=== PATIENT | female | born 1955 | race Caucasian/White ===

== ENCOUNTER 2021-09-05 09:23 | Day surgery (SDC) | payer MEDICARE, SELFPAY ==
[2021-08-31 10:50] VITALS: BMI 18.5
--- NOTE | 2021-09-01 14:27 | MHC.SHP ---
Pre-Procedural Eval Section A Date of Service: 09/01/21 The patient is an INPATIENT: No Changes since office visit: No Cold of Flu in the past 2 weeks, No New Medical Problems, No Changes in Medication and No Patient answered all questions The History & Physical has been completed within 30 days and I have reviewed it.: Yes Section B Chief Complaint: dermatochalasis Allergies: Allergies Allergy/AdvReac Type Severity Reaction Status Date / Time No Known Allergies Allergy Verified 08/31/21 10:52 [No Known Allergies*] Plan Diagnosis/Plan: Unchanged I have reviewed the history and physical and performed a pertinent physical examination on my patient. No changes have occurred unless specified.
--- NOTE | 2021-09-02 10:52 | HO.ANESPROP2 ---
Documented by User: Negrita Phan NP 09/02/21 10:56 HPI - Anesthesia Eval Consult details Narrative: 66yo F for Bilateral Blepharoplasty PCP cleared [facility] Past Medical History Medical History (Updated 09/02/21 @ 10:55 by Negrita Phan NP) Abdominal aortic ectasia Anxiety Arthritis Atherosclerosis of renal artery Bipolar disorder Elevated cholesterol Emphysema of lung HTN (hypertension) POTS (postural orthostatic tachycardia syndrome) Pulmonary fibrosis PVD (peripheral vascular disease) Renal calculi Surgical History Surgical History (Updated 08/31/21 @ 10:50 by Whitney Pham RN) History of bladder surgery History of colon surgery History of Whipple procedure Hx of bilateral cataract extraction Hx of colonoscopy Hx of cystoscopy Social History Social History Are you a primary vision care associate to a significant other at home: No Do you presently have visiting nurse or other home services: No Patient Tobacco Use Status: Current everyday Tobacco user Tobacco use type: Cigarette Cigarettes Per Day: 10 Use of substances other than those prescribed or required for medical reasons: No Have you been hit, kicked, punched, or otherwise hurt by someone within the past year? If so, by whom?: No Are you DNR?: No Advance Directives: No Advance Directives Information Provided: No Advance Directives on File: No Meds Allergies Allergy/AdvReac Type Severity Reaction Status Date / Time No Known Allergies Allergy Verified 08/31/21 10:52 [No Known Allergies*] Home Medications Medication Instructions Recorded Confirmed Last Taken Type Creon TID 08/31/21 Unknown History acetaminophen 325 mg tablet 2 tab PO Q6H PRN 08/31/21 08/31/21 Unknown History albuterol sulfate 90 mcg/actuation 2 puff PO Q4-6H PRN 08/31/21 08/31/21 Unknown History aerosol inhaler ascorbic acid (vitamin C) 250 mg 1 tab PO DAILY 08/31/21 08/31/21 Unknown History tablet atomoxetine 40 mg capsule 1 cap PO BEDTIME 08/31/21 08/31/21 Unknown History atorvastatin 20 mg tablet 1 tab PO DAILY 08/31/21 08/31/21 Unknown History calcium carbonate 200 mg calcium 1 tab PO DAILY 08/31/21 08/31/21 Unknown History (500 mg) chewable tablet (Calcium Antacid) cholecalciferol (vitamin D3) 50 1 tab PO DAILY 08/31/21 08/31/21 Unknown History mcg (2,000 unit) tablet clonazepam 1 mg tablet 1 tab PO TID 08/31/21 08/31/21 Unknown History coenzyme Q10 100 mg capsule 1 cap PO DAILY 08/31/21 08/31/21 Unknown History duloxetine 20 mg capsule,delayed 1 cap PO DAILY 08/31/21 08/31/21 Unknown History release famotidine 40 mg tablet 1 tab PO BEDTIME 08/31/21 08/31/21 Unknown History gabapentin 600 mg tablet 2 tab PO BEDTIME 08/31/21 08/31/21 Unknown History sucralfate 1 gram tablet 1 tab PO TID 08/31/21 08/31/21 Unknown History trazodone 50 mg tablet tab PO BEDTIME PRN 08/31/21 Unknown History Exam Exam Date and Time: September 02, 2021 1052 Height,Weight and Vital Signs: Height 5 ft Weight 43.091 kg Assessment and Plan Assessment Anesthesia Assessment: Chart Reviewed Documented by User: Mikel Forrester MD 09/05/21 09:50 [facility] Past Medical History Medical History (Updated 09/02/21 @ 10:55 by Negrita Phan NP) Abdominal aortic ectasia Anxiety Arthritis Atherosclerosis of renal artery Bipolar disorder Elevated cholesterol Emphysema of lung HTN (hypertension) POTS (postural orthostatic tachycardia syndrome) Pulmonary fibrosis PVD (peripheral vascular disease) Renal calculi Family History Family history of problems with anesthesia: No Surgical History Surgical History (Updated 08/31/21 @ 10:50 by Whitney Pham RN) History of bladder surgery History of colon surgery History of Whipple procedure Hx of bilateral cataract extraction Hx of colonoscopy Hx of cystoscopy History of Problems with Anesthesia: No Social History Social History Are you a primary vision care associate to a significant other at home: No Do you presently have visiting nurse or other home services: No Patient Tobacco Use Status: Current everyday Tobacco user Tobacco use type: Cigarette Cigarettes Per Day: 10 Use of substances other than those prescribed or required for medical reasons: No Have you been hit, kicked, punched, or otherwise hurt by someone within the past year? If so, by whom?: No Are you DNR?: No Advance Directives: No Advance Directives Information Provided: No Advance Directives on File: No Meds Allergies Allergy/AdvReac Type Severity Reaction Status Date / Time No Known Allergies Allergy Verified 08/31/21 10:52 [No Known Allergies*] Home Medications Medication Instructions Recorded Confirmed Last Taken Type Creon TID 08/31/21 Unknown History acetaminophen 325 mg tablet 2 tab PO Q6H PRN 08/31/21 08/31/21 Unknown History albuterol sulfate 90 mcg/actuation 2 puff PO Q4-6H PRN 08/31/21 08/31/21 Unknown History aerosol inhaler ascorbic acid (vitamin C) 250 mg 1 tab PO DAILY 08/31/21 08/31/21 Unknown History tablet atomoxetine 40 mg capsule 1 cap PO BEDTIME 08/31/21 08/31/21 Unknown History atorvastatin 20 mg tablet 1 tab PO DAILY 08/31/21 08/31/21 Unknown History calcium carbonate 200 mg calcium 1 tab PO DAILY 08/31/21 08/31/21 Unknown History (500 mg) chewable tablet (Calcium Antacid) cholecalciferol (vitamin D3) 50 1 tab PO DAILY 08/31/21 08/31/21 Unknown History mcg (2,000 unit) tablet clonazepam 1 mg tablet 1 tab PO TID 08/31/21 08/31/21 Unknown History coenzyme Q10 100 mg capsule 1 cap PO DAILY 08/31/21 08/31/21 Unknown History duloxetine 20 mg capsule,delayed 1 cap PO DAILY 08/31/21 08/31/21 Unknown History release famotidine 40 mg tablet 1 tab PO BEDTIME 08/31/21 08/31/21 Unknown History gabapentin 600 mg tablet 2 tab PO BEDTIME 08/31/21 08/31/21 Unknown History sucralfate 1 gram tablet 1 tab PO TID 08/31/21 08/31/21 Unknown History trazodone 50 mg tablet tab PO BEDTIME PRN 08/31/21 Unknown History Exam Airway Mallampati Class: II TM Dist: >3cm Neck ROM: Full Partial: Lower Loose/Missing/Broken Teeth: Yes Heart: [id number] Lungs: cta b/l Assessment and Plan Assessment Anesthesia Assessment: Anesthesia Plan Discussed Final Anesthetic Review Family History of Problems with Anesthesia: No History of Problems with Anesthesia: No NPO: Yes ASA Class: III Final Preanesthetic Review: No Changes in Pt Med Stat, Meds/Allgs Chart Reviewed, Consent Obtained/Reviewed, Anes Risks/Benef Reviewed and DNR Form (If Appl.) Patient Risk: Intermediate Procedure Risk: Low Assessment/Block/Sedation in SS: Assess/Block/Sedation-SS Anesthetic Plan Anesthetic Plan: MAC: and Agree w/ Assess. and Plan Disposition: Standard PACU
[2021-09-05 09:35] VITALS: BP 105/43; PULSE 81; RESP 16; TEMP 37.1; O2SAT 93
[2021-09-05] MEDS: Lactated Ringers 500 ML 50 ML IV (09:47)
--- NOTE | 2021-09-05 12:15 | HO.PNOPHT ---
Ophthalmology Procedure Procedure Date of Service: 09/05/21 Ophthalmology Viscoelastic: Not Applicable Ophthalmology Lenses: Not Applicable Procedure Notes: PREOPERATIVE DIAGNOSIS: Decreased visual field secondary to dermatochalasia POSTOPERATIVE DIAGNOSIS: Same PROCEDURE: Bilateral Blepharoplasty, upper eyelids SURGEON: Guerrero Brock M.D. ANESTHESIA: Local with sedation ESTIMATED BLOOD LOSS: None COMPLICATIONS: None After obtaining informed consent, the patient was brought to the operating room and placed in supine position. After adequate sedation per Anesthesia, the eyes were prepped and draped in the usual sterile fashion. Attention was directed to the right eye where a double pinch test was completed to assure excess tissue was not removed from the upper lid. The margin was marked at the proposed incision sites. The left eye was done in a similar fashion. 2% Lidocaine with epinephrine was then instilled subcutaneously along the margin of the pre-marked skin incisions. #15 scalpel blade was then utilized to create the incisions. Using a combination of sharp and blunt dissection with Elenita scissors, the epidermis was removed. Hemostasis was achieved with cautery. 6-0 plain suture was then utilized to close the incision site. Attention was directed to the left upper lid where subcutaneous 2% with Epinephrine Lidocaine was instilled along the pre-marked areas. A #15 scalpel blade was then utilized to create the incisions followed by sharp and blunt dissection with Elenita scissors to remove the overlying epidermis. Hemostasis was achieved with cautery, followed by closure with 6-0 plain suture. The patient tolerated the procedure well. The patient will be followed up in the a.m. Topical antibiotic ointment was instilled over the incision sites and ice as tolerated for 48 hours.
[2021-09-05] MEDS: Acetaminophen 325 MG TABLET 650 MG PO (12:18)
[2021-09-05 12:24] VITALS: BP 96/40; PULSE 77; RESP 16; TEMP 36.3; O2SAT 96
== END 2021-09-05 12:48 | disposition home or self-care (01) ==
PROVIDERS: PCP Family Medicine; Visit Provider Ophthalmology
PROC: (CPT 15823; principal; 2021-09-05 11:10)
DX: H02.831 Dermatochalasis of right upper eyelid (principal); H02.834 Dermatochalasis of left upper eyelid; Z83.511 Family history of glaucoma; Z96.1 Presence of intraocular lens; I10 Essential (primary) hypertension; F41.1 Generalized anxiety disorder; I73.9 Peripheral vascular disease, unspecified; E78.00 Pure hypercholesterolemia, unspecified; J43.9 Emphysema, unspecified; J84.10 Pulmonary fibrosis, unspecified; Z79.899 Other long term (current) drug therapy; F17.210 Nicotine dependence, cigarettes, uncomplicated; Z98.890 Other specified postprocedural states
CPT/HCPCS: 15823; J2250; J3010

== ENCOUNTER 2023-10-27 09:12 | Outpatient (AMB) | payer MEDICARE, MEDICAID, SELFPAY ==
[2023-10-27 09:29] VITALS: BP 120/72; PULSE 90; TEMP 37.1; O2SAT 90; BMI 22.3
--- NOTE | 2023-10-27 09:42 | AM.OFFWIN_ITS ---
Intake Vital Signs 3 10/27/23 09:29 Height 5 ft 1 in Weight 118 lb BMI 22.3 BP 120/72 Blood Pressure Location Lt brachial Position Sitting Pulse 90 Pulse Source Pulse Oximeter Temp 98.7 F Temp Source Oral Pulse Oximetry (%) 90 L Oxygen Delivery Method Room Air Intake Visit Reasons: EP sore in Nose/painful Intake Note: Patient is here with painful, sore nose with white discharge after being sick last week. Patient Tobacco Use Status: Current everyday Tobacco user Allergies No Known Allergies [No Known Allergies*] Allergy (Verified 10/27/23 09:34) HPI EP sore in Nose/painful 2 HPI0 Details Patent is a 68-year-old female comes to the walk-in clinic complaining of a sore in her nostril and upper lip area, after a course of upper respiratory illness. She did not test for COVID, and denies seeing a provider yet. She also denies current sore throat or significant cough, ear pain chest or shortness of breath, fever or chills, nausea vomiting or diarrhea, weakness or dizziness, nosebleeds, sores to the mouth or throat, or other significant associated symptoms. [facility] Medical History (Updated 09/02/21 @ 10:55 by Negrita Phan NP) HTN (hypertension) Bipolar disorder PVD (peripheral vascular disease) Abdominal aortic ectasia Emphysema of lung Atherosclerosis of renal artery Pulmonary fibrosis Anxiety Arthritis Renal calculi Elevated cholesterol POTS (postural orthostatic tachycardia syndrome) Surgical History (Updated 08/31/21 @ 10:50 by Whitney Pham RN) History of bladder surgery Hx of bilateral cataract extraction Hx of cystoscopy History of colon surgery Hx of colonoscopy History of Whipple procedure Social History Are you a primary health care social worker to a significant other at home: No Do you presently have visiting nurse or other home services: No Patient Tobacco Use Status: Current everyday Tobacco user Tobacco use type: Cigarette Cigarettes Per Day: 10 Review of Systems Const All systems reviewed & are unremarkable except as noted in HPI and below Physical Exam Vital Signs: Last Vital Signs Temp 98.7 F 10/27/23 09:29 Pulse 90 10/27/23 09:29 BP 120/72 10/27/23 09:29 Pulse Ox 90 L 10/27/23 09:29 Oxygen Delivery Method Room Air 10/27/23 09:29 BMI result Body Mass Index 22.3 Const General: cooperative, healthy appearing, alert, awake, Physically active and well groomed; No diaphoretic, ill appearing, intoxicated appearing, poor hygiene or tired appearing Nutritional Appearance: average body habitus Orientation/consciousness: patient oriented x3 Limitations: no limitations HEENT Head: Yes normal to inspection, Yes normocephalic and Yes atraumatic Ears: hearing grossly normal bilaterally, external ears normal, TM's normal bilaterally and EAC's normal General nose exam: Normal external nose present, nares abnormal, mucous membranes and turbinates abnormal (Boggy), Abnormal nasal septum present other (Erythematous and raised lesions bilateral sides of the septum) and Nasal discharge present Nose image: 2 1. Raised papular lesion with yellow crusting and mild erythema and edema surrounding Face and sinus: Yes normal facial exam, Yes sinuses nontender and Yes face symmetric Mouth: Normal oral and palatal mucosa present and tongue normal Throat: Yes posterior oropharynx normal, No peritonsillar mass, No postnasal drainage, No uvular edema and No cobblestoning Eyes General: appearance normal, both eyes and all related structures Neck Neck: Yes normal visual inspection, Yes no lymphadenopathy, Yes trachea midline, Yes supple and No anterior neck swelling Resp Effort & Inspection: normal respiratory effort Skin Other: Good color, warm and dry Neuro General: patient oriented x3 Psych Appearance: grossly normal Mental Status: mental status grossly normal Speech and movement: Normal speech and movement present Affect: normal affect Attitude: cooperative Thought process: Normal thought process present Insight: Good insight present (Psych) Judgement: Good judgement present (Psych) Assessment & Plan Assessment & Plan (1) Lesion of nostril: Code(s): J34.89 - Other specified disorders of nose and nasal sinuses Plan Patient with few day onset of lesions to the bilateral nares and to the upper lip, after increased cough likely due to URI. She did not test for COVID. No report of sore throat, headache or dizziness, facial pressure, weakness, myalgias or malaise, nausea vomiting or diarrhea, shortness of breath or chest pain, abdominal pain, other lesions, or other significant associated symptoms. The lesions are present to the bilateral nostrils, so unlikely it is shingles. They do not have a vesicular appearance, and more an impetigo type block. Will treat with topical Bactroban and Bactrim DS in case it is MRSA, and in light of the severe pain that patient is experiencing. Will also add nonsteroidals. Pending routine culture with Gram stain to the nasal lesions, and flu COVID and RSV results. She knows to follow up if symptoms persist or worsen in the meantime, or go to the emergency department with worrisome symptoms. Orders: Orders 2 SARS-CoV2/FLU/RSV 10/27/23 R09.89 - Other specified symptoms and signs involving the circulatory and respiratory systems Routine Culture w Gram Stain 10/27/23 L03.90 - Cellulitis, unspecified Medications: New 2 naproxen 500 mg PO BID PRN 28 tabs 0RF pain 14 days mupirocin 2% 1 appl topical TID 22 grams 0RF 7 days mupirocin 2% 1 appl topical TID 22 grams 0RF nasal lesions 7 days sulfamethoxazole-trimethoprim 800-160 mg (Bactrim DS) 1 tab PO BID 10 tabs 0RF 5 days Coding Level of Care Code Est Pt Level 4 (76818) Diagnoses Lesion of nostril J34.89
== END 2023-10-27 10:44 | disposition home or self-care (01) ==
PROVIDERS: PCP Nurse Practitioner; Visit Provider Physician Assistant Medical
DX: J34.89 Other specified disorders of nose and nasal sinuses (principal)
CPT/HCPCS: 99214

== ENCOUNTER 2023-10-27 10:18 | Outpatient (REF) | payer MEDICARE, MEDICAID, SELFPAY ==
[2023-10-27 13:47] LABS: Influenza A PCR NEGATIVE (Negative); Influenza B PCR NEGATIVE (Negative); Resp Syncy Virus RNA Qual PCR NEGATIVE (Negative); SARS COV2 PCR INHOUSE NEGATIVE (Negative)
== END 2023-10-27 10:19 | disposition home or self-care (01) ==
LOC: HO.LAB 10:18
PROVIDERS: Visit Provider Physician Assistant Medical
DX: R09.89 Other specified symptoms and signs involving the circulatory and respiratory systems (principal); Z20.822 Contact with and (suspected) exposure to COVID-19; J06.9 Acute upper respiratory infection, unspecified
CPT/HCPCS: 0241U; 87070; 87077; 87186; 87205

== ENCOUNTER 2023-12-08 11:20 | Outpatient (AMB) | payer MEDICARE, MEDICAID, SELFPAY ==
[2023-12-08 11:20] VITALS: BP 106/70; PULSE 80; TEMP 37.1; O2SAT 96; BMI 20.8
--- NOTE | 2023-12-08 11:20 | MHC.OFFWIV ---
Intake Vital Signs 12/08/23 11:20 Height 5 ft 1 in Weight 110 lb BMI 20.8 BP 106/70 Blood Pressure Location Lt brachial Position Sitting Pulse 80 Pulse Source Pulse Oximeter Temp 98.7 F Temp Source Oral Pulse Oximetry (%) 96 Oxygen Delivery Method Room Air Intake Visit Reasons: EP mersa??? Intake Note: pt here c/o Blister on lip, not healing. Started 3 days ago. Thinks MRSA Patient Tobacco Use Status: Current everyday Tobacco user Allergies No Known Allergies [No Known Allergies*] Allergy (Verified 12/08/23 11:21) Do you need a note to return to daycare/school/sports/work: No HPI EP mersa??? HPI Details Patient is a 68-year-old female with a history of nasal and upper lip MRSA infection, that had cleared with a course of doxycycline and topical Bactroban. She comes to the walk-in clinic complaining of a similar feeling blister to her lower inner lip, that started 3 days ago. She does report history of cold sores but states she has not had them in a few decades. No fever or chills, respiratory symptoms, or other significant associated symptoms. She does report feeling very stressed lately with life factors. PENDING SALE TO [facility] Medical History HTN (hypertension) Bipolar disorder PVD (peripheral vascular disease) Abdominal aortic ectasia Emphysema of lung Atherosclerosis of renal artery Pulmonary fibrosis Anxiety Arthritis Renal calculi Elevated cholesterol POTS (postural orthostatic tachycardia syndrome) Surgical History History of bladder surgery Hx of bilateral cataract extraction Hx of cystoscopy History of colon surgery Hx of colonoscopy History of Whipple procedure Social History Are you a primary director of healthcare systems to a significant other at home: No Do you presently have visiting nurse or other home services: No Patient Tobacco Use Status: Current everyday Tobacco user Tobacco use type: Cigarette Cigarettes Per Day: 10 Review of Systems Const All systems reviewed & are unremarkable except as noted in HPI and below Physical Exam Vital Signs: Last Vital Signs Temp 98.7 F 12/08/23 11:20 Pulse 80 12/08/23 11:20 BP 106/70 12/08/23 11:20 Pulse Ox 96 12/08/23 11:20 Oxygen Delivery Method Room Air 12/08/23 11:20 BMI result Body Mass Index 20.8 HEENT Nose image: 1. Assessment & Plan Assessment & Plan (1) Lip lesion: Code(s): K13.0 - Diseases of lips Plan: Patient is a 68-year-old female comes to the walk-in clinic a few weeks after being diagnosed with MRSA to the upper lip and in her nares. She has a new onset blister to her inside lower lip, right on the inner vermilion border. This does appear more vesicular, and might be a cold sore, which he does have a history of having in the past, and might be flared up due to her recent stressors. I did write her for a course of Valtrex to be safe, and she can have blood work checked to verify this. She also was written for a refill of the Bactroban to apply to the lesion topically due to her recent MRSA, which was on the upper lip and nares. She should discuss this with dermatology or her PCP in case she should have antibiotics for MRSA colonization, if that is the case. Otherwise, she should follow up urgently if she develops any worrisome symptoms. Orders: Orders HSV I and II,[facility] 12/08/23 K13.0 - Diseases of lips Medications: New valacyclovir 2,000 mg (2 x 1 gram) PO BID 4 tabs 2RF 1 day Refilled mupirocin 2% 1 appl topical TID 22 grams 0RF nasal lesions 7 days Coding Level of Care Code Est Pt Level 4 (68910) Diagnoses Lip lesion K13.0
--- OUTSIDE RECORDS SUMMARY | 2023-12-08 11:21 | XMS_ITS | Continuity of Care Document ---
Author Organization [facility] Address [address] [place] [address], [address] [place] [address]- Care Team Providers Care Drill Press Set Up Operator Name Role Phone Os CARPENTER WOODEN TANK ERECTING, Analy Pruett Primary Care Physician [phone] Encounter [facility] [place] Date(s): 09/14/23 - 10/14/23 [facility] [address] [facility] [place], [address]th [place] [address]- Attending Physician: Justen Canela Admitting Physician: Justen Canela Referring Physician: Justen Canela Referring Physician: Avis Kelly Referring Physician: Avis Kelly Referring Physician: Avis Kelly Referring Physician: Avis Kelly Allergies, Adverse Reactions, Alerts No Known Allergies Immunizations Given and Recorded Vaccine Date Status Refusal Reason SARS-CoV-2 (COVID-19) mRNA-1273 vaccine 12/22/21 R ecorded SARS-CoV-2 (COVID-19) mRNA-1273 vaccine 03/31/21 R ecorded SARS-CoV-2 (COVID-19) mRNA-1273 vaccine 09/03/20 R ecorded SARS-CoV-2 (COVID-19) mRNA-1273 vaccine 08/06/20 R ecorded zoster vaccine, inactivated 07/11/21 Recorded zoster vaccine, inactivated 02/10/21 Recorded zoster vaccine, inactivated 01/18/18 Recorded influenza virus vaccine, inactivated 02/25/21 Cameron rded influenza virus vaccine, inactivated 01/17/20 Cameron rded influenza virus vaccine, inactivated 07/08/18 Cameron rded influenza virus vaccine, inactivated 01/25/18 Cameron rded influenza virus vaccine, inactivated 01/28/17 Cameron rded influenza virus vaccine, inactivated 9/5/16 Cameron rded influenza virus vaccine, inactivated 02/19/14 Cameron rded pneumococcal 23-valent vaccine 01/17/20 Recorded pneumococcal 13-valent vaccine 07/08/18 Recorded tetanus/diphtheria/pertussis, acel(Tdap) 01/25/18 Recorded tetanus/diphtheria/pertussis, acel(Tdap) 04/29/17 Recorded tetanus/diphtheria/pertussis, acel(Tdap) 04/04/16 Recorded tetanus-diphtheria toxoids (Td) 04/19/11 Recorded Medications Albuterol (Eqv-ProAir HFA) 90 mcg/inh inhalation aerosol 2 puffs = 180 mcg, Inhalation, Every 4 hours, j44.9, # 8.5 Gm, 6 Refills, Maintenance, 09/28/23 14:45:00 EDT, Inhaler, [facility], Partial fill upon patient request if the prescription is for a schedule II opioid drug., 2 puffs Inhalation Ev... Start Date: 09/28/23 Status: Ordered Clonazepam = 1 mg, By Mouth, 2 times a day, PRN Anxiety, 0 Refills, Maintenance, 01/29/20 9:23:00 EDT Start Date: 01/29/20 Status: Ordered CoQ10 100 mg oral capsule 1 capsule = 100 mg, By Mouth, Daily, Maintenance, 01/26/22 12:00:00 EDT Start Date: 01/26/22 Status: Ordered Cymbalta 60 mg oral enteric coated capsule 2 capsule = 120 mg, By Mouth, Daily, do not crush or chew, 0 Refills, Maintenance, 05/02/23 10:44:00 EST, CR Capsule, Partial fill upon patient request if the prescription is for a schedule II opioiddrug. Start Date: 05/02/23 Status: Ordered estradiol 0.1 mg/g vaginal cream See Instructions, APPLY 1 GRAM VAGINALLY EVERY SUNDAY AND SUNDAY, # 42.5 Gm, 3 Refills, Maintenance, 03/02/23 10:03:00 EDT, [facility], 155, cm, 02/22/23 9:42:00 EDT, Height, 54.5, kg, 03/02/23 9:48:00 EDT, Dry Weight Start Date: 03/02/23 Status: Ordered fexofenadine 60 mg oral tablet 2 times a day, 0 Refills, Maintenance, 03/15/23 15:11:00 EDT, Partial fill upon patient request if the prescription is for a schedule II opioid drug. Start Date: 03/15/23 Status: Ordered Flonase 50 mcg/inh nasal spray = 50 mcg, Nares, Both, Daily, PRN Congestion, 0 Refills, Maintenance, 03/18/19 14:05:01 EDT Start Date: 03/18/19 Status: Ordered gabapentin 600 mg oral tablet 2 tablet = 1,200 mg, By Mouth, Daily at bedtime, Maintenance, 01/26/22 11:57:00 EDT, Tablet Start Date: 01/26/22 Status: Ordered Gemtesa 75 mg oral tablet 1 tablet = 75 mg, 0 Refills, Maintenance, 10/08/23 11:44:00 EDT, Partial fill upon patient request if the prescription is for a schedule II opioid drug. Start Date: 10/08/23 Status: Ordered Gemtesa 75 mg oral tablet See Instructions, TAKE 1 TABLET BY MOUTH DAILY, # 90 tablet, 3 Refills, Maintenance, 08/30/23 14:41:00 EDT, [facility]/pharmacy #[id number], 154, cm, 05/04/23 12:20:00 EST, Height, 52.4, kg, 05/04/23 12:20:00 EST, Dry Weight Start Date: 08/30/23 Status: Ordered LaMICtal 25 mg oral tablet 25 mg, 1, tablet, By Mouth, 2 times a day, Refills 0, Maintenance, 10/08/23 11:41:00 EDT, Partial fill upon patient request if the prescription is for a schedule II opioid drug. Start Date: 10/08/23 Status: Ordered Multivitamin 0 Refills, Maintenance, 09/10/23 17:01:00 EDT, Partial fill upon patient request if the prescription is for a schedule II opioid drug. Start Date: 09/10/23 Status: Ordered Omeprazole = 40 mg, By Mouth, Daily, 0 Refills, Maintenance, 12/07/21 11:22:00 EDT, Partial fill upon patient request if the prescription is for a schedule II opioid drug. Start Date: 12/07/21 Status: Ordered oxybutynin 5 mg oral tablet See Instructions, TAKE 1 TABLET BY MOUTH DAILY AT BEDTIME, # 30 tablet, 4 Refills, Maintenance, 08/06/23 11:28:00 EST, [facility], 154, cm, 05/04/23 12:20:00 EST, Height, 52.4, kg, 05/04/2312:20:00 EST, Dry Weight Start Date: 08/06/23 Status: Ordered Probiotic Formula 1 capsule, By Mouth, 2 times a day, 0 Refills, Maintenance, 09/06/20 13:12:00 EDT Start Date: 09/06/20 Status: Ordered Stiolto Respimat 60 ACT 2.5 mcg-2.5 mcg/inh inhalation aerosol 2 puffs, Inhalation, Every 24 hours, j44.9, # 12 Gm, 11 Refills, Maintenance, 09/28/23 14:45:00 EDT, Aerosol, [facility], Partial fill upon patient request if the prescription is for a schedule II opioid drug., 155, cm, 09/26/23 8:53:00 EDT,... Start Date: 09/28/23 Status: Ordered traZODone 50 mg oral tablet 200 mg, 4, tablet, By Mouth, Daily at bedtime, Maintenance, 01/26/22 11:59:00 EDT Start Date: 01/26/22 Status: Ordered Zenpep 10,000 units-32,000 units-42,000 units oral delayed release capsule 2 capsule, By Mouth, 3 times a day, with each meal and snack, 0 Refills, Maintenance, 01/05/22 9:00:00 EDT, CR Capsule Start Date: 01/05/22 Status: Ordered Problem List Condition Confirmation Course Effective Dates Status H ealth Status Informant EtOH stopped 2011 going to AA meetings 1 Confirmed Active Cervical disc disorder with radiculopathy Confirmed Active Cervical facet syndrome Confirmed Active Bipolar depression 2 Confirmed Active Fibromyalgia Confirmed Active Myofascial pain Confirmed Active Neutrophilic leukocytosis Confirmed Active Osteoarthritis Confirmed Active Pancreatic insufficiency Confirmed Active Rectal prolapse Confirmed Active 1st 2Dr [facility] Social History Social History Type Response Smoking Status 10 or more cigarette s (1/2 pack or more)/day in last 30 days; Interested in cessation: No; Patient wants NRT during admission No entered on: 09/26/23 Sex Patient Care team information Care Team Personnel Name: Marilin Del Castillo RN Position: Sonia RICHARDS RN Member Role: Primary Care Nurse Name: Sahara PAREDES, Olesya Position: S RN Member Role: Primary Care Nurse Name: Danis CARPENTER WOODEN TANK ERECTINGAnaly Position: Reference Physician Member Role: PCP Address: Address: [address] [place] [id number]- Care Team Related Persons Name: YANA CAILIN Address: home [address] [address] Name: BILLY PORTER Address: [place] [address]
--- OUTSIDE RECORDS SUMMARY | 2023-12-08 11:21 | XMS_ITS | Continuity of Care Document ---
Author Organization [facility] Address [address] [place] [address]- Care Team Providers Care Oracle Specialist Name Role Phone Avi Abhishek HERNANDEZ Primary Care Physician [place] [facility] [place]s): 11/18/20 - 12/18/20 [facility] [address] [place] [id number] Allergies, Adverse Reactions, Alerts Substance Reaction Severity Status NKA Active Medications Carafate 1 gm oral tablet 1 Gm, 1, tablet, By Mouth, 3 times a day before meals and bedtime, Refills 0, Maintenance, 08/27/2012:41:00 EDT Start Date: 08/28/19 Status: Ordered Clonazepam = 1 mg, By Mouth, 2 times a day, 0 Refills, Maintenance, 01/29/20 9:23:00 EDT Start Date: 01/29/20 Status: Ordered Creon 2 capsules, By Mouth, 3 times a day, with meals, 0 Refills, Maintenance, 03/18/19 14:05:27 EDT Start Date: 03/18/19 Status: Ordered Cymbalta 20 mg oral enteric coated capsule 2 capsule = 40 mg, By Mouth, Daily in AM, 0 Refills, Maintenance, 03/18/19 14:04:27 EDT Start Date: 03/18/19 Status: Ordered Famotidine = 40 mg, By Mouth, 2 times a day, 0 Refills, Maintenance, 01/29/20 9:25:00 EDT Start Date: 01/29/20 Status: Ordered Flonase 50 mcg/inh nasal spray = 50 mcg, Nares, Both, Daily, PRN Congestion, 0 Refills, Maintenance, 03/18/19 14:05:01 EDT Start Date: 03/18/19 Status: Ordered gabapentin 300 mg oral capsule 3 capsules, By Mouth, Daily at bedtime, # 270 capsule, Refills 0, Maintenance, 01/29/20 9:18:00 EDT Start Date: 01/29/20 Status: Ordered ibuprofen 600 mg oral tablet 600 mg, 1, tablet, By Mouth, 4 times a day, # 40 tablet, Refills 0, Tot. Refills 0, Maintenance, 02/02/20 8:20:00 EDT, Route to Pharmacy Electronically, [id number], 152.4, cm, 02/02/20 7:15:00 EDT, Height, 46.7, kg, 02/02/20 7:20:00 E... Start Date: 02/02/20 Status: Ordered mirabegron 25 mg oral tablet, extended release 1 tablet = 25 mg, By Mouth, Daily, do not crush or chew, # 30 tablet, 5 Refills, Maintenance, 03/16/20 12:51:00 EDT, ER Tablet, [facility] #[id number], 152.4, cm, 02/17/20 10:25:00 EDT, Height, 46.9, kg, 02/17/20 10:25:00 EDT, Dry Weight Start Date: 03/16/20 Status: Ordered Motegrity 2 mg oral tablet 1 tablet = 2 mg, By Mouth, Daily in AM, 0 Refills, Maintenance, 01/21/20 11:02:00 EDT Start Date: 01/21/20 Status: Ordered Myrbetriq 25 mg oral tablet, extended release 1 tablet, By Mouth, Daily, # 30 tablet, 0 Refills, Maintenance, 03/10/20 11:21:00 EDT, [facility] #[id number], 152.4, cm, 02/17/20 10:25:00 EDT, Height, 46.9, kg, 02/17/20 10:25:00 EDT, Dry Weight Start Date: 03/10/20 Status: Ordered ondansetron 4 mg oral tablet 1 tablet = 4 mg, By Mouth, Every 8 hours, PRN Nausea & Vomiting, for 30 days, # 90 tablet, 2 Refills, Acute 02/28/21 16:53:00 EDT, 11/30/20 16:53:00 EDT, Tablet, [facility], Partial fill upon patient request if the prescription is for a sche... Start Date: 11/30/20 Stop Date: 02/28/21 Status: Ordered oxyCODONE 5 mg oral capsule 1 capsule = 5 mg, By Mouth, Every 6 hours, PRN as needed for pain, # 7 capsule, 0 Refills, Maintenance, 02/02/20 8:19:00 EDT, Capsule, [facility] #[id number], Partial fill upon patient request, 152.4, cm, 02/02/20 7:15:00 EDT, Height, 46.7, kg, 0... Start Date: 02/02/20 Status: Ordered Probiotic Formula By Mouth, Daily, 0 Refills, Maintenance, 09/06/20 13:12:00 EDT, Partial fill upon patient request if the prescription is for a schedule II opioid drug. Start Date: 09/06/20 Status: Ordered stiz stiz, See Instructions, # 1 each, Refills 0, Tot. Refills 0, Maintenance, Use as needed after bowelmovement and for pain Dx: rectal pain, 08/04/19 14:28:00 EST, Compound Start Date: 08/04/19 Status: Ordered Trazodone Tablet 300, mg, By Mouth, Daily at bedtime, 0, 0, 11/22/05 8:51:14, Print CORY Number, ADS OPPTHS, 144 Start Date: 11/22/05 Stop Date: 12/20/05 Status: Ordered Vitamin D 12098 iu oral capsule 50,000 International_Units, By Mouth, Daily, Refills 0, Maintenance, 09/06/20 13:12:00 EDT, Partialfill upon patient request if the prescription is for a schedule II opioid drug. Start Date: 09/06/20 Status: Ordered Problem List Condition Effective Dates Status Health Status Inform ant EtOH stopped 2011 going to [facility] [employer](Confirmed) 1 Active Bipolar depression(Confirmed) 2 Active Fibromyalgia(Confirmed) Active Rectal prolapse(Confirmed) Active 1st 2Dr [facility] Social History Social History Type Response Smoking Status 5-9 cigarettes (betw een 1/4 to 1/2 pack)/day in last 30 days;Smoker, current status unknown entered on: 09/16/19 Sex
--- OUTSIDE RECORDS SUMMARY | 2023-12-08 11:22 | XMS_ITS | Continuity of Care Document ---
Author Organization [facility] Address [address] [place] [address]- Care Team Providers Care Sandfill Operator Surface Name Role Phone Abhishek Cárdenas DO Primary Care Physician [phone] Encounter [facility] [place] Date(s): 09/26/21 - 10/26/21 [facility] [address] [place] [id number]- Allergies, Adverse Reactions, Alerts No Known Allergies Medications Clonazepam = 1 mg, By Mouth, 2 times a day, 0 Refills, Maintenance, 01/29/20 9:23:00 EDT Start Date: 01/29/20 Status: Ordered Cymbalta 20 mg oral enteric coated capsule 2 capsule = 40 mg, By Mouth, Daily in AM, 0 Refills, Maintenance, 03/18/19 14:04:27 EDT Start Date: 03/18/19 Status: Ordered estradiol 0.1 mg/g vaginal cream See Instructions, APPLY 1 GRAM VAGINALLY EVERY SUNDAY AND SUNDAY, # 42.5 Gm, 2 Refills, [facility], 152.4, cm, 07/19/21 12:34:00 EST, Height, 45.8, kg, 03/08/21 15:15:00 EDT, Dry Weight Start Date: 08/09/21 Status: Ordered Flonase 50 mcg/inh nasal spray = 50 mcg, Nares, Both, Daily, PRN Congestion, 0 Refills, Maintenance, 03/18/19 14:05:01 EDT Start Date: 03/18/19 Status: Ordered gabapentin 300 mg oral capsule 3 capsules, By Mouth, Daily at bedtime, # 270 capsule, Refills 0, Maintenance, 01/29/20 9:18:00 EDT Start Date: 01/29/20 Status: Ordered Lipitor 10 mg oral tablet 1 tablet = 10 mg, By Mouth, Daily, # 30 tablet, 0 Refills, Maintenance, 03/08/21 15:18:00 EDT, Partial fill upon patient request if the prescription is for a schedule II opioid drug. Start Date: 03/08/21 Status: Ordered ondansetron 4 mg oral tablet 1 tablet = 4 mg, By Mouth, Every 8 hours, PRN Nausea & Vomiting, for 30 days, # 90 tablet, 2 Refills, Acute 01/03/22 15:20:00 EDT, 10/05/21 15:20:00 EDT, Tablet, [facility], Partial fill upon patient request if the prescription is for a sche... Start Date: 10/05/21 Stop Date: 01/03/22 Status: Ordered Probiotic Formula By Mouth, Daily, 0 Refills, Maintenance, 09/06/20 13:12:00 EDT, Partial fill upon patient request if the prescription is for a schedule II opioid drug. Start Date: 09/06/20 Status: Ordered Trazodone Tablet 300, mg, By Mouth, Daily at bedtime, 0, 0, 11/22/05 8:51:14, Print CORY Number, ADS OPPTHS, 144 Start Date: 11/22/05 Stop Date: 12/20/05 Status: Ordered Vitamin D 02308 iu oral capsule 50,000 International_Units, By Mouth, Daily, Refills 0, Maintenance, 09/06/20 13:12:00 EDT, Partialfill upon patient request if the prescription is for a schedule II opioid drug. Start Date: 09/06/20 Status: Ordered Problem List Condition Effective Dates Status Health Status Inform ant EtOH stopped 2011 going to [facility] [employer](Confirmed) 1 Active Cervical disc disorder with radiculopathy(Confirmed) Active Bipolar depression(Confirmed) 2 Active Fibromyalgia(Confirmed) Active Rectal prolapse(Confirmed) Active 1st 2Dr [facility] Social History Social History Type Response Smoking Status 5-9 cigarettes (betw een 1/4 to 1/2 pack)/day in last 30 days;Smoker, current status unknown entered on: 09/16/19 Sex
--- OUTSIDE RECORDS SUMMARY | 2023-12-08 11:22 | XMS_ITS | Continuity of Care Document ---
Author Organization [facility] Address [address] [facility], [address] [place] [address]- Care Team Providers Care Solar Lab Technician Name Role Phone Avi Abhishek Leiva Primary Care Physician [phone] Encounter [facility] [place] Date(s): 08/09/21 - 09/08/21 [facility] [address] [facility], [address]th [address] [place], [place] [address] Allergies, Adverse Reactions, Alerts No Known Allergies Medications Carafate 1 gm oral tablet 1 [...] 14:04:27 EDT Start Date: 03/18/19 Status: Ordered Enablex 7.5 mg oral tablet, extended release 1 tablet = 7.5 mg, By Mouth, Daily, # 90 capsule, 1 Refills, Maintenance, 08/08/21 14:43:00 EST, ERTablet, [facility], Partial fill upon patient request if the prescription is for a schedule II opioid drug., 152.4, cm, 07/19/21 12:34:00 EST... Start Date: 08/08/21 Status: Ordered estradiol 0.1 mg/g vaginal cream See Instructions, APPLY 1 GRAM VAGINALLY EVERY SUNDAY AND SUNDAY, # 42.5 Gm, 2 Refills, [facility], 152.4, cm, 07/19/21 12:34:00 EST, Height, 45.8, kg, 03/08/21 15:15:00 EDT, Dry Weight Start Date: 08/09/21 Status: Ordered Famotidine = 40 mg, By [...] 02/02/20 8:20:00 EDT, Route to Pharmacy Electronically, [facility] #[id number], 152.4, cm, 02/02/20 7:15:00 EDT, Height, 46.7, kg, 02/02/20 7:20:00 E... Start Date: 02/02/20 Status: Ordered Lipitor 10 mg oral tablet 1 tablet = 10 mg, By Mouth, Daily, # 30 tablet, 0 Refills, Maintenance, 03/08/21 15:18:00 EDT, Partial fill upon patient request if the prescription is for a schedule II opioid drug. Start Date: 03/08/21 Status: Ordered mirabegron 25 mg oral tablet, extended release 1 tablet = 25 mg, By Mouth, Daily, do not crush or chew, # 30 tablet, 5 Refills, Maintenance, 03/16/20 12:51:00 EDT, ER Tablet, [facility] #[id number], 152.4, cm, 02/17/20 10:25:00 EDT, Height, 46.9, [...] tablet, 0 Refills, Maintenance, 03/10/20 11:21:00 EDT, [facility] #[id number], 152.4, cm, 02/17/20 10:25:00 EDT, Height, 46.9, kg, 02/17/20 10:25:00 EDT, Dry Weight Start Date: 03/10/20 Status: Ordered oxyCODONE 5 mg oral capsule 1 capsule = 5 mg, By Mouth, Every 6 hours, PRN as needed for pain, # 7 capsule, 0 Refills, Maintenance, 02/02/20 8:19:00 EDT, Capsule, [facility] #[id number], Partial fill upon patient request, 152.4, cm, [...] Date: 11/22/05 Stop Date: 12/20/05 Status: Ordered trospium 60 mg oral capsule, extended release 1 capsule = 60 mg, By Mouth, Daily in AM, # 30 capsule, 5 Refills, Maintenance, 08/11/21 12:30:00 EST, CR Capsule, [facility], Partial fill upon patient request if the prescription is for aschedule II opioid drug., 152.4, cm, 07/19/21 12:34... Start Date: 08/11/21 Status: Ordered Vitamin D 39414 iu oral capsule 50,000 International_Units, By Mouth, Daily, Refills 0, Maintenance, 09/06/20 13:12:00 EDT, Partialfill upon patient request if the prescription is for a schedule II opioid drug. Start Date: 09/06/20 Status: Ordered Problem List Condition Effective Dates Status Health Status Inform ant EtOH stopped 2011 going to [facility](Confirmed) 1 Active Cervical disc disorder with radiculopathy(Confirmed) Active Bipolar depression(Confirmed) 2 Active Fibromyalgia(Confirmed) Active Rectal prolapse(Confirmed) Active 1st 2Dr [facility] Social History Social History Type Response Smoking Status 5-9 cigarettes (betw een 1/4 to 1/2 pack)/day in last 30 days;Smoker, current status unknown entered on: 09/16/19 Sex
--- OUTSIDE RECORDS SUMMARY | 2023-12-08 11:22 | XMS_ITS | Continuity of Care Document ---
Author Organization [facility] Address [address] [place] [address]- Care Team Providers Care Finishing Machine Operator Automatic Name Role Phone Abhishek Cárdenas DO Primary Care Physician [phone] Encounter [facility] Date(s): 07/25/22 - 10/27/22 [facility] [address] [place] [address]- Attending Physician: Ernesto Arboleda MD Admitting Physician: Ernesto Arboleda MD Allergies, Adverse Reactions, Alerts No Known Allergies [...] 01/28/17 Cameron rded influenza virus vaccine, inactivated 02/07/16 Cameron rded influenza virus vaccine, inactivated 02/19/14 Cameron rded pneumococcal 23-valent vaccine 01/17/20 Recorded pneumococcal 13-valent vaccine 07/08/18 Recorded tetanus/diphtheria/pertussis, acel(Tdap) 01/25/18 Recorded tetanus/diphtheria/pertussis, acel(Tdap) 04/29/17 Recorded tetanus/diphtheria/pertussis, acel(Tdap) 04/04/16 Recorded tetanus-diphtheria toxoids (Td) 04/19/11 Recorded Medications acetaminophen 500 mg oral tablet 2 tablet = 1,000 mg, By Mouth, Every 4 hours, PRN as needed for fever, Maintenance, 01/26/22 11:55:00 EDT, Tablet Start Date: 01/26/22 Status: Ordered apixaban 2.5 mg oral tablet 1 tablet = 2.5 mg, By Mouth, 2 times a day, # 60 tablet, 0 Refills, Maintenance, 01/25/22 8:56:00 EDT, Tablet, [facility], Partial fill upon patient request if the prescription is for aschedule II opioid drug., 155, cm, 01/25/22 6:59:00... Start Date: 01/25/22 Status: Ordered ascorbic acid 250 mg oral tablet 1 tablet = 250 mg, By Mouth, Daily, Maintenance, 01/26/22 12:01:00 EDT, Tablet Start Date: 01/26/22 Status: Ordered atorvastatin 20 mg oral tablet 1 tablet = 20 mg, By Mouth, Daily, Maintenance, 01/26/22 11:56:00 EDT, Tablet Start Date: 01/26/22 Status: Ordered Clonazepam = 1 mg, By Mouth, 3 times a day, PRN Anxiety, 0 Refills, Maintenance, 01/29/20 9:23:00 EDT Start Date: 01/29/20 Status: Ordered CoQ10 100 mg oral capsule 1 capsule = 100 mg, By Mouth, Daily, Maintenance, 01/26/22 12:00:00 EDT Start Date: 01/26/22 Status: Ordered Cymbalta 20 mg oral enteric coated capsule 2 capsule = 40 mg, By Mouth, Daily in AM, 60mg, 0 Refills, Maintenance, 03/18/19 14:04:27 EDT Start Date: 03/18/19 Status: Ordered estradiol 0.1 mg/g vaginal cream See Instructions, APPLY 1 GRAM VAGINALLY EVERY SUNDAY AND SUNDAY, # 42.5 Gm, 2 Refills, Maintenance, 06/01/22 15:02:00 EST, [facility], 155, cm, 01/27/22 10:19:00 EDT, Height, 49.3, kg, 01/26/22 11:05:00 EDT, Dry Weight Start Date: 06/01/22 Status: Ordered Flonase 50 mcg/inh nasal spray = 50 mcg, Nares, Both, Daily, PRN Congestion, 0 Refills, Maintenance, 03/18/19 14:05:01 EDT Start Date: 03/18/19 Status: Ordered gabapentin 600 mg oral tablet 2 tablet = 1,200 mg, By Mouth, Daily at bedtime, Maintenance, 01/26/22 11:57:00 EDT, Tablet Start Date: 01/26/22 Status: Ordered Gemtesa 75 mg oral tablet 1 tablet, By Mouth, Daily, # 90 tablet, 1 Refills, Maintenance, 10/17/22 12:58:00 EDT, [facility], 155, cm, 09/20/22 8:51:00 EDT, Height, 49.3, kg, 01/26/22 11:05:00 EDT, Dry Weight Start Date: 10/17/22 Status: Ordered Melatonin 10 mg oral capsule 1 capsule = 10 mg, By Mouth, Daily at bedtime, Maintenance, 01/26/22 12:01:00 EDT Start Date: 01/26/22 Status: Ordered MiraLax Powder 1 pack/packet = 17 Gm, By Mouth, Daily, PRN Constipation, 0 Refills, Maintenance, 01/25/22 9:02:00 EDT, Powder, Partial fill upon patient request if the prescription is for a schedule II opioid drug. Start Date: 01/25/22 Status: Ordered mirtazapine 15 mg oral tablet 1 tablet = 15 mg, By Mouth, Daily at bedtime, Maintenance, 01/26/22 11:58:00 EDT, Tablet Start Date: 01/26/22 Status: Ordered nicotine 2 mg oral transmucosal lozenge 1 lozenge = 2 mg, By Mouth, Every 2 hours, PRN As needed for tobacco cravings, # 108 lozenge, 0 Refills, Maintenance, 01/04/22 17:02:00 EDT, [facility], Partial fill upon patient request ifthe prescription is for a schedule II opioid drug.,... Start Date: 01/04/22 Status: Ordered nicotine 7 mg/24 hr transdermal film, extended release 1 patch, Topically, Daily, Remove old patch before applying new patch. Rotate sites., # 30 patch, 0Refills, Maintenance, 01/04/22 17:02:00 EDT, Patch, [facility], Partial fill upon patientrequest if the prescription is for a schedule II o... Start Date: 01/04/22 Status: Ordered Omeprazole = 20 mg, By Mouth, Daily, 0 Refills, Maintenance, 12/07/21 11:22:00 EDT, Partial fill upon patient request if the prescription is for a schedule II opioid drug. Start Date: 12/07/21 Status: Ordered ondansetron 4 mg oral tablet See Instructions, TAKE 1 TABLET BY MOUTH EVERY 8 HOURS NEEDED FOR NAUSEA & VOMITING, # 90 tablet, 0 Refills, [facility], 158, cm, 01/04/22 13:20:00 EDT, Height, 45.8, kg, 03/08/21 15:15:00 EDT, Dry Weight Start Date: 01/12/22 Status: Ordered Probiotic Formula 1 capsule, By Mouth, 2 times a day, 0 Refills, Maintenance, 09/06/20 13:12:00 EDT Start Date: 09/06/20 Status: Ordered Systane Preservative Free ophthalmic solution 2 drops, Eyes, Both, Daily, PRN as needed, Maintenance, 01/26/22 12:00:00 EDT Start Date: 01/26/22 Status: Ordered Tab-A-Lex oral tablet 1 tablet, By Mouth, Daily, Maintenance, 01/26/22 12:00:00 EDT, Tablet Start Date: 01/26/22 Status: Ordered traZODone 50 mg oral tablet 200 mg, 4, tablet, By Mouth, Daily at bedtime, Maintenance, 01/26/22 11:59:00 EDT Start Date: 01/26/22 Status: Ordered Vitamin D3 2000 intl units oral tablet 1 tablet = 50 mcg, By Mouth, Daily, 0 Refills, Maintenance, 01/26/22 12:00:00 EDT Start Date: 01/26/22 Status: Ordered Zenpep [...] Active Rectal prolapse Confirmed Active 1st 2Dr [facility] Social History Social History Type Response Smoking Status 5-9 cigarettes (betw een 1/4 to 1/2 pack)/day in last 30 days;Smoker, current status unknown entered on: 09/16/19 Sex Patient Care team information Care Team Personnel Name: Abhishek Cárdenas DO Position: [facility] Outreach Member Role: PCP Address: Address: [address] [place] [id number] Name: Marilin Del Castillo RN Position: S RN Member Role: Primary Care Nurse Name: Olesya Shoemaker RN Position: S RN Member Role: Primary Care Nurse Care Team Related Persons Name: CAILIN MILLAN Address: home [address] [place] [address] Name: BILLY PORTER Address: [place] [address]
--- OUTSIDE RECORDS SUMMARY | 2023-12-08 11:22 | XMS_ITS | Continuity of Care Document ---
[facility] Address [address] [place] [address], [address] [place] [address]- Care Team Providers Care Prosthetic Technician Name Role Phone Os SAFETY ADVISOR, Analy Pruett Primary Care Physician [phone] Encounter [facility] Date(s): 05/22/23 - 06/21/23 [facility] Emily Escamillas [facility] [address] [facility], 4th [address] [place], [place] [address] Attending Physician: Justen Canela Admitting Physician: Justen [...] Recorded tetanus-diphtheria toxoids (Td) 04/19/11 Recorded Medications aspirin 325 mg oral capsule 1 capsule = 325 mg, By Mouth, Daily, # 30 capsule, 0 Refills, Maintenance, 05/04/23 12:26:00 EST, Capsule, Partial fill upon patient request if the prescription is for a schedule II opioid drug. Start Date: 05/04/23 Status: Ordered atorvastatin 20 mg oral tablet [...] Gm, 3 Refills, Maintenance, 03/02/23 10:03:00 EDT, [facility], 155, cm, 02/22/23 9:42:00 EDT, Height, [...] TABLET BY MOUTH DAILY, # 90 tablet, 2 Refills, Maintenance, 11/16/22 15:03:00 EDT, [facility], 155, cm, 09/20/22 8:51:00 EDT, Height, 49.3, kg, 01/26/22 11:05:00 EDT, Dry Weight Start Date: 11/16/22 Status: Ordered Omeprazole = 20 mg, By Mouth, Daily, 0 Refills, Maintenance, 12/07/21 11:22:00 EDT, Partial fill upon patient request if the prescription is for a schedule II opioid drug. Start Date: 12/07/21 Status: Ordered oxybutynin 5 mg oral tablet 1 tablet = 5 mg, By Mouth, Daily at bedtime, # 30 tablet, 5 Refills, Maintenance, 03/02/23 10:12:00EDT, [facility], Partial fill upon patient request if the prescription is for a schedule II opioid drug., 155, cm, 02/22/23 9:42:00 EDT, .. Start Date: 03/02/23 Status: Ordered oxyCODONE 5 mg oral capsule 1 capsule = 5 mg, By Mouth, Every 6 hours, PRN as needed for pain, 0 Refills, Maintenance, 05/04/2312:25:00 EST, Capsule, Partial fill upon patient request if the prescription is for a schedule II opioid drug. Start Date: 05/04/23 Status: Ordered Probiotic Formula 1 capsule, By Mouth, 2 times a day, 0 Refills, Maintenance, 09/06/20 13:12:00 EDT Start Date: 09/06/20 Status: Ordered traZODone 50 mg oral tablet [...] Active Rectal prolapse Confirmed Active 1st 2Dr [facility] Social History Social History Type Response Smoking Status 5-9 cigarettes (betw een 1/4 to 1/2 pack)/day in last 30 days;Smoker, current status unknown entered on: 09/16/19 Sex Patient Care team information Care Team Personnel Name: Marilin Del Castillo RN Position: [facility] RN Member Role: Primary Care Nurse Name: Olesya Shoemaker RN Position: S RN Member Role: Primary Care Nurse Name: Analy Moscoso NP Position: Reference Physician Member Role: PCP Address: Address: [address] [place] [address]- Care Team Related Persons Name: CAILIN MILLAN Address: home [address] [place] [id number] Name: BILLY PORTER Address: [place] [address]
--- OUTSIDE RECORDS SUMMARY | 2023-12-08 11:22 | XMS_ITS | Continuity of Care Document ---
Author Organization [facility] Address [address] [facility], [address] [place] [address]- Care Team Providers Care Cut In Station Operator Name Role Phone Avi HERNANDEZ Abhishek Leiva Primary Care Physician [phone] Encounter [facility] Date(s): 07/21/20 - 08/20/20 [facility] Emily Escamillas [facility] [address] [facility], 4th [place] [address]- Allergies, Adverse Reactions, Alerts Substance Reaction Severity [...] 02/02/20 8:20:00 EDT, Route to Pharmacy Electronically, [id number], 152.4, cm, 02/02/20 7:15:00 EDT, Height, 46.7, kg, 02/02/20 7:20:00 E... Start Date: 02/02/20 Status: Ordered mirabegron 25 mg oral tablet, extended release 1 tablet = 25 mg, By Mouth, Daily, do not crush or chew, # 30 tablet, 5 Refills, Maintenance, 03/16/20 12:51:00 EDT, ER Tablet, [id number], 152.4, cm, 02/17/20 10:25:00 EDT, Height, 46.9, [...] tablet, 0 Refills, Maintenance, 03/10/20 11:21:00 EDT, [id number], 152.4, cm, 02/17/20 10:25:00 EDT, Height, 46.9, kg, 02/17/20 10:25:00 EDT, Dry Weight Start Date: 03/10/20 Status: Ordered ondansetron 4 mg oral tablet 1 tablet = 4 mg, By Mouth, Every 8 hours, # 12 tablet, 0 Refills, Maintenance, 08/28/19 13:41:00 EDT, Tablet Start Date: 08/28/19 Status: Ordered oxyCODONE 5 mg oral capsule 1 capsule = 5 mg, By Mouth, Every 6 hours, PRN as needed for pain, # 7 capsule, 0 Refills, Maintenance, 02/02/20 8:19:00 EDT, Capsule, [id number], Partial fill upon patient request, 152.4, cm, 02/02/20 7:15:00 EDT, Height, 46.7, kg, 0... Start Date: 02/02/20 Status: Ordered stiz stiz, See Instructions, # 1 each, Refills 0, Tot. Refills 0, Maintenance, Use as needed after bowelmovement and for pain Dx: rectal pain, 08/04/19 14:28:00 EST, Compound Start Date: 08/04/19 Status: Ordered Trazodone Tablet 300, mg, By Mouth, Daily at bedtime, 0, 0, 11/22/05 8:51:14, Print CORY Number, ADS OPPTHS, 144 Start Date: 11/22/05 Stop Date: 12/20/05 Status: Ordered Problem List Condition Effective Dates Status Health Status Inform ant EtOH stopped 2011 going to [facility](Confirmed) 1 Active Bipolar depression(Confirmed) 2 Active Fibromyalgia(Confirmed) Active Rectal prolapse(Confirmed) Active 1st 2Dr [facility] Social History Social History Type Response Smoking Status 5-9 cigarettes (betw een 1/4 to 1/2 pack)/day in last 30 days;Smoker, current status unknown entered on: 09/16/19 Sex
--- OUTSIDE RECORDS SUMMARY | 2023-12-08 11:22 | XMS_ITS | Continuity of Care Document ---
Author Organization [facility] Address [address] [place] [address]- Care Team Providers Care Molder Machine Name Role Phone Abhishek Cárdenas DO Primary Care Physician Encounter [facility] Date(s): 11/22/22 - 12/22/22 [facility] [address] [place] [address]- Allergies, Adverse Reactions, Alerts No Known Allergies [...] EDT, Tablet Start Date: 01/26/22 Status: Ordered ascorbic acid 250 mg oral [...] 42.5 Gm, 2 Refills, Maintenance, 06/01/22 15:02:00 [facility] [place] [facility], 155, cm, 01/27/22 10:19:00 EDT, Height, [...] tablet, 2 Refills, Maintenance, 11/16/22 15:03:00 EDT, [facility], 155, cm, 09/20/22 8:51:00 EDT, Height, 49.3, kg, 01/26/22 11:05:00 EDT, Dry Weight Start Date: 11/16/22 Status: Ordered Melatonin 10 mg oral capsule [...] EDT, Tablet Start Date: 01/26/22 Status: Ordered Omeprazole = 20 mg, By Mouth, Daily, 0 Refills, Maintenance, 12/07/21 11:22:00 EDT, Partial fill upon patient request if the prescription is for a schedule II opioid drug. Start Date: 12/07/21 Status: Ordered ondansetron 4 mg oral tablet See Instructions, TAKE 1 TABLET BY MOUTH EVERY 8 HOURS NEEDED FOR NAUSEA & VOMITING, # 90 tablet, 0 Refills, [facility], 158, cm, 01/04/22 13:20:00 EDT, Height, [...] Active Rectal prolapse Confirmed Active 1st 2Dr [facility] Social History Social History Type Response Smoking Status 5-9 cigarettes (betw een 1/4 to 1/2 pack)/day in last 30 days;Smoker, current status unknown entered on: 09/16/19 Sex Patient Care team information Care Team Personnel Name: Abhishek Cárdenas DO Position: [facility] Outreach Member Role: PCP Address: Address: [address] [place] [id number] Name: Marilin Del Castillo RN Position: S RN Member Role: Primary Care Nurse Name: Olesya Shoemaker RN Position: [facility] RN Member Role: Primary Care Nurse Care Team Related Persons Name: CAILIN MILLAN Address: home [address] [place] [address] Name: BILLY PORTER Address: [place] [address]
--- OUTSIDE RECORDS SUMMARY | 2023-12-08 11:22 | XMS_ITS | Continuity of Care Document ---
Author Organization [facility] Address [address] [place] [address]- Care Team Providers Care Author'S Agent Name Role Phone Michael MAHER, Tasha Mendez Primary Care Physician Encounter [facility] Date(s): 08/08/19 - 09/12/[address] [address] [place] Attending Physician: Korin Garcia NP Admitting Physician: Korin Garcia NP Referring Physician: Korin Garcia NP Allergies, Adverse Reactions, Alerts Substance Reaction Severity Status Dilaudid skin rashes/ hives Active OxyContin ITCHY SKIN Persistent Moderate Active Percocet 7.5/325 itchy skin Persistent Moderate Acti ve Medications Carafate 1 gm oral tablet 1 Gm, 1, tablet, By Mouth, 3 times a day before meals and bedtime, Refills 0, Maintenance, 08/27/2012:41:00 EDT Start Date: 08/28/19 Status: Ordered clonazepam 0.5 mg oral tablet 0.5, mg, 1, tablet, By Mouth, 2 times a day, Scheduled / PRN, 0, 0, 01/02/07 16:06:03, anxiety, Print CORY Number, [id number] Start Date: 01/02/07 Status: Ordered Creon By Mouth, 3 times a day, 0 Refills, Maintenance, 03/18/19 14:05:27 EDT Start Date: 03/18/19 Status: Ordered Cymbalta 20 mg oral enteric coated capsule 1 capsule = 20 mg, By Mouth, 2 times a day, 0 Refills, Maintenance, 03/18/19 14:04:27 EDT Start Date: 03/18/19 Status: Ordered Flonase 50 mcg/inh nasal spray Daily, 0 Refills, Maintenance, 03/18/19 14:05:01 EDT Start Date: 03/18/19 Status: Ordered gabapentin 600 mg oral tablet 1 tablet = 600 mg, By Mouth, 0 Refills, Maintenance, 09/16/14 14:35:44 Start Date: 09/16/14 Status: Ordered MiraLax By Mouth, 0 Refills, Maintenance, 09/16/14 14:35:58 Start Date: 09/16/14 Status: Ordered Omeprazole = 40 mg, By Mouth, Daily, 0 Refills, Maintenance, 08/28/19 13:41:00 EDT Start Date: 08/28/19 Status: Ordered ondansetron 4 mg oral tablet 1 tablet = 4 mg, By Mouth, Every 8 hours, # 12 tablet, 0 Refills, Maintenance, 08/28/19 13:41:00 EDT, Tablet Start Date: 08/28/19 Status: Ordered Pt.'s Own Meds Maintenance, 09/16/14 14:37:34 Start Date: 09/16/14 Status: Ordered stiz stiz, See Instructions, # 1 each, Refills 0, Tot. Refills 0, Maintenance, Use as needed after bowelmovement and for pain Dx: rectal pain, 08/04/19 14:28:00 EST, Compound Start Date: 08/04/19 Status: Ordered Trazodone Tablet 300, mg, By Mouth, Daily at bedtime, 0, 0, 11/22/05 8:51:14, Print CORY Number, ADS OPPTHS, 144 Start Date: 11/22/05 Stop Date: 12/20/05 Status: Ordered Trulance 3 mg oral tablet 1 tablet = 3 mg, By Mouth, Daily, 0 Refills, Maintenance, 08/28/19 13:43:00 EDT Start Date: 08/28/19 Status: Ordered Zantac 0 Refills, Maintenance, 03/18/19 14:05:15 EDT Start Date: 03/18/19 Status: Ordered Problem List Condition Effective Dates Status Health Status Inform ant EtOH stopped 2011 going to [facility] [place](Confirmed) 1 Active Bipolar depression(Confirmed) 2 Active Fibromyalgia(Confirmed) Active Rectal prolapse(Confirmed) Active 1st 2Dr [facility] Social History Social History Type Response Smoking Status Current every day mandie lee entered on: 09/16/14 Sex
--- OUTSIDE RECORDS SUMMARY | 2023-12-08 11:22 | XMS_ITS | Continuity of Care Document ---
Author Organization [facility] Address [address] [place] [address]- Care Team Providers Care Performance Solutions Specialist Name Role Phone Abhishek Cárdenas DO Primary Care Physician [place] [facility] [place] 12/12/21 - 01/11/22 [facility] [address] [place] [address]- Allergies, Adverse Reactions, Alerts No Known Allergies [...] EVERY SUNDAY AND SUNDAY, # 42.5 Gm, 0 Refills, [facility], 152.4, cm, 12/28/21 8:38:00 EDT, Height, 45.8, kg, 03/08/21 15:15:00 EDT, Dry Weight Start Date: 01/02/22 Status: Ordered Flonase 50 mcg/inh nasal spray [...] opioid drug. Start Date: 03/08/21 Status: Ordered mirtazapine 7.5 mg oral tablet 1 tablet = 7.5 mg, By Mouth, Daily at bedtime, # 30 tablet, 0 Refills, Maintenance, 12/28/21 8:48:00 EDT, Partial fill upon patient request if the prescription is for a schedule II opioid drug. Start Date: 12/28/21 Status: Ordered nicotine 14 mg/24 hr transdermal film, extended release 1 patch, Topically, Daily, for 14 days, Remove old patch before applying new patch. Rotate sites., # 14 patch, 0 Refills, Acute 01/18/22 17:02:00 EDT, 01/04/22 17:02:00 EDT, Patch, [facility], Partial fill upon patient request if the prescr... Start Date: 01/04/22 Stop Date: 01/18/22 Status: Ordered nicotine 2 mg oral transmucosal lozenge 1 lozenge = 2 mg, By Mouth, Every 2 hours, PRN As needed for tobacco cravings, # 108 lozenge, 0 Refills, Maintenance, 01/04/22 17:02:00 EDT, [facility], Partial fill upon patient request ifthe prescription is for a schedule II opioid drug.,... Start Date: 01/04/22 Status: Ordered nicotine 7 mg/24 hr transdermal film, extended release 1 patch, Topically, Daily, Remove old patch before applying new patch. Rotate sites., # 30 patch, 0Refills, Maintenance, 01/04/22 17:02:00 EDT, Patch, [facility], Partial fill upon patientrequest if the prescription is for a schedule II o... Start Date: 01/04/22 Status: Ordered Omeprazole = 20 mg, By Mouth, Daily, 0 Refills, Maintenance, 12/07/21 11:22:00 EDT, Partial fill upon patient request if the prescription is for a schedule II opioid drug. Start Date: 12/07/21 Status: Ordered Probiotic Formula By Mouth, Daily, 0 Refills, Maintenance, 09/06/20 13:12:00 EDT, Partial fill upon patient request if the prescription is for a schedule II opioid drug. Start Date: 09/06/20 Status: Ordered Trazodone Tablet 300, mg, By Mouth, Daily at bedtime, 0, 0, 11/22/05 8:51:14, Print CORY Number, ADS OPPTHS, 144 Start Date: 11/22/05 Stop Date: 12/20/05 Status: Ordered vibegron 75 mg oral tablet 1 tablet = 75 mg, By Mouth, Daily, # 30 tablet, 5 Refills, Maintenance, 11/07/21 12:17:00 EDT, Tablet, [facility], Partial fill upon patient request if the prescription is for a schedule IIopioid drug., 152.4, cm, 10/18/21 8:48:00 EDT, Daisy... Start Date: 11/07/21 Status: Ordered Vitamin D 03038 iu oral capsule 50,000 International_Units, By Mouth, Daily, Refills 0, Maintenance, 09/06/20 13:12:00 EDT, Partialfill upon patient request if the prescription is for a schedule II opioid drug. Start Date: 09/06/20 Status: Ordered Zenpep 10,000 units-32,000 units-42,000 units oral delayed release capsule 1 capsule, By Mouth, 3 times a day, with each meal and snack, # 90 capsule, 0 Refills, Maintenance,01/05/22 9:00:00 EDT, [facility] Capsule, Partial fill upon patient request if the prescription is for a schedule II opioid drug. Start Date: 01/05/22 Status: Ordered Problem List Condition Effective Dates Status Health Status Inform ant EtOH stopped 2011 going to [facility] [employer](Confirmed) 1 Active Cervical disc disorder with radiculopathy(Confirmed) Active Bipolar depression(Confirmed) 2 Active Fibromyalgia(Confirmed) Active Myofascial pain(Confirmed) Active Neutrophilic leukocytosis(Confirmed) Active Osteoarthritis(Confirmed) Active Pancreatic insufficiency(Confirmed) Active Rectal prolapse(Confirmed) Active Underweight(Confirmed) Active 1st 2Dr [facility] Social History Social History Type Response Smoking Status 5-9 cigarettes (betw een 1/4 to 1/2 pack)/day in last 30 days;Smoker, current status unknown entered on: 09/16/19 Sex
--- OUTSIDE RECORDS SUMMARY | 2023-12-08 11:22 | XMS_ITS | Continuity of Care Document ---
Author Organization [facility] Address [address] [place] [address], [address] [place] [address]- Care Team Providers Care Rn Traveling Name Role Phone Os CONTINUOUS IMPROVEMENT COORDINATOR, Analy Pruett Primary Care Physician Encounter [facility] Date(s): 12/26/22 - 01/25/23 [facility] [address] [facility], [address] [place] [address]- Allergies, Adverse Reactions, Alerts No Known Allergies [...] Gm, 2 Refills, Maintenance, 06/01/22 15:02:00 EST, [facility], 155, cm, 01/27/22 10:19:00 EDT, Height, [...] tablet, 2 Refills, Maintenance, 11/16/22 15:03:00 EDT, [facility], 155, cm, 09/20/22 8:51:00 EDT, Height, [...] & VOMITING, # 90 tablet, 0 Refills, [facility], 158, cm, 01/04/22 13:20:00 EDT, Height, [...] Active Rectal prolapse Confirmed Active 1st 2Dr [facility] Social History Social History Type Response Smoking Status 5-9 cigarettes (betw een 1/4 to 1/2 pack)/day in last 30 days;Smoker, current status unknown entered on: 09/16/19 Sex Patient Care team information Care Team Personnel Name: Marilin Del Castillo RN Position: S RN Member Role: Primary Care Nurse Name: Olesya Shoemaker RN Position: S RN Member Role: Primary Care Nurse Name: Analy Moscoso NP Position: Reference Physician Member Role: PCP Address: Address: [address] [place] [phone]- Care Team Related Persons Name: YANACAILIN Address: home [address] [place] [address] Name: BILLY PORTER Address: [place] [address]
--- OUTSIDE RECORDS SUMMARY | 2023-12-08 11:22 | XMS_ITS | Continuity of Care Document ---
Author Organization [facility] Address [address] [place] [address]- Care Team Providers Care Cake Froster Name Role Phone SarkisAbhishek mack DO Primary Care Physician Encounter [facility] Date(s): 05/18/21 - 06/24/21 [facility] [address] [place] [address]- Attending Physician: Not on Staff, Attending MD Allergies, Adverse Reactions, Alerts No Known [...] 14:04:27 EDT Start Date: 03/18/19 Status: Ordered diazepam 5 mg oral tablet See Instructions, 1 tab PO 1 Hr. prior to procedure. May Repeat x 1 if needed on arrival to [facility], # 2 tablet, Refills 0, Tot. Refills 0, Maintenance, 03/15/21 15:20:00 EDT, Instructions Replace Required Details, Route to Pharmacy Electronically, [facility] Start Date: 03/15/21 Status: Ordered Enablex 7.5 mg oral tablet, extended release 1 tablet = 7.5 mg, By Mouth, Daily, # 30 tablet, 5 Refills, Maintenance, 06/10/21 11:36:00 EST, ER Tablet, [facility] #[id number], Partial fill upon patient request if the prescription is for a schedule II opioid drug., 152.4, cm, 05/20/21 11:24:... Start Date: 06/10/21 Status: Ordered Estrace Vaginal Cream 0.1 mg/g = 1 Gm, Vaginally, Every Sunday and Sunday, # 42.5 Gm, 2 Refills, Maintenance, 05/06/21 9:13:00 EST, [facility] #[id number], Partial fill upon patient request if the prescription is for a schedule II opioid drug., 152.4, cm, 03/16/21 12:59:00 ED... Start Date: 05/06/21 Status: Ordered Famotidine = 40 mg, By [...] 02/02/20 8:20:00 EDT, Route to Pharmacy Electronically, [facility] #[id number], 152.4, cm, 02/02/20 7:15:00 EDT, Height, 46.7, [...] Refills, Maintenance, 03/16/20 12:51:00 EDT, ER Tablet, [facility] #[id number], 152.4, cm, 02/17/20 10:25:00 EDT, Height, 46.9, [...] tablet, 0 Refills, Maintenance, 03/10/20 11:21:00 EDT, [facility] #[id number], 152.4, cm, 02/17/20 10:25:00 EDT, Height, 46.9, kg, 02/17/20 10:25:00 EDT, Dry Weight Start Date: 03/10/20 Status: Ordered oxyCODONE 5 mg oral capsule 1 capsule = 5 mg, By Mouth, Every 6 hours, PRN as needed for pain, # 7 capsule, 0 Refills, Maintenance, 02/02/20 8:19:00 EDT, Capsule, [facility] #[id number], Partial fill upon patient request, 152.4, cm, 02/02/20 7:15:00 EDT, Height, 46.7, kg, 0... Start Date: 02/02/20 Status: Ordered Probiotic Formula By Mouth, Daily, 0 Refills, Maintenance, 09/06/20 13:12:00 EDT, Partial fill upon patient request if the prescription is for a schedule II opioid drug. Start Date: 09/06/20 Status: Ordered tg mas, See Instructions, # 1 each, Refills 0, Tot. Refills 0, Maintenance, Use as needed after bowelmovement and for pain Dx: rectal pain, 08/04/19 14:28:00 EST, Compound Start Date: 08/04/19 Status: Ordered Trazodone Tablet 300, mg, By Mouth, Daily at bedtime, 0, 0, 11/22/05 8:51:14, Print CORY Number, ADS OPPTHS, 144 Start Date: 11/22/05 Stop Date: 12/20/05 Status: Ordered Vitamin D 77655 iu oral capsule 50,000 International_Units, By Mouth, [...] Fibromyalgia(Confirmed) Active Rectal prolapse(Confirmed) Active 1st 2Dr [facility] Social History Social History Type Response Smoking Status 5-9 cigarettes (betw een 1/4 to 1/2 pack)/day in last 30 days;Smoker, current status unknown entered on: 09/16/19 Sex
--- OUTSIDE RECORDS SUMMARY | 2023-12-08 11:22 | XMS_ITS | Continuity of Care Document ---
Author Organization [facility] Address [address], [address] [place] [address]- Care Team Providers Care Refuge Manager Name Role Phone Os HUMAN RESOURCES COORDINATOR, Analy Pruett Primary Care Physician [facility] Date(s): [facility]23 [facility] [address], [address]th [place] [address]- Allergies, Adverse Reactions, Alerts No Known Allergies [...] 6 Refills, Maintenance, 09/28/23 14:45:00 EDT, Inhaler, [facility], Partial fill upon patient request if [...] Gm, 3 Refills, Maintenance, 03/02/23 10:03:00 EDT, [facility], 155, cm, 02/22/23 9:42:00 EDT, Height, [...] tablet, 3 Refills, Maintenance, 08/30/23 14:41:00 EDT, [facility] #[id number], 154, cm, 05/04/23 12:20:00 EST, Height, 52.4, kg, 05/04/23 12:20:00 EST, Dry Weight Start Date: 08/30/23 Status: Ordered Multivitamin 0 Refills, Maintenance, 09/10/23 [...] tablet, 4 Refills, Maintenance, 08/06/23 11:28:00 EST, [facility], 154, cm, 05/04/23 12:20:00 EST, Height, [...] 11 Refills, Maintenance, 09/28/23 14:45:00 EDT, Aerosol, [facility], Partial fill upon patient request if [...] Active Rectal prolapse Confirmed Active 1st 2Dr [facility] Social History Social History Type Response Smoking Status 10 or more cigarette s (1/2 pack or more)/day in last 30 days; Interested in cessation: No; Patient wants NRT during admission No entered on: 09/26/23 Sex Patient Care team information Care Team Personnel Name: Marilin Del Castillo RN Position: [facility] RICHARDS RN Member Role: Primary Care Nurse Name: Olesya Shoemaker RN Position: [facility] RN Member Role: Primary Care Nurse Name: Analy Moscoso NP Position: Reference Physician Member Role: PCP Address: Address: [address] [place] [address]- Care Team Related Persons Name: CAILIN MILLAN Address: home [address] [address] Name: BILLY PORTER Address: [place] [address]
--- OUTSIDE RECORDS SUMMARY | 2023-12-08 11:22 | XMS_ITS | Continuity of Care Document ---
Author Organization [facility] Address [address] [place] [address]- Care Team Providers Care Enforcement Officer Name Role Phone Os TRANSPORT CONDUCTOR, Analy Pruett Primary Care Physician Encounter [facility] Date(s): 05/16/23 - 06/15/23 [facility] [address] [place] [address]- Attending Physician: Admtr, Justen Admitting Physician: Admtr, Ar8 Referring Physician: Admtr, Ar8 Allergies, Adverse Reactions, Alerts No Known Allergies [...] Gm, 3 Refills, Maintenance, 03/02/23 10:03:00 EDT, [facility], 155, cm, 02/22/23 9:42:00 EDT, Height, [...] tablet, 2 Refills, Maintenance, 11/16/22 15:03:00 EDT, [facility], 155, cm, 09/20/22 8:51:00 EDT, Height, [...] 30 tablet, 5 Refills, Maintenance, 03/02/23 10:12:00EDT, [facility], Partial fill upon patient request if the prescription is for a schedule II opioid drug., 155, cm, 02/22/23 9:42:00 EDT, Estela. Start Date: 03/02/23 Status: Ordered oxyCODONE 5 [...] Active Rectal prolapse Confirmed Active 1st 2Dr [facility] Social History Social History Type Response Smoking Status 5-9 cigarettes (betw een 1/4 to 1/2 pack)/day in last 30 days;Smoker, current status unknown entered on: 09/16/19 Sex Patient Care team information Care Team Personnel Name: Marilin Del Castillo RN Position: [facility] RN Member Role: Primary Care Nurse Name: Olesya Shoemaker RN Position: S RN Member Role: Primary Care Nurse Name: Analy Moscoso NP Position: Reference Physician Member Role: PCP Address: Address: [address] [place] [address]- Care Team Related Persons Name: CAILIN MILLAN Address: home [address] [address] Name: BILLY PORTER Address: [place] [address]
--- OUTSIDE RECORDS SUMMARY | 2023-12-08 11:22 | XMS_ITS | Continuity of Care Document ---
Author Organization [facility] Address [address] [place] [address]- Care Team Providers Care Cable Television Line Technician Name Role Phone Avi HERNANDEZ Abhishek Leiva Primary Care Physician [id number] Date[facility] 01/05[facility] - 02/04/[facility] [address] [place] [address]- Allergies, Adverse Reactions, Alerts Substance Reaction Severity [...] x 1 if needed on arrival to [facility], # 2 tablet, Refills 0, Tot. Refills 0, Maintenance, 01/10/21 8:08:00 EDT, Instructions Replace Required Details, Route to Pharmacy Electronically, [facility]... Start Date: 01/10/21 Status: Ordered Famotidine = 40 mg, By [...] 02/02/20 8:20:00 EDT, Route to Pharmacy Electronically, [facility] #[id number], 152.4, cm, 02/02/20 7:15:00 EDT, Height, 46.7, kg, 02/02/20 7:20:00 E... Start Date: 02/02/20 Status: Ordered mirabegron 25 mg oral tablet, extended release 1 tablet = 25 mg, By Mouth, Daily, do not crush or chew, # 30 tablet, 5 Refills, Maintenance, 03/16/20 12:51:00 EDT, ER Tablet, [facility] #[id number], 152.4, cm, 02/17/20 10:25:00 EDT, Height, 46.9, [...] tablet, 0 Refills, Maintenance, 03/10/20 11:21:00 EDT, [facility] #[id number], 152.4, cm, 02/17/20 10:25:00 EDT, Height, 46.9, kg, 02/17/20 10:25:00 EDT, Dry Weight Start Date: 03/10/20 Status: Ordered ondansetron 4 mg oral tablet 1 tablet = 4 mg, By Mouth, Every 8 hours, PRN Nausea & Vomiting, for 30 days, # 90 tablet, 2 Refills, Acute 02/28/21 16:53:00 EDT, 11/30/20 16:53:00 EDT, Tablet, [facility], Partial fill upon patient request if the prescription is for a sche... Start Date: 11/30/20 Stop Date: 02/28/21 Status: Ordered oxyCODONE 5 mg oral capsule 1 capsule = 5 mg, By Mouth, Every 6 hours, PRN as needed for pain, # 7 capsule, 0 Refills, Maintenance, 02/02/20 8:19:00 EDT, Capsule, [facility] #[id number], Partial fill upon patient request, 152.4, cm, [...] Stop Date: 12/20/05 Status: Ordered Vitamin D 88804 iu oral capsule 50,000 International_Units, By Mouth, [...] Fibromyalgia(Confirmed) Active Rectal prolapse(Confirmed) Active 1st 2Dr [facility] Social History Social History Type Response Smoking Status 5-9 cigarettes (betw een 1/4 to 1/2 pack)/day in last 30 days;Smoker, current status unknown entered on: 09/16/19 Sex
--- OUTSIDE RECORDS SUMMARY | 2023-12-08 11:22 | XMS_ITS | Continuity of Care Document ---
Author Organization [facility] Address [address] [place] [address]- Care Team Providers Care Materials Inspector Name Role Phone Os MATTRESS SPECIALIST, Analy Pruett Primary Care Physician [facility]counter [facility] Date(s): 09/25/23 - 10/25/23 [facility] [address] [place] [id number] Allergies, Adverse Reactions, Alerts No Known Allergies [...] 6 Refills, Maintenance, 09/28/23 14:45:00 EDT, Inhaler, [facility], Partial fill upon patient request if [...] Gm, 3 Refills, Maintenance, 03/02/23 10:03:00 EDT, [facility], 155, cm, 02/22/23 9:42:00 EDT, Height, [...] 3 Refills, Maintenance, 08/30/23 14:41:00 EDT, [id number] 154, cm, 05/04/23 12:20:00 EST, Height, [...] tablet, 4 Refills, Maintenance, 08/06/23 11:28:00 EST, [facility], 154, cm, 05/04/23 12:20:00 EST, Height, [...] 11 Refills, Maintenance, 09/28/23 14:45:00 EDT, Aerosol, [facility], Partial fill upon patient request if [...] Active Rectal prolapse Confirmed Active 1st 2Dr [facility] Social History Social History Type [...] Reference Physician Member Role: PCP Address: Address: [address] [place] [address] Care Team Related Persons Name: CAILIN MILLAN Address: home [address] [address] Name: BILLY PORTER Address: [place] [address]
--- OUTSIDE RECORDS SUMMARY | 2023-12-08 11:22 | XMS_ITS | Continuity of Care Document ---
Author Organization [facility] Address [address] [place] [address]- Care Team Providers Care Top Lift Compressor Name Role Phone Os DATA COLLECTION SPECIALIST, Analy Pruett Primary Care Physician [facility]counter [facility] Date(s): 09/28/23 - 10/28/23 [facility] [address] [place] [id number] Allergies, Adverse Reactions, Alerts No Known [...] Recorded tetanus/diphtheria/pertussis, acel(Tdap) 01/25/18 Recorded tetanus/diphtheria/pertussis, acel(Tdap) 11/26/17 Recorded tetanus/diphtheria/pertussis, acel(Tdap) 04/04/16 Recorded tetanus-diphtheria toxoids (Td) 04/19/11 Recorded Medications Albuterol (Eqv-ProAir HFA) 90 mcg/inh inhalation aerosol 2 puffs = 180 mcg, Inhalation, Every 4 hours, j44.9, # 8.5 Gm, 6 Refills, Maintenance, 09/28/23 14:45:00 EDT, Inhaler, [facility], Partial fill upon patient request if [...] Gm, 3 Refills, Maintenance, 03/02/23 10:03:00 EDT, [facility], 155, cm, 02/22/23 9:42:00 EDT, Height, [...] 3 Refills, Maintenance, 08/30/23 14:41:00 EDT, [id number] 154, cm, 05/04/23 12:20:00 EST, Height, [...] tablet, 4 Refills, Maintenance, 08/06/23 11:28:00 EST, [facility], 154, cm, 05/04/23 12:20:00 EST, Height, [...] 11 Refills, Maintenance, 09/28/23 14:45:00 EDT, Aerosol, [facility], Partial fill upon patient request if [...] Active Rectal prolapse Confirmed Active 1st 2Dr [facility] Social History Social History Type Response [...] Reference Physician Member Role: PCP Address: Address: [address] [place] [address] Care Team Related Persons Name: CAILIN MILLAN Address: home [address] [address] Name: BILLY PORTER Address: [place] [address]
--- OUTSIDE RECORDS SUMMARY | 2023-12-08 11:22 | XMS_ITS | Continuity of Care Document ---
Author Organization [facility] Address [address], [address] [place] [address]- Care Team Providers Care Television Script Writer Name Role Phone Avi HERNANDEZ Abhishek Leiva Primary Care Physician [phone] [place] [facility] [place]13[place]20 - 10/13/20 [facility] Emily Escamillas [facility] [address], [address] [place], [place] [address] Allergies, Adverse Reactions, Alerts Substance Reaction Severity [...] 02/02/20 8:20:00 EDT, Route to Pharmacy Electronically, [facility] #[id number], 152.4, cm, 02/02/20 7:15:00 EDT, Height, 46.7, kg, 02/02/20 7:20:00 E... Start Date: 02/02/20 Status: Ordered mirabegron 25 mg oral tablet, extended release 1 tablet = 25 mg, By Mouth, Daily, do not crush or chew, # 30 tablet, 5 Refills, Maintenance, 03/16/20 12:51:00 EDT, ER Tablet, [facility] #[id number], 152.4, cm, 02/17/20 10:25:00 EDT, Height, 46.9, [...] tablet, 0 Refills, Maintenance, 03/10/20 11:21:00 EDT, [facility] #[id number], 152.4, cm, 02/17/20 10:25:00 EDT, Height, 46.9, [...] 0 Refills, Maintenance, 02/02/20 8:19:00 EDT, Capsule, [facility] #[id number], Partial fill upon patient request, 152.4, cm, [...] Stop Date: 12/20/05 Status: Ordered Vitamin D 49586 iu oral capsule 50,000 International_Units, By Mouth, Daily, Refills 0, Maintenance, 09/06/20 13:12:00 EDT, Partialfill upon patient request if the prescription is for a schedule II opioid drug. Start Date: 09/06/20 Status: Ordered Problem List Condition Effective Dates Status Health Status Inform ant EtOH stopped 2011 going to [facility](Confirmed) 1 Active Bipolar depression(Confirmed) 2 Active Fibromyalgia(Confirmed) Active Rectal prolapse(Confirmed) Active 1st 2Dr [facility] Social History Social History Type Response Smoking Status 5-9 cigarettes (betw een 1/4 to 1/2 pack)/day in last 30 days;Smoker, current status unknown entered on: 09/16/19 Sex
--- OUTSIDE RECORDS SUMMARY | 2023-12-08 11:22 | XMS_ITS | Continuity of Care Document ---
Author Organization [facility] Address [address] [facility], [address] [place] [address]- Care Team Providers Care Drop Shipment Clerk Name Role Phone Yoly MAHER, Valerie Primary Care Physician [place] [facility] Date(s): 06/18/20 - 07/18/20 [facility] Emily Escamillas [facility] [address], 4th [address] [place], [place] [address] Allergies, Adverse Reactions, Alerts Substance [...] 02/02/20 8:20:00 EDT, Route to Pharmacy Electronically, [facility] #[id number], 152.4, cm, 02/02/20 7:15:00 EDT, Height, 46.7, kg, 02/02/20 7:20:00 E... Start Date: 02/02/20 Status: Ordered mirabegron 25 mg oral tablet, extended release 1 tablet = 25 mg, By Mouth, Daily, do not crush or chew, # 30 tablet, 5 Refills, Maintenance, 03/16/20 12:51:00 EDT, ER Tablet, [facility] #[id number], 152.4, cm, 02/17/20 10:25:00 EDT, Height, 46.9, [...] tablet, 0 Refills, Maintenance, 03/10/20 11:21:00 EDT, [facility] #[id number], 152.4, cm, 02/17/20 10:25:00 EDT, Height, 46.9, [...] 0 Refills, Maintenance, 02/02/20 8:19:00 EDT, Capsule, [email or web address] #[id number], Partial fill upon patient request, 152.4, cm, [...] Fibromyalgia(Confirmed) Active Rectal prolapse(Confirmed) Active 1st 2Dr [facility] [place] Social History Social History Type Response Smoking Status 5-9 cigarettes (betw een 1/4 to 1/2 pack)/day in last 30 days;Smoker, current status unknown entered on: 09/16/19 Sex
--- OUTSIDE RECORDS SUMMARY | 2023-12-08 11:22 | XMS_ITS | Continuity of Care Document ---
Author Organization [facility] Address [address] [place] [address]- Care Team Providers Care Regional Airline Pilot Name Role Phone SarkisAbhishek mack DO Primary Care Physician En[place] [facility] Date(s): 11/05/20 - 12/05/20 [facility] [address] [place] [id number] Allergies, Adverse Reactions, Alerts Substance Reaction [...] 02/02/20 8:20:00 EDT, Route to Pharmacy Electronically, [facility] #[id number], 152.4, cm, 02/02/20 7:15:00 EDT, Height, 46.7, kg, 02/02/20 7:20:00 E... Start Date: 02/02/20 Status: Ordered mirabegron 25 mg oral tablet, extended release 1 tablet = 25 mg, By Mouth, Daily, do not crush or chew, # 30 tablet, 5 Refills, Maintenance, 03/16/20 12:51:00 EDT, ER Tablet, [facility] #[id number], 152.4, cm, 02/17/20 10:25:00 EDT, Height, 46.9, [...] tablet, 0 Refills, Maintenance, 03/10/20 11:21:00 EDT, [facility] #[id number], 152.4, cm, 02/17/20 10:25:00 EDT, Height, 46.9, kg, 02/17/20 10:25:00 EDT, Dry Weight Start Date: 03/10/20 Status: Ordered ondansetron 4 mg oral tablet 1 tablet = 4 mg, By Mouth, Every 8 hours, PRN Nausea & Vomiting, for 30 days, # 90 tablet, 2 Refills, Acute 02/28/21 16:53:00 EDT, 11/30/20 16:53:00 EDT, Tablet, [facility], Partial fill upon patient request if the prescription is for a sche... Start Date: 11/30/20 Stop Date: 02/28/21 Status: Ordered oxyCODONE 5 mg oral capsule 1 capsule = 5 mg, By Mouth, Every 6 hours, PRN as needed for pain, # 7 capsule, 0 Refills, Maintenance, 02/02/20 8:19:00 EDT, Capsule, [facility] #[id number], Partial fill upon patient request, 152.4, cm, [...] Stop Date: 12/20/05 Status: Ordered Vitamin D 22925 iu oral capsule 50,000 International_Units, By Mouth, [...]
--- OUTSIDE RECORDS SUMMARY | 2023-12-08 11:22 | XMS_ITS | Continuity of Care Document ---
Author Organization [facility] ter Address [address] [place] [address]- Care Team Providers Care Audio Visual Project Manager Name Role Phone Abhishek Cárdenas DO Primary Care Physician En[place] [facility] [place] Date(s): 09/22/20 - 11/12/[address] [address] Attending Physician: Abhishek Cárdenas DO Admitting Physician: Abhishek Cárdenas DO Referring Physician: Abhishek Cárdenas DO Allergies, Adverse Reactions, Alerts Substance Reaction Severity [...] 02/02/20 8:20:00 EDT, Route to Pharmacy Electronically, [facility] #[id number], 152.4, cm, 02/02/20 7:15:00 EDT, Height, 46.7, kg, 02/02/20 7:20:00 E... Start Date: 02/02/20 Status: Ordered mirabegron 25 mg oral tablet, extended release 1 tablet = 25 mg, By Mouth, Daily, do not crush or chew, # 30 tablet, 5 Refills, Maintenance, 03/16/20 12:51:00 EDT, ER Tablet, [facility] #[id number], 152.4, cm, 02/17/20 10:25:00 EDT, Height, 46.9, [...] tablet, 0 Refills, Maintenance, 03/10/20 11:21:00 EDT, [facility] #[id number], 152.4, cm, 02/17/20 10:25:00 EDT, Height, 46.9, [...] 0 Refills, Maintenance, 02/02/20 8:19:00 EDT, Capsule, [facility] #[id number], Partial fill upon patient request, 152.4, cm, [...] Stop Date: 12/20/05 Status: Ordered Vitamin D 09775 iu oral capsule 50,000 International_Units, By Mouth, [...] Fibromyalgia(Confirmed) Active Rectal prolapse(Confirmed) Active 1st 2Dr [facility] Social History Social History Type Response Smoking Status 5-9 cigarettes (betw een 1/4 to 1/2 pack)/day in last 30 days;Smoker, current status unknown entered on: 09/16/19 Sex
--- OUTSIDE RECORDS SUMMARY | 2023-12-08 11:22 | XMS_ITS | Continuity of Care Document ---
Author Organization [facility] Address [address] [facility] [address], [address] [place] [address]- Care Team Providers Care Immigration Associate Name Role Phone Avi HERNANDEZ Abhishek Leiva Primary Care Physician [id number] Date(s): 09/02/20 - 10/02/20 [facility] [address] [facility] [address], [address]th [place] [address]- Allergies, Adverse Reactions, Alerts Substance Reaction Severity [...] 02/02/20 8:20:00 EDT, Route to Pharmacy Electronically, [facility] #[id number], 152.4, cm, 02/02/20 7:15:00 EDT, Height, 46.7, kg, 02/02/20 7:20:00 E... Start Date: 02/02/20 Status: Ordered mirabegron 25 mg oral tablet, extended release 1 tablet = 25 mg, By Mouth, Daily, do not crush or chew, # 30 tablet, 5 Refills, Maintenance, 03/16/20 12:51:00 EDT, ER Tablet, [facility] #[id number], 152.4, cm, 02/17/20 10:25:00 EDT, Height, 46.9, [...] tablet, 0 Refills, Maintenance, 03/10/20 11:21:00 EDT, [facility] #[id number], 152.4, cm, 02/17/20 10:25:00 EDT, Height, 46.9, [...] 0 Refills, Maintenance, 02/02/20 8:19:00 EDT, Capsule, [facility] #[id number], Partial fill upon patient request, 152.4, cm, [...] Stop Date: 12/20/05 Status: Ordered Vitamin D 26299 iu oral capsule 50,000 International_Units, By Mouth, Daily, Refills 0, Maintenance, 09/06/20 13:12:00 EDT, Partialfill upon patient request if the prescription is for a schedule II opioid drug. Start Date: 09/06/20 Status: Ordered Problem List Condition Effective Dates Status Health Status Inform ant EtOH stopped 2011 going to [facility](Confirmed) 1 Active Bipolar depression(Confirmed) 2 Active Fibromyalgia(Confirmed) Active Rectal prolapse(Confirmed) Active 1st 2Dr [facility] Social History Social History Type Response Smoking Status 5-9 cigarettes (betw een 1/4 to 1/2 pack)/day in last 30 days;Smoker, current status unknown entered on: 09/16/19 Sex
--- OUTSIDE RECORDS SUMMARY | 2023-12-08 11:22 | XMS_ITS | Continuity of Care Document ---
Author Organization [facility] Address [address], [address] [place] [address]- Care Team Providers Care Application Software Engineer Name Role Phone Avi Abhishek Leiva Primary Care Physician [phone] [place] [facility] [place] 08/31/21 - [facility] [address], 4th [address] [place], [place] [address] Allergies, Adverse Reactions, Alerts No [...] AND SUNDAY, # 42.5 Gm, 2 Refills, [facility], 152.4, cm, 07/19/21 12:34:00 EST, Height, [...] opioid drug. Start Date: 03/08/21 Status: Ordered Probiotic Formula By Mouth, Daily, 0 Refills, Maintenance, 09/06/20 13:12:00 EDT, Partial fill upon patient request if the prescription is for a schedule II opioid drug. Start Date: 09/06/20 Status: Ordered Trazodone Tablet 300, mg, By Mouth, Daily at bedtime, 0, 0, 11/22/05 8:51:14, Print CORY Number, ADS OPPTHS, [id number] Start Date: 11/22/05 Stop Date: 12/20/05 Status: Ordered Vitamin D 05608 iu oral capsule 50,000 International_Units, By Mouth, Daily, Refills 0, Maintenance, 09/06/20 13:12:00 EDT, Partialfill upon patient request if the prescription is for a schedule II opioid drug. Start Date: 09/06/20 Status: Ordered Zofran 4 mg oral tablet 1 tablet = 4 mg, By Mouth, Daily, PRN as needed for nausea/vomiting, daily at bedtime, Maintenance,09/15/21 11:43:00 EDT, Tablet, Partial fill upon patient request if the prescription is for a schedule II opioid drug. Start Date: 09/15/21 Status: Ordered Problem List Condition Effective Dates Status Health Status Inform ant EtOH stopped 2011 going to [facility](Confirmed) 1 Active Cervical disc disorder with radiculopathy(Confirmed) Active Bipolar depression(Confirmed) 2 Active Fibromyalgia(Confirmed) Active Rectal prolapse(Confirmed) Active 1st 2Dr [facility] Social History Social History Type Response Smoking Status 5-9 cigarettes (betw een 1/4 to 1/2 pack)/day in last 30 days;Smoker, current status unknown entered on: 09/16/19 Sex
--- OUTSIDE RECORDS SUMMARY | 2023-12-08 11:22 | XMS_ITS | Continuity of Care Document ---
Author Organization [facility] Address [address] [place], [address] [place] [address]- Care Team Providers Care Ic Design Manager Name Role Phone Yoly MAHER, Valerie Primary Care Physician [place] [facility] [place] - 07/[place]/20 [facility] [address] [place], [address]th [address] [place], [place] [address] Allergies, Adverse Reactions, Alerts [...] 02/02/20 8:20:00 EDT, Route to Pharmacy Electronically, [facility] #[id number], 152.4, cm, 02/02/20 7:15:00 EDT, Height, 46.7, kg, 02/02/20 7:20:00 E... Start Date: 02/02/20 Status: Ordered mirabegron 25 mg oral tablet, extended release 1 tablet = 25 mg, By Mouth, Daily, do not crush or chew, # 30 tablet, 5 Refills, Maintenance, 03/16/20 12:51:00 EDT, ER Tablet, [facility] #[id number], 152.4, cm, 02/17/20 10:25:00 EDT, Height, 46.9, [...] tablet, 0 Refills, Maintenance, 03/10/20 11:21:00 EDT, [facility] #[id number], 152.4, cm, 02/17/20 10:25:00 EDT, Height, 46.9, [...] 0 Refills, Maintenance, 02/02/20 8:19:00 EDT, Capsule, [email or web address] #[id number], Partial fill upon patient request, 152.4, cm, [...] Fibromyalgia(Confirmed) Active Rectal prolapse(Confirmed) Active 1st 2Dr [facility] Social History Social History Type Response Smoking Status 5-9 cigarettes (betw een 1/4 to 1/2 pack)/day in last 30 days;Smoker, current status unknown entered on: 09/16/19 Sex
--- OUTSIDE RECORDS SUMMARY | 2023-12-08 11:22 | XMS_ITS | Continuity of Care Document ---
Author Organization [facility] Address [address], [address] [place] [address]- Care Team Providers Care Patrol Deputy Sheriff Name Role Phone Yoly MAHER, Valerie Primary Care Physician En[facility] [place] [facility] [id number] Date(s): 07/02/20 - 08/01/20 [facility] [address], [address] [place], [place] [address] Attending Physician: Justen Canela Admitting Physician: AdmJusten william Referring Physician: AdmtrJusten Allergies, Adverse Reactions, Alerts Substance Reaction Severity [...] 02/02/20 8:20:00 EDT, Route to Pharmacy Electronically, [facility] #[id number], 152.4, cm, 02/02/20 7:15:00 EDT, Height, 46.7, kg, 02/02/20 7:20:00 E... Start Date: 02/02/20 Status: Ordered mirabegron 25 mg oral tablet, extended release 1 tablet = 25 mg, By Mouth, Daily, do not crush or chew, # 30 tablet, 5 Refills, Maintenance, 03/16/20 12:51:00 EDT, ER Tablet, [facility] #[id number], 152.4, cm, 02/17/20 10:25:00 EDT, Height, 46.9, [...] tablet, 0 Refills, Maintenance, 03/10/20 11:21:00 EDT, [facility] #[id number], 152.4, cm, 02/17/20 10:25:00 EDT, Height, 46.9, [...] 0 Refills, Maintenance, 02/02/20 8:19:00 EDT, Capsule, [facility][id number], Partial fill upon patient request, 152.4, cm, [...] Fibromyalgia(Confirmed) Active Rectal prolapse(Confirmed) Active 1st 2Dr [facility] Social History Social History Type Response Smoking Status 5-9 cigarettes (betw een 1/4 to 1/2 pack)/day in last 30 days;Smoker, current status unknown entered on: 09/16/19 Sex
--- OUTSIDE RECORDS SUMMARY | 2023-12-08 11:22 | XMS_ITS | Continuity of Care Document ---
[facility] Address [address], [address] [place] [address]- Care Team Providers Care Child And Adolescent Psychiatrist Name Role Phone Avi HERNANDEZ Abhishek Leiva Primary Care Physician [place] [facility] [place]20 - 10/14/20 [facility] [address], [address] [place], [place] [address] Allergies, Adverse Reactions, Alerts Substance Reaction Severity [...] 02/02/20 8:20:00 EDT, Route to Pharmacy Electronically, [facility] #[id number], 152.4, cm, 02/02/20 7:15:00 EDT, Height, 46.7, kg, 02/02/20 7:20:00 E... Start Date: 02/02/20 Status: Ordered mirabegron 25 mg oral tablet, extended release 1 tablet = 25 mg, By Mouth, Daily, do not crush or chew, # 30 tablet, 5 Refills, Maintenance, 03/16/20 12:51:00 EDT, ER Tablet, [facility] #[id number], 152.4, cm, 02/17/20 10:25:00 EDT, Height, 46.9, [...] tablet, 0 Refills, Maintenance, 03/10/20 11:21:00 EDT, [facility] #[id number], 152.4, cm, 02/17/20 10:25:00 EDT, Height, 46.9, [...] 0 Refills, Maintenance, 02/02/20 8:19:00 EDT, Capsule, [facility] #[id number], Partial fill upon patient request, 152.4, cm, [...] Stop Date: 12/20/05 Status: Ordered Vitamin D 20685 iu oral capsule 50,000 International_Units, By Mouth, Daily, Refills 0, Maintenance, 09/06/20 13:12:00 EDT, Partialfill upon patient request if the prescription is for a schedule II opioid drug. Start Date: 09/06/20 Status: Ordered Problem List Condition Effective Dates Status Health Status Inform ant EtOH stopped 2011 going to [facility](Confirmed) 1 Active Bipolar depression(Confirmed) 2 Active Fibromyalgia(Confirmed) Active Rectal prolapse(Confirmed) Active 1st 2Dr [facility] Social History Social History Type Response Smoking Status 5-9 cigarettes (betw een 1/4 to 1/2 pack)/day in last 30 days;Smoker, current status unknown entered on: 09/16/19 Sex
--- OUTSIDE RECORDS SUMMARY | 2023-12-08 11:22 | XMS_ITS | Continuity of Care Document ---
Author Organization [facility] Address [address] [place] [address]- Care Team Providers Care Fpga Engineer Name Role Phone Abhishek Cárdenas DO Primary Care Physician En[place] [facility] [place] Date(s): 10/18/21 - 12/28/21 [facility] [address] [place] [address]- Attending Physician: Dulce Farris MD Admitting Physician: Dulce Farris MD Allergies, Adverse Reactions, Alerts No Known [...] EVERY SUNDAY AND SUNDAY, # 42.5 Gm, 1 Refills, [facility], 152.4, cm, 10/18/21 8:48:00 EDT, Height, 45.8, kg, 03/08/21 15:15:00 EDT, Dry Weight Start Date: 11/08/21 Status: Ordered Flonase 50 mcg/inh nasal spray [...] opioid drug. Start Date: 12/28/21 Status: Ordered Omeprazole = 20 mg, By [...] 01/03/22 15:20:00 EDT, 10/05/21 15:20:00 EDT, Tablet, [facility], Partial fill upon patient request if [...] 5 Refills, Maintenance, 11/07/21 12:17:00 EDT, Tablet, [facility], Partial fill upon patient request if the prescription is for a schedule IIopioid drug., 152.4, cm, 10/18/21 8:48:00 EDT, [facility]. Start Date: 11/07/21 Status: Ordered Vitamin D 91309 iu oral capsule 50,000 International_Units, By Mouth, Daily, Refills 0, Maintenance, 09/06/20 13:12:00 EDT, Partialfill upon patient request if the prescription is for a schedule II opioid drug. Start Date: 09/06/20 Status: Ordered Problem List Condition Effective Dates Status Health Status Inform ant EtOH stopped 2011 going to [email or web address](Confirmed) 1 Active Cervical disc disorder with radiculopathy(Confirmed) Active Bipolar depression(Confirmed) 2 Active Fibromyalgia(Confirmed) Active Myofascial pain(Confirmed) Active Rectal prolapse(Confirmed) Active 1st 2Dr [facility] Social History Social History Type Response Smoking Status 5-9 cigarettes (betw een 1/4 to 1/2 pack)/day in last 30 days;Smoker, current status unknown entered on: 09/16/19 Sex
--- OUTSIDE RECORDS SUMMARY | 2023-12-08 11:22 | XMS_ITS | Continuity of Care Document ---
Author Organization [facility] Address [address], [address] [place] [address]- Care Team Providers Care Division Supervisor Name Role Phone Avi Abhishek HERNANDEZ Primary Care Physician [place] [facility] [place] Date(s): 10/20/20 - 11/19/20 [facility] [address], [address] [place], [place] [address] Attending Physician: Justen Canela Admitting Physician: AdmJusten [...] 02/02/20 8:20:00 EDT, Route to Pharmacy Electronically, [facility] #[id number], 152.4, cm, 02/02/20 7:15:00 EDT, Height, 46.7, kg, 02/02/20 7:20:00 E... Start Date: 02/02/20 Status: Ordered mirabegron 25 mg oral tablet, extended release 1 tablet = 25 mg, By Mouth, Daily, do not crush or chew, # 30 tablet, 5 Refills, Maintenance, 03/16/20 12:51:00 EDT, ER Tablet, [facility] #[id number], 152.4, cm, 02/17/20 10:25:00 EDT, Height, 46.9, [...] tablet, 0 Refills, Maintenance, 03/10/20 11:21:00 EDT, [facility] #[id number], 152.4, cm, 02/17/20 10:25:00 EDT, Height, 46.9, [...] 0 Refills, Maintenance, 02/02/20 8:19:00 EDT, Capsule, [facility] #[id number], Partial fill upon patient request, 152.4, cm, [...] Stop Date: 12/20/05 Status: Ordered Vitamin D 60571 iu oral capsule 50,000 International_Units, By Mouth, Daily, Refills 0, Maintenance, 09/06/20 13:12:00 EDT, Partialfill upon patient request if the prescription is for a schedule II opioid drug. Start Date: 09/06/20 Status: Ordered Problem List Condition Effective Dates Status Health Status Inform ant EtOH stopped 2011 going to [facility](Confirmed) 1 Active Bipolar depression(Confirmed) 2 Active Fibromyalgia(Confirmed) Active Rectal prolapse(Confirmed) Active 1st 2Dr [facility] Social History Social History Type Response Smoking Status 5-9 cigarettes (betw een 1/4 to 1/2 pack)/day in last 30 days;Smoker, current status unknown entered on: 09/16/19 Sex
--- OUTSIDE RECORDS SUMMARY | 2023-12-08 11:22 | XMS_ITS | Continuity of Care Document ---
Author Organization [facility] Address [address], [address]t [place] [address]- Care Team Providers Care Health Educator Name Role Phone Dominga MAHER, Angeles Primary Care Physician En[facility] [place] Date(s): 01/30/20 - 02/29/20 [facility] Emily Escamillas [facility] [address], 4th [place] [address]- [facility] Allergies, Adverse Reactions, Alerts Substance Reaction Severity [...] 02/02/20 8:20:00 EDT, Route to Pharmacy Electronically, [facility] #[id number], 152.4, cm, 02/02/20 7:15:00 EDT, Height, 46.7, kg, 02/02/20 7:20:00 E... Start Date: 02/02/20 Status: Ordered Motegrity 2 mg oral tablet 1 tablet = 2 mg, By Mouth, Daily in AM, 0 Refills, Maintenance, 01/21/20 11:02:00 EDT Start Date: 01/21/20 Status: Ordered Myrbetriq 25 mg oral tablet, extended release 1 tablet = 25 mg, By Mouth, Daily, # 30 tablet, 5 Refills, Maintenance, 09/19/19 10:56:00 EDT, [facility] #[id number], 152.4, cm, 07/31/19 12:08:00 EST, Height, 45.7, kg, 03/24/19 6:46:00 EDT, Dry Weight Start Date: 09/19/19 Status: Ordered ondansetron 4 mg oral tablet 1 tablet = 4 mg, By Mouth, Every 8 hours, # 12 tablet, 0 Refills, Maintenance, 08/28/19 13:41:00 EDT, Tablet Start Date: 08/28/19 Status: Ordered oxyCODONE 5 mg oral capsule 1 capsule = 5 mg, By Mouth, Every 6 hours, PRN as needed for pain, # 7 capsule, 0 Refills, Maintenance, 02/02/20 8:19:00 EDT, Capsule, [facility] #[id number], Partial fill upon patient request, 152.4, cm, [...] Fibromyalgia(Confirmed) Active Rectal prolapse(Confirmed) Active 1st 2Dr [facility] Social History Social History Type Response Smoking Status 5-9 cigarettes (betw een 1/4 to 1/2 pack)/day in last 30 days;Smoker, current status unknown entered on: 09/16/19 Sex
--- OUTSIDE RECORDS SUMMARY | 2023-12-08 11:22 | XMS_ITS | Continuity of Care Document ---
Author Organization [facility] Address [address] [place] [address]- Care Team Providers Care Junior Network Administrator Name Role Phone Abhishek Cárdenas DO Primary Care Physician Encounter [facility] Date(s): 12/28/21 - 01/27/22 [facility] [address] [place] [address]- Attending Physician: Admtr, Justen Admitting Physician: Admtr, [...] 0 Refills, Maintenance, 01/25/22 8:56:00 EDT, Tablet, [facility], Partial fill upon patient request [...] EDT, Tablet Start Date: 01/26/22 Status: Ordered celecoxib 200 mg oral capsule 1 capsule = 200 mg, By Mouth, Daily, 0 Refills, Maintenance, 01/25/22 9:01:00 EDT, Capsule, Partialfill upon patient request if the prescription is for a schedule II opioid drug. Start Date: 01/25/22 Status: Ordered Clonazepam = 1 mg, By Mouth, 3 times a day, PRN Anxiety, 0 Refills, Maintenance, 01/29/20 9:23:00 EDT Start Date: 01/29/20 Status: Ordered CoQ10 100 mg oral capsule 1 capsule = 100 mg, By Mouth, Daily, Maintenance, 01/26/22 12:00:00 EDT Start Date: 01/26/22 Status: Ordered Cymbalta 20 mg oral enteric coated capsule 1 capsule = 20 mg, By Mouth, Daily in AM, 0 Refills, Maintenance, 03/18/19 14:04:27 EDT Start Date: 03/18/19 Status: Ordered estradiol 0.1 mg/g vaginal cream See Instructions, APPLY 1 GRAM VAGINALLY EVERY SUNDAY AND SUNDAY, # 42.5 Gm, 0 Refills, [facility], 152.4, cm, 12/28/21 8:38:00 EDT, Height, [...] EDT, Tablet Start Date: 01/26/22 Status: Ordered HYDROmorphone 2 mg oral tablet See Instructions, PRN Pain , Severe, Take 1-2 tablets By Mouth Every 4 hours, # 84 tablet, 0 Refills, Acute 02/01/22 8:59:00 EDT, 01/25/22 8:58:00 EDT, Tablet, [facility], Partial fill upon patient request if the prescription is for a sc... Start Date: 01/25/22 Stop Date: 02/01/22 Status: Ordered Melatonin 10 mg oral capsule [...] lozenge, 0 Refills, Maintenance, 01/04/22 17:02:00 EDT, [facility], Partial fill upon patient request ifthe prescription is for a schedule II opioid drug.,... Start Date: 01/04/22 Status: Ordered nicotine 7 mg/24 hr transdermal film, extended release 1 patch, Topically, Daily, Remove old patch before applying new patch. Rotate sites., # 30 patch, 0Refills, Maintenance, 01/04/22 17:02:00 EDT, Patch, [facility], Partial fill upon patientrequest if the [...] & VOMITING, # 90 tablet, 0 Refills, [facility], 158, cm, 01/04/22 13:20:00 EDT, Height, 45.8, kg, 03/08/21 15:15:00 EDT, Dry Weight Start Date: 01/12/22 Status: Ordered Probiotic Formula 1 capsule, By Mouth, 2 times a day, 0 Refills, Maintenance, 09/06/20 13:12:00 EDT Start Date: 09/06/20 Status: Ordered senna 187 mg oral tablet 1 tablet = 8.6 mg, By Mouth, Daily at bedtime, PRN as needed for constipation, 0 Refills, Maintenance, 01/25/22 9:02:00 EDT, Tablet, Partial fill upon patient request if the prescription is for a schedule II opioid drug. Start Date: 01/25/22 Status: Ordered Systane Preservative Free ophthalmic solution [...] 11:59:00 EDT Start Date: 01/26/22 Status: Ordered vibegron 75 mg oral tablet 1 tablet = 75 mg, By Mouth, Daily, # 30 tablet, 5 Refills, Maintenance, 11/07/21 12:17:00 EDT, Tablet, [facility], Partial fill upon patient request if the prescription is for a schedule IIopioid drug., 152.4, cm, 10/18/21 8:48:00 EDT, [facility]... Start Date: 11/07/21 Status: Ordered Vitamin D3 2000 intl units [...] Active Pancreatic insufficiency(Confirmed) Active Rectal prolapse(Confirmed) Active 1st 2Dr [facility] Social History Social History Type Response Smoking Status 5-9 cigarettes (betw een 1/4 to 1/2 pack)/day in last 30 days;Smoker, current status unknown entered on: 09/16/19 Sex Care Team Personnel Name: Abhishek Cárdenas DO Address: [address] [place] [id number] [place]
--- OUTSIDE RECORDS SUMMARY | 2023-12-08 11:23 | XMS_ITS | Continuity of Care Document ---
Author Organization [facility] Address [address], [address] [place] [address]- Care Team Providers Care Forging Die Finisher Name Role Phone Avi HERNANDEZ Abhishek Leiva Primary Care Physician [phone] [place] [facility] [place](s): 09/07/20 - 10/07/20 [facility] Emily [facility]illas [facility] [address], [address] [place], [place] [address] Allergies, Adverse Reactions, Alerts Substance [...] 02/02/20 8:20:00 EDT, Route to Pharmacy Electronically, [facility] #[id number], 152.4, cm, 02/02/20 7:15:00 EDT, Height, 46.7, kg, 02/02/20 7:20:00 E... Start Date: 02/02/20 Status: Ordered mirabegron 25 mg oral tablet, extended release 1 tablet = 25 mg, By Mouth, Daily, do not crush or chew, # 30 tablet, 5 Refills, Maintenance, 03/16/20 12:51:00 EDT, ER Tablet, [facility] #[id number], 152.4, cm, 02/17/20 10:25:00 EDT, Height, 46.9, [...] tablet, 0 Refills, Maintenance, 03/10/20 11:21:00 EDT, [facility] #[id number], 152.4, cm, 02/17/20 10:25:00 EDT, Height, 46.9, [...] 0 Refills, Maintenance, 02/02/20 8:19:00 EDT, Capsule, [email or web address] #[id number], Partial fill upon patient request, 152.4, cm, [...] Stop Date: 12/20/05 Status: Ordered Vitamin D 62719 iu oral capsule 50,000 International_Units, By Mouth, Daily, Refills 0, Maintenance, 09/06/20 13:12:00 EDT, Partialfill upon patient request if the prescription is for a schedule II opioid drug. Start Date: 09/06/20 Status: Ordered Problem List Condition Effective Dates Status Health Status Inform ant EtOH stopped 2011 going to [facility] [employer](Confirmed) 1 Active Bipolar depression(Confirmed) 2 Active Fibromyalgia(Confirmed) Active Rectal prolapse(Confirmed) Active 1st 2Dr [facility] Social History Social History Type Response Smoking Status 5-9 cigarettes (betw een 1/4 to 1/2 pack)/day in last 30 days;Smoker, current status unknown entered on: 09/16/19 Sex
--- OUTSIDE RECORDS SUMMARY | 2023-12-08 11:23 | XMS_ITS | Continuity of Care Document ---
Author Organization [facility] Address [address], [address] [place] [address]- Care Team Providers Care Lift Driver Name Role Phone Avi Abhishek Leiva Primary Care Physician [place] [facility] [place] [facility] [address] [facility], [address] [place], [place] [address] Allergies, Adverse Reactions, Alerts No Known Allergies [...] AND SUNDAY, # 42.5 Gm, 1 Refills, [facility], 152.4, cm, 10/18/21 8:48:00 EDT, Height, [...] 01/03/22 15:20:00 EDT, 10/05/21 15:20:00 EDT, Tablet, [facility], Partial fill upon patient request if [...] 5 Refills, Maintenance, 11/07/21 12:17:00 EDT, Tablet, [facility], Partial fill upon patient request if the prescription is for a schedule IIopioid drug., 152.4, cm, 10/18/21 8:48:00 EDT, [facility]... Start Date: 11/07/21 Status: Ordered Vitamin D 94571 iu oral capsule 50,000 International_Units, By Mouth, [...] Active Rectal prolapse(Confirmed) Active 1st 2Dr [facility] Social History Social History Type Response Smoking Status 5-9 cigarettes (betw een 1/4 to 1/2 pack)/day in last 30 days;Smoker, current status unknown entered on: 09/16/19 Sex
--- OUTSIDE RECORDS SUMMARY | 2023-12-08 11:23 | XMS_ITS | Continuity of Care Document ---
Author Organization [facility] Address [address] [facility] [address], [address] [place] [address]- Care Team Providers Care Harbor Tug Captain Name Role Phone Abhishek Cárdenas DO Primary Care Physician [place] [facility] [place] 11/14/21 - 12/14/21 [facility] [address], [address] [place], [place] [address] Allergies, Adverse Reactions, Alerts No Known [...] AND SUNDAY, # 42.5 Gm, 1 Refills, [facility], 152.4, cm, 10/18/21 8:48:00 EDT, Height, [...] opioid drug. Start Date: 03/08/21 Status: Ordered Omeprazole = 20 mg, By [...] 01/03/22 15:20:00 EDT, 10/05/21 15:20:00 EDT, Tablet, [facility], Partial fill upon patient request if [...] 5 Refills, Maintenance, 11/07/21 12:17:00 EDT, Tablet, [facility], Partial fill upon patient request if the prescription is for a schedule IIopioid drug., 152.4, cm, 10/18/21 8:48:00 EDT, [facility]... Start Date: 11/07/21 Status: Ordered Vitamin D 51325 iu oral capsule 50,000 International_Units, By Mouth, [...] pain(Confirmed) Active Rectal prolapse(Confirmed) Active 1st 2Dr [facility] Social History Social History Type Response Smoking Status 5-9 cigarettes (betw een 1/4 to 1/2 pack)/day in last 30 days;Smoker, current status unknown entered on: 09/16/19 Sex
--- OUTSIDE RECORDS SUMMARY | 2023-12-08 11:23 | XMS_ITS | Continuity of Care Document ---
Author Organization [facility] ter Address [address] [place] [address]- Care Team Providers Care Sample Distributor Name Role Phone SarkisAbhishek mack DO Primary Care Physician Encounter [facility] [place] Date(s): 09/22/20 - 11/05/[address] [address]- Attending Physician: Asia Lind Admitting Physician: Asia Lind Referring Physician: Asia Lind Allergies, Adverse Reactions, Alerts Substance Reaction Severity [...] 02/02/20 8:20:00 EDT, Route to Pharmacy Electronically, [id number], 152.4, cm, 02/02/20 7:15:00 EDT, Height, 46.7, kg, 02/02/20 7:20:00 E... Start Date: 02/02/20 Status: Ordered mirabegron 25 mg oral tablet, extended release 1 tablet = 25 mg, By Mouth, Daily, do not crush or chew, # 30 tablet, 5 Refills, Maintenance, 03/16/20 12:51:00 EDT, ER Tablet, [facility] #[id number], 152.4, cm, 02/17/20 10:25:00 EDT, Height, 46.9, [...] tablet, 0 Refills, Maintenance, 03/10/20 11:21:00 EDT, [id number], 152.4, cm, 02/17/20 10:25:00 EDT, Height, 46.9, [...] 0 Refills, Maintenance, 02/02/20 8:19:00 EDT, Capsule, [id number] #[id number], Partial fill upon patient request, 152.4, cm, [...] Stop Date: 12/20/05 Status: Ordered Vitamin D 49356 iu oral capsule 50,000 International_Units, By Mouth, [...] Fibromyalgia(Confirmed) Active Rectal prolapse(Confirmed) Active 1st 2Dr [facility] Social History Social History Type Response Smoking Status 5-9 cigarettes (betw een 1/4 to 1/2 pack)/day in last 30 days;Smoker, current status unknown entered on: 09/16/19 Sex
--- OUTSIDE RECORDS SUMMARY | 2023-12-08 11:23 | XMS_ITS | Continuity of Care Document ---
Author Organization [facility] Address [address] [place] [address], 4t [place] [address]- Care Team Providers Care Cranberry Bog Supervisor Name Role Phone Os SECTION CUTTER, Analy Pruett Primary Care Physician [facility] Date(s): 05/21/23 - 06/20/23 [facility] [address] [facility], 4th Floor [place], [place] [address] Allergies, Adverse Reactions, Alerts No Known Allergies [...] Gm, 3 Refills, Maintenance, 03/02/23 10:03:00 EDT, [facility], 155, cm, 02/22/23 9:42:00 EDT, Height, [...] tablet, 2 Refills, Maintenance, 11/16/22 15:03:00 EDT, [facility], 155, cm, 09/20/22 8:51:00 EDT, Height, [...] 30 tablet, 5 Refills, Maintenance, 03/02/23 10:12:00EDT, [facility], Partial fill upon patient request if [...] Active Rectal prolapse Confirmed Active 1st 2Dr [facility] Social History Social History Type Response Smoking Status 5-9 cigarettes (betw een 1/4 to 1/2 pack)/day in last 30 days;Smoker, current status unknown entered on: 09/16/19 Sex Patient Care team information Care Team Personnel Name: Marilin Del Castillo RN Position: [facility] RN Member Role: Primary Care Nurse Name: Olesya Shoemaker RN Position: S RN Member Role: Primary Care Nurse Name: Analy Moscoso NP Position: Reference Physician Member Role: PCP Address: Address: [address] [place] [address]- Care Team Related Persons Name: CAILIN MILLAN Address: home [address] [address] Name: BILLY PORTER Address: [place] [address]
--- OUTSIDE RECORDS SUMMARY | 2023-12-08 11:23 | XMS_ITS | Continuity of Care Document ---
Author Organization [facility] Address [address] [place] [address]- Care Team Providers Care Conversion Developer Name Role Phone Abhishek Cárdenas DO Primary Care Physician [place] [facility] 11/22/22 - 12/24/22 [facility] [address] [place] [address]- Attending Physician: Darby MAHER, Roopa Admitting Physician: Roopa Pastor MD Allergies, Adverse Reactions, Alerts No Known [...] Gm, 2 Refills, Maintenance, 06/01/22 15:02:00 EST, [facility], 155, cm, 01/27/22 10:19:00 EDT, Height, [...] tablet, 2 Refills, Maintenance, 11/16/22 15:03:00 EDT, [facility], 155, cm, 09/20/22 8:51:00 EDT, Height, [...] & VOMITING, # 90 tablet, 0 Refills, [facility], 158, cm, 01/04/22 13:20:00 EDT, Height, [...] Active Rectal prolapse Confirmed Active 1st 2Dr [facility] Social History Social History Type Response Smoking Status 5-9 cigarettes (betw een 1/4 to 1/2 pack)/day in last 30 days;Smoker, current status unknown entered on: 09/16/19 Sex Patient Care team information Care Team Personnel Name: Abhishek Cárdenas DO Position: S Outreach Member Role: PCP Address: Address: [address] [place] [id number] Name: Marilin Del Castillo RN Position: S RN Member Role: Primary Care Nurse Name: Olesya Shoemaker RN Position: S RN Member Role: Primary Care Nurse Care Team Related Persons Name: CAILIN MILLAN Address: home [address] [place] [address] Name: BILLY PORTER Address: [place] [address]
--- OUTSIDE RECORDS SUMMARY | 2023-12-08 11:23 | XMS_ITS | Continuity of Care Document ---
Author Organization [facility] ter Address [address] [place] [address]- Care Team Providers Care Renewable Energy Consultant Name Role Phone Abhishek Cárdenas DO Primary Care Physician [phone] [facility]counter [facility] Date(s): 08/31/22 - 10/21/[address] [address] Attending Physician: Abhishek Cárdenas DO Admitting Physician: Abhishek Cárdenas DO Referring Physician: Abhishek Cárdenas DO Allergies, Adverse Reactions, Alerts No Known Allergies [...] 0 Refills, Maintenance, 01/25/22 8:56:00 EDT, Tablet, [facility], Partial fill upon patient [...] Gm, 2 Refills, Maintenance, 06/01/22 15:02:00 EST, [facility], 155, cm, 01/27/22 10:19:00 EDT, Height, [...] tablet, 1 Refills, Maintenance, 10/17/22 12:58:00 EDT, [facility], 155, cm, 09/20/22 8:51:00 EDT, Height, [...] lozenge, 0 Refills, Maintenance, 01/04/22 17:02:00 EDT, [facility], Partial fill upon patient request ifthe prescription is for a schedule II opioid drug.,... Start Date: 01/04/22 Status: Ordered nicotine 7 mg/24 hr transdermal film, extended release 1 patch, Topically, Daily, Remove old patch before applying new patch. Rotate sites., # 30 patch, 0Refills, Maintenance, 01/04/22 17:02:00 EDT, Patch, [facility], Partial fill upon patientrequest if the [...] & VOMITING, # 90 tablet, 0 Refills, [facility], 158, cm, 01/04/22 13:20:00 EDT, Height, [...] Active Rectal prolapse Confirmed Active 1st 2Dr [facility] Social History Social History Type Response Smoking Status 5-9 cigarettes (betw een 1/4 to 1/2 pack)/day in last 30 days;Smoker, current status unknown entered on: 09/16/19 Sex Patient Care team information Care Team Personnel Name: Abhishek Cárdenas DO Position: [facility] Outreach Member Role: PCP Address: Address: [address] [place] [phone] Name: Marilin Del Castillo RN Position: S RN Member Role: Primary Care Nurse Name: Olesya Shoemaker RN Position: [facility] RN Member Role: Primary Care Nurse Care Team Related Persons Name: CAILIN MILLAN Address: home [address] [place] [address] Name: BILLY PORTER Address: [place] [address]
--- OUTSIDE RECORDS SUMMARY | 2023-12-08 11:23 | XMS_ITS | Continuity of Care Document ---
Author Organization [facility] Address [address] [place] [address]- Care Team Providers Care Sanitary Inspector Name Role Phone Os DIE PRESS OPERATOR, Analy Pruett Primary Care Physician [facility]counter [facility] Date(s): 09/20/23 - 11/29/23 [facility] [address] [place] [address] Attending Physician: Daniel Ramesh MD Admitting Physician: Daniel Ramesh MD Referring Physician: Ton Yang MD Allergies, Adverse Reactions, Alerts No Known [...] Recorded tetanus-diphtheria toxoids (Td) 04/19/11 Recorded Medications Acetaminophen 0 Refills, Maintenance, 10/31/23 10:26:00 EDT, Partial fill upon patient request if the prescription is for a schedule II opioid drug. Start Date: 10/31/23 Status: Ordered Albuterol (Eqv-ProAir HFA) 90 mcg/inh inhalation aerosol 2 puffs = 180 mcg, Inhalation, Every 4 hours, j44.9, # 8.5 Gm, 6 Refills, Maintenance, 09/28/23 14:45:00 EDT, Inhaler, [facility], Partial fill upon patient request if [...] Gm, 3 Refills, Maintenance, 03/02/23 10:03:00 EDT, [facility], 155, cm, 02/22/23 9:42:00 EDT, Height, [...] tablet, 3 Refills, Maintenance, 08/30/23 14:41:00 EDT, [facility]acy #[id number], 154, cm, 05/04/23 12:20:00 EST, Height, 52.4, kg, 05/04/23 12:20:00 EST, Dry Weight Start Date: 08/30/23 Status: Ordered LaMICtal 25 mg oral tablet 25 mg, 1, tablet, By Mouth, 2 times a day, Refills 0, Maintenance, 10/08/23 11:41:00 EDT, Partial fill upon patient request if the prescription is for a schedule II opioid drug. Start Date: 10/08/23 Status: Ordered Macrobid macrocrystals-monohydrate 100 mg oral capsule 1 capsule = 100 mg, By Mouth, 2 times a day, for 7 days, # 14 capsule, 0 Refills, Acute 12/06/23 8:40:00 EDT, 11/29/23 8:40:00 EDT, Capsule, [facility], Partial fill upon patient request ifthe prescription is for a schedule II opioid drug.,... Start Date: 11/29/23 Stop Date: 12/06/23 Status: Ordered Multivitamin 0 Refills, Maintenance, 09/10/23 [...] tablet, 4 Refills, Maintenance, 08/06/23 11:28:00 EST, [facility], 154, cm, 05/04/23 12:20:00 EST, Height, [...] 11 Refills, Maintenance, 09/28/23 14:45:00 EDT, Aerosol, [facility], Partial fill upon patient request if [...] CR Capsule Start Date: 01/05/22 Status: Ordered Zofran ODT 4 mg oral tablet, disintegrating = 4 mg, By Mouth, 3 times a day, 0 Refills, Maintenance, 10/31/23 10:26:00 EDT, Partial fill upon patient request if the prescription is for a schedule II opioid drug. Start Date: 10/31/23 Status: Ordered Problem List Condition Confirmation Course [...] Active Rectal prolapse Confirmed Active 1st 2Dr [facility] Social History Social History Type Response Smoking Status 10 or more cigarette s (1/2 pack or more)/day in last 30 days; Interested in cessation: No; Patient wants NRT during admission No entered on: 10/31/23 Sex Patient Care team information Care Team Personnel Name: Marilin Del Castillo RN Position: [facility] RN Member Role: Primary Care Nurse Name: Olesya Shoemaker RN Position: [facility] RN Member Role: Primary Care Nurse Name: Analy Moscoso NP Position: Reference Physician Member Role: PCP Address: Address: [address] [place] [address]- Care Team Related Persons Name: CAILIN MILLAN Address: home [address] [address] Name: BILLY PORTER Address: [place] [address]
--- OUTSIDE RECORDS SUMMARY | 2023-12-08 11:23 | XMS_ITS | Continuity of Care Document ---
Author Organization [facility] Address [address], 4t [place] [address]- Care Team Providers Care Pattern Wheel Maker Name Role Phone Os GRAINING PRESS OPERATOR, Analy Pruett Primary Care Physician [phone] [facility] Date[facility] [address] [facility], 4th [place] [address]- Allergies, Adverse Reactions, Alerts No Known Allergies [...] 6 Refills, Maintenance, 09/28/23 14:45:00 EDT, Inhaler, [facility], Partial fill upon patient request if [...] Gm, 3 Refills, Maintenance, 03/02/23 10:03:00 EDT, [facility], 155, cm, 02/22/23 9:42:00 EDT, Height, [...] tablet, 3 Refills, Maintenance, 08/30/23 14:41:00 EDT[id number], cm, 05/04/23 12:20:00 EST, Height, [...] tablet, 4 Refills, Maintenance, 08/06/23 11:28:00 EST, [facility], 154, cm, 05/04/23 12:20:00 EST, Height, [...] 11 Refills, Maintenance, 09/28/23 14:45:00 EDT, Aerosol, [facility], Partial fill upon patient request if [...] Active Rectal prolapse Confirmed Active 1st 2Dr [facility] Social History Social History Type Response Smoking Status 10 or more cigarette s (1/2 pack or more)/day in last 30 days; Interested in cessation: No; Patient wants NRT during admission No entered on: 09/26/23 Sex Patient Care team information Care Team Personnel Name: Marilin Del Castillo RN Position: [facility] RN Member Role: Primary Care Nurse Name: Olesya Shoemaker RN Position: [facility] RN Member Role: Primary Care Nurse Name: Analy Moscoso NP Position: Reference Physician Member Role: PCP Address: Address: [address] [place] [address] Care Team Related Persons Name: CAILIN MILLAN Address: home [address] [address] Name: BILLY PORTER Address: [place] [address]
--- OUTSIDE RECORDS SUMMARY | 2023-12-08 11:23 | XMS_ITS | Continuity of Care Document ---
Author Organization [facility] ter Address [address] [place] [address]- Care Team Providers Care Equip Maint Eng Name Role Phone Os ACCOUNTS RECEIVABLE ASSOCIATE, Analy Pruett Primary Care Physician Encounter [facility] Date(s): 11/29/23 - 11/29/[address] [address] Discharge Disposition: A-D/C Home Attending Physician: Efren Dotson MD Admitting Physician: Efren Dotson MD Referring Physician: Efren Dotson MD Allergies, Adverse Reactions, Alerts No Known [...] 23-valent vaccine 01/17/20 Recorded pneumococcal 13-valent vaccine 2/4/19 Recorded tetanus/diphtheria/pertussis, acel(Tdap) 01/25/18 Recorded tetanus/diphtheria/pertussis, acel(Tdap) [...] 6 Refills, Maintenance, 09/28/23 14:45:00 EDT, Inhaler, [facility], Partial fill upon patient request if [...] Gm, 3 Refills, Maintenance, 03/02/23 10:03:00 EDT, [facility], 155, cm, 02/22/23 9:42:00 EDT, Height, [...] Refills, Maintenance, 08/30/23 14:41:00 EDT, [facility]acy #[id number], 154, cm, 05/04/23 12:20:00 [...] 12/06/23 8:40:00 EDT, 11/29/23 8:40:00 EDT, Capsule, [facility], Partial fill upon patient request ifthe [...] tablet, 4 Refills, Maintenance, 08/06/23 11:28:00 EST, [facility], 154, cm, 05/04/23 12:20:00 EST, Height, [...] 11 Refills, Maintenance, 09/28/23 14:45:00 EDT, Aerosol, [facility], Partial fill upon patient request if [...] prolapse Confirmed Active 1st 2Dr [facility] Results Radiology Reports * Exam Date Time Procedure Performing Provider Status 11/29/23 1:44 PM IR End of Case Report Aut h (Verified) IR End of Case Report Vital Signs Most recent to oldest [Reference Range]: 1 Height 155 cm (11/29/23 11:22 AM) Weight 52 kg (11/29/23 11:22 AM) Oxygen Saturation [94-100 %] 96 % (11/29/23 10:58 AM) Pulse Rate [55-90 bpm] 74 bpm (11/29/23 10:58 AM) Blood Pressure [90-138/55-84 mm Hg] 104/ 47mm Hg (11/29/23 10:58 AM) Respiratory Rate [16-30 br/min] 20 br/mi n (11/29/23 10:58 AM) Temperature [96.8-100.4 DegF] 97.6 DegF (11/29/23 10:58 AM) Mode of Delivery (Oxygen) Room air (11/29/23 10:58 AM) Blood pressure sites Arm, left (11/29/23 10:58 AM) Temperature Route Oral (11/29/23 10:58 AM) Dry Weight 52 kg (11/29/23 11:22 AM) Social History Social History Type Response Smoking Status 10 or more cigarette s (1/2 pack or more)/day in last 30 days; Interested in cessation: No; Patient wants NRT during admission No entered on: 10/31/23 Sex Hospital Progress note * Amaury PAREDES, Jyotsna: PERFORM, SIGN, VERIFY, SIGN, MODIFY Event Display: Progress Note Hospital Authored Date: [id number] Patient: MARILIA SPANN Age: 68 years Sex: Female : 1955 Associated Diagnoses: None Author: Jyotsna Rebolledo RN Findings Nursing Data IV Lines. : IV Lines. 11/29/2023 11:00 EDT Left Antecubital 22 gauge Peripheral IV Activity: Start Peripheral IV Insertion Date/Time: 11/29/2023 11:39 Peripheral IV Number of Attempts: 1 Peripheral IV Site Assessment: Flushes Well, Good Blood return Peripheral IV Comment: done by Coni PAREDES . Vital Signs : VITAL SIGNS SECTION 11/29/2023 10:58 EDT Temperature 97.6 DegF Temperature Route Oral Pulse Rate 74 bpm Respiratory Rate 20 br/min Systolic Blood Pressure 104 mm Hg Diastolic Blood Pressure 47 mm Hg L Blood pressure sites Arm, left Mean Arterial Pressure 66 mm Hg Pulse Pressure 57 mm Hg Oxygen Saturation 96 % Mode of Delivery (Oxygen) Room air . Narrative/Incidental Pt here for embolization procedure, alert and oriented at admission time, endorsed having some general pain to whole body. NPO since midnight, labs drawn, sent. Pt returned from procedure at 1500, sleepy, answers questions properly. VSS, BP on low side. Dressing to Rt groin C/D I. plan of care discussed,. Pt reminded not move Rt leg and keep it straight for one hour.. * Jyotsna Rebolledo RN: PERFORM Event Display: Progress Note Hospital Authored Date: Pt tolerated PO intake well. ambulated without problems, voided without difficulties. dressing to Rt groin intact after ambulating. Discharge instructions reviewed, understanding verbalized. Pt is waiting for w/c transport. Note * Dena Mendoza RN: PERFORM Event Display: Discharge/Transfer Note Hospital Authored Date: Nursing Discharge Note Entered On: 11/29/2023 16:54 EDT Performed On: 11/29/2023 16:53 EDT by Dena Mendoza RN Nursing Discharge Note 2 Discharge Time : 11/29/2023 16:53 EDT Discharge Level of Care at Discharge : Home/Long Term/Foster Care Patient Left Unit Via : Wheelchair Patient Accompanied Off Unit with : Significant other DC Instructions Provided & Signed by Pt : Yes Patient Understands D/C Instructions : Yes Patient Instructions Discharge Signed : Yes Did Pt have Specialty Bed or Wound Vac : No Dena Mendoza RN - 11/29/2023 16:53 EDT * Amaury PAREDES, Jyotsna: PERFORM Event Display: Patient Education Leaflets Authored Date: M-Groin I Discharge Instructions ?? 179 Groin Discharge Instructions No heavy lifting over 10 pounds (for example: gallon of milk) 1 week following the procedure; gradually increase normal activity over the next 5 days. Avoid straining/pushing when moving bowels You may feel like resting more after your procedure. Slowly start to do more each day. Rest when you feel it is needed. Make sure to look at your procedure site every day until it is completely healed. You may see bruising at the puncture site and that is common after the procedure. You may shower the day after your procedure. Remove the band aid before showering. Wash the area gently with soap and water. Leave open to air. Do not take tub baths, hot tubs, soaking of the puncture site or swimming for 1 week. Do not put any creams, powders or lotions on your puncture site You may resume sexual activity the day after your procedure; avoid bending the hip on ?? the side of the groin puncture excessively and any strenuous positions for 1 week. Call your doctor if your procedure site develops any of the following: ??? New onset severe pain ??? New onset lump or swelling ??? Bleeding that does not stop with lightpressure ? Patient Care team information Care Team Personnel Name: Marilin Del Castillo RN Position: [facility] RN Member Role: Primary Care Nurse Name: Olesya Shoemaker RN Position: [facility] RN Member Role: Primary Care Nurse Name: Analy Moscoso NP Position: Reference Physician Member Role: PCP Address: Address: [address] [place] [address]- Care Team Related Persons Name: CAILIN MILLAN Address: home [address] [address] Name: BILLY PORTER Address: [place] [address]
--- OUTSIDE RECORDS SUMMARY | 2023-12-08 11:23 | XMS_ITS | Continuity of Care Document ---
Author [facility] Address [address] [facility], [address]t [place] [address]- Care Team Providers Care Metal Cleaner Name Role Phone Avi HERNANDEZ Abhishek Leiva Primary Care Physician Encounter [facility] [place] Date(s): 09/13/20 - 10/13/20 [facility] [address] [facility], [address] [place], [place] [address] Allergies, Adverse Reactions, Alerts Substance Reaction [...] 02/02/20 8:20:00 EDT, Route to Pharmacy Electronically, [id number], 152.4, cm, 02/02/20 7:15:00 EDT, Height, 46.7, kg, 02/02/20 7:20:00 E... Start Date: 02/02/20 Status: Ordered mirabegron 25 mg oral tablet, extended release 1 tablet = 25 mg, By Mouth, Daily, do not crush or chew, # 30 tablet, 5 Refills, Maintenance, 03/16/20 12:51:00 EDT, ER Tablet, [facility][id number], 152.4, cm, 02/17/20 10:25:00 EDT, Height, 46.9, [...] tablet, 0 Refills, Maintenance, 03/10/20 11:21:00 EDT, [facility][id number], 152.4, cm, 02/17/20 10:25:00 EDT, Height, 46.9, [...] 0 Refills, Maintenance, 02/02/20 8:19:00 EDT, Capsule, [facility][id number], Partial fill upon patient request, 152.4, cm, [...] Stop Date: 12/20/05 Status: Ordered Vitamin D 17460 iu oral capsule 50,000 International_Units, By Mouth, Daily, Refills 0, Maintenance, 09/06/20 13:12:00 EDT, Partialfill upon patient request if the prescription is for a schedule II opioid drug. Start Date: 09/06/20 Status: Ordered Problem List Condition Effective Dates Status Health Status Inform ant EtOH stopped 2011 going to [facility](Confirmed) 1 Active Bipolar depression(Confirmed) 2 Active Fibromyalgia(Confirmed) Active Rectal prolapse(Confirmed) Active 1st 2Dr [facility] Social History Social History Type Response Smoking Status 5-9 cigarettes (betw een 1/4 to 1/2 pack)/day in last 30 days;Smoker, current status unknown entered on: 09/16/19 Sex
--- OUTSIDE RECORDS SUMMARY | 2023-12-08 11:23 | XMS_ITS | Continuity of Care Document ---
Author Organization [facility] Address [address] [facility], 4t [place] [address]- Care Team Providers Care It Corporate Recruiter Name Role Phone Dominga MAHER, [place] Primary Care Physician [place] [facility] 02/15/20 [facility] [address] [facility], 4th [place] [address]- [facility] Allergies, Adverse Reactions, Alerts Substance Reaction Severity [...] Both, Daily, PRN Congestion, 0 Refills, Maintenance, 10/15/19 14:05:01 EDT Start Date: 03/18/19 Status: Ordered [...] 02/02/20 8:20:00 EDT, Route to Pharmacy Electronically, [facility][id number], 152.4, cm, 02/02/20 7:15:00 EDT, Height, 46.7, [...] tablet, 5 Refills, Maintenance, 09/19/19 10:56:00 EDT, [facility] #[id number], 152.4, cm, 07/31/19 12:08:00 EST, Height, 45.7, [...] 0 Refills, Maintenance, 02/02/20 8:19:00 EDT, Capsule, [facility] #[id number], Partial fill upon patient request, 152.4, cm, [...] Fibromyalgia(Confirmed) Active Rectal prolapse(Confirmed) Active 1st 2Dr [facility] Social History Social History Type Response Smoking Status 5-9 cigarettes (betw een 1/4 to 1/2 pack)/day in last 30 days;Smoker, current status unknown entered on: 09/16/19 Sex
--- OUTSIDE RECORDS SUMMARY | 2023-12-08 11:23 | XMS_ITS | Continuity of Care Document ---
Author Organization [facility] Address [address] [place] [address]- Care Team Providers Care Folded Cloth Taper Name Role Phone Avi Abhishek HERNANDEZ Primary Care Physician Encounter [facility] Date(s): 11/19/20 - 12/19/20 [facility] [address] [place] [id number] Allergies, Adverse Reactions, Alerts Substance Reaction [...] 02/02/20 8:20:00 EDT, Route to Pharmacy Electronically, [facility] #[id number], 152.4, cm, 02/02/20 7:15:00 EDT, Height, 46.7, kg, 02/02/20 7:20:00 E... Start Date: 02/02/20 Status: Ordered mirabegron 25 mg oral tablet, extended release 1 tablet = 25 mg, By Mouth, Daily, do not crush or chew, # 30 tablet, 5 Refills, Maintenance, 03/16/20 12:51:00 EDT, ER Tablet, [facility] #[id number], 152.4, cm, 02/17/20 10:25:00 EDT, Height, 46.9, [...] tablet, 0 Refills, Maintenance, 03/10/20 11:21:00 EDT, [facility] #[id number], 152.4, cm, 02/17/20 10:25:00 EDT, Height, 46.9, kg, 02/17/20 10:25:00 EDT, Dry Weight Start Date: 03/10/20 Status: Ordered ondansetron 4 mg oral tablet 1 tablet = 4 mg, By Mouth, Every 8 hours, PRN Nausea & Vomiting, for 30 days, # 90 tablet, 2 Refills, Acute 02/28/21 16:53:00 EDT, 11/30/20 16:53:00 EDT, Tablet, [facility], Partial fill upon patient request if the prescription is for a sche... Start Date: 11/30/20 Stop Date: 02/28/21 Status: Ordered oxyCODONE 5 mg oral capsule 1 capsule = 5 mg, By Mouth, Every 6 hours, PRN as needed for pain, # 7 capsule, 0 Refills, Maintenance, 02/02/20 8:19:00 EDT, Capsule, [facility] #[id number], Partial fill upon patient request, 152.4, cm, [...] Stop Date: 12/20/05 Status: Ordered Vitamin D 31838 iu oral capsule 50,000 International_Units, By Mouth, Daily, Refills 0, Maintenance, 09/06/20 13:12:00 EDT, Partialfill upon patient request if the prescription is for a schedule II opioid drug. Start Date: 09/06/20 Status: Ordered Problem List Condition Effective Dates Status Health Status Inform ant EtOH stopped 2011 going to [facility](Confirmed) 1 Active Bipolar depression(Confirmed) 2 Active Fibromyalgia(Confirmed) Active Rectal prolapse(Confirmed) Active 1st 2Dr [facility] [place], [facility] Social History Social History Type Response Smoking Status 5-9 cigarettes (betw een 1/4 to 1/2 pack)/day in last 30 days;Smoker, current status unknown entered on: 09/16/19 Sex
--- OUTSIDE RECORDS SUMMARY | 2023-12-08 11:23 | XMS_ITS | Continuity of Care Document ---
Author Organization [facility] Address [address], 4t [place] [address]- Care Team Providers Care Railroad Baggage Porter Name Role Phone Avi HERNANDEZ Abhishek Leiva Primary Care Physician [place] [facility] Date(s): 12/20/21 - 01/19/22 [facility] [address], 4th [place] [address]- Attending Physician: Justen Canela Admitting Physician: Justen Canela Referring Physician: AdmtrJusten Allergies, Adverse Reactions, Alerts No Known Allergies [...] AND SUNDAY, # 42.5 Gm, 0 Refills, [facility], 152.4, cm, 12/28/21 8:38:00 EDT, Height, [...] drug. Start Date: 12/28/21 Status: Ordered nicotine 2 mg oral transmucosal lozenge 1 lozenge = 2 mg, By Mouth, Every 2 hours, PRN As needed for tobacco cravings, # 108 lozenge, 0 Refills, Maintenance, 01/04/22 17:02:00 EDT, [facility], Partial fill upon patient request ifthe prescription is for a schedule II opioid drug.,... Start Date: 01/04/22 Status: Ordered nicotine 7 mg/24 hr transdermal film, extended release 1 patch, Topically, Daily, Remove old patch before applying new patch. Rotate sites., # 30 patch, 0Refills, Maintenance, 01/04/22 17:02:00 EDT, Patch, [facility], Partial fill upon patientrequest if the prescription [...] & VOMITING, # 90 tablet, 0 Refills, [facility], 158, cm, 01/04/22 13:20:00 EDT, Height, 45.8, kg, 03/08/21 15:15:00 EDT, Dry Weight Start Date: 01/12/22 Status: Ordered Probiotic Formula By Mouth, Daily, [...] 5 Refills, Maintenance, 11/07/21 12:17:00 EDT, Tablet, [facility], Partial fill upon patient request if the prescription is for a schedule IIopioid drug., 152.4, cm, 10/18/21 8:48:00 EDT, [facility]... Start Date: 11/07/21 Status: Ordered Vitamin D 01237 iu oral capsule 50,000 International_Units, By Mouth, [...] EtOH stopped 2011 going to [facility] [employer](Confirmed) 1 Active Cervical disc disorder with radiculopathy(Confirmed) Active Bipolar depression(Confirmed) 2 Active Fibromyalgia(Confirmed) Active Myofascial pain(Confirmed) Active Neutrophilic leukocytosis(Confirmed) Active Osteoarthritis(Confirmed) Active Pancreatic insufficiency(Confirmed) Active Rectal prolapse(Confirmed) Active Underweight(Confirmed) Active 1st 2Dr [facility] [place], [facility] Social History Social History Type Response Smoking Status 5-9 cigarettes (betw een 1/4 to 1/2 pack)/day in last 30 days;Smoker, current status unknown entered on: 09/16/19 Sex
--- OUTSIDE RECORDS SUMMARY | 2023-12-08 11:23 | XMS_ITS | Continuity of Care Document ---
Author Organization [facility] Address [address] [place] [address]- Care Team Providers Care Gas Meter Installer Name Role Phone Abhishek Cárdenas DO Primary Care Physician Encounter [facility] Date(s): 09/20/22 - 12/24/22 [facility] [address] [place] [address]- Attending Physician: Darby MAHER, Roopa Admitting Physician: [...] Gm, 2 Refills, Maintenance, 06/01/22 15:02:00 EST, [facility], 155, cm, 01/27/22 10:19:00 EDT, Height, [...] tablet, 2 Refills, Maintenance, 11/16/22 15:03:00 EDT, [facility], 155, cm, 09/20/22 8:51:00 EDT, Height, [...] & VOMITING, # 90 tablet, 0 Refills, [facility], 158, cm, 01/04/22 13:20:00 EDT, Height, [...] Active Rectal prolapse Confirmed Active 1st 2Dr [facility] Social History Social History Type Response Smoking Status 5-9 cigarettes (betw een 1/4 to 1/2 pack)/day in last 30 days;Smoker, current status unknown entered on: 09/16/19 Sex Patient Care team information Care Team Personnel Name: Abhishek Cárdenas DO Position: S Outreach Member Role: PCP Address: Address: [address] [place] [id number] Name: Marilin Del Castillo RN Position: S RN Member Role: Primary Care Nurse Name: Olesya Shoemaker RN Position: S RN Member Role: Primary Care Nurse Care Team Related Persons Name: CAILIN MILLAN Address: home [address] [place] [address] Name: BILLY PORTER Address: [place] [address]
--- OUTSIDE RECORDS SUMMARY | 2023-12-08 11:23 | XMS_ITS | Continuity of Care Document ---
Author Organization [facility] Address [address], 4t [place] [address]- Care Team Providers Care Program Dir Name Role Phone Avi HERNANDEZ Abhishek Leiva Primary Care Physician [phone] Encounter [facility] Date(s): 05/06/21 - 06/05/21 [facility] [address], 4th [place] [address]- Attending Physician: Justen Canela Admitting Physician: Justen [...] x 1 if needed on arrival to [facility], # 2 tablet, Refills 0, Tot. Refills 0, Maintenance, 03/15/21 15:20:00 EDT, Instructions Replace Required Details, Route to Pharmacy Electronically, [facility] Start Date: 03/15/21 Status: Ordered Estrace Vaginal Cream 0.1 mg/g = 1 Gm, Vaginally, Every Sunday and Sunday, # 42.5 Gm, 2 Refills, Maintenance, 05/06/21 9:13:00 EST, [facility] #[id number], Partial fill upon patient request if the [...] 02/02/20 8:20:00 EDT, Route to Pharmacy Electronically, [facility] #[id number], 152.4, cm, 02/02/20 7:15:00 EDT, Height, 46.7, [...] Refills, Maintenance, 03/16/20 12:51:00 EDT, ER Tablet, [facility] #[id number], 152.4, cm, 02/17/20 10:25:00 EDT, Height, 46.9, [...] tablet, 0 Refills, Maintenance, 03/10/20 11:21:00 EDT, [facility] #[id number], 152.4, cm, 02/17/20 10:25:00 EDT, Height, 46.9, kg, 02/17/20 10:25:00 EDT, Dry Weight Start Date: 03/10/20 Status: Ordered oxyCODONE 5 mg oral capsule 1 capsule = 5 mg, By Mouth, Every 6 hours, PRN as needed for pain, # 7 capsule, 0 Refills, Maintenance, 02/02/20 8:19:00 EDT, Capsule, [facility] #[id number], Partial fill upon patient request, 152.4, cm, [...] Stop Date: 12/20/05 Status: Ordered Vitamin D 71081 iu oral capsule 50,000 International_Units, By Mouth, [...] Fibromyalgia(Confirmed) Active Rectal prolapse(Confirmed) Active 1st 2Dr [facility] Social History Social History Type Response Smoking Status 5-9 cigarettes (betw een 1/4 to 1/2 pack)/day in last 30 days;Smoker, current status unknown entered on: 09/16/19 Sex
--- OUTSIDE RECORDS SUMMARY | 2023-12-08 11:23 | XMS_ITS | Continuity of Care Document ---
Author Organization [facility] Address [address] [place] [address]- Care Team Providers Care Mill Stenciler Name Role Phone Os ROLL ICER MACHINE, Analy Pruett Primary Care Physician Encounter [facility] Date(s): 09/28/23 - 10/28/23 [facility] [address] [place] [address] [address] Referring Physician: Avis Kelly Allergies, Adverse Reactions, [...] Cameron rded influenza virus vaccine, inactivated 01/25/18 Caemron rded influenza virus vaccine, inactivated 01/28/17 Cameron [...] 6 Refills, Maintenance, 09/28/23 14:45:00 EDT, Inhaler, [facility], Partial fill upon patient request if [...] Gm, 3 Refills, Maintenance, 03/02/23 10:03:00 EDT, [facility], 155, cm, 02/22/23 9:42:00 EDT, Height, [...] tablet, 3 Refills, Maintenance, 08/30/23 14:41:00 EDT, [id number] 154, cm, 05/04/23 12:20:00 EST, Height, [...] tablet, 4 Refills, Maintenance, 08/06/23 11:28:00 EST, [facility], 154, cm, 05/04/23 12:20:00 EST, Height, [...] 11 Refills, Maintenance, 09/28/23 14:45:00 EDT, Aerosol, [facility], Partial fill upon patient request if [...] Active Rectal prolapse Confirmed Active 1st 2Dr [facility] Social History Social History Type [...] Reference Physician Member Role: PCP Address: Address: [address] [place] [address] Care Team Related Persons Name: CAILIN MILLAN Address: home [address] [address] Name: BILLY PORTER Address: [place] [address]
--- OUTSIDE RECORDS SUMMARY | 2023-12-08 11:23 | XMS_ITS | Continuity of Care Document ---
Author Organization [facility] Address [address] [place] [address] [address] [place] [address]- Care Team Providers Care Conference And Event Organiser Name Role Phone Michael MAHER, Tasha Mendez Primary Care Physician [phone] [place]counter [facility] Date(s): 08/04/19 - 11/20/[address] [place] [address]- [facility] Attending Physician: Jose MANAGER PRICING, Korin Vernon Allergies, Adverse Reactions, Alerts Substance Reaction Severity [...] 0, 01/02/07 16:06:03, anxiety, Print CORY Number, [id number] Start Date: 01/02/07 Status: Ordered Creon By [...] 09/16/14 14:35:44 Start Date: 09/16/14 Status: Ordered Myrbetriq 25 mg oral tablet, extended release 1 tablet = 25 mg, By Mouth, Daily, # 30 tablet, 5 Refills, Maintenance, 09/19/19 10:56:00 EDT, [facility] #[id number], 152.4, cm, 07/31/19 12:08:00 EST, Height, 45.7, [...] 13:43:00 EDT Start Date: 08/28/19 Status: Ordered Problem List Condition Effective Dates Status Health Status Inform ant EtOH stopped 2011 going to A [facility](Confirmed) 1 Active Bipolar depression(Confirmed) 2 Active Fibromyalgia(Confirmed) Active Rectal prolapse(Confirmed) Active 1st 2Dr [facility] Social History Social History Type Response Smoking Status 5-9 cigarettes (betw een 1/4 to 1/2 pack)/day in last 30 days;Smoker, current status unknown entered on: 09/16/19 Sex
--- OUTSIDE RECORDS SUMMARY | 2023-12-08 11:23 | XMS_ITS | Continuity of Care Document ---
[facility] Address [address], 4t [place] [address]- Care Team Providers Care Risk Developer Name Role Phone Avi Abhishek HERNANDEZ Primary Care Physician [place] [facility] [place](s): 06/29/21 - 07/29/21 [facility] [address], 4th [address] [place], [place] [address] Allergies, Adverse Reactions, Alerts No Known [...] mg, By Mouth, Daily, # 30 tablet, 4 Refills, Maintenance, 06/29/21 13:49:00 EST, ER Tablet, [facility], Partial fill upon patient request if the prescription is for a schedule II opioid drug., 152.4, cm, 05/20/21 11:24:00 EST,... Start Date: 06/29/21 Status: Ordered Estrace Vaginal Cream 0.1 mg/g = 1 Gm, Vaginally, Every Sunday and Sunday, # 42.5 Gm, 2 Refills, Maintenance, 05/06/21 9:13:00 EST, [facility] #[id number], Partial fill upon patient request if the [...] 02/02/20 8:20:00 EDT, Route to Pharmacy Electronically, [facility] #[id number], 152.4, cm, 02/02/20 7:15:00 EDT, Height, 46.7, [...] Refills, Maintenance, 03/16/20 12:51:00 EDT, ER Tablet, [facility] #[id number], 152.4, cm, 02/17/20 10:25:00 EDT, Height, 46.9, [...] tablet, 0 Refills, Maintenance, 03/10/20 11:21:00 EDT, [facility] #[id number], 152.4, cm, 02/17/20 10:25:00 EDT, Height, 46.9, kg, 02/17/20 10:25:00 EDT, Dry Weight Start Date: 03/10/20 Status: Ordered oxyCODONE 5 mg oral capsule 1 capsule = 5 mg, By Mouth, Every 6 hours, PRN as needed for pain, # 7 capsule, 0 Refills, Maintenance, 02/02/20 8:19:00 EDT, Capsule, [facility] #[id number], Partial fill upon patient request, 152.4, cm, [...] Stop Date: 12/20/05 Status: Ordered Vitamin D 21954 iu oral capsule 50,000 International_Units, By Mouth, [...]
--- OUTSIDE RECORDS SUMMARY | 2023-12-08 11:23 | XMS_ITS | Continuity of Care Document ---
Author Organization [facility] Address [address], 4t [place] [address]- Care Team Providers Care Ornamental Metal Worker Name Role Phone Os TRANSMITTER SUPERVISOR, Analy Pruett Primary Care Physician [facility] Date[facility]23 [facility] [address], 4th [place] [address]- Allergies, Adverse Reactions, Alerts No Known Allergies [...] (Eqv-ProAir HFA) 90 mcg/inh inhalation aerosol 2 puffs, 0 Refills, Maintenance, 09/10/23 17:15:00 EDT, Partial fill upon patient request if the prescription is for a schedule II opioid drug. Start Date: 09/10/23 Status: Ordered Clonazepam = 1 mg, By [...] Gm, 3 Refills, Maintenance, 03/02/23 10:03:00 EDT, [facility], 155, cm, 02/22/23 9:42:00 EDT, Height, [...] tablet, 3 Refills, Maintenance, 08/30/23 14:41:00 EDT, [id number] 154, cm, 05/04/23 12:20:00 EST, Height, [...] tablet, 4 Refills, Maintenance, 08/06/23 11:28:00 EST, [facility], 154, cm, 05/04/23 12:20:00 EST, Height, [...] Rectal prolapse Confirmed Active 1st 2Dr [facility] Social History Social History Type Response Smoking Status 5-9 cigarettes (betw een 1/4 to 1/2 pack)/day in last 30 days;Smoker, current status unknown entered on: 09/16/19 Sex Patient Care team information Care Team Personnel Name: Magdalene RN, Marilin Position: [facility] RN Member Role: Primary Care Nurse Name: Olesya Shoemaker RN Position: S RN Member Role: Primary Care Nurse Name: Analy Moscoso NP Position: Reference Physician Member Role: PCP Address: Address: [address] [place] [address]- Care Team Related Persons Name: CAILIN MILLAN Address: home [address] [address] Name: BILLY PORTER Address: [place] [address]
--- OUTSIDE RECORDS SUMMARY | 2023-12-08 11:23 | XMS_ITS | Continuity of Care Document ---
Author [facility] Address [address], 4t [place] [address]- Care Team Providers Care J2Ee Programmer Name Role Phone Os BRAND SALES CONSULTANT, Analy Pruett Primary Care Physician Encounter [facility] Date(s): 08/20/23 - 09/27/23 [facility] [address], 4th [place] [address]- Attending Physician: Sue Bond MD Admitting Physician: Sue Bond MD Referring Physician: Not on Staff, Referring MD Allergies, Adverse Reactions, Alerts No Known [...] Gm, 3 Refills, Maintenance, 03/02/23 10:03:00 EDT, [facility], 155, cm, 02/22/23 9:42:00 EDT, Height, [...] tablet, 3 Refills, Maintenance, 08/30/23 14:41:00 EDT, [id number] 154, cm, 05/04/23 12:20:00 EST, [...] tablet, 4 Refills, Maintenance, 08/06/23 11:28:00 EST, [facility], 154, cm, 05/04/23 12:20:00 EST, Height, 52.4, kg, 05/04/2312:20:00 EST, Dry Weight Start Date: 08/06/23 Status: Ordered Probiotic Formula 1 capsule, By Mouth, 2 times a day, 0 Refills, Maintenance, 09/06/20 13:12:00 EDT Start Date: 09/06/20 Status: Ordered Stiolto Respimat 60 ACT 2.5 mcg-2.5 mcg/inh inhalation aerosol 2 puffs, Inhalation, Every 24 hours, # 12 Gm, 11 Refills, Maintenance, 09/26/23 9:44:00 EDT, Aerosol, [facility], Partial fill upon patient request if the prescription is for a schedule II opioid drug., 155, cm, 09/26/23 8:53:00 EDT, Height,... Start Date: 09/26/23 Status: Ordered traZODone 50 mg oral tablet [...] Reference Physician Member Role: PCP Address: Address: [address] [place] [address]- Care Team Related Persons Name: CAILIN MILLAN Address: home [address] [address] Name: BILLY PORTER Address: [place] [address]
--- OUTSIDE RECORDS SUMMARY | 2023-12-08 11:23 | XMS_ITS | Continuity of Care Document ---
Author Organization [facility] Address [address], 4t [place] [address]- Care Team Providers Care Inspector Tubes Name Role Phone Avi Abhishek HERNANDEZ Primary Care Physician Encounter [facility] [place] Date(s): 09/02/21 - 10/02/21 [facility] [address], 4th [place] [address]- Attending Physician: Justen Canela Admitting Physician: Justen Canela Referring Physician: Justen Canela Referring Physician: Avis Kelly Allergies, Adverse Reactions, [...] AND SUNDAY, # 42.5 Gm, 2 Refills, [facility], 152.4, cm, 07/19/21 12:34:00 EST, Height, [...] Stop Date: 12/20/05 Status: Ordered Vitamin D 87339 iu oral capsule 50,000 International_Units, By Mouth, [...] Fibromyalgia(Confirmed) Active Rectal prolapse(Confirmed) Active 1st 2Dr [facility] Social History Social History Type Response Smoking Status 5-9 cigarettes (betw een 1/4 to 1/2 pack)/day in last 30 days;Smoker, current status unknown entered on: 09/16/19 Sex
--- OUTSIDE RECORDS SUMMARY | 2023-12-08 11:23 | XMS_ITS | Continuity of Care Document ---
Author Organization [facility] Address [address] [place] [address] [address] [place] [address]- Care Team Providers Care Custom Motorcycle Painter Name Role Phone vAi Abhishek HERNANDEZ Primary Care Physician Encounter [facility] [place] Date(s): 10/01/20 - 10/31/[address] [place] [address]- Attending Physician: Justen Canela Admitting Physician: AdmJusten [...] 02/02/20 8:20:00 EDT, Route to Pharmacy Electronically, [facility] #[id number], 152.4, cm, 02/02/20 7:15:00 EDT, Height, 46.7, kg, 02/02/20 7:20:00 E... Start Date: 02/02/20 Status: Ordered mirabegron 25 mg oral tablet, extended release 1 tablet = 25 mg, By Mouth, Daily, do not crush or chew, # 30 tablet, 5 Refills, Maintenance, 03/16/20 12:51:00 EDT, ER Tablet, [facility] #[id number], 152.4, cm, 02/17/20 10:25:00 EDT, Height, 46.9, [...] tablet, 0 Refills, Maintenance, 03/10/20 11:21:00 EDT, [facility] #[id number], 152.4, cm, 02/17/20 10:25:00 EDT, Height, 46.9, [...] 0 Refills, Maintenance, 02/02/20 8:19:00 EDT, Capsule, [facility] #[id number], Partial fill upon patient request, 152.4, cm, [...] Stop Date: 12/20/05 Status: Ordered Vitamin D 63233 iu oral capsule 50,000 International_Units, By Mouth, Daily, Refills 0, Maintenance, 09/06/20 13:12:00 EDT, Partialfill upon patient request if the prescription is for a schedule II opioid drug. Start Date: 09/06/20 Status: Ordered Problem List Condition Effective Dates Status Health Status Inform ant EtOH stopped 2011 going to [facility](Confirmed) 1 Active Bipolar depression(Confirmed) 2 Active Fibromyalgia(Confirmed) Active Rectal prolapse(Confirmed) Active 1st 2Dr [facility] Social History Social History Type Response Smoking Status 5-9 cigarettes (betw een 1/4 to 1/2 pack)/day in last 30 days;Smoker, current status unknown entered on: 09/16/19 Sex
--- OUTSIDE RECORDS SUMMARY | 2023-12-08 11:23 | XMS_ITS | Continuity of Care Document ---
Author Organization [facility] Address [address], [address] [place] [address]- Care Team Providers Care Special Forces Officer Name Role Phone Avi Abhishek Leiva Primary Care Physician [place] [facility] [place] - 06/17/21 [facility] [address], [address] [place], [place] [address] Attending Physician: Sue Bond MD Allergies, Adverse Reactions, Alerts No Known [...] x 1 if needed on arrival to [facility], # 2 tablet, Refills 0, Tot. Refills 0, Maintenance, 03/15/21 15:20:00 EDT, Instructions Replace Required Details, Route to Pharmacy Electronically, [facility] Start Date: 03/15/21 Status: Ordered Enablex 7.5 mg oral tablet, extended release 1 tablet = 7.5 mg, By Mouth, Daily, # 30 tablet, 5 Refills, Maintenance, 06/10/21 11:36:00 EST, ER Tablet, [facility] #[id number], Partial fill upon patient request if the prescription is for a schedule II opioid drug., 152.4, cm, 05/20/21 11:24:... Start Date: 06/10/21 Status: Ordered Estrace Vaginal Cream 0.1 mg/g = 1 Gm, Vaginally, Every Sunday and Sunday, # 42.5 Gm, 2 Refills, Maintenance, 05/06/21 9:13:00 EST, [facility] #[id number], Partial fill upon patient request if the [...] 02/02/20 8:20:00 EDT, Route to Pharmacy Electronically, [facility] #[id number], 152.4, cm, 02/02/20 7:15:00 EDT, Height, 46.7, [...] Refills, Maintenance, 03/16/20 12:51:00 EDT, ER Tablet, [facility] #[id number], 152.4, cm, 02/17/20 10:25:00 EDT, Height, 46.9, [...] tablet, 0 Refills, Maintenance, 03/10/20 11:21:00 EDT, [facility] #[id number], 152.4, cm, 02/17/20 10:25:00 EDT, Height, 46.9, kg, 02/17/20 10:25:00 EDT, Dry Weight Start Date: 03/10/20 Status: Ordered oxyCODONE 5 mg oral capsule 1 capsule = 5 mg, By Mouth, Every 6 hours, PRN as needed for pain, # 7 capsule, 0 Refills, Maintenance, 02/02/20 8:19:00 EDT, Capsule, [facility] #[id number], Partial fill upon patient request, 152.4, cm, [...] Stop Date: 12/20/05 Status: Ordered Vitamin D 10072 iu oral capsule 50,000 International_Units, By Mouth, [...] Active Rectal prolapse(Confirmed) Active 1st 2Dr [facility] Social History Social History Type Response Smoking Status 5-9 cigarettes (betw een 1/4 to 1/2 pack)/day in last 30 days;Smoker, current status unknown entered on: 09/16/19 Sex
--- OUTSIDE RECORDS SUMMARY | 2023-12-08 11:24 | XMS_ITS | Continuity of Care Document ---
Author Organization [facility] Address [address], [address] [place] [address]- Care Team Providers Care Vegetable Loader Name Role Phone Avi Abhishek HERNANDEZ Primary Care Physician Encounter [facility] Date(s): 08/24/21 - 09/23/21 [facility] [address], [address] [place], [place] [address] Allergies, Adverse Reactions, Alerts No [...] AND SUNDAY, # 42.5 Gm, 2 Refills, [facility], 152.4, cm, 07/19/21 12:34:00 EST, Height, [...] Stop Date: 12/20/05 Status: Ordered Vitamin D 04519 iu oral capsule 50,000 International_Units, By Mouth, [...] EtOH stopped 2011 going to [facility](Confirmed) 1 Active Cervical disc disorder with radiculopathy(Confirmed) Active Bipolar depression(Confirmed) 2 Active Fibromyalgia(Confirmed) Active Rectal prolapse(Confirmed) Active 1st [facility] Social History Social History Type Response Smoking Status 5-9 cigarettes (betw een 1/4 to 1/2 pack)/day in last 30 days;Smoker, current status unknown entered on: 09/16/19 Sex
--- OUTSIDE RECORDS SUMMARY | 2023-12-08 11:24 | XMS_ITS | Continuity of Care Document ---
Author Organization [facility] Address [address] [place] [id number]- Care Team Providers Care Senior Data Warehouse Architect Name Role Phone Os POTTERY DECORATOR, Analy Pruett Primary Care Physician [phone] Encounter [facility] Date(s): 12/01/23 - 12/02/[address] [address]- Encounter Diagnosis Hypoxia(Final) - 12/01/23 Hypoxia(Final) - 12/01/23 Discharge Disposition: A-D/C Home Attending Physician: Darron Mendez MD Admitting Physician: Gloria Curry MD Referring Physician: Not on Staff, Referring [...] 6 Refills, Maintenance, 09/28/23 14:45:00 EDT, Inhaler, [facility], Partial fill upon patient request if [...] Gm, 3 Refills, Maintenance, 03/02/23 10:03:00 EDT, [facility], 155, cm, 02/22/23 9:42:00 EDT, Height, [...] EDT Start Date: 03/18/19 Status: Ordered gabapentin 400 mg oral capsule 1,200 mg, Capsule, By Mouth, 12/01/23 21:34:00 EDT Start Date: 12/01/23 Stop Date: 12/01/23 Status: Completed gabapentin 600 mg oral tablet 2 tablet [...] tablet, 3 Refills, Maintenance, 08/30/23 14:41:00 EDT, [facility]/pharmacy #[id number], 154, cm, 05/04/23 12:20:00 EST, Height, [...] 12/06/23 8:40:00 EDT, 11/29/23 8:40:00 EDT, Capsule, [facility], Partial fill upon patient request ifthe [...] tablet, 4 Refills, Maintenance, 08/06/23 11:28:00 EST, [facility], 154, cm, 05/04/23 12:20:00 EST, Height, [...] 11 Refills, Maintenance, 09/28/23 14:45:00 EDT, Aerosol, [facility], Partial fill upon patient request if [...] 1st 2Dr [facility] Results Radiology Reports * Exam Date Time Procedure Performing Provider Status 12/01/23 3:[address] Angio Chest Shelli Bruno; Au th (Verified) Notes: (CT Angio Chest) Reason For Exam: PE suspected, Intermediate prob, positive D-dimer,;Other: RESULT: CT Angio Chest EXAMINATION: CT Angio Chest INDICATION: Fever, dizziness, recent pulmonary artery aneurysm embolization,; Clinical Question(s):Pulmonary Embolism; TECHNIQUE: Spiral CTA of the chest was performed after rapid IV contrast administration without cardiac gating, triggered by an MARYANN on the main pulmonary artery. Images are formatted in multiple planes using 2-D multiplanar and 3-D maximum intensity projection. 50 cc of Omnipaque 300 was administered intravenously. Weight-based protocol using automatic tube modulation was used to optimize exposure parameters. CTDIvol Body: 4.60 mGy, DLP Body: 265 mGy*cm. COMPARISONS: Multiple prior CTs, most recently 08/23/2023 and angiogram images 11/29/2023. ANGIOGRAPHIC FINDINGS: No pulmonary embolism to the subsegmental level. Normal caliber pulmonary arteries. No acute aortic abnormality seen on this study performed without cardiac gating. Mild aortic calcifications. NON-ANGIOGRAPHIC FINDINGS: Linux Unix Engineer View Findings, Lines and Tubes: None. Trachea and Airways: Patent without evidence of tracheal or endobronchial lesion. Lungs and Pleura: Paraseptal emphysema of the upper lobes. New moderate bibasilar atelectasis. 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 No effusion or pneumothorax. Subpleural nodule of the left upper lobe measuring 6 mm is unchanged (image 23 series 604). The previously seen sub-4 mm nodules of the right lung are not seen on the current examination. Mediastinum and garima: No mass or hematoma. No mediastinal or hilar lymphadenopathy. Small type I hiatal hernia. Normal thyroid. Heart: Heart is normal in size. No pericardial effusion. Mild coronary artery calcification. Chest Wall Soft Tissues: Normal. Diaphragm and upper abdomen: No acute abnormality. Small type I hernia. Partially visualized simplehepatic cyst in the left lobe. Visualized pancreatic tail is atrophic. Bones: Degenerative changes without acute abnormality. IMPRESSION: No evidence of pulmonary embolism. Moderate bibasilar atelectasis. 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 No definite residual aneurysm filling, though beam hardening artifact from coils limits evaluation of this area. I have personally reviewed the images and I agree with this report. WSN: [id number] Ordering Physician: Abigail Rivera Dictated By: Yodit Mitchell MD Dictated Date/Time: 12/01/23 4:11 pm Reviewed By: Manny Al MD Signed By: Manny Al MD Signed Date/Time: 12/01/23 4:16 pm Transcribed By: DARRYL Transcribed Date/Time: 12/01/23 3:54 pm Vital Signs Most recent to oldest [Reference Range]: 1 2 3 Oxygen Saturation [94-100 %] 97 % (12/02/23 8:39 AM) 98 % (12/02/23 3:07 AM) 95 % (12/01/23 10:18 PM) Pulse Rate [55-90 bpm] 77 bpm (12/02/23 8:39 AM) 76 bpm (12/02/23 3:07 AM) 92 bpm *H* (12/01/23 10:18 PM) Blood Pressure [90-138/55-84 mm Hg] 104/67mm Hg (12/02/23 8:39 AM) 104/50mm Hg (12/02/23 3:07 AM) 113/48mm Hg (12/01/23 10:18 PM) Respiratory Rate [16-30 br/min] 18 br/min (12/02/23 8:39 AM) 18 br/min (12/02/23 3:07 AM) 18 br/min (12/01/23 10:23 PM) Temperature [96.8-100.4 DegF] 97.3 DegF (12/02/23 8:39 AM) 98.7 DegF (12/02/23 3:07 AM) 97.6 DegF (12/01/23 10:18 PM) Liters per Minute 2 L/min (12/02/23 3:07 AM) 2 L/min (12/01/23 10:00 PM) 3 L/min (12/01/23 9:14 PM) Mode of Delivery (Oxygen) Room air (12/02/23 8:39 AM) Nasal cannula (12/02/23 3:07 AM) Nasal cannula (12/01/23 10:18 PM) Blood pressure sites Arm, right (12/02/23 8:39 AM) Arm, right (12/02/23 3:07 AM) Arm, right (12/01/23 10:18 PM) Temperature Route Oral (12/02/23 8:39 AM) Oral (12/02/23 3:07 AM) Oral (12/01/23 10:18 PM) Social History Social History Type Response Smoking Status 10 or more cigarette s (1/2 pack or more)/day in last 30 days; Interested in cessation: No; Patient wants NRT during admission No entered on: 10/31/23 Sex History and physical note * Jomar Dailey MD: MODIFY Jomar Dailey MD: MODIFY, MODIFY Jomar Dailey MD: MODIFY Event Display: History and Physical Hospital Authored Date: Patient: ??MARIA INES MARILIA ? Age:??68 Years?Sex:??Female?:??1955?? Chief Complaint coming from home,complaints of fever and dizziness for 2 days. had coiling and clips are placed in the lungs for anurysums. 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 ?? Patient received IR guided??pulmonary??aneurysm??coiling on 11/28 at [facility],??per her and her and she has been feeling dyspneic since the procedure,??she also reports??feelinga little bit dizzy/lightheaded as well as confused earlier today.?Additionally she states that she was feeling feverish however she did not measure her temperature at home. ??That is when her called EMS??and she was brought??to [facility]. ??Additionally, per ED note upon EMS arrival to her home she was saturating 88% on room air??which vastly improved with supplemental oxygen. ?? In the emergency room, CT imaging was performed, evidence of??left??pulmonary artery coiling??however new??left lower lobe??interstitial changes, with leukocytosis.?? She was saturating??98% on 4 L O2. Review of Systems Ten point ROS was performed and found to be negative except HPI Physical Exam Vitals & Measurements T:??97.9?F?? TMIN:??97.9?F?? TMAX:??99.9?F?? HR:??94??(Peripheral)?? RR:??16?? BP:??98/49?? SpO2:??97%?? Constitutional: NAD HEENT: Normal oropharynx Respiratory:??Clear to auscultation bilaterally?? 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 S/p coiling??11/28.??Repeat CT angio of the chest??showing bilateral??basilar atelectasis, and some left-sided infiltrates which could represent postoperative changes. ??? Additionally, hypoxia could be as a result of the??vascular changes??postoperatively??however,??given the patient's??leukocytosis,??subjective??fever??as well as her??respiratory symptoms and herneed for oxygen,??will treat for pneumonia with??ceftriaxone, azithromycin. ?Currently on O2 with appropriate saturations, wean as tolerated maintain??saturations greater than 88-92% - No further labs in am ?? Quality Measures VTE Prophylaxis:??Low risk medication patient ?VTE Prophylaxis Assessment:??Risk Level documented as Low Risk Regular??diet Full code ?? Ongoing Medical Necessity:??Need for supplemental oxygen ?? Discussed with Dr. Dailey ?? Attending Attestation ??The patient seen and examined on 12/01/2023. The case reviewed in detail with admitting fellow on this date. I reviewed and agree as above. Jomar Dailey MD Problem List/Past Medical History Ongoing Bipolar depression Cervical disc disorder with radiculopathy Cervical facet syndrome EtOH stopped 2011 going to AA meetings Fibromyalgia Myofascial pain Neutrophilic leukocytosis Osteoarthritis Pancreatic insufficiency Rectal prolapse Procedure/Surgical History ???Colonoscopy (07/05/2019)???R Carpal tunnel???Lower bowel structures surgery for scar tissue???Pancreaticoduodenectomy???Partial hysterectomy???Trigger finger of right hand x3 Medications Inpatient Acetaminophen Tablet, 650 mg, By Mouth, Every 4 hours, PRN Albuterol 0.083% inhalation del, 2.5 mg= 3 mL, BAND Nebulizer, 4 times a day, PRN Arformoterol 15mcg/2mL Inhalation Solution, 15 mcg= 2 mL, BAND Nebulizer, 2 times a day Azithromycin Tablet, 500 mg, By Mouth, Daily Ceftriaxone Inj, 1 Gm, IVPB, Every 24 hours Cymbalta 60 mg oral enteric coated capsule, 60 mg, By Mouth, Daily Docusate Sodium Capsule, 100 mg= 1 capsule, By Mouth, 2 times a day, PRN gabapentin 400 mg oral capsule, 1200 mg, By Mouth, Daily at bedtime Ipratropium 0.02% inhalation del, 0.5 mg= 2.5 mL, BAND Nebulizer, 2 times a day LaMICtal 25 mg oral tablet, 25 mg, By Mouth, 2 times a day Melatonin Tablet, 3 mg, By Mouth, Daily at bedtime, PRN MiraLax Powder, 17 Gm= 1 pack/packet, By Mouth, Daily, PRN NaCL 0.9% Flush, 3 mL, IV Push, Every 8 hours NaCL 0.9% Flush, 3 mL, IV Push, Every 8 hours, PRN Robitussin DM Liquid, 10 mL, By Mouth, Every 4 hours, PRN Senna Tablet, 8.6 mg= 1 tablet, By Mouth, 2 times a day, PRN Simethicone Tablet, 80 mg, Chew, 3 times a day, PRN Home Acetaminophen Albuterol (Eqv-ProAir HFA) 90 mcg/inh inhalation aerosol, 180 mcg= 2 puffs, Inhalation, Every 4 hours, 6 refills Clonazepam, 1 mg, By Mouth, 2 times a day, PRN CoQ10 100 mg oral capsule, 100 mg= 1 capsule, By Mouth, Daily Cymbalta 60 mg oral enteric coated capsule, 120 mg= 2 capsule, By Mouth, Daily estradiol 0.1 mg/g vaginal cream, See Instructions, 3 refills fexofenadine 60 mg oral tablet, 2 times a day Flonase 50 mcg/inh nasal spray, 50 mcg, Nares, Both, Daily, PRN gabapentin 600 mg oral tablet, 1200 mg= 2 tablet, By Mouth, Daily at bedtime Gemtesa 75 mg oral tablet, 75 mg= 1 tablet Gemtesa 75 mg oral tablet, See Instructions, 3 refills LaMICtal 25 mg oral tablet, 25 mg= 1 tablet, By Mouth, 2 times a day Macrobid macrocrystals-monohydrate 100 mg oral capsule, 100 mg= 1 capsule, By Mouth, 2 times a day Multivitamin Omeprazole, 40 mg, By Mouth, Daily oxybutynin 5 mg oral tablet, See Instructions Probiotic Formula, 1 capsule, By Mouth, 2 times a day Stiolto Respimat 60 ACT 2.5 mcg-2.5 mcg/inh inhalation aerosol, 2 puffs, Inhalation, Every 24 hours, 11 refills traZODone 50 mg oral tablet, 200 mg= 4 tablet, By Mouth, Daily at bedtime Zenpep 10,000 units-32,000 units-42,000 units oral delayed release capsule, 2 capsule, By Mouth, 3 times a day Zofran ODT 4 mg oral tablet, disintegrating, 4 mg, By Mouth, 3 times a day Allergies NKA Social History Alcohol Use: Past. Electronic Cigarette/Vaping Electronic Cigarette Use: Never. Employment/School Status: Retired. Other: Hairdresser. Exercise Self assessment: Fair condition. Home/Environment Living situation: Home/Independent. Lives with: fiance. Nutrition/Health Diet: Regular. Other Name: , 2 daughters. Sexual Sexually involved in last 6 months: No. Substance Abuse Use: Never. Tobacco Use: 10 or more cigarettes (1/2 pack or more)/day in last 30 days. Interested in cessation: No. No Family History Cancer: Sister. Cleft palate: Mother, Sister and Brother. Diabetes mellitus type II: Brother. Hyperlipidemia: Brother. Osteoporosis: Mother, Sister and Sister. Stroke: Sister. Immunizations Vaccine Date Status SARS-CoV-2 (COVID-19) mRNA-1273 vaccine 12/22/2021 Recorded zoster vaccine, inactivated 07/11/2021 Recorded SARS-CoV-2 (COVID-19) mRNA-1273 vaccine 03/31/2021 Recorded influenza virus vaccine, inactivated 02/25/2021 Recorded zoster vaccine, inactivated 02/10/2021 Recorded SARS-CoV-2 (COVID-19) mRNA-1273 vaccine 09/03/2020 Recorded SARS-CoV-2 (COVID-19) mRNA-1273 vaccine 08/06/2020 Recorded pneumococcal 23-valent vaccine 01/17/2020 Recorded influenza virus vaccine, inactivated 01/17/2020 Recorded pneumococcal 13-valent vaccine 07/08/2018 Recorded influenza virus vaccine, inactivated 07/08/2018 Recorded influenza virus vaccine, inactivated 01/25/2018 Recorded tetanus/diphtheria/pertussis, acel(Tdap) 01/25/2018 Recorded zoster vaccine, inactivated 01/18/2018 Recorded tetanus/diphtheria/pertussis, acel(Tdap) 04/29/2017 Recorded influenza virus vaccine, inactivated 01/28/2017 Recorded tetanus/diphtheria/pertussis, acel(Tdap) 04/04/2016 Recorded influenza virus vaccine, inactivated 02/07/2016 Recorded influenza virus vaccine, inactivated 02/19/2014 Recorded tetanus-diphtheria toxoids (Td) 04/19/2011 Recorded EKG study * Event Display: ECG 12-Lead Authored Date: Please click on pdf link to open report * Event Display: ECG 12-Lead Authored Date: Ventricular Rate: 93 BPM Atrial Rate: 93 BPM P-R Interval: 158 ms QRS Duration: 78 ms Q-T Interval: 370 ms QTC Calculation(Bazett): 460 ms P Jackson: 59 degrees R Jackson: 57 degrees T Jackson: 53 degrees Normal sinus rhythm Normal ECG When compared with ECG of 26-JAN-2022 00:03, Left posterior fascicular block is no longer Present Confirmed by PATTI MAHER GLORIA ([id number]) on 12/01/2023 3:11:32 PM [place] * Umair Singer RN: MODIFY, SIGN, VERIFY, PERFORM Event Display: Progress [facility] Authored Date: [id number] Patient: MARILIA SPANN Age: 68 years Sex: Female : 1955 Associated Diagnoses: None Author: Umair Singer RN Findings Problem Related to Alteration in Respiratory Function (new) : Alteration in Respiratory Function/new 12/02/2023 4:00 EDT Alteration in Resp Status Related to Pneumonia Goals & Outcomes, Respiratory Pt will maintain/resume baseline physical assessment, Pt will notdevelop complications r/t mechanical ventilation, Pt will maintain adequate nutritional intake, Pt will maintain/resume normal fluid/electrolyte balance, Pt will not develop complications r/t immobility, Pt will demonstrate proper technique w/self care procedures Interventions, Respiratory Assess/monitor tolerance to IV infusions; verify rate/dose, Assess for and report S&S of respiratory distress, Position for comfort & optimal oxygenation, Monitor sputum color & consistency. Report changes to MD, Teach/encourage use of incentive spirometer, Teach the proper use of inhalers BH Goals/Interventions, Respiratory Yes Respiratory, Problem Start 12/02/2023 4:08 Reviewed Plan with, Respiratory Patient Patient Progression, Respiratory Plan Initiation . Nursing Data Vital Signs : VITAL SIGNS SECTION 12/02/2023 3:07 EDT Temperature 98.7 DegF Temperature Route Oral Pulse Rate 76 bpm Respiratory Rate 18 br/min Systolic Blood Pressure 104 mm Hg Diastolic Blood Pressure 50 mm Hg L Blood pressure sites Arm, right Mean Arterial Pressure 68 mm Hg Pulse Pressure 54 mm Hg Oxygen Saturation 98 % Liters per Minute 2 L/min Mode of Delivery (Oxygen) Nasal cannula (Modified) 12/01/2023 22:18 EDT Temperature 97.6 DegF Temperature Route Oral Pulse Rate 92 bpm H Respiratory Rate 18 br/min Systolic Blood Pressure 113 mm Hg Diastolic Blood Pressure 48 mm Hg L Blood pressure sites Arm, right Mean Arterial Pressure 70 mm Hg Pulse Pressure 65 mm Hg Oxygen Saturation 95 % Mode of Delivery (Oxygen) Nasal cannula . Narrative/Incidental Pt arrived to the unit at 2158. Pt ambulated from stretcher to bed. Standby / 1 assist. Pt orientedto room and instructed upon use of the call jiménez. Scheduled medications administered per AUG. No acute overnight events. Pt running NSR on tele. Lungs CTA on 2L NC, on continuous O2 monitoring saturating average of 96%. Second RN skin check performed with Mayelin Nichols. Bed in lowest locked po sition. Bed alarm active. Call jiménez within reach. Will continue to frequently round. See CIS for biopysical. See CIS for full assessment/documentation.. Discharge Information Case Management Discharge Plan : Case Management Discharge Plan Data 11/29/2023 16:53 EDT Discharge Level of Care at Discharge Home/[facility]oster Care Note * Rinku PAREDES, Chelsey: PERFORM Event Display: Discharge/Transfer Note Hospital Authored Date: [id number] Nursing Discharge Note Entered On: 12/02/2023 14:24 EDT Performed On: 12/02/2023 14:23 EDT by Chelsey Dobbs RN Nursing Discharge Note 2 Discharge Time : 12/02/2023 14:30 EDT Rinku PAREDES, Chelsey - 12/02/2023 18:07 EDT Discharge Level of Care at Discharge : Home/[facility]/Foster Care Patient Left Unit Via : Wheelchair Patient Accompanied Off Unit with : Significant other DC Instructions Provided & Signed by Pt : Yes Patient Understands D/C Instructions : Yes Patient Instructions Discharge Signed : Yes Did Pt have Specialty Bed or Wound Vac : No Rinku PAREDES, Chelsey - 12/02/2023 14:23 EDT * Humera Bhakta MD: PERFORM Event Display: Discharge/Transfer Note Hospital Authored Date: [id number] Patient: ??MARIA INES, MARILIA ? Age:??68 Years?Sex:??Female?:??1955?? 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 _ Discharge Medications Albuterol (Albuterol (Eqv-ProAir HFA) 90 mcg/inh inhalation aerosol)?2?puff(s)?180?Microgram?Inhalation?Every 4 hours?j44.9 bifidobacterium-lactobacillus (Probiotic Formula)?1?capsule?By Mouth?2 times a day Clonazepam?1?Milligram?By Mouth?2 times a day?as needed?Anxiety Duloxetine (Cymbalta 60 mg oral enteric coated capsule)?2?capsule?120?Milligram?By Mouth?Daily?do not crush or chew Estradiol Topical (estradiol 0.1 mg/g vaginal cream)?See Instructions?APPLY 1 GRAM VAGINALLY EVERY SUNDAY AND SUNDAY Fexofenadine (fexofenadine 60 mg oral tablet)?2 times a day Fluticasone Nasal (Flonase 50 mcg/inh nasal spray)?50?Microgram?Nares, Both?Daily?asneeded?Congestion Gabapentin (gabapentin 600 mg oral tablet)?2?tab(s)?1,200?Milligram?By Mouth?Daily at bedtime Lamotrigine (LaMICtal 25 mg oral tablet)?25?Milligram?1?tablet?By Mouth?2 times aday Nitrofurantoin (Macrobid macrocrystals-monohydrate 100 mg oral capsule)?1?capsule?100?Milligram?By Mouth?2 times a day?for 7?Days olodaterol-tiotropium (Stiolto Respimat 60 ACT 2.5 mcg-2.5 mcg/inh inhalation aerosol)?2?puff(s)?Inhalation?Every 24 hours?j44.9 Omeprazole?40?Milligram?By Mouth?Daily Ondansetron (Zofran ODT 4 mg oral tablet, disintegrating)?4?Milligram?By Mouth?3 times a day Oxybutynin (oxybutynin 5 mg oral tablet)?See Instructions?TAKE 1 TABLET BY MOUTH DAILY AT BEDTIME Pancrelipase (Zenpep 10,000 units-32,000 units-42,000 units oral delayed release capsule)?2?capsule?By Mouth?3 times a day?with each meal and snack Trazodone (traZODone 50 mg oral tablet)?200?Milligram?4?tablet?By Mouth?Daily at bedtime Ubiquinone (CoQ10 100 mg oral capsule)?1?capsule?100?Milligram?By Mouth?Daily vibegron (Gemtesa 75 mg oral tablet)?See Instructions?TAKE 1 TABLET BY MOUTH DAILY vibegron (Gemtesa 75 mg oral tablet)?1?tab(s)?75?Milligram ? Medications Started No medications were started upon discharge from the hospital Medications Discontinued No medications were stopped from patient's long-term meds Doses Changed No medication doses were changed PCP Follow-Up/Heads-Up Patient was admitted for concern of pneumonia following an IR procedure. ??However??patient clinically improved??day after admission and procalcitonin was reassuring against pneumonia.?? Impression was that patient's symptoms, mild leukocytosis??and??interstitial changes identified on CT angiogram were likely secondary to the procedure that she had underwent. ??She was symptomatically much improved at time of her discharge home, and was stable on room air. ??She should follow-up with her primary care and adjuster as previous. Hospital Course 68-year-old female with??past medical historyof??emphysema, pulmonary artery aneurysm s/p IR guidedcoiling on 11/29/2023, dysuria, bipolar disease, who presents to the hospital with confusion and shortness of breath. Patient received IR guided pulmonary aneurysm coiling on 11/28 at [facility] enter.?Following the procedure the patient felt dyspneic, dizzy and was somewhat confused.?She was also experiencing subjective fevers, however no temperature was taken.?She then presented to [facility] for further evaluation.?On arrival she was saturating 88% on room air, was given supplemental oxygen, her saturation greatly improved.??In the emergency room, CT-angiogram??was performed,??showing??evidence of left pulmonary artery coiling, new left lower lobe interstitial changes.?Patient was found to have leukocytosis of 13.5. Given her CT changes, subjective fever, mild leukocytosis, she was admitted to the hospital for further evaluation and commenced on IV cef triaxone for treatment of possible pneumonia.?Patient's procalcitonin was <0.06.?Morning of 12/01 patient was symptomatically much improved. She was stable on room air. She had no further??dyspnea??or dizziness on ambulation. She felt well enough for discharge home.??She had no increased sputum production or cough. ??Given her improved symptoms and procalcitonin??reassuring against pneumonia, it was deemed unlikely that the??patient's presentation was due to a??community-acquired pneumonia, much more likely was related to postprocedural changes. ??She??was deemed stable enough for discharge home and should follow-up as previous with her pulmonology team and primary care team.? Objective Assessment and Plan Patient is 68-year-old who presented with??dizziness, dyspnea??and subjective fevers following a IRcoiling of a pulmonary??aneurysm on 11/30. ??On 12/01 patient was symptomatically improved??and had no ongoing cough, oxygen requirement, or any fevers.?? Most likely cause of her??symptoms, lab findings??and imaging findings??were postprocedural following her IR coiling.?? She was initially treated for pneumonia, however procalcitonin was found to be less than 0.06??patient had no ongoing symptomsof productive cough??subjective fevers, therefore antibiotics were stopped.?? CT angiogram showed no postprocedure pulmonary embolism or bleeding. ? 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 S/p coiling??11/28. CT-angiogram??of chest showed??bibasilar atrial ectasis??and??interstitial changes??on left side.there was a mild leukocytosis initially concerning for possible pneumonia, however procalcitonin was less than 0.06. ??Most likely the patient's transient symptoms were??due to the procedure she underwent.?? No suspicion for pneumonia??at time??of discharge home. ?? Recommendation -Follow-up with your primary care doctor and adjuster in the coming days -Return precautions advised ? Vital Signs?? Temperature: 97.3 DegF (12/02/23 08:39:00) Temperature Route: Oral (12/02/23 08:39:00) Pulse Rate: 77 bpm (12/02/23 08:39:00) Respiratory Rate: 18 br/min (12/02/23 08:39:00) Systolic Blood Pressure: 104 mm Hg (12/02/23 08:39:00) Diastolic Blood Pressure: 67 mm Hg (12/02/23 08:39:00) Blood pressure sites: Arm, right (12/02/23 08:39:00) Mean Arterial Pressure: 79 mm Hg (12/02/23 08:39:00) Pulse Pressure: 37 mm Hg (12/02/23 08:39:00) Oxygen Saturation: 97 % (12/02/23 08:39:00) Liters per Minute: 2 L/min (12/02/23 03:07:00) Mode of Delivery (Oxygen): Room air (12/02/23 08:39:00) Early Warning Score: 2 (12/02/23 08:39:46) ? . Physical Exam General Appearance: The patient is in NAD. Cardiovascular: RRR S1 and S2 heard. No murmurs, gallops, or rubs appreciated. Respiratory:??Crackles at lung bases, left more significant compared to right. ??Reasonable air entry throughout.?? No wheeze. GI: Soft. Nontender and nondistended. Normal bowel sounds present throughout abdomen.? MS: ??No edema??of the lower extremities Neuro: ??No slurred speech.?No focal neurological??deficits on observation Psych: Alert,??Appropriate and pleasant.?? Pending Results Add On Lab Order ordered on 12/01/2023 Add On Lab Order ordered on 12/02/2023 Blood Culture ordered on 12/01/2023 Blood Culture #2 ordered on 12/01/2023 Patient Education Titles Web[employer] Ignite Patient Education - Shortness of Breath (Dyspnea)?? Patient Instructions You admitted to the hospital with low oxygen??and feeling dizzy.?? We treated you briefly for possible pneumonia, however your??symptoms and labs were reassuring??against a diagnosis of pneumonia, therefore we will not continue antibiotics for you when you leave the hospital.?? Most likely your symptoms and low oxygen were??as a result of the procedure that you underwent. ??You should follow-up with your adjuster and primary care team as previously directed.?? You should treat any??postprocedure pain with Tylenol and ibuprofen.?? You should seek??medical attention if you develop any furth er??dizzy spells, increased cough, coughing up blood, significant palpitations or feeling of your heart racing, fevers,??shortness of breath??above her usual baseline. Post Discharge Care Activity: ??Ambulate with assistance 3 times a day unless otherwise specified ?? Code Status: ??Full Resuscitation ?? Condition: ??Fair ?? Prognosis: ??Fair ?? Home Health Face to Face ^HomeHealthFTF Results Discharge Labs BLOOD COUNT & DIFF WBC 13.5 k/mm3 (High)?? 12/01/2023 14:02 RBC 4.42 m/mm3 ()?? 12/01/2023 14:02 Hgb 12.1 Gm/dL ()?? 12/01/2023 14:02 Hct 39.2 % ()?? 12/01/2023 14:02 MCV 88.7 femtoliters ()?? 12/01/2023 14:02 MCH 27.4 pg ()?? 12/01/2023 14:02 MCHC 30.9 g/dL (Low)?? 12/01/2023 14:02 Platelet Count 214 k/mm3 ()?? 12/01/2023 14:02 RDW-SD 49.7 femtoliters (High)?? 12/01/2023 14:02 MPV 11.2 femtoliters ()?? 12/01/2023 14:02 Nucleated RBC (Automated) 0.0 #/100 WBC'S ()?? 12/01/2023 14:02 Abs. NRBC 0.0 k/mm3 ()?? 12/01/2023 14:02 Abs. Neut 9.7 k/mm3 (High)?? 12/01/2023 14:02 Abs. Lymph 2.2 k/mm3 ()?? 12/01/2023 14:02 Abs. [place] 1.4 k/mm3 (High)?? 12/01/2023 14:02 Abs. Eo 0.0 k/mm3 ()?? 12/01/2023 14:02 Abs. Baso 0.1 k/mm3 ()?? 12/01/2023 14:02 Neut % 71.7 % ()?? 12/01/2023 14:02 Lymph % 16.5 % ()?? 12/01/2023 14:02 [place] % 10.5 % ()?? 12/01/2023 14:02 Eos % 0.1 % ()?? 12/01/2023 14:02 Baso % 0.5 % ()?? 12/01/2023 14:02 Imm Gran 0.7 % ()?? 12/01/2023 14:02 Abs. Imm Gran 0.1 k/mm3 ()?? 12/01/2023 14:02 ?? CARDIAC Nt-Probnp 495 pg/mL (High)?? 12/01/2023 14:02 High Sensitivity Troponin (HSTnT) 20 ng/L (High)?? 12/01/2023 17:00 ?? CHEM GENERAL Sodium 139 mmol/L ()?? 12/01/2023 14:02 Potassium 4.2 mmol/L ()?? 12/01/2023 14:02 Chloride 102 mmol/L ()?? 12/01/2023 14:02 Bicarbonate Level 26 mmol/L ()?? 12/01/2023 14:02 Anion Gap 11 ()?? 12/01/2023 14:02 Glucose Level 101 mg/dL (High)?? 12/01/2023 14:02 BUN 7 mg/dL (Low)?? 12/01/2023 14:02 Creatinine-Blood 0.73 mg/dL ()?? 12/01/2023 14:02 Estimated GFR Creatinine 88 ML/MIN/1.73 M2 ()?? 12/01/2023 14:02 Calcium 8.5 mg/dL (Low)?? 12/01/2023 14:02 Protein, Total 5.9 Gm/dL (Low)?? 12/01/2023 14:02 Albumin 3.5 Gm/dL ()?? 12/01/2023 14:02 AG Ratio 1.5 ()?? 12/01/2023 14:02 Alkaline Phosphatase 94 units/L ()?? 12/01/2023 14:02 AST (SGOT) 16 units/L ()?? 12/01/2023 14:02 ALT (SGPT) 9 units/L ()?? 12/01/2023 14:02 Bilirubin, Total 0.2 mg/dL ()?? 12/01/2023 14:02 Lactate 0.9 mmol/L ()?? 12/01/2023 14:02 C-Reactive Protein 3.9 mg/dL (High)?? 12/01/2023 14:02 ? COAG INR 1.0 ()?? 12/01/2023 14:02 Protime (PT) 10.7 seconds ()?? 12/01/2023 14:02 APTT 28.4 seconds ()?? 12/01/2023 14:02 ? HEME OTHER Hold Blue Top SPECIMEN DISCARDED AFTER 4 HOURS. ()?? 12/01/2023 14:02 ? MISC. CHEMISTRY Procalcitonin 0.06 ng/mL ()?? 12/01/2023 14:02 ? UA/URINALYSIS Appear/Color, Urine YELLOW ()?? 12/01/2023 19:05 Specific [place], Urine 1.021 ()?? 12/01/2023 19:05 pH, Urine 6.5 ()?? 12/01/2023 19:05 Albumin, Urine TRACE (Abnormal)?? 12/01/2023 19:05 Glucose, Urine NEGATIVE ()?? 12/01/2023 19:05 Ketones, Urine TRACE (Abnormal)?? 12/01/2023 19:05 Bilirubin, Urine NEGATIVE ()?? 12/01/2023 19:05 Hemoglobin, Urine NEGATIVE ()?? 12/01/2023 19:05 Nitrite, Urine NEGATIVE ()?? 12/01/2023 19:05 Leukocyte, Urine NEGATIVE ()?? 12/01/2023 19:05 Urobilinogen NORMAL mg/dL ()?? 12/01/2023 19:05 WBC's, Urine 1 /HPF ()?? 12/01/2023 19:05 RBC's, Urine 2 /HPF ()?? 12/01/2023 19:05 Squamous Epith 1 /HPF ()?? 12/01/2023 19:05 Hold Urine Culture Testing available 48 hours from time of collection. ()?? 12/01/2023 19:05 ? VIROLOGY COVID-19 by RT-PCR NEGATIVE ()?? 12/01/2023 14:17 ? Image ?CT Angio Chest??12/01/2023 15:09 by Shelli Bruno ?Lungs and Pleura:Lungs and Pleura: Paraseptal emphysema of the upper lobes. New moderate bibasilar atelectasis. 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 No effusion or pneumothorax. Subpleural nodule of the left upper lobe measuring 6 mm is unchanged (image 23 series 604). The previously seen sub-4 mm nodules of the right lung are not seen on the current examination. Paraseptal emphysema of the upper lobes. New moderate bibasilar atelectasis. 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 No effusion or pneumothorax. _ minutes spent on discharge * Vanessa MAHER, Darron R: PERFORM Event Display: Discharge/Transfer Note Hospital Authored Date: Attending Attestation: I have seen and evaluated this patient. I have discussed the case and its management with the resident and agree with the findings and plan as documented in the resident???s (??Humera Bhakta)??discharge??note. ??Low concern for bacterial pneumonia given negative Pro-Diomedes. 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 Leukocytosis likely reactive.?Time spent <30 mins. * Rinku PAREDES, Chelsey: PERFORM Event Display: Patient Education/Instruction Authored Date: Inpatient Adult Discharge Instructions. [address] [address] Name: MARILIA SPANN : 1955?? Visit: 12/01/2023 18:07?? Current Date: 12/02/2023 12:14 ?? Account: [id number]?? Inpatient Adult Discharge Instructions We would like to thank you for allowing us to assist you with your healthcare needs. The following includes patient education materials and information regarding your injury/illness. Our entire staffstrives to provide an excellent experience for our patients and their families. PLEASE ENSURE YOU FOLLOW-UP PER THE INSTRUCTIONS BELOW! ?? YOUR OPINION IS IMPORTANT TO US! Please complete the survey you may receive by mail or email. Your feedback will be used to make improvements to the healthcare experiences of our patients and their families. Surveys are administered by [employer] ?? If further treatment with your primary care physician or another doctor is recommended, it is important for you to keep the appointment. Call your primary care physician or return to the Emergency Department immediately if your condition worsens, fails to improve, or new symptoms develop. If you need to find a doctor, you can call [facility] for a referral at [phone] or toll free at [phone]) or log in to [email or web address].. ?? [facility], in keeping with [facility] guidance, no longer requires face masks for staff, patientsor visitors in most situations. Similiar to time spent indoors at other locations, there is the chance that you were exposed to repiratory viruses during your time with us (such as flu or COVID-19). If you develop symptoms concerning for a viral respiratory infection, please seek testing (and treatment if indicated) from your medical provider or home test kit. ?? You can view and manage your care through the patient portal or by using a health care gala of your choosing. [employer] is a website that allows you to securely view your medical information including your hospital discharge summary, office visit summaries, medications and follow-up visits. You can also request appointments, renew medications, and request access to your medical information using a health care gala of your choosing, or just ask a question. You can enroll at [email or web address] or register during your next office visit. You have been discharged from [facility], Patient Care Unit: W4??. If you have any questions regarding these instructions, including results of studies pending, afteryou leave, please call us and we will be happy to assist you 25/12. [facility] Your Care Team Attending Physician Darron Mendez MD?? Consulting Providers Darron Mendez MD?? Discharging Providers Humera Bhakta MD Reason for Your Visit coming from home,complaints of fever and dizziness for 2 days. had coiling and clips are placed in the lungs for anurysums.?? Your Diagnosis Aneurysm of pulmonary artery General medical Pneumonia Tests Performed Below is a partial list of the tests performed during your hospitalization. You may have had other tests and procedures not included in this list. Please discuss all test results with your provider. C-REACTIVE PROTEIN CBC w/ Differential Comprehensive Metabolic Panel COVID-19 (Novel Coronavirus), Rapid PCR Hold Blue Top Tube INR Lactate Level PROBNP PROCALCITONIN, SERUM PTT Troponin T, High Sensitivity Urinalysis w/hold for Urine Culture CT Angio Chest Add On Lab Order?? Blood Culture?? Blood Culture #2?? Primary Care Provider Os POTTERY DECORATOR, Analy Pruett? Advance Directive Health Care Proxy on File Yes - Health Care Proxy Discharge Vitals Temperature: 97.3 DegF Pulse Rate: 77 bpm Respiratory Rate: 18 br/min Systolic Blood Pressure: 104 mm Hg Diastolic Blood Pressure: 67 mm Hg Oxygen Saturation: 97 % Studies Pending All studies ordered during this hospital stay have been completed unless listed below. Please discuss all pending results with your provider listed above in these instructions. ?? Add On Lab Order?? Blood Culture?? Blood Culture #2?? What to do next Instructions From Your Doctor You admitted to the hospital with low oxygen??and feeling dizzy.?? We treated you briefly for possible pneumonia, however your??symptoms and labs were reassuring??against a diagnosis of pneumonia, therefore we will not continue antibiotics for you when you leave the hospital.?? Most likely your symptoms and low oxygen were??as a result of the procedure that you underwent. ??You should follow-up with your adjuster and primary care team as previously directed.?? You should treat any??postprocedure pain with Tylenol and ibuprofen.?? You should seek??medical attention if you develop any furth er??dizzy spells, increased cough, coughing up blood, significant palpitations or feeling of your heart racing, fevers,??shortness of breath??above her usual baseline. ?? Orders??:Ambulate with assistance ??3 times a day ??unless otherwise specified Status: ??Full Resuscitation :Fair :Fair? 12/02/23 11:50:00 EDT?? Discharge Medications MARILIA SPANN :1955 Visit Date:12/01/2023 Medications: Please continue your medications until treatment is completed or stopped by your provider. Medications not listed below should be discontinued. Discuss any questions related to medications with your provider. What How Much When Instructions Next Dose Unchanged Acetaminophen resume previous schedule Unchanged Albuterol (Albuterol (Eqv-ProAir HFA) 90 mcg/ inh inhalation aerosol) 2 puff(s) Inhalation Every 4 hours j44.9 ?? use as directed Unchanged bifidobacterium-lactobacillus (Probiotic Formula) 1 capsule Oral Twice a day use as directed Unchanged Clonazepam 1 Milligram Oral Twice a day as needed for Anxiety Tonight, 12/01 9pm Unchanged Duloxetine (Cymbalta 60 mg oral enteric coated capsule) 2 capsule Oral Daily do not crush or chew ?? Tomorrow 12/02 9am Unchanged Estradiol Topical (estradiol 0.1 mg/ g vaginal cream) See instructions APPLY 1 GRAM VAGINALLY EVERY SUNDAY AND SUNDAY ?? resume previous schedule Unchanged Fexofenadine (fexofenadine 60 mg oral tablet) Twice a day resume previous schedule Unchanged Fluticasone Nasal (Flonase 50 mcg/ inh nasal spray) 50 Microgram Nares, Both Daily as needed for Congestion resume previous schedule Unchanged Gabapentin (gabapentin 600 mg oral tablet) 2 tab(s) Oral Daily at Bedtime Tonight, 12/01 9pm Unchanged Lamotrigine (LaMICtal 25 mg oral tablet) 1 tab(s) Oral Twice a day Tonight, 12/01 9pm Unchanged Multivitamin resume previous schedule Unchanged Nitrofurantoin (Macrobid macrocrystals-monohydrate 100 mg oral capsule) 1 capsule Oral Twice a day Duration: 7 Days Tonight, 12/01 9pm Unchanged olodaterol-tiotropium (Stiolto Respimat 60 ACT 2.5 mcg-2.5 mcg/ inh inhalation aerosol) 2 puff(s) Inhalation Every 24 hours j44.9 ?? resume previous schedule Unchanged Omeprazole 40 Milligram Oral Daily resume previous schedule Unchanged Ondansetron (Zofran ODT 4 mg oral tablet, disintegrating) 4 Milligram Oral 3 times a day resume previous schedule Unchanged Oxybutynin (oxybutynin 5 mg oral tablet) See instructions TAKE 1 TABLET BY MOUTH DAILY AT BEDTIME ?? Tonight, 12/01 9pm Unchanged Pancrelipase (Zenpep 10,000 units-32,000 units-42,000 units oral delayed release capsule) 2 capsule Oral 3 times a day with each meal and snack ?? resume previous schedule Unchanged Trazodone (traZODone 50 mg oral tablet) 4 tab(s) Oral Daily at Bedtime Tonight, 12/01 9pm Unchanged Ubiquinone (CoQ10 100 mg oral capsule) 1 capsule Oral Daily resume previous schedule Unchanged vibegron (Gemtesa 75 mg oral tablet) See instructions TAKE 1 TABLET BY MOUTH DAILY ?? resume previous schedule Unchanged vibegron (Gemtesa 75 mg oral tablet) 1 tab(s) resume previous schedule Prescription Given During Visit No new medications prescribed at time of discharge.?? Laboratory Results Below is a partial list of the most recent Laboratory test results done prior to this discharge. You may have had other tests and procedures not included in this list. Please discuss all test resultswith your provider. C-REACTIVE PROTEIN (12/01/2023) ???C-Reactive Protein - 3.9 mg/dL CBC w/ Differential (12/01/2023) ???WBC - 13.5 k/mm3???RBC - 4.42 m/mm3???Hgb - 12.1 Gm/dL???Hct - 39.2 %???MCV - 88.7 femtoliters???MCH - 27.4 pg???MCHC - 30.9 g/dL???Platelet Count - 214 k/mm3???RDW-SD - 49.7 femtoliters???MPV - 11.2 femtoliters???Nucleated RBC (Automated) - 0.0 #/100 WBC'S???Abs. NRBC - 0.0 k/mm3???Abs. Neut - 9.7 k/mm3???Abs. Lymph - 2.2 k/mm3???Abs. [place] - 1.4 k/mm3???Abs. Eo - 0.0 k/mm3???Abs. Baso - 0.1 k/mm3???Neut % - 71.7 %???Lymph % - 16.5 %???[place] % - 10.5 %???Eos % - 0.1 %???Baso % - 0.5 %???Imm Gran - 0.7 %???Abs. Imm Gran - 0.1 k/mm3 Comprehensive Metabolic Panel (12/01/2023) ???Sodium - 139 mmol/L???Potassium - 4.2 mmol/L???Chloride - 102 mmol/L???Bicarbonate Level - 26 mmol/L???Anion Gap - 11???Glucose Level - 101 mg/dL???BUN - 7 mg/dL???Creatinine-Blood - 0.73 mg/dL???Estimated GFR Creatinine - 88 ML/MIN/1.73 M2???Calcium - 8.5 mg/dL???Protein, Total - 5.9 Gm/dL???Albumin - 3.5 Gm/dL???AG Ratio - 1.5???Alkaline Phosphatase - 94 units/L???AST (SGOT) - 16 units/L???ALT (SGPT) - 9 units/L???Bilirubin, Total - 0.2 mg/dL COVID-19 (Novel Coronavirus), Rapid PCR (12/01/2023) ???COVID-19 by RT-PCR - NEGATIVE Hold Blue Top Tube (12/01/2023) ???Hold Blue Top - SPECIMEN DISCARDED AFTER 4 HOURS. INR (12/01/2023) ???INR - 1.0???Protime (PT) - 10.7 seconds Lactate Level (12/01/2023) ???Lactate - 0.9 mmol/L PROBNP (12/01/2023) ???Nt-Probnp - 495 pg/mL PROCALCITONIN, SERUM (12/01/2023) ???Procalcitonin - 0.06 ng/mL PTT (12/01/2023) ???APTT - 28.4 seconds Troponin T, High Sensitivity (12/01/2023) ???High Sensitivity Troponin (HSTnT) - 20 ng/L Urinalysis w/hold for Urine Culture (12/01/2023) ???Appear/Color, Urine - YELLOW???Specific [place], Urine - 1.021???pH, Urine - 6.5???Albumin, Urine - TRACE???Glucose, Urine - NEGATIVE???Ketones, Urine - TRACE???Bilirubin, Urine - NEGATIVE???Hemoglobin, Urine - NEGATIVE???Nitrite, Urine - NEGATIVE???Leukocyte, Urine - NEGATIVE???Urobilinogen - NORMAL???WBC's, Urine - 1 /HPF???RBC's, Urine - 2 /HPF???Squamous Epith - 1 /HPF???Hold Urine Culture- Testing available 48 hours from time of collection. Allergies (NKA means No Known Allergies) NKA Problems Active Problems??(10) Bipolar depression?? Cervical disc disorder with radiculopathy?? Cervical facet syndrome?? EtOH stopped 2012 going to AA meetings?? Fibromyalgia?? Myofascial pain?? Neutrophilic leukocytosis?? Osteoarthritis?? Pancreatic insufficiency?? Rectal prolapse?? Education Materials Below is the list of Educational Leaflet Providered with your Discharge Instructions. [employer] Patient Education - Shortness of Breath (Dyspnea)?? Valuables and Belongings I fully understand and agree that [facility] accepts no responsibility for all my personal property including clothing, toilet articles, radios, jewelry, dentures, hearing aids, rings, money, or any other property that is in my possession or is brought to me after admission. I understand certain valuables may be placed in a hospital safe for a short period of time. I understand that the hospital is not liable for loss or damage due to accident, fire, or other natural occurrence while said property is in the safe. I accept full responsibility for any personal property that I keep with me, and will not hold the hospital responsible in case of loss or disappearance. I acknowledge that i have been encouraged to send valuables and belongings home. ?? No Valuables/Belongings: No valuables/belongings present Review of Valuable and Belonging List: With patient Date for Pt to Sign Valuables/Belongings: 12/01/23 22:20:00 ?? Other Discharge Information ? Pulmonary Rehab Status?? Pulmonary Rehab Discharge Status?? Respiratory Rate: 18 br/min ? Common Emergency Awareness Tips IS IT A STROKE? Act FAST and Check for these signs: FACE Does the face look uneven? ARM Does one arm drift down? SPEECH Does their speech sound strange? TIME Call at any sign of stroke ?? Heart Attack Signs Chest discomfort: Most heart attacks involve discomfort in the center of the chest and lasts more than a few minutes, or goes away and comes back. It can feel like uncomfortable pressure, squeezing, fullness or pain. Discomfort in upper body: Symptoms can include pain or discomfort in one or both arms, back, neck, jaw or stomach. Shortness of breath: With or without discomfort. Other signs: Breaking out in a cold sweat, nausea, or lightheaded. Remember, MINUTES DO MATTER. If you experience any of these heart attack warning signs, call to get immediate medical attention! ?? Smoking can increase your chances of developing chronic health problems and can cause harmful effects to other family members in your house. If you smoke, you are strongly encouraged to quit. Please call [facility] [employer] [facility] at [phone] or [phone] ([phone]) or log in to [email or web address] for referrals to smoking cessation programs. ?? 471 Suicide & Crisis Lifeline is available 25/12 if you or someone you know needs to find a reason to keep living. By calling 580 you'll be connected to a skilled, trained counselor at a crisis center in your area. INPATIENT DISCHARGE INSTRUCTIONS SIGNATURE PAGE DELTYLER BOSCHLY Location:[facility] Registration Date and Time:12/01/2023 18:07 EDT Primary Care Physician: Analy Moscoso NP, Attending Physician: Vanessa MAHER, Darron Gomes, I MARILIA SPANN, have received the above patient education materials/instructions and have verbalized understanding. If ambulance or transport services are being used I further acknowledge being given a choice of service. ?? If you need to contact me, please call me at this number: . Patient/Room Service Clerk Name: Patient/Room Service Clerk Signature: Relationship to Patient: Witness Name/Signature: Date: * Humera Bhakta MD: PERFORM Event Display: Patient Education Leaflets Authored Date: [id number] Shortness of Breath (Dyspnea) ?? [id number] Shortness of Breath (Dyspnea) Shortness of breath is the feeling that you can't catch your breath or get enough air. It's also known as dyspnea. Dyspnea can be caused by many different conditions. They include: ??? Acute asthma attack ??? Worsening of chronic lung diseases such as chronic bronchitis and emphysema (COPD) ??? Heart failure. This is when weak heart muscle causes extra fluid to collect in the lungs. ??? Panic attacks or anxiety. Fear can cause rapid breathing (hyperventilation). ??? Pneumonia, or an infection in the lung tissue ??? Exposure to toxic substances, fumes, smoke, or certain medicines ??? Blood clot in the lung (pulmonary embolism). This is often from a piece of blood clot in adeep vein of the leg (deep vein thrombosis) that breaks off and travels to the lungs. ??? Heart attack or heart-related chest pain (angina) ??? Anemia ??? Collapsed lung (pneumothorax) ??? Dehydration ??? Based on your visit today, the exact cause of your shortness of breath is not certain. Your tests don???t show any of the serious causes of dyspnea. You may need other tests to find out if you have aserious problem. It???s important to watch for any new symptoms or symptoms that get worse. Follow up with your healthcare provider as directed. Home care Follow these tips to take care of yourself at home: ??? When your symptoms are better, go back to your usual activities. ??? If you smoke, you should stop. Join a quit-smoking program or ask your healthcare provider for help. ??? Eat a healthy diet and get plenty of sleep. ??? Get regular exercise.Talk with your healthcare provider before starting to exercise, especially if you have other medical problems. ??? Discuss with your healthcare provider about cutting down on the amount of caffeine and stimulants you consume. ?? Follow-up care Follow up with your healthcare provider, or as advised. If tests were done, you will be told if your treatment needs to be changed. You can call as directed for the results. If an X-ray was taken, you will be told of any new findings that may affect your care. ?? Call 911 Shortness of breath may be a sign of a serious medical problem. For example, it may be a problem with your heart or lungs. Call 911 if you have worsening shortness of breath or trouble breathing, especially with any of the symptoms below: ??? Shortness of breath or wheezing ??? Confusion or difficulty waking ??? Fainting or loss of consciousness ??? Fast or irregular heartbeat ??? Coughing up blood ??? Unusual pain in your chest, arm, shoulder, neck, or upper back ??? Unusual sweating ??? Feeling of doom ??? Lips or skin looks blue, purple, or sainz in color ??? Feel dizzy ?? When to seek medical advice Call your healthcare provider right away if any of these occur: ??? Redness, pain or swelling in your leg, arm, or other body area ??? Swelling in both legs or ankles ??? Fast weight gain ??? Weakness ??? Fever of 100.4??F (38??C) or higher, or as directed by your healthcare provider ?? Last Reviewed Date: 2021 ?? [id number] [employer]. All rights reserved. This information is not intended as a substitute for professional medical care. Always follow your healthcare professional's instructions. ?? Patient Care team information Care Team Personnel Name: Marilin Del Castillo RN Position: [facility] RN Member Role: Primary Care Nurse Name: Olesya Shoemaker RN Position: S RN Member Role: Primary Care Nurse Name: Analy Moscoso NP Position: Reference Physician Member Role: PCP Address: Address: [address] [place] [address]- Care Team Related Persons Name: CAILIN MILLAN Address: home [address] [place] [address] Name: BILLY PORTER Address: [place] [address]
--- OUTSIDE RECORDS SUMMARY | 2023-12-08 11:24 | XMS_ITS | Continuity of Care Document ---
Author Organization [facility] Address [address] [facility], 4t [place] [address]- Care Team Providers Care Tape Sewer Name Role Phone Os RETAIL ADVERTISING SALES MANAGER, Analy Pruett Primary Care Physician [facility]23 - 06/28/23 [facility] [address] [facility], 4th Floor [place], [place] [address] Allergies, Adverse Reactions, Alerts No [...] Gm, 3 Refills, Maintenance, 03/02/23 10:03:00 EDT, [facility], 155, cm, 02/22/23 9:42:00 EDT, Height, [...] tablet, 2 Refills, Maintenance, 11/16/22 15:03:00 EDT, [facility], 155, cm, 09/20/22 8:51:00 EDT, Height, [...] 30 tablet, 5 Refills, Maintenance, 03/02/23 10:12:00EDT, [facility], Partial fill upon patient request if [...] Active Rectal prolapse Confirmed Active 1st 2Dr [facility] Social History Social History Type Response Smoking Status 5-9 cigarettes (betw een 1/4 to 1/2 pack)/day in last 30 days;Smoker, current status unknown entered on: 09/16/19 Sex Patient Care team information Care Team Personnel Name: Marilin Del Castillo RN Position[facility] RN Member Role: Primary Care Nurse Name: Olesya Shoemaker RN Position: S RN Member Role: Primary Care Nurse Name: Analy Moscoso NP Position: Reference Physician Member Role: PCP Address: Address: [address] [place] [address]- Care Team Related Persons Name: CAILIN MILLAN Address: home [address] [address] Name: BILLY PORTER Address: [place] [address]
--- OUTSIDE RECORDS SUMMARY | 2023-12-08 11:24 | XMS_ITS | Continuity of Care Document ---
[facility] Organization [facility] [employer] [facility] Address [address] [facility], 4t [place] [address]- Care Team Providers Care Body Line Finisher Name Role Phone Tasha Rodriguez MD Primary Care Physician [id number] Date[facility]s): 09/19/19 - 09/26/19 [facility] [employer] [facility] [address] [facility], 4th [place] [address]- Attending Physician: Sue Bond MD Referring Physician: Tasha Rodriguez MD Allergies, Adverse Reactions, Alerts Substance Reaction Severity [...] 0, 01/02/07 16:06:03, anxiety, Print CORY Number, [id number] Start Date: 01/02/07 Status: Ordered Creon By [...] 09/16/14 14:35:58 Start Date: 09/16/14 Status: Ordered Myrbetriq 25 mg oral tablet, extended release 1 tablet = 25 mg, By Mouth, Daily, # 30 tablet, 5 Refills, Maintenance, 09/19/19 10:56:00 EDT, [id number], 152.4, cm, 07/31/19 12:08:00 EST, Height, 45.7, [...] Fibromyalgia(Confirmed) Active Rectal prolapse(Confirmed) Active 1st 2[facility] Procedures Procedure Date Related Diagnosis Body Site Status Trigger finger of right hand x3 Completed Social History Social History Type Response Smoking Status 5-9 cigarettes (betw een 1/4 to 1/2 pack)/day in last 30 days;Smoker, current status unknown entered on: 09/16/19 Sex
--- OUTSIDE RECORDS SUMMARY | 2023-12-08 11:24 | XMS_ITS | Continuity of Care Document ---
Author Organization [facility] Address [address] [place] [address]- Care Team Providers Care Dimension Mill Worker Name Role Phone Os MUSHROOM SPAWN MAKER, Analy Pruett Primary Care Physician [phone] [facility] Date[facility]s): 02/28/23 - 04/06/23 [facility] [address] [place] [address]- Attending Physician: Not on Staff, Attending MD [...] Gm, 3 Refills, Maintenance, 03/02/23 10:03:00 EDT, [facility], 155, cm, 02/22/23 9:42:00 EDT, Height, 54.5, kg, 03/02/23 9:48:00 EDT, Dry Weight Start Date: 03/02/23 Status: Ordered fexofenadine 60 mg oral tablet 0 Refills, Maintenance, 03/15/23 15:11:00 EDT, Partial [...] tablet, 2 Refills, Maintenance, 11/16/22 15:03:00 EDT, [facility], 155, cm, 09/20/22 8:51:00 EDT, Height, [...] & VOMITING, # 90 tablet, 0 Refills, [facility], 158, cm, 01/04/22 13:20:00 EDT, Height, 45.8, kg, 03/08/21 15:15:00 EDT, Dry Weight Start Date: 01/12/22 Status: Ordered oxybutynin 5 mg oral tablet 1 tablet = 5 mg, By Mouth, Daily at bedtime, # 30 tablet, 5 Refills, Maintenance, 03/02/23 10:12:00EDT, [facility], Partial fill upon patient request if the prescription is for a schedule II opioid drug., 155, cm, 02/22/23 9:42:00 EDT, [facility]... Start Date: 03/02/23 Status: Ordered Probiotic Formula 1 capsule, By Mouth, 2 times a day, 0 Refills, Maintenance, 09/06/20 13:12:00 EDT Start Date: 09/06/20 Status: Ordered prochlorperazine 10 mg oral tablet 1 tablet = 10 mg, 0 Refills, Maintenance, 03/15/23 15:11:00 EDT, Partial fill upon patient request if the prescription is for a schedule II opioid drug. Start Date: 03/15/23 Status: Ordered Systane Preservative Free ophthalmic solution [...] Active Rectal prolapse Confirmed Active 1st 2Dr [facility] Social History Social History Type Response Smoking Status 5-9 cigarettes (betw een 1/4 to 1/2 pack)/day in last 30 days;Smoker, current status unknown entered on: 09/16/19 Sex Patient Care team information Care Team Personnel Name: Marilin Del Castillo RN Position: S RN Member Role: Primary Care Nurse Name: Olesya Shoemaker RN Position: S RN Member Role: Primary Care Nurse Name: Danis MUSHROOM SPAWN MAKERAnaly Position: Reference Physician Member Role: PCP Address: Address: [address] [place] [address]- [place] Care Team Related Persons Name: CAILIN MILLAN Address: home [address] [place] [address] Name: BILLY PORTER Address: [place] [address]
--- OUTSIDE RECORDS SUMMARY | 2023-12-08 11:24 | XMS_ITS | Continuity of Care Document ---
Author Organization [facility] Address [address] [place] [address]- Care Team Providers Care Tar Heater Name Role Phone Os HEEL SPLITTER, Analy Pruett Primary Care Physician [facility] Date(s): 10/08/23 - 10/15/23 [facility] [address] [place] [address]- Attending Physician: Nila MAHER, Efren Admitting Physician: Nila MAHER, Efren Referring Physician: Os HEEL SPLITTERAnaly Allergies, Adverse Reactions, Alerts No Known Allergies [...] 6 Refills, Maintenance, 09/28/23 14:45:00 EDT, Inhaler, [facility], Partial fill upon patient request if [...] Gm, 3 Refills, Maintenance, 03/02/23 10:03:00 EDT, [facility], 155, cm, 02/22/23 9:42:00 EDT, Height, [...] tablet, 4 Refills, Maintenance, 08/06/23 11:28:00 EST, [facility], 154, cm, 05/04/23 12:20:00 EST, Height, [...] 11 Refills, Maintenance, 09/28/23 14:45:00 EDT, Aerosol, [facility], Partial fill upon patient request if [...] Active Rectal prolapse Confirmed Active 1st 2Dr [facility] [place] Vital Signs Most recent to oldest [Reference Range]: 1 Height 155 cm (10/08/23 11:10 AM) Weight 50.07 kg (10/08/23 11:10 AM) Oxygen Saturation [94-100 %] 93 % *L* (10/08/23 11:10 AM) Pulse Rate [55-90 bpm] 84 bpm (10/08/23 11:10 AM) Body Mass Index [18.5-24.99 kg/m2] 20.84 kg/m2 (10/08/23 11:10 AM) Blood Pressure [90-138/55-84 mm Hg] 120/ 60mm Hg (10/08/23 11:10 AM) Social History Social History Type Response Smoking Status 10 or more cigarette s (1/2 pack or more)/day in last 30 days; Interested in cessation: No; Patient wants NRT during admission No entered on: 09/26/23 Sex Note * Carrie Melendrez: PERFORM, SIGN, VERIFY Event Display: Patient Education/Instruction Authored Date: [id number] [facility] *[facility] [address] Clinical Summary Name MARILIA SPANN Age 68 Years 1955 PCP Os HEEL SPLITTER, Analy Pruett PCP Visit Date 10/08/2023 10:54:00 Additional Instructions: Scheduled Appointments?? Future Appointments ?*[facility] ?[address]??[place],??[place],??[address] ?Phone:??--?Fax:??-- ?Appt. Date:??10/31/2023?10:30 AM ?Scheduled Provider:??Mikel Hui MD Follow-Up Instructions ?? 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 Diagnosis Medications: Please continue your medications until treatment is completed or stopped by your provider. Discuss any questions related to medications with your provider. Medications to Continue with No Changes These medications were not printed or sent to your pharmacy Albuterol (Albuterol (Eqv-ProAir HFA) 90 mcg/inh inhalation aerosol) 2 puff(s) Inhalation every 4 hours. j44.9. Refills: 6. Next Dose: bifidobacterium-lactobacillus (Probiotic Formula) 1 capsule Oral twice a day. Next Dose: Clonazepam 1 Milligram Oral twice a day as needed Anxiety. Next Dose: Duloxetine (Cymbalta 60 mg oral enteric coated capsule) 2 capsule Oral Daily. do not crush or chew. Next Dose: Estradiol Topical (estradiol 0.1 mg/g vaginal cream) APPLY 1 GRAM VAGINALLY EVERY SUNDAY AND SUNDAY. Refills: 3. Next Dose: Fexofenadine (fexofenadine 60 mg oral tablet) twice a day. Next Dose: Fluticasone Nasal (Flonase 50 mcg/inh nasal spray) 50 Microgram Nares, Both Daily as needed Congestion. Next Dose: Gabapentin (gabapentin 600 mg oral tablet) 2 tab(s) Oral Daily at Bedtime. Next Dose: Lamotrigine (LaMICtal 25 mg oral tablet) 1 tab(s) Oral twice a day. Next Dose: Multivitamin Next Dose: olodaterol-tiotropium (Stiolto Respimat 60 ACT 2.5 mcg-2.5 mcg/inh inhalation aerosol) 2 puff(s) Inhalation every 24 hours. j44.9. Refills: 11. Next Dose: Omeprazole 40 Milligram Oral Daily. Next Dose: Oxybutynin (oxybutynin 5 mg oral tablet) TAKE 1 TABLET BY MOUTH DAILY AT BEDTIME. Refills: 4. Next Dose: Pancrelipase (Zenpep 10,000 units-32,000 units-42,000 units oral delayed release capsule) 2 capsuleOral 3 times a day. with each meal and snack. Next Dose: Trazodone (traZODone 50 mg oral tablet) 4 tab(s) Oral Daily at Bedtime. Next Dose: Ubiquinone (CoQ10 100 mg oral capsule) 1 capsule Oral Daily. Next Dose: vibegron (Gemtesa 75 mg oral tablet) TAKE 1 TABLET BY MOUTH DAILY. Refills: 3. Next Dose: vibegron (Gemtesa 75 mg oral tablet) 1 tab(s). Next Dose: Allergy Info:?? NKA Medications Given This Visit Future Orders ?No future orders Future Orders ?No future orders Vital Signs Height 155 cm Weight 50.07 kg BMI 20.84 kg/m2 Blood Pressure 120 mm Hg/60 mm Hg Temperature Pulse Rate 84 bpm Respiratory Rate 02 Sat Mode of Delivery 93 %/ You can now view a summary of your hospital visit from the comfort of your home through a free online portal called [employer] is a website that allows you to securely view your medical information including discharge summary, medications and follow-up visits. ??You can alsosend a secure electronic message to your doctor???s office to request appointments, renew medications or just ask a question. You can enroll at [email or web address] or register during your next office visit. Disclaimer:?? The information provided is of a general nature and is intended to be used in conjunction with the recommendations and advice of your health care practitioner. ??Every effort has been made to ensure that the information provided is accurate and complete at the time it is provided to you however, as your needs change, or, as new ??information becomes available, different or additional instructions may be required. If you have questions, please consult with your primary care provider or pharmacist, as appropriate. ??This information is not intended to serve as substitution for assessment and evaluation by a qualified health care provider. If you do not have a primary care provider, you may find a [facility] provider by calling [facility] [employer] at [phone]. [facility], in keeping with [facility] guidance, no longer requires face masks for staff, patientsor visitors in most situations. Similar to time spent indoors at other locations, there is the chance that you were exposed to respiratory viruses during your time with us (such as flu or COVID-19).? If you develop symptoms concerning for a viral respiratory infection, please seek testing (and treatment if indicated) from your medical provider or home test kit. For information about the plan of care including goals and instructions for your diagnosis, please see the patient education orders section of this document. Patient Education Materials?? The content of this educational material or handout may have been modified, supplemented, or adapted from its original content and format to support your individualized medical care. Patient Care team information Care Team Personnel Name: Marilin Del Castillo RN Position: Sonia RICHARDS RN Member Role: Primary Care Nurse Name: Olesya Shoemaker RN Position: S RN Member Role: Primary Care Nurse Name: Analy Moscoso NP Position: Reference Physician Member Role: PCP Address: Address: [address] [place] [address]- Care Team Related Persons Name: CAILIN MILLAN Address: home [address] [address] Name: BILLY PORTER Address: [place] [address]
--- OUTSIDE RECORDS SUMMARY | 2023-12-08 11:24 | XMS_ITS | Continuity of Care Document ---
Author Organization [facility] [employer] [facility] Address [address] [facility], 4t [place] [address]- Care Team Providers Care Design Maker Name Role Phone Avi Abhishek Leiva Primary Care Physician [facility] 01[facility]22 - 02/16/22 [facility] [place] [employer] [facility] [address] [facility], 4th [place] [address]- Allergies, Adverse Reactions, Alerts No Known Allergies [...] 0 Refills, Maintenance, 01/25/22 8:56:00 EDT, Tablet, [facility], Partial fill upon patient request if [...] AND SUNDAY, # 42.5 Gm, 0 Refills, Maintenance, 02/01/22 16:37:00 EDT, [facility], 155, cm, 01/27/22 10:19:00 EDT, Height, 49.3, kg, 01/26/22 11:05:00 EDT, Dry Weight Start Date: 02/01/22 Status: Ordered Flonase 50 mcg/inh nasal spray = 50 mcg, Nares, Both, Daily, PRN Congestion, 0 Refills, Maintenance, 03/18/19 14:05:01 EDT Start Date: 03/18/19 Status: Ordered gabapentin 600 mg oral tablet 2 tablet = 1,200 mg, By Mouth, Daily at bedtime, Maintenance, 01/26/22 11:57:00 EDT, Tablet Start Date: 01/26/22 Status: Ordered Melatonin 10 mg oral capsule [...] lozenge, 0 Refills, Maintenance, 01/04/22 17:02:00 EDT, [facility], Partial fill upon patient request ifthe prescription is for a schedule II opioid drug.,... Start Date: 01/04/22 Status: Ordered nicotine 7 mg/24 hr transdermal film, extended release 1 patch, Topically, Daily, Remove old patch before applying new patch. Rotate sites., # 30 patch, 0Refills, Maintenance, 01/04/22 17:02:00 EDT, Patch, [facility], Partial fill upon patientrequest if the [...] & VOMITING, # 90 tablet, 0 Refills, [facility], 158, cm, 01/04/22 13:20:00 EDT, Height, [...] 5 Refills, Maintenance, 11/07/21 12:17:00 EDT, Tablet, [facility], Partial fill upon patient request if the prescription is for a schedule IIopioid drug., 152.4, cm, 10/18/21 8:48:00 EDT, [facility] Start Date: 11/07/21 Status: Ordered Vitamin D3 [...] insufficiency(Confirmed) Active Rectal prolapse(Confirmed) Active 1st 2[facility] Social History Social History Type Response Smoking Status 5-9 cigarettes (betw een 1/4 to 1/2 pack)/day in last 30 days;Smoker, current status unknown entered on: 09/16/19 Sex Care Team Personnel Name: Abhishek Cárdenas DO Address: [address] [place] [phone] [place]
--- OUTSIDE RECORDS SUMMARY | 2023-12-08 11:24 | XMS_ITS | Continuity of Care Document ---
Author Organization [facility] Address [address] [facility], 4t [place] [address]- Care Team Providers Care Prison Guard Name Role Phone Os WIND TURBINE SHEET METAL WORKER, Analy Pruett Primary Care Physician [facility] 06[facility]23 - 07/08/23 [facility] Emily Kaiser[facility] [address] [facility], 4th [place] [address]- Allergies, Adverse Reactions, Alerts No Known Allergies [...] Gm, 3 Refills, Maintenance, 03/02/23 10:03:00 EDT, [facility], 155, cm, 02/22/23 9:42:00 EDT, Height, [...] tablet, 2 Refills, Maintenance, 11/16/22 15:03:00 EDT, [facility], 155, cm, 09/20/22 8:51:00 EDT, Height, [...] 30 tablet, 5 Refills, Maintenance, 03/02/23 10:12:00EDT, [facility], Partial fill upon patient request if [...] prolapse Confirmed Active 1st 2Dr [facility] Social History Social History Type Response Smoking Status 5-9 cigarettes (betw een 1/4 to 1/2 pack)/day in last 30 days;Smoker, current status unknown entered on: 09/16/19 Sex Patient Care team information Care Team Personnel Name: Marilin Del Castillo RN Position: [facility] RN Member Role: Primary Care Nurse Name: Olesya Shoemaker RN Position: S RN Member Role: Primary Care Nurse Name: Analy Moscsoo NP Position: Reference Physician Member Role: PCP Address: Address: [address] [place] [address]- Care Team Related Persons Name: CAILIN MILLAN Address: home [address] [address] Name: BILLY PORTER Address: [place] [address]
--- OUTSIDE RECORDS SUMMARY | 2023-12-08 11:24 | XMS_ITS | Continuity of Care Document ---
Author Organization [facility] Address [address] [place] [address]- Care Team Providers Care Lead Mason Tender Name Role Phone SarkisAbhishek mack DO Primary Care Physician [phone] [facility]): [facility]22 - 02/03/22 [facility] [address] [place], [place] [address] Attending Physician: Admstewart, Justen Admitting Physician: Admtr, Jorge [id number] Referring Physician: Admtr, Ar8 Allergies, Adverse Reactions, [...] 0 Refills, Maintenance, 01/25/22 8:56:00 EDT, Tablet, [facility], Partial fill upon patient request if [...] Gm, 0 Refills, Maintenance, 02/01/22 16:37:00 EDT, [facility], 155, cm, 01/27/22 10:19:00 EDT, Height, [...] lozenge, 0 Refills, Maintenance, 01/04/22 17:02:00 EDT, [facility], Partial fill upon patient request ifthe prescription is for a schedule II opioid drug.,... Start Date: 01/04/22 Status: Ordered nicotine 7 mg/24 hr transdermal film, extended release 1 patch, Topically, Daily, Remove old patch before applying new patch. Rotate sites., # 30 patch, 0Refills, Maintenance, 01/04/22 17:02:00 EDT, Patch, [facility], Partial fill upon patientrequest if the [...] & VOMITING, # 90 tablet, 0 Refills, [facility], 158, cm, 01/04/22 13:20:00 EDT, Height, [...] 5 Refills, Maintenance, 11/07/21 12:17:00 EDT, Tablet, [facility], Partial fill upon patient request if [...] insufficiency(Confirmed) Active Rectal prolapse(Confirmed) Active 1st 2Dr [facility] Social History Social History Type Response Smoking Status 5-9 cigarettes (betw een 1/4 to 1/2 pack)/day in last 30 days;Smoker, current status unknown entered on: 09/16/19 Sex Care Team Personnel Name: Abhishek Cárdenas DO Address: [address] [place] [phone] [place]
--- OUTSIDE RECORDS SUMMARY | 2023-12-08 11:24 | XMS_ITS | Continuity of Care Document ---
Author Organization [facility] Address [address] [place] [address]- Care Team Providers Care Maintenance Job Titles Name Role Phone Avi HERNANDEZ Abhishek Cali Primary Care Physician [phone] [id number] Date(s): 12/08/20 - 01/23/21 [facility] [address] [place] [address]- Attending Physician: Catie Jon MD Admitting Physician: Catie Jon MD Allergies, Adverse Reactions, Alerts Substance Reaction [...] x 1 if needed on arrival to [facility], # 2 tablet, Refills 0, Tot. Refills 0, Maintenance, 01/10/21 8:08:00 EDT, Instructions Replace Required Details, Route to Pharmacy Electronically, [facility]... Start Date: 01/10/21 Status: Ordered Famotidine = [...] 02/02/20 8:20:00 EDT, Route to Pharmacy Electronically, [id number], 152.4, cm, 02/02/20 7:15:00 EDT, Height, 46.7, kg, 02/02/20 7:20:00 E... Start Date: 02/02/20 Status: Ordered mirabegron 25 mg oral tablet, extended release 1 tablet = 25 mg, By Mouth, Daily, do not crush or chew, # 30 tablet, 5 Refills, Maintenance, 03/16/20 12:51:00 EDT, ER Tablet, [id number], 152.4, cm, 02/17/20 10:25:00 EDT, Height, 46.9, [...] tablet, 0 Refills, Maintenance, 03/10/20 11:21:00 EDT, [id number], 152.4, cm, 02/17/20 10:25:00 EDT, Height, 46.9, kg, 02/17/20 10:25:00 EDT, Dry Weight Start Date: 03/10/20 Status: Ordered ondansetron 4 mg oral tablet 1 tablet = 4 mg, By Mouth, Every 8 hours, PRN Nausea & Vomiting, for 30 days, # 90 tablet, 2 Refills, Acute 02/28/21 16:53:00 EDT, 11/30/20 16:53:00 EDT, Tablet, [facility], Partial fill upon patient request if the prescription is for a sche... Start Date: 11/30/20 Stop Date: 02/28/21 Status: Ordered oxyCODONE 5 mg oral capsule 1 capsule = 5 mg, By Mouth, Every 6 hours, PRN as needed for pain, # 7 capsule, 0 Refills, Maintenance, 02/02/20 8:19:00 EDT, Capsule, [id number], Partial fill upon patient request, 152.4, cm, [...] Stop Date: 12/20/05 Status: Ordered Vitamin D 50449 iu oral capsule 50,000 International_Units, By Mouth, [...]
--- OUTSIDE RECORDS SUMMARY | 2023-12-08 11:24 | XMS_ITS | Continuity of Care Document ---
Author Organization [facility] Address [address] [place] [address]- Care Team Providers Care Erp Engineer Name Role Phone Os MANAGER OF ADMINISTRATION, Analy Pruett Primary Care Physician Encounter [facility] Date(s): 10/08/23 - 11/07/23 [facility] [address] [place] [address]- Attending Physician: Justen Canela Admitting Physician: AdmtrJusten Referring Physician: Admtr, Ar8 Allergies, Adverse Reactions, [...] 6 Refills, Maintenance, 09/28/23 14:45:00 EDT, Inhaler, [facility], Partial fill upon patient request if [...] Gm, 3 Refills, Maintenance, 03/02/23 10:03:00 EDT, [facility], 155, cm, 02/22/23 9:42:00 EDT, Height, [...] tablet, 3 Refills, Maintenance, 08/30/23 14:41:00 EDT, [facility]/pharmacy #[id number], 154, cm, 05/04/23 12:20:00 EST, [...] tablet, 4 Refills, Maintenance, 08/06/23 11:28:00 EST, [facility], 154, cm, 05/04/23 12:20:00 EST, Height, [...] 11 Refills, Maintenance, 09/28/23 14:45:00 EDT, Aerosol, [facility], Partial fill upon patient request if [...] Active Rectal prolapse Confirmed Active 1st 2Dr [facility] Social History Social History Type Response Smoking Status 10 or more cigarette s (1/2 pack or more)/day in last 30 days; Interested in cessation: No; Patient wants NRT during admission No entered on: 10/31/23 Sex Patient Care team information Care Team Personnel Name: Marilin Del Castillo RN Position: [facility] RN Member Role: Primary Care Nurse Name: Olesay Shoemaker RN Position: [facility] RN Member Role: Primary Care Nurse Name: Danis MANAGER OF ADMINISTRATIONAnaly Position: Reference Physician Member Role: PCP Address: Address: [address] [place] [address]- Care Team Related Persons Name: CAILIN MILLAN Address: home [address] [place] [address] Name: BILLY PORTER Address: [place] [address]
--- OUTSIDE RECORDS SUMMARY | 2023-12-08 11:24 | XMS_ITS | Continuity of Care Document ---
Author Organization [facility] Address [address] [place] [address] [address] [place] [address]- Care Team Providers Care Finished Goods Inspector Name Role Phone Abhishek Cárdenas DO Primary Care Physician Encounter [facility] Date(s): 10/01/20 - 10/08/[address] [place] [address]- Attending Physician: Oni Suarez MD Referring Physician: Abhishek Cárdenas DO Allergies, Adverse [...] 02/02/20 8:20:00 EDT, Route to Pharmacy Electronically, [facility][id number], 152.4, cm, 02/02/20 7:15:00 EDT, Height, 46.7, kg, 02/02/20 7:20:00 E... Start Date: 02/02/20 Status: Ordered mirabegron 25 mg oral tablet, extended release 1 tablet = 25 mg, By Mouth, Daily, do not crush or chew, # 30 tablet, 5 Refills, Maintenance, 03/16/20 12:51:00 EDT, ER Tablet, [facility] #[id number], 152.4, cm, 02/17/20 10:25:00 EDT, Height, 46.9, [...] tablet, 0 Refills, Maintenance, 03/10/20 11:21:00 EDT, [facility] #[id number], 152.4, cm, 02/17/20 10:25:00 EDT, Height, 46.9, [...] 0 Refills, Maintenance, 02/02/20 8:19:00 EDT, Capsule, [facility] #[id number], Partial fill upon patient request, 152.4, cm, [...] Stop Date: 12/20/05 Status: Ordered Vitamin D 17321 iu oral capsule 50,000 International_Units, By Mouth, [...] Fibromyalgia(Confirmed) Active Rectal prolapse(Confirmed) Active 1st 2Dr [facility] Vital Signs Most recent to oldest [Reference Range]: 1 Height 152.4 cm (10/01/20 3:57 PM) Weight 44 kg (10/01/20 3:57 PM) Pulse Rate [55-90 bpm] 96 bpm *H* (10/01/20 3:57 PM) Body Mass Index [18.5-24.99] 18.94 (10/01/20 3:57 PM) Blood Pressure [90-138/55-84 mm Hg] 95/6 2mm Hg (10/01/20 3:57 PM) Respiratory Rate [16-30 br/min] 16 br/mi n (10/01/20 3:57 PM) Temperature [96.8-100.4 DegF] 98.9 DegF (10/01/20 3:57 PM) Blood pressure sites Arm, right (10/01/20 3:57 PM) Temperature Route Temporal (10/01/20 3:57 PM) Weight Obtained Via Standing scale (10/01/20 3:57 PM) Social History Social History Type Response Smoking Status 5-9 cigarettes (betw een 1/4 to 1/2 pack)/day in last 30 days;Smoker, current status unknown entered on: 09/16/19 Sex
--- OUTSIDE RECORDS SUMMARY | 2023-12-08 11:24 | XMS_ITS | Continuity of Care Document ---
Author Organization [facility] Address [address] [place] [address]- Care Team Providers Care Bottle Filler Name Role Phone Abhishek Cárdenas DO Primary Care Physician [id number] Date(s): 12/23/20 - 02/09/21 [facility] [address] [place] [address]- Attending Physician: Skyler Castillo MD, V Admitting Physician: Skyler Castillo MD, V Referring Physician: Abhishek Cárdenas DO Allergies, Adverse [...] if needed on arrival to [facility], # 2 tablet, Refills 0, [...] 02/02/20 8:20:00 EDT, Route to Pharmacy Electronically, [facility] #[id number], 152.4, cm, 02/02/20 7:15:00 EDT, Height, 46.7, kg, 02/02/20 7:20:00 E... Start Date: 02/02/20 Status: Ordered mirabegron 25 mg oral tablet, extended release 1 tablet = 25 mg, By Mouth, Daily, do not crush or chew, # 30 tablet, 5 Refills, Maintenance, 03/16/20 12:51:00 EDT, ER Tablet, [facility] #[id number], 152.4, cm, 02/17/20 10:25:00 EDT, Height, 46.9, [...] tablet, 0 Refills, Maintenance, 03/10/20 11:21:00 EDT, [facility] #[id number], 152.4, cm, 02/17/20 10:25:00 EDT, Height, 46.9, kg, 02/17/20 10:25:00 EDT, Dry Weight Start Date: 03/10/20 Status: Ordered ondansetron 4 mg oral tablet 1 tablet = 4 mg, By Mouth, Every 8 hours, PRN Nausea & Vomiting, for 30 days, # 90 tablet, 2 Refills, Acute 02/28/21 16:53:00 EDT, 11/30/20 16:53:00 EDT, Tablet, [facility], Partial fill upon patient request if the prescription is for a sche... Start Date: 11/30/20 Stop Date: 02/28/21 Status: Ordered oxyCODONE 5 mg oral capsule 1 capsule = 5 mg, By Mouth, Every 6 hours, PRN as needed for pain, # 7 capsule, 0 Refills, Maintenance, 02/02/20 8:19:00 EDT, Capsule, [facility] #[id number], Partial fill upon patient request, 152.4, cm, [...] Stop Date: 12/20/05 Status: Ordered Vitamin D 02120 iu oral capsule 50,000 International_Units, By Mouth, [...] Fibromyalgia(Confirmed) Active Rectal prolapse(Confirmed) Active 1st 2Dr [facility] Social History Social History Type Response Smoking Status 5-9 cigarettes (betw een 1/4 to 1/2 pack)/day in last 30 days;Smoker, current status unknown entered on: 09/16/19 Sex
--- OUTSIDE RECORDS SUMMARY | 2023-12-08 11:24 | XMS_ITS | Continuity of Care Document ---
Author Organization [facility] Address [address], [address] [place] [address]- Care Team Providers Care Quality Project Manager Name Role Phone Avi HERNANDEZ Abhishek Leiva Primary Care Physician [phone] [facility] Date(s): 09/15/20 - 10/15/20 [facility] Emily [facility] [address], [address] [place], [place] [address] Allergies, Adverse Reactions, Alerts Substance Reaction Severity [...] 02/02/20 8:20:00 EDT, Route to Pharmacy Electronically, [facility] #[id number], 152.4, cm, 02/02/20 7:15:00 EDT, Height, 46.7, kg, 02/02/20 7:20:00 E... Start Date: 02/02/20 Status: Ordered mirabegron 25 mg oral tablet, extended release 1 tablet = 25 mg, By Mouth, Daily, do not crush or chew, # 30 tablet, 5 Refills, Maintenance, 03/16/20 12:51:00 EDT, ER Tablet, [facility] #[id number], 152.4, cm, 02/17/20 10:25:00 EDT, Height, 46.9, [...] tablet, 0 Refills, Maintenance, 03/10/20 11:21:00 EDT, [facility] #[id number], 152.4, cm, 02/17/20 10:25:00 EDT, Height, 46.9, [...] 0 Refills, Maintenance, 02/02/20 8:19:00 EDT, Capsule, [facility][id number], Partial fill upon patient request, 152.4, cm, [...] Stop Date: 12/20/05 Status: Ordered Vitamin D 03074 iu oral capsule 50,000 International_Units, By Mouth, Daily, Refills 0, Maintenance, 09/06/20 13:12:00 EDT, Partialfill upon patient request if the prescription is for a schedule II opioid drug. Start Date: 09/06/20 Status: Ordered Problem List Condition Effective Dates Status Health Status Inform ant EtOH stopped 2011 going to [facility](Confirmed) 1 Active Bipolar depression(Confirmed) 2 Active Fibromyalgia(Confirmed) Active Rectal prolapse(Confirmed) Active 1st 2Dr [facility] Social History Social History Type Response Smoking Status 5-9 cigarettes (betw een 1/4 to 1/2 pack)/day in last 30 days;Smoker, current status unknown entered on: 09/16/19 Sex
--- OUTSIDE RECORDS SUMMARY | 2023-12-08 11:24 | XMS_ITS | Continuity of Care Document ---
Author Organization [facility] Address [address] [place] [address]- Care Team Providers Care Fbi Sharpshooter Name Role Phone Avi HERNANDEZ Abhishek Leiva Primary Care Physician Encounter [facility] [id number] Date(s): 12/23/20 - 01/22/21 [facility] [address] [place] [address]- Allergies, Adverse Reactions, Alerts Substance Reaction Severity [...] x 1 if needed on arrival to [facility], # 2 tablet, Refills 0, Tot. [...] 02/02/20 8:20:00 EDT, Route to Pharmacy Electronically, [facility] #[id number], 152.4, cm, 02/02/20 7:15:00 EDT, Height, 46.7, kg, 02/02/20 7:20:00 E... Start Date: 02/02/20 Status: Ordered mirabegron 25 mg oral tablet, extended release 1 tablet = 25 mg, By Mouth, Daily, do not crush or chew, # 30 tablet, 5 Refills, Maintenance, 03/16/20 12:51:00 EDT, ER Tablet, [facility] #[id number], 152.4, cm, 02/17/20 10:25:00 EDT, Height, 46.9, [...] tablet, 0 Refills, Maintenance, 03/10/20 11:21:00 EDT, [facility] #[id number], 152.4, cm, 02/17/20 10:25:00 EDT, Height, 46.9, kg, 02/17/20 10:25:00 EDT, Dry Weight Start Date: 03/10/20 Status: Ordered ondansetron 4 mg oral tablet 1 tablet = 4 mg, By Mouth, Every 8 hours, PRN Nausea & Vomiting, for 30 days, # 90 tablet, 2 Refills, Acute 02/28/21 16:53:00 EDT, 11/30/20 16:53:00 EDT, Tablet, [facility], Partial fill upon patient request if the prescription is for a sche... Start Date: 11/30/20 Stop Date: 02/28/21 Status: Ordered oxyCODONE 5 mg oral capsule 1 capsule = 5 mg, By Mouth, Every 6 hours, PRN as needed for pain, # 7 capsule, 0 Refills, Maintenance, 02/02/20 8:19:00 EDT, Capsule, [facility] #[id number], Partial fill upon patient request, 152.4, cm, [...] Stop Date: 12/20/05 Status: Ordered Vitamin D 53798 iu oral capsule 50,000 International_Units, By Mouth, [...] Fibromyalgia(Confirmed) Active Rectal prolapse(Confirmed) [facility] Social History Social History Type Response Smoking Status 5-9 cigarettes (betw een 1/4 to 1/2 pack)/day in last 30 days;Smoker, current status unknown entered on: 09/16/19 Sex
--- OUTSIDE RECORDS SUMMARY | 2023-12-08 11:24 | XMS_ITS | Continuity of Care Document ---
Author Organization [facility] Address [address] [place] [address]- Care Team Providers Care Banquet Line Cook Name Role Phone SarkisAbhishek mack DO Primary Care Physician [place] [facility] Date(s): 06/06/21 - 07/06/21 [facility] [address] [place] [address]- Allergies, Adverse Reactions, Alerts No Known Allergies [...] x 1 if needed on arrival to [facility], # 2 tablet, Refills 0, Tot. Refills 0, Maintenance, 03/15/21 15:20:00 EDT, Instructions Replace Required Details, Route to Pharmacy Electronically, [facility] Start Date: 03/15/21 Status: Ordered Enablex 7.5 mg oral tablet, extended release 1 tablet = 7.5 mg, By Mouth, Daily, # 30 tablet, 4 Refills, Maintenance, 06/29/21 13:49:00 EST, ER Tablet, [facility], Partial fill upon patient request if the prescription is for a schedule II opioid drug., 152.4, cm, 05/20/21 11:24:00 EST,... Start Date: 06/29/21 Status: Ordered Estrace Vaginal Cream 0.1 mg/g = 1 Gm, Vaginally, Every Sunday and Sunday, # 42.5 Gm, 2 Refills, Maintenance, 05/06/21 9:13:00 EST, [facility] #[id number], Partial fill upon patient request if the [...] 02/02/20 8:20:00 EDT, Route to Pharmacy Electronically, [facility] #[id number], 152.4, cm, 02/02/20 7:15:00 EDT, Height, 46.7, [...] Refills, Maintenance, 03/16/20 12:51:00 EDT, ER Tablet, [facility] #[id number], 152.4, cm, 02/17/20 10:25:00 EDT, Height, 46.9, [...] tablet, 0 Refills, Maintenance, 03/10/20 11:21:00 EDT, [facility] #[id number], 152.4, cm, 02/17/20 10:25:00 EDT, Height, 46.9, kg, 02/17/20 10:25:00 EDT, Dry Weight Start Date: 03/10/20 Status: Ordered oxyCODONE 5 mg oral capsule 1 capsule = 5 mg, By Mouth, Every 6 hours, PRN as needed for pain, # 7 capsule, 0 Refills, Maintenance, 02/02/20 8:19:00 EDT, Capsule, [facility] #[id number], Partial fill upon patient request, 152.4, cm, [...] Stop Date: 12/20/05 Status: Ordered Vitamin D 73944 iu oral capsule 50,000 International_Units, By Mouth, [...]
--- OUTSIDE RECORDS SUMMARY | 2023-12-08 11:24 | XMS_ITS | Continuity of Care Document ---
Author Organization [facility] Address [address] [place] [address]- Care Team Providers Care Operations Administrator Name Role Phone Avi HERNANDEZ Abhishek Leiva Primary Care Physician [phone] Encounter [facility] Date(s): 12/30/20 - 01/29/21 [facility] [address] [address]- Attending Physician: Justen Canela Admitting Physician: Justen [...] Replace Required Details, Route to Pharmacy Electronically, [facility] Start Date: 01/10/21 Status: Ordered Famotidine = [...] 8:20:00 EDT, Route to Pharmacy Electronically, [facility] #[id number], 152.4, cm, 02/02/20 7:15:00 EDT, Height, 46.7, kg, 02/02/20 7:20:00 E... Start Date: 02/02/20 Status: Ordered mirabegron 25 mg oral tablet, extended release 1 tablet = 25 mg, By Mouth, Daily, do not crush or chew, # 30 tablet, 5 Refills, Maintenance, 03/16/20 12:51:00 EDT, ER Tablet, [facility] #[id number], 152.4, cm, 02/17/20 10:25:00 EDT, Height, 46.9, [...] tablet, 0 Refills, Maintenance, 03/10/20 11:21:00 EDT, [facility] #[id number], 152.4, cm, 02/17/20 10:25:00 EDT, Height, 46.9, kg, 02/17/20 10:25:00 EDT, Dry Weight Start Date: 03/10/20 Status: Ordered ondansetron 4 mg oral tablet 1 tablet = 4 mg, By Mouth, Every 8 hours, PRN Nausea & Vomiting, for 30 days, # 90 tablet, 2 Refills, Acute 02/28/21 16:53:00 EDT, 11/30/20 16:53:00 EDT, Tablet, [facility], Partial fill upon patient request if the prescription is for a sche... Start Date: 11/30/20 Stop Date: 02/28/21 Status: Ordered oxyCODONE 5 mg oral capsule 1 capsule = 5 mg, By Mouth, Every 6 hours, PRN as needed for pain, # 7 capsule, 0 Refills, Maintenance, 02/02/20 8:19:00 EDT, Capsule, [facility] #[id number], Partial fill upon patient request, 152.4, cm, 02/02/20 7:15:00 EDT, Height, 46.7, kg, 0... Start Date: 02/02/20 Status: Ordered Probiotic Formula By Mouth, Daily, 0 Refills, Maintenance, 09/06/20 13:12:00 EDT, Partial fill upon patient request if the prescription is for a schedule II opioid drug. Start Date: 09/06/20 Status: Ordered stiz tg, See Instructions, # 1 each, Refills 0, Tot. Refills 0, Maintenance, Use as needed after bowelmovement and for pain Dx: rectal pain, 08/04/19 14:28:00 EST, Compound Start Date: 08/04/19 Status: Ordered Trazodone Tablet 300, mg, By Mouth, Daily at bedtime, 0, 0, 11/22/05 8:51:14, Print CORY Number, [id number], [id number] Start Date: 11/22/05 Stop Date: 12/20/05 Status: Ordered Vitamin D 34040 iu oral capsule 50,000 International_Units, By Mouth, [...] Fibromyalgia(Confirmed) Active Rectal prolapse(Confirmed) Active 1st 2Dr [facility] Social History Social History Type Response Smoking Status 5-9 cigarettes (betw een 1/4 to 1/2 pack)/day in last 30 days;Smoker, current status unknown entered on: 09/16/19 Sex
--- OUTSIDE RECORDS SUMMARY | 2023-12-08 11:24 | XMS_ITS | Continuity of Care Document ---
Author Organization [facility] Address [address], [address]t [place] [address]- Care Team Providers Care Collector Of Internal Revenue Name Role Phone Os PRODUCT DEVELOPMENT INTERN, Analy Pruett Primary Care Physician [facility] Date[facility]s): 08[facility]20[facility]23 - [facility] [address], [address]th [place] [address]- Allergies, Adverse Reactions, Alerts No Known Allergies [...] Gm, 3 Refills, Maintenance, 03/02/23 10:03:00 EDT, [facility], 155, cm, 02/22/23 9:42:00 EDT, Height, [...] tablet, 3 Refills, Maintenance, 08/30/23 14:41:00 EDT, [id number], cm, 05/04/23 12:20:00 EST, [...] tablet, 4 Refills, Maintenance, 08/06/23 11:28:00 EST, [facility], 154, cm, 05/04/23 12:20:00 EST, Height, [...] 01/05/22 9:00:00 EDT, CR Capsule Start Date: 8/4/22 Status: Ordered Problem List Condition Confirmation Course Effective Dates Status H ealth Status Informant EtOH stopped 2012 going to AA meetings 1 Confirmed Active Cervical disc disorder with radiculopathy Confirmed Active Cervical facet syndrome Confirmed Active Bipolar depression 2 Confirmed Active Fibromyalgia Confirmed Active Myofascial pain Confirmed Active Neutrophilic leukocytosis Confirmed Active Osteoarthritis Confirmed Active Pancreatic insufficiency Confirmed Active Rectal prolapse Confirmed Active 1st 2Dr [facility] Social History Social History Type Response Smoking Status 5-9 cigarettes (betw een 1/4 to 1/2 pack)/day in last 30 days;Smoker, current status unknown entered on: 09/16/19 Sex Patient Care team information Care Team Personnel Name: Magdalene RN, Marilin Position: [facility] RN Member Role: Primary Care Nurse Name: Olesya Shoemaker RN Position: S RN Member Role: Primary Care Nurse Name: Analy Moscoso NP Position: Reference Physician Member Role: PCP Address: Address: [address] [place] [address]- Care Team Related Persons Name: CAILIN MILLAN Address: home [address] [address] Name: BILLY PORTER Address: [place] [address]
--- OUTSIDE RECORDS SUMMARY | 2023-12-08 11:24 | XMS_ITS | Continuity of Care Document ---
Author Organization [facility] Address [address], 4t [place] [address]- Care Team Providers Care Bench Patternmaker Metal Name Role Phone Os TEA AND SPICE SUPERVISOR, Analy Pruett Primary Care Physician [phone] [facility]counter [facility] Date(s): 08/06/23 - [facility] [address], [address] [place] [address]- Allergies, Adverse Reactions, Alerts No Known Allergies [...] EDT, Tablet Start Date: 01/26/22 Status: Ordered ciprofloxacin 500 mg oral tablet 1 tablet = 500 mg, By Mouth, Every 12 hours, for 5 days, # 10 tablet, 0 Refills, Acute 09/07/23 9:18:00 EDT, 09/02/23 9:18:00 EDT, Tablet, [facility]acy #[id number], Partial fill upon patient request if theprescription is for a schedule II opioid drug., 154... Start Date: 09/02/23 Stop Date: 09/07/23 Status: Ordered Clonazepam = 1 mg, By [...] Gm, 3 Refills, Maintenance, 03/02/23 10:03:00 EDT, [facility], 155, cm, 02/22/23 9:42:00 EDT, Height, [...] tablet, 3 Refills, Maintenance, 08/30/23 14:41:00 EDT, [id number], cm, 05/04/23 12:20:00 EST, Height, 52.4, kg, 05/04/23 12:20:00 EST, Dry Weight Start Date: 08/30/23 Status: Ordered Omeprazole = 20 mg, By Mouth, Daily, 0 Refills, Maintenance, 12/07/21 11:22:00 EDT, Partial fill upon patient request if the prescription is for a schedule II opioid drug. Start Date: 12/07/21 Status: Ordered oxybutynin 5 mg oral tablet See Instructions, TAKE 1 TABLET BY MOUTH DAILY AT BEDTIME, # 30 tablet, 4 Refills, Maintenance, 08/06/23 11:28:00 EST, [facility], 154, cm, 05/04/23 12:20:00 EST, Height, 52.4, kg, 05/04/2312:20:00 EST, Dry Weight Start Date: 08/06/23 Status: Ordered oxyCODONE 5 mg oral capsule [...] Rectal prolapse Confirmed Active 1st 2Dr [facility] Social History Social [...] Reference Physician Member Role: PCP Address: Address: [address] [place] [address]- Care Team Related Persons Name: CAILIN MILLAN Address: home [address] [address] Name: BILLY PORTER Address: [place] [address]
--- OUTSIDE RECORDS SUMMARY | 2023-12-08 11:24 | XMS_ITS | Continuity of Care Document ---
Author Organization [facility] Address [address], 4t [place] [address]- Care Team Providers Care Proof Load Mechanic Name Role Phone Tasha Rodriguez MD [id number]10[facility] [address], [address]th [place] [address]- Attending Physician: Rosamaria Pierre MD Admitting Physician: Rosamaria Pierre MD Referring Physician: Tasha Rodriguez MD Allergies, [...] 0, 01/02/07 16:06:03, anxiety, Print CORY Number, [id number] Start Date: 01/02/07 Status: Ordered Creon By [...] Rectal prolapse(Confirmed) Active 1st 2Dr [facility] Social History Social History Type Response Smoking Status Current every day mandie ele entered on: 09/16/14 Sex
--- OUTSIDE RECORDS SUMMARY | 2023-12-08 11:24 | XMS_ITS | Continuity of Care Document ---
Author Organization [facility] Address [address] [place] [address], [address]t [place] [address]- Care Team Providers Care Cow Washer Name Role Phone Os MEDICAL SOCIOLOGIST, Analy Pruett Primary Care Physician En[facility] Date(s): 08/27/23 - 10/28/23 [facility] [address] [facility], 4th [place] [address]- Attending Physician: Sue Bond MD Admitting Physician: Sue Bond MD Referring Physician: Os MEDICAL SOCIOLOGISTAnaly Allergies, Adverse Reactions, Alerts No Known Allergies [...] 6 Refills, Maintenance, 09/28/23 14:45:00 EDT, Inhaler, [facility], Partial fill upon patient request if [...] Gm, 3 Refills, Maintenance, 03/02/23 10:03:00 EDT, [facility], 155, cm, 02/22/23 9:42:00 EDT, Height, [...] Refills, Maintenance, 08/30/23 14:41:00 EDT, [id number] 154, cm, 05/04/23 12:20:00 EST, Height, [...] tablet, 4 Refills, Maintenance, 08/06/23 11:28:00 EST, [facility], 154, cm, 05/04/23 12:20:00 EST, Height, [...] 11 Refills, Maintenance, 09/28/23 14:45:00 EDT, Aerosol, [facility], Partial fill upon patient request if [...] Active Rectal prolapse Confirmed Active 1st 2Dr [facility] Social History Social History Type [...] Reference Physician Member Role: PCP Address: Address: [address] [place] [address]- [place] Care Team Related Persons Name: CAILIN MILLAN Address: home [address] [address] Name: BILLY PORTER Address: [place] [address]
--- OUTSIDE RECORDS SUMMARY | 2023-12-08 11:24 | XMS_ITS | Continuity of Care Document ---
Author Organization [facility] Address [address], 4t [place] [address]- Care Team Providers Care Automotive Parts Clerk Name Role Phone Abhishek Cárdenas DO Primary Care Physician [place] [facility] Date(s): 09/02/21 - 09/09/21 [facility] Emily [facility] [address], 4th Floor [place], [place] [address] Attending Physician: Sue Bond MD Referring Physician: Abhishek Cárdenas DO Allergies, [...] 1 Refills, Maintenance, 08/08/21 14:43:00 EST, ERTablet, [facility], Partial fill upon patient request if the prescription is for a schedule II opioid drug., 152.4, cm, 07/19/21 12:34:00 EST... Start Date: 08/08/21 Status: Ordered estradiol 0.1 mg/g vaginal cream See Instructions, APPLY 1 GRAM VAGINALLY EVERY SUNDAY AND SUNDAY, # 42.5 Gm, 2 Refills, [facility], 152.4, cm, 07/19/21 12:34:00 EST, Height, [...] 02/02/20 8:20:00 EDT, Route to Pharmacy Electronically, [facility] #[id number], 152.4, cm, 02/02/20 7:15:00 EDT, Height, 46.7, [...] Refills, Maintenance, 03/16/20 12:51:00 EDT, ER Tablet, [facility] #[id number], 152.4, cm, 02/17/20 10:25:00 EDT, Height, 46.9, [...] tablet, 0 Refills, Maintenance, 03/10/20 11:21:00 EDT, [facility] #[id number], 152.4, cm, 02/17/20 10:25:00 EDT, Height, 46.9, kg, 02/17/20 10:25:00 EDT, Dry Weight Start Date: 03/10/20 Status: Ordered oxyCODONE 5 mg oral capsule 1 capsule = 5 mg, By Mouth, Every 6 hours, PRN as needed for pain, # 7 capsule, 0 Refills, Maintenance, 02/02/20 8:19:00 EDT, Capsule, [facility] #[id number], Partial fill upon patient request, 152.4, cm, [...] Refills, Maintenance, 08/11/21 12:30:00 EST, CR Capsule, [facility], Partial fill upon patient request if the prescription is for aschedule II opioid drug., 152.4, cm, 07/19/21 12:34... Start Date: 08/11/21 Status: Ordered Vitamin D 09197 iu oral capsule 50,000 International_Units, By Mouth, [...] Fibromyalgia(Confirmed) Active Rectal prolapse(Confirmed) Active 1st 2Dr [facility] [place] Social History Social History Type Response Smoking Status 5-9 cigarettes (betw een 1/4 to 1/2 pack)/day in last 30 days;Smoker, current status unknown entered on: 09/16/19 Sex
--- OUTSIDE RECORDS SUMMARY | 2023-12-08 11:24 | XMS_ITS | Continuity of Care Document ---
Author Organization [facility] Address [address], 4t [place] [address]- Care Team Providers Care Typesetter Perforator Operator Name Role Phone Michael MAHER, Tasha Mendez Primary Care Physician En[facility] Date(s): 12/09/19 - 01/08/20 [employer] [employer] [facility] [address], 4th [place] [address]- [facility] Allergies, Adverse Reactions, Alerts Substance Reaction Severity [...] 0, 01/02/07 16:06:03, anxiety, Print CORY Number, [id number] Start Date: 01/02/07 Status: Ordered Creon By [...] tablet, 5 Refills, Maintenance, 09/19/19 10:56:00 EDT, [facility] #[id number], 152.4, cm, 07/31/19 12:08:00 EST, Height, 45.7, [...] EtOH stopped 2011 going to [facility] [employer](Confirmed) 1 Active Bipolar depression(Confirmed) 2 Active Fibromyalgia(Confirmed) Active Rectal prolapse(Confirmed) Active 1st 2Dr [facility] Social History Social History Type Response Smoking Status 5-9 cigarettes (betw een 1/4 to 1/2 pack)/day in last 30 days;Smoker, current status unknown entered on: 09/16/19 Sex
--- OUTSIDE RECORDS SUMMARY | 2023-12-08 11:25 | XMS_ITS | Continuity of Care Document ---
Author Organization [facility] Address [address] [place] [address]- Care Team Providers Care Social Service Assistant Name Role Phone SarkisAbhishek mack DO Primary Care Physician Encounter [facility] Date(s): 11/30/20 - 12/30/20 [facility] [address] [place] [address] Allergies, Adverse Reactions, Alerts [...] 02/02/20 8:20:00 EDT, Route to Pharmacy Electronically, [facility] #[id number], 152.4, cm, 02/02/20 7:15:00 EDT, Height, 46.7, kg, 02/02/20 7:20:00 E... Start Date: 02/02/20 Status: Ordered mirabegron 25 mg oral tablet, extended release 1 tablet = 25 mg, By Mouth, Daily, do not crush or chew, # 30 tablet, 5 Refills, Maintenance, 03/16/20 12:51:00 EDT, ER Tablet, [facility] #[id number], 152.4, cm, 02/17/20 10:25:00 EDT, Height, 46.9, [...] tablet, 0 Refills, Maintenance, 03/10/20 11:21:00 EDT, [facility] #[id number], 152.4, cm, 02/17/20 10:25:00 EDT, Height, 46.9, kg, 02/17/20 10:25:00 EDT, Dry Weight Start Date: 03/10/20 Status: Ordered ondansetron 4 mg oral tablet 1 tablet = 4 mg, By Mouth, Every 8 hours, PRN Nausea & Vomiting, for 30 days, # 90 tablet, 2 Refills, Acute 02/28/21 16:53:00 EDT, 11/30/20 16:53:00 EDT, Tablet, [facility], Partial fill upon patient request if the prescription is for a sche... Start Date: 11/30/20 Stop Date: 02/28/21 Status: Ordered oxyCODONE 5 mg oral capsule 1 capsule = 5 mg, By Mouth, Every 6 hours, PRN as needed for pain, # 7 capsule, 0 Refills, Maintenance, 02/02/20 8:19:00 EDT, Capsule, [facility] #[id number], Partial fill upon patient request, 152.4, cm, 02/02/20 7:15:00 EDT, Height, 46.7, kg, 0... Start Date: 02/02/20 Status: Ordered Probiotic Formula By Mouth, Daily, 0 Refills, Maintenance, 09/06/20 13:12:00 EDT, Partial fill upon patient request if the prescription is for a schedule II opioid drug. Start Date: 09/06/20 Status: Ordered stijaja mas, See Instructions, # 1 each, Refills 0, Tot. Refills 0, Maintenance, Use as needed after bowelmovement and for pain Dx: rectal pain, 08/04/19 14:28:00 EST, Compound Start Date: 08/04/19 Status: Ordered Trazodone Tablet 300, mg, By Mouth, Daily at bedtime, 0, 0, 11/22/05 8:51:14, Print CORY Number, [id number], [id number] Start Date: 11/22/05 Stop Date: 12/20/05 Status: Ordered Vitamin D 67604 iu oral capsule 50,000 International_Units, By Mouth, [...] Fibromyalgia(Confirmed) Active Rectal prolapse(Confirmed) Active 1st 2Dr [facility] Social History Social History Type Response Smoking Status 5-9 cigarettes (betw een 1/4 to 1/2 pack)/day in last 30 days;Smoker, current status unknown entered on: 09/16/19 Sex
--- OUTSIDE RECORDS SUMMARY | 2023-12-08 11:25 | XMS_ITS | Continuity of Care Document ---
Author Organization [facility] Address [address] [place] [address]- Care Team Providers Care Brokerage Branch Manager Name Role Phone Os ANIMAL CARE SPECIALIST, Analy Pruett Primary Care Physician [phone] [place] [facility] [place] Date(s): 01/23/23 - 02/22/23 [facility] [address] [place] [address]- Allergies, Adverse Reactions, Alerts No Known Allergies [...] Gm, 2 Refills, Maintenance, 06/01/22 15:02:00 EST, [facility], 155, cm, 01/27/22 10:19:00 EDT, Height, [...] tablet, 2 Refills, Maintenance, 11/16/22 15:03:00 EDT, [facility], 155, cm, 09/20/22 8:51:00 EDT, Height, [...] & VOMITING, # 90 tablet, 0 Refills, [facility], 158, cm, 01/04/22 13:20:00 EDT, Height, [...] Active Rectal prolapse Confirmed Active 1st 2Dr [facility] [...] Reference Physician Member Role: PCP Address: Address: [address] [place] [address]- Care Team Related Persons Name: CAILIN MILLAN Address: home [address] [place] [address] Name: BILLY PORTER Address: [place] [address]
--- OUTSIDE RECORDS SUMMARY | 2023-12-08 11:25 | XMS_ITS | Continuity of Care Document ---
Author Organization [facility] Emily [facility] Address [address], 4t [place] [address]- Care Team Providers Care Tree Expert Name Role Phone Tasha Rodriguez MD Primary Care Physician [id number] Date[facility]s): 11/21/19 - 01/11/20 [facility] Emily [facility] [address], 4th [place] [address]- [facility] Attending Physician: Sue Bond MD Admitting Physician: Sue Bond MD Referring Physician: Tasha [...] 0, 01/02/07 16:06:03, anxiety, Print CORY Number, [id number] Start Date: 01/02/07 Status: Ordered Creon By [...] tablet, 5 Refills, Maintenance, 09/19/19 10:56:00 EDT, [facility] #[id number], 152.4, cm, 07/31/19 12:08:00 EST, Height, 45.7, [...]
--- OUTSIDE RECORDS SUMMARY | 2023-12-08 11:25 | XMS_ITS | Continuity of Care Document ---
Author Organization [employer] [facility] [employer] [facility] Address [address], 4t [place] [address]- Care Team Providers Care Packager Machine Name Role Phone Tasha Rodriguez MD Primary Care Physician [id number] Date(s): 08/08/19 - 10/08/19 [employer] [facility] [address], 4th [place] [address]- [facility] Attending Physician: Lima Willis MD Admitting Physician: Lima Willis MD Referring Physician: Tasha Rodriguez MD Allergies, [...] 0, 01/02/07 16:06:03, anxiety, Print CORY Number, [id number] Start Date: 01/02/07 Status: Ordered Creon By [...] tablet, 5 Refills, Maintenance, 09/19/19 10:56:00 EDT, [facility] #[id number], 152.4, cm, 07/31/19 12:08:00 EST, Height, 45.7, [...]
--- OUTSIDE RECORDS SUMMARY | 2023-12-08 11:25 | XMS_ITS | Continuity of Care Document ---
Author Organization [facility] Address [address] [place] [address]- Care Team Providers Care Adult School Counselor Name Role Phone Abhishek Cárdenas DO Primary Care Physician Encounter [facility] Date(s): 11/15/22 - 12/15/22 [facility] [address] [place] [address] Attending Physician: Admstewart, Justen Admitting Physician: AdmtrJusten Referring Physician: Admtr, Ar8 [...] 42.5 Gm, 2 Refills, Maintenance, 06/01/22 15:02:00 [facility], [facility], 155, cm, 01/27/22 10:19:00 EDT, Height, [...] tablet, 2 Refills, Maintenance, 11/16/22 15:03:00 EDT, [facility], 155, cm, 09/20/22 8:51:00 EDT, Height, [...] & VOMITING, # 90 tablet, 0 Refills, [facility], 158, cm, 01/04/22 13:20:00 EDT, Height, [...] Confirmed Active 1st 2Dr [facility] Social History Social History Type Response Smoking Status 5-9 cigarettes (betw een 1/4 to 1/2 pack)/day in last 30 days;Smoker, current status unknown entered on: 09/16/19 Sex Laboratory * Event Display: Non BH Lab Results Authored Date: * Event Display: Non BH Lab Results Authored Date: * Event Display: Non BH Lab Results Authored Date: Radiology * Event Display: CT Scan Abdomen, Non- BH Authored Date: * Event Display: CT Scan Abdomen, Non- BH Authored Date: * Event Display: CT Scan Abdomen, Non- BH Authored Date: * Event Display: IR Special Procedures, Non-BH Authored Date: Patient Care team information Care Team Personnel Name: Abhishek Cárdenas DO Position: [facility] Outreach Member Role: PCP Address: Address: [address] [place] [phone] Name: Marilin Del Castillo RN Position: S RN Member Role: Primary Care Nurse Name: Olesya Shoemaker RN Position: [facility] RN Member Role: Primary Care Nurse Care Team Related Persons Name: CAILIN MILLAN Address: home [address] [place] [address] Name: BILLY PORTER Address: [place] [address]
--- OUTSIDE RECORDS SUMMARY | 2023-12-08 11:25 | XMS_ITS | Continuity of Care Document ---
Author Organization [facility] Address [address] [place] [address]- Care Team Providers Care Structural Layout Worker Name Role Phone Os FINANCIAL ADMINISTRATOR, Analy Pruett Primary Care Physician [phone] Encounter [facility] Date(s): 10/01/23 - 11/07/23 [facility] [address] [place] [address]- Attending Physician: Nila MAHER, Efren Admitting Physician: Nila MAHER, Efren Referring Physician: Os FINANCIAL ADMINISTRATORAnaly Allergies, Adverse Reactions, Alerts No Known Allergies [...] 6 Refills, Maintenance, 09/28/23 14:45:00 EDT, Inhaler, [facility], Partial fill upon patient request if [...] Gm, 3 Refills, Maintenance, 03/02/23 10:03:00 EDT, [facility], 155, cm, 02/22/23 9:42:00 EDT, Height, [...] tablet, 3 Refills, Maintenance, 08/30/23 14:41:00 EDT, [facility]acy #[id number], 154, cm, 05/04/23 12:20:00 [...] tablet, 4 Refills, Maintenance, 08/06/23 11:28:00 EST, [facility], 154, cm, 05/04/23 12:20:00 EST, Height, [...] 11 Refills, Maintenance, 09/28/23 14:45:00 EDT, Aerosol, [facility], Partial fill upon patient request if [...] Active Rectal prolapse Confirmed Active 1st 2Dr [facility] Social History Social History Type Response Smoking Status 10 or more cigarette s (1/2 pack or more)/day in last 30 days; Interested in cessation: No; Patient wants NRT during admission No entered on: 10/31/23 Sex Patient Care team information Care Team Personnel Name: Marilin Del Castillo RN Position: [facility] RN Member Role: Primary Care Nurse Name: Olesya Shoemaker RN Position: S RN Member Role: Primary Care Nurse Name: Analy Moscoso NP Position: Reference Physician Member Role: PCP Address: Address: [address] [place] [address]- Care Team Related Persons Name: CAILIN MILLAN Address: home [address] [address] Name: BILLY PORTER Address: [place] [address]
--- OUTSIDE RECORDS SUMMARY | 2023-12-08 11:25 | XMS_ITS | Continuity of Care Document ---
Author Organization [facility] Address [address] [place] [address]- Care Team Providers Care Rigger Up Name Role Phone Os CAREER INFORMATION SPECIALIST, Analy Pruett Primary Care Physician [phone] Encounter [facility] Date(s): 03/15/23 - 06/15/23 [facility] [address] [place] [address]- Attending Physician: Ernesto Arboleda MD Admitting Physician: [...] Gm, 3 Refills, Maintenance, 03/02/23 10:03:00 EDT, [facility], 155, cm, 02/22/23 9:42:00 EDT, Height, [...] tablet, 2 Refills, Maintenance, 11/16/22 15:03:00 EDT, [facility], 155, cm, 09/20/22 8:51:00 EDT, Height, [...] 30 tablet, 5 Refills, Maintenance, 03/02/23 10:12:00EDT, [facility], Partial fill upon patient request if [...] Active Rectal prolapse Confirmed Active 1st 2Dr [facility] Social History Social History Type Response Smoking Status 5-9 cigarettes (betw een 1/4 to 1/2 pack)/day in last 30 days;Smoker, current status unknown entered on: 09/16/19 Sex Patient Care team information Care Team Personnel Name: Marilin Del Castillo RN Position: [facility] RN Member Role: Primary Care Nurse Name: Olesya Shoemaker RN Position: S RN Member Role: Primary Care Nurse Name: Analy Moscoso NP Position: Reference Physician Member Role: PCP Address: Address: [address] [place] [address]- Care Team Related Persons Name: CAILIN MILLAN Address: home [address] [address] Name: BILLY PORTER Address: [place] [address]
--- OUTSIDE RECORDS SUMMARY | 2023-12-08 11:25 | XMS_ITS | Continuity of Care Document ---
Author Organization [facility] Address [address] [place] [address]- Care Team Providers Care Gravel Wheeler Name Role Phone Os ALTERATION MANAGER, Analy Pruett Primary Care Physician Encounter [facility] Date(s): 12/13/22 - 01/12/23 [facility] [address] [place] [address]- Allergies, Adverse Reactions, Alerts No Known Allergies [...] Cameron rded influenza virus vaccine, inactivated 01/17/20 Cameorn rded influenza virus vaccine, inactivated 07/08/18 Cameron [...] 42.5 Gm, 2 Refills, Maintenance, 06/01/22 15:02:00 [facility], 155, cm, 01/27/22 10:19:00 EDT, Height, [...] tablet, 2 Refills, Maintenance, 11/16/22 15:03:00 EDT, [facility], 155, cm, 09/20/22 8:51:00 EDT, Height, [...] & VOMITING, # 90 tablet, 0 Refills, [facility], 158, cm, 01/04/22 13:20:00 EDT, Height, [...] Active Rectal prolapse Confirmed Active 1st 2Dr [facility] Social History Social History Type Response Smoking [...] Reference Physician Member Role: PCP Address: Address: [address] [place] [address]- [place] Care Team Related Persons Name: CAILIN MILLAN Address: home [address] [place] [address] Name: BILLY PORTER Address: [place] [address]
--- OUTSIDE RECORDS SUMMARY | 2023-12-08 11:25 | XMS_ITS | Continuity of Care Document ---
Author Organization [facility] Address [address], 4t [place] [address]- Care Team Providers Care Director Of Undergraduate Admissions Name Role Phone Avi HERNANDEZ Abhishek Leiva Primary Care Physician Encounter [facility] Date(s): 12/27/20 - 01/26/21 [facility] Emily [facility]am[facility] [address], 4th [place] [address]- Allergies, Adverse Reactions, Alerts Substance Reaction Severity [...] 02/02/20 8:20:00 EDT, Route to Pharmacy Electronically, [facility] #[id number], 152.4, cm, 02/02/20 7:15:00 EDT, Height, 46.7, kg, 02/02/20 7:20:00 E... Start Date: 02/02/20 Status: Ordered mirabegron 25 mg oral tablet, extended release 1 tablet = 25 mg, By Mouth, Daily, do not crush or chew, # 30 tablet, 5 Refills, Maintenance, 03/16/20 12:51:00 EDT, ER Tablet, [facility] #[id number], 152.4, cm, 02/17/20 10:25:00 EDT, Height, 46.9, [...] tablet, 0 Refills, Maintenance, 03/10/20 11:21:00 EDT, [facility] #[id number], 152.4, cm, 02/17/20 10:25:00 EDT, Height, 46.9, kg, 02/17/20 10:25:00 EDT, Dry Weight Start Date: 03/10/20 Status: Ordered ondansetron 4 mg oral tablet 1 tablet = 4 mg, By Mouth, Every 8 hours, PRN Nausea & Vomiting, for 30 days, # 90 tablet, 2 Refills, Acute 02/28/21 16:53:00 EDT, 11/30/20 16:53:00 EDT, Tablet, [facility], Partial fill upon patient request if the prescription is for a sche... Start Date: 11/30/20 Stop Date: 02/28/21 Status: Ordered oxyCODONE 5 mg oral capsule 1 capsule = 5 mg, By Mouth, Every 6 hours, PRN as needed for pain, # 7 capsule, 0 Refills, Maintenance, 02/02/20 8:19:00 EDT, Capsule, [facility] #[id number], Partial fill upon patient request, 152.4, cm, [...] Stop Date: 12/20/05 Status: Ordered Vitamin D 77259 iu oral capsule 50,000 International_Units, By Mouth, [...] Fibromyalgia(Confirmed) Active Rectal prolapse(Confirmed) Active 1st 2Dr [facility] Social History Social History Type Response Smoking Status 5-9 cigarettes (betw een 1/4 to 1/2 pack)/day in last 30 days;Smoker, current status unknown entered on: 09/16/19 Sex
--- OUTSIDE RECORDS SUMMARY | 2023-12-08 11:25 | XMS_ITS | Continuity of Care Document ---
Author Organization [facility] Address [address] [place] [address], 4t [place] [address]- Care Team Providers Care Disaster Recovery Analyst Name Role Phone Os CALL CENTER AGENT, Analy Pruett Primary Care Physician En[facility] Date(s): 04/10/23 - 05/10/23 [facility] [address], [address] [place] [address]- Attending Physician: Justen Canela Admitting Physician: Justen [...] Gm, 3 Refills, Maintenance, 03/02/23 10:03:00 EDT, [facility], 155, cm, 02/22/23 9:42:00 EDT, Height, [...] tablet, 2 Refills, Maintenance, 11/16/22 15:03:00 EDT, [facility], 155, cm, 09/20/22 8:51:00 EDT, Height, [...] 30 tablet, 5 Refills, Maintenance, 03/02/23 10:12:00EDT, [facility], Partial fill upon patient request if [...] Active Rectal prolapse Confirmed Active 1st 2Dr [facility] Social History Social History [...] Physician Member Role: PCP Address: Address: [address] [place] [address]- Care Team Related Persons Name: CAILIN MILLAN Address: home [address] [address] Name: BILLY PORTER Address: [place] [address]
--- OUTSIDE RECORDS SUMMARY | 2023-12-08 11:25 | XMS_ITS | Continuity of Care Document ---
Author Organization [facility] Address [address] [place] [address]- Care Team Providers Care Assistant Plant Manager Name Role Phone Os LEATHER STAKER, Analy Pruett Primary Care Physician [phone] Encounter [facility] Date(s): 12/26/22 - 01/25/23 [facility] [address] [place] [address]- Referring Physician: Avis Kelly Allergies, Adverse Reactions, [...] Gm, 2 Refills, Maintenance, 06/01/22 15:02:00 EST, [facility], 155, cm, 01/27/22 10:19:00 EDT, Height, [...] tablet, 2 Refills, Maintenance, 11/16/22 15:03:00 EDT, [facility], 155, cm, 09/20/22 8:51:00 EDT, Height, [...] & VOMITING, # 90 tablet, 0 Refills, [facility], 158, cm, 01/04/22 13:20:00 EDT, Height, [...] Active Rectal prolapse Confirmed Active 1st 2Dr [facility] [...] Reference Physician Member Role: PCP Address: Address: [address] [place] [address]- Care Team Related Persons Name: CAILIN MILLAN Address: home [address] [place] [address] Name: BILLY PORTER Address: [place] [address]
--- OUTSIDE RECORDS SUMMARY | 2023-12-08 11:25 | XMS_ITS | Continuity of Care Document ---
Author Organization [facility] Address [address] [place] [address] [address] [place] [address]- Care Team Providers Care Field Talent Qualification Specialist Name Role Phone Michael MAHER, Tasha Mendez Primary Care Physician [place] [facility] [place]s): 10/21/19 - 11/20/19 [facility] [address] [place] [address]- [facility] Attending Physician: Justen Canela Admitting Physician: Justen [...] 0, 01/02/07 16:06:03, anxiety, Print CORY Number, [id number] Start Date: 01/02/07 Status: Ordered Creon By [...] tablet, 5 Refills, Maintenance, 09/19/19 10:56:00 EDT, [facility] #[id number], 152.4, cm, 07/31/19 12:08:00 EST, Height, 45.7, [...] EtOH stopped 2011 going to [facility] [employer](Confirmed) 1 Active Bipolar depression(Confirmed) 2 Active Fibromyalgia(Confirmed) Active Rectal prolapse(Confirmed) Active 1st 2Dr [facility] Social History Social History Type Response Smoking Status 5-9 cigarettes (shilpaw eeeileen 1/4 to 1/2 pack)/day in last 30 days;Smoker, current status unknown entered on: 09/16/19 Sex
--- OUTSIDE RECORDS SUMMARY | 2023-12-08 11:25 | XMS_ITS | Continuity of Care Document ---
[facility] Organization [facility] Address [address], [address] [place] [address]- Care Team Providers Care Carbide Operator Name Role Phone Avi HERNANDEZ Abhishek Leiva Primary Care Physician [place] [facility] [place] [facility] Emily Escamillas [facility] [address], [address] [place] [address]- Allergies, Adverse Reactions, Alerts Substance Reaction Severity [...] x 1 if needed on arrival to [facility], # 2 tablet, Refills 0, Tot. [...] 02/02/20 8:20:00 EDT, Route to Pharmacy Electronically, [facility][id number], 152.4, cm, 02/02/20 7:15:00 EDT, Height, 46.7, kg, 02/02/20 7:20:00 E... Start Date: 02/02/20 Status: Ordered mirabegron 25 mg oral tablet, extended release 1 tablet = 25 mg, By Mouth, Daily, do not crush or chew, # 30 tablet, 5 Refills, Maintenance, 03/16/20 12:51:00 EDT, ER Tablet, [facility] #[id number], 152.4, cm, 02/17/20 10:25:00 EDT, Height, 46.9, [...] tablet, 0 Refills, Maintenance, 03/10/20 11:21:00 EDT, [facility] #[id number], 152.4, cm, 02/17/20 10:25:00 EDT, Height, 46.9, kg, 02/17/20 10:25:00 EDT, Dry Weight Start Date: 03/10/20 Status: Ordered ondansetron 4 mg oral tablet 1 tablet = 4 mg, By Mouth, Every 8 hours, PRN Nausea & Vomiting, for 30 days, # 90 tablet, 2 Refills, Acute 02/28/21 16:53:00 EDT, 11/30/20 16:53:00 EDT, Tablet, [facility], Partial fill upon patient request if the prescription is for a sche... Start Date: 11/30/20 Stop Date: 02/28/21 Status: Ordered oxyCODONE 5 mg oral capsule 1 capsule = 5 mg, By Mouth, Every 6 hours, PRN as needed for pain, # 7 capsule, 0 Refills, Maintenance, 02/02/20 8:19:00 EDT, Capsule, [facility] #[id number], Partial fill upon patient request, 152.4, cm, [...] Stop Date: 12/20/05 Status: Ordered Vitamin D 36502 iu oral capsule 50,000 International_Units, By Mouth, [...] Fibromyalgia(Confirmed) Active Rectal prolapse(Confirmed) Active 1st 2Dr [facility] Social History Social History Type Response Smoking Status 5-9 cigarettes (betw een 1/4 to 1/2 pack)/day in last 30 days;Smoker, current status unknown entered on: 09/16/19 Sex
--- OUTSIDE RECORDS SUMMARY | 2023-12-08 11:25 | XMS_ITS | Continuity of Care Document ---
Author Organization [facility] ter Address [address] [place] [address]- Care Team Providers Care Home Companion Name Role Phone Abhishek Cárdenas DO Primary Care Physician [phone] Encounter [facility] Date(s): 01/10/22 - 02/09/[address] [address] Attending Physician: Admtr, Ar8 Admitting Physician: Admtr, Ar8 Referring Physician: Admtr, [...] Refills, Maintenance, 01/25/22 8:56:00 EDT, Tablet, [facility], Partial fill upon patient [...] Gm, 0 Refills, Maintenance, 02/01/22 16:37:00 EDT, [facility], 155, cm, 01/27/22 10:19:00 EDT, Height, [...] lozenge, 0 Refills, Maintenance, 01/04/22 17:02:00 EDT, [facility], Partial fill upon patient request ifthe prescription is for a schedule II opioid drug.,... Start Date: 01/04/22 Status: Ordered nicotine 7 mg/24 hr transdermal film, extended release 1 patch, Topically, Daily, Remove old patch before applying new patch. Rotate sites., # 30 patch, 0Refills, Maintenance, 01/04/22 17:02:00 EDT, Patch, [facility], Partial fill upon patientrequest if the [...] & VOMITING, # 90 tablet, 0 Refills, [facility], 158, cm, 01/04/22 13:20:00 EDT, Height, [...] 5 Refills, Maintenance, 11/07/21 12:17:00 EDT, Tablet, [facility], Partial fill upon patient request if [...] Rectal prolapse(Confirmed) Active 1st 2Dr [facility] Social History Social History Type Response Smoking Status 5-9 cigarettes (betw een 1/4 to 1/2 pack)/day in last 30 days;Smoker, current status unknown entered on: 09/16/19 Sex Care Team Personnel Name: Abhishek Cárdenas DO Address: [address] [place] [id number] [place]
--- OUTSIDE RECORDS SUMMARY | 2023-12-08 11:25 | XMS_ITS | Continuity of Care Document ---
Author Organization [facility] Address [address] [place] [address]- Care Team Providers Care Penology Professor Name Role Phone Abhishek Cárdenas DO Primary Care Physician [place] [facility] [place]/16/21 - 06/15/21 [facility] [address] [place] [address]- Allergies, Adverse Reactions, Alerts Substance Reaction Severity [...] Refills, Maintenance, 06/10/21 11:36:00 EST, ER Tablet, [facility] #[id number], Partial fill upon patient request if the prescription is for a schedule II opioid drug., 152.4, cm, 05/20/21 11:24:... Start Date: 06/10/21 Status: Ordered Estrace Vaginal Cream 0.1 mg/g = 1 Gm, Vaginally, Every Sunday and Sunday, # 42.5 Gm, 2 Refills, Maintenance, 05/06/21 9:13:00 EST, [facility] #[id number], Partial fill upon patient request if the [...] 02/02/20 8:20:00 EDT, Route to Pharmacy Electronically, [facility] #[id number], 152.4, cm, 02/02/20 7:15:00 EDT, Height, 46.7, [...] Refills, Maintenance, 03/16/20 12:51:00 EDT, ER Tablet, [facility] #[id number], 152.4, cm, 02/17/20 10:25:00 EDT, Height, 46.9, [...] tablet, 0 Refills, Maintenance, 03/10/20 11:21:00 EDT, [facility] #[id number], 152.4, cm, 02/17/20 10:25:00 EDT, Height, 46.9, kg, 02/17/20 10:25:00 EDT, Dry Weight Start Date: 03/10/20 Status: Ordered oxyCODONE 5 mg oral capsule 1 capsule = 5 mg, By Mouth, Every 6 hours, PRN as needed for pain, # 7 capsule, 0 Refills, Maintenance, 02/02/20 8:19:00 EDT, Capsule, [facility] #[id number], Partial fill upon patient request, 152.4, cm, [...] Stop Date: 12/20/05 Status: Ordered Vitamin D 16908 iu oral capsule 50,000 International_Units, By Mouth, [...]
--- OUTSIDE RECORDS SUMMARY | 2023-12-08 11:25 | XMS_ITS | Continuity of Care Document ---
Author Organization [facility] Address [address] [place] [address]- Care Team Providers Care Fisher Net Name Role Phone Avi HERNANDEZ Abhishek Leiva Primary Care Physician [place] [facility] [place] 12/27/20 - 01/26/21 [facility] [address] [place] [address]- Allergies, Adverse Reactions, Alerts Substance Reaction Severity [...] 02/02/20 8:20:00 EDT, Route to Pharmacy Electronically, [facility] #[id number], 152.4, cm, 02/02/20 7:15:00 EDT, Height, 46.7, kg, 02/02/20 7:20:00 E... Start Date: 02/02/20 Status: Ordered mirabegron 25 mg oral tablet, extended release 1 tablet = 25 mg, By Mouth, Daily, do not crush or chew, # 30 tablet, 5 Refills, Maintenance, 03/16/20 12:51:00 EDT, ER Tablet, [facility] #[id number], 152.4, cm, 02/17/20 10:25:00 EDT, Height, 46.9, [...] tablet, 0 Refills, Maintenance, 03/10/20 11:21:00 EDT, [facility] #[id number], 152.4, cm, 02/17/20 10:25:00 EDT, Height, 46.9, kg, 02/17/20 10:25:00 EDT, Dry Weight Start Date: 03/10/20 Status: Ordered ondansetron 4 mg oral tablet 1 tablet = 4 mg, By Mouth, Every 8 hours, PRN Nausea & Vomiting, for 30 days, # 90 tablet, 2 Refills, Acute 02/28/21 16:53:00 EDT, 11/30/20 16:53:00 EDT, Tablet, [facility], Partial fill upon patient request if the prescription is for a sche... Start Date: 11/30/20 Stop Date: 02/28/21 Status: Ordered oxyCODONE 5 mg oral capsule 1 capsule = 5 mg, By Mouth, Every 6 hours, PRN as needed for pain, # 7 capsule, 0 Refills, Maintenance, 02/02/20 8:19:00 EDT, Capsule, [facility] #[id number], Partial fill upon patient request, 152.4, cm, [...] Stop Date: 12/20/05 Status: Ordered Vitamin D 18021 iu oral capsule 50,000 International_Units, By Mouth, [...] Fibromyalgia(Confirmed) Active Rectal prol[facility](Confirmed) [facility] Social History Social History Type Response Smoking Status 5-9 cigarettes (betw een 1/4 to 1/2 pack)/day in last 30 days;Smoker, current status unknown entered on: 09/16/19 Sex
--- OUTSIDE RECORDS SUMMARY | 2023-12-08 11:25 | XMS_ITS | Continuity of Care Document ---
Author Organization [facility] Address [address] [place] [address]- Care Team Providers Care Ticket Sales Supervisor Name Role Phone Avi HERNANDEZ Abhishek Leiva Primary Care Physician [place] [facility] [place] 02/19/21 [facility] [address] [place] [address]- Allergies, Adverse Reactions, Alerts Substance Reaction Severity [...] 1 if needed on arrival to [facility], # 2 tablet, Refills 0, Tot. [...] 02/02/20 8:20:00 EDT, Route to Pharmacy Electronically, [facility] #[id number], 152.4, cm, 02/02/20 7:15:00 EDT, Height, 46.7, kg, 02/02/20 7:20:00 E... Start Date: 02/02/20 Status: Ordered mirabegron 25 mg oral tablet, extended release 1 tablet = 25 mg, By Mouth, Daily, do not crush or chew, # 30 tablet, 5 Refills, Maintenance, 03/16/20 12:51:00 EDT, ER Tablet, [facility] #[id number], 152.4, cm, 02/17/20 10:25:00 EDT, Height, 46.9, [...] tablet, 0 Refills, Maintenance, 03/10/20 11:21:00 EDT, [facility][id number], 152.4, cm, 02/17/20 10:25:00 EDT, Height, 46.9, kg, 02/17/20 10:25:00 EDT, Dry Weight Start Date: 03/10/20 Status: Ordered ondansetron 4 mg oral tablet 1 tablet = 4 mg, By Mouth, Every 8 hours, PRN Nausea & Vomiting, for 30 days, # 90 tablet, 2 Refills, Acute 02/28/21 16:53:00 EDT, 11/30/20 16:53:00 EDT, Tablet, [facility], Partial fill upon patient request if the prescription is for a sche... Start Date: 11/30/20 Stop Date: 02/28/21 Status: Ordered oxyCODONE 5 mg oral capsule 1 capsule = 5 mg, By Mouth, Every 6 hours, PRN as needed for pain, # 7 capsule, 0 Refills, Maintenance, 02/02/20 8:19:00 EDT, Capsule, [facility] #[id number], Partial fill upon patient request, 152.4, cm, 02/02/20 7:15:00 EDT, Height, 46.7, kg, 0... Start Date: 02/02/20 Status: Ordered Probiotic Formula By Mouth, Daily, 0 Refills, Maintenance, 09/06/20 13:12:00 EDT, Partial fill upon patient request if the prescription is for a schedule II opioid drug. Start Date: 09/06/20 Status: Ordered tg msa, See Instructions, # 1 each, Refills 0, Tot. Refills 0, Maintenance, Use as needed after bowelmovement and for pain Dx: rectal pain, 08/04/19 14:28:00 EST, Compound Start Date: 08/04/19 Status: Ordered Trazodone Tablet 300, mg, By Mouth, Daily at bedtime, 0, 0, 11/22/05 8:51:14, Print CORY Number, ADS OPPTHS, 144 Start Date: 11/22/05 Stop Date: 12/20/05 Status: Ordered Vitamin D 70397 iu oral capsule 50,000 International_Units, By Mouth, [...] Fibromyalgia(Confirmed) Active Rectal [facility](Confirmed) [facility] Social History Social History Type Response Smoking Status 5-9 cigarettes (betw een 1/4 to 1/2 pack)/day in last 30 days;Smoker, current status unknown entered on: 09/16/19 Sex
--- OUTSIDE RECORDS SUMMARY | 2023-12-08 11:25 | XMS_ITS | Continuity of Care Document ---
Author Organization [facility] Address [address], [address] [place] [address]- Care Team Providers Care Paper Final Inspector Name Role Phone Avi Abhishek HERNANDEZ Primary Care Physician [phone] [place] [facility] [place] [facility] [address] [place], [place] [address] Attending Physician: Justen Canela Admitting Physician: Justen [...] AND SUNDAY, # 42.5 Gm, 2 Refills, [facility], 152.4, cm, 07/19/21 12:34:00 EST, Height, [...] Stop Date: 12/20/05 Status: Ordered Vitamin D 69798 iu oral capsule 50,000 International_Units, By Mouth, [...]
--- OUTSIDE RECORDS SUMMARY | 2023-12-08 11:25 | XMS_ITS | Continuity of Care Document ---
Author Organization [facility] Address [address] [place] [address], [address] [place] [address]- Care Team Providers Care Head Mixer Name Role Phone Avi Abhishek HERNANDEZ Primary Care Physician [phone] Encounter [facility] Date(s): 08/08/22 - 09/07/22 [facility] [address], [address] [place] [address]- Allergies, Adverse Reactions, Alerts No Known Allergies [...] 0 Refills, Maintenance, 01/25/22 8:56:00 EDT, Tablet, [facility], Partial fill upon patient [...] Gm, 2 Refills, Maintenance, 06/01/22 15:02:00 EST, [facility], 155, cm, 01/27/22 10:19:00 EDT, Height, [...] Daily, # 90 tablet, 1 Refills, Maintenance, 05/16/22 14:48:00 EST, [facility], 155, cm, 01/27/22 10:19:00 EDT, Height, 49.3, kg, 01/26/22 11:05:00 EDT, Dry Weight Start Date: 05/16/22 Status: Ordered Melatonin 10 mg oral capsule [...] lozenge, 0 Refills, Maintenance, 01/04/22 17:02:00 EDT, [facility], Partial fill upon patient request ifthe prescription is for a schedule II opioid drug.,... Start Date: 01/04/22 Status: Ordered nicotine 7 mg/24 hr transdermal film, extended release 1 patch, Topically, Daily, Remove old patch before applying new patch. Rotate sites., # 30 patch, 0Refills, Maintenance, 01/04/22 17:02:00 EDT, Patch, [facility], Partial fill upon patientrequest if the [...] & VOMITING, # 90 tablet, 0 Refills, [facility], 158, cm, 01/04/22 13:20:00 EDT, Height, [...] Active Rectal prolapse Confirmed Active 1st 2Dr [facility] [place] Social History Social History Type Response Smoking Status 5-9 cigarettes (betw een 1/4 to 1/2 pack)/day in last 30 days;Smoker, current status unknown entered on: 09/16/19 Sex Patient Care team information Care Team Personnel Name: Abhishek Cárdenas DO Position: [facility] Outreach Member Role: PCP Address: Address: [address] [place] [phone] Name: Marilin Del Castillo RN Position: S RN Member Role: Primary Care Nurse Name: Olesya Shoemaker RN Position: S RN Member Role: Primary Care Nurse Care Team Related Persons Name: CAILIN MILLAN Address: home [address] [place] [address] Name: BILLY PORTER Address: [place] [address]
--- OUTSIDE RECORDS SUMMARY | 2023-12-08 11:25 | XMS_ITS | Continuity of Care Document ---
Author Organization [facility] Address [address], [address] [place] [address]- Care Team Providers Care Landscape Maintenance Internship Name Role Phone Avi HERNANDEZ Abhishek Leiva Primary Care Physician [place] [facility] [place] [facility] [address] [place], [address] [place], [place] [address] Attending Physician: Sue Bond MD Admitting Physician: Sue Bond MD Referring Physician: Sue Bond MD Allergies, Adverse Reactions, [...] AND SUNDAY, # 42.5 Gm, 2 Refills, [facility], 152.4, cm, 07/19/21 12:34:00 EST, Height, [...] Stop Date: 12/20/05 Status: Ordered Vitamin D 20702 iu oral capsule 50,000 International_Units, By Mouth, [...] Fibromyalgia(Confirmed) Active Rectal prolapse(Confirmed) Active 1st 2Dr [facility] Social History Social History Type Response Smoking Status 5-9 cigarettes (betw een 1/4 to 1/2 pack)/day in last 30 days;Smoker, current status unknown entered on: 09/16/19 Sex
--- OUTSIDE RECORDS SUMMARY | 2023-12-08 11:25 | XMS_ITS | Continuity of Care Document ---
Author Organization [facility] ter Address [address] [place] [address]- Care Team Providers Care Farm Or Ranch Animal Caretaker Name Role Phone Abhishek Cárdenas DO Primary Care Physician [phone] Encounter [facility] Date(s): 01/24/22 - 01/25/[address] [address]- Discharge Disposition: A-Transfer VNA/Home Health Attending Physician: Cresencio Crowe MD Admitting Physician: Cresencio Crowe MD Referring Physician: Cresencio Crowe MD Allergies, Adverse Reactions, Alerts No Known Allergies Medications acetaminophen 325 mg oral tablet 650 mg, By Mouth, Every 6 hours, May take OTC not to exceed 3000 mg/day, Refills 0, Maintenance, 01/25/22 9:00:00 EDT, Partial fill upon patient request if the prescription is for a schedule II opioid drug. Start Date: 01/25/22 Status: Ordered apixaban 2.5 mg oral tablet 1 tablet = 2.5 mg, By Mouth, 2 times a day, # 60 tablet, 0 Refills, Maintenance, 01/25/22 8:56:00 EDT, Tablet, [facility], Partial fill upon patient request if the prescription is for aschedule II opioid drug., 155, cm, 01/25/22 6:59:00... Start Date: 01/25/22 Status: Ordered celecoxib 200 mg oral capsule 1 capsule = 200 mg, By Mouth, Daily, 0 Refills, Maintenance, 01/25/22 9:01:00 EDT, Capsule, Partialfill upon patient request if the prescription is for a schedule II opioid drug. Start Date: 01/25/22 Status: Ordered Clonazepam = 1 mg, By Mouth, 2 times a day, 0 Refills, Maintenance, 01/29/20 9:23:00 EDT Start Date: 01/29/20 Status: Ordered Colace Capsule 100 mg, 1, capsule, By Mouth, 2 times a day, Refills 0, Maintenance, 01/25/22 9:02:00 EDT, Partial fill upon patient request if the prescription is for a schedule II opioid drug. Start Date: 01/25/22 Status: Ordered Cymbalta 20 mg oral enteric coated capsule 2 capsule = 40 mg, By Mouth, Daily in AM, 0 Refills, Maintenance, 03/18/19 14:04:27 EDT Start Date: 03/18/19 Status: Ordered Dilaudid Tablet 4 mg, Tablet, By Mouth, Every 4 hours, PRN for Pain , Moderate, Routine, 01/24/22 9:52:00 EDT Start Date: 01/24/22 Stop Date: 01/25/22 Status: Discontinued estradiol 0.1 mg/g vaginal cream See Instructions, APPLY 1 GRAM VAGINALLY EVERY SUNDAY AND SUNDAY, # 42.5 Gm, 0 Refills, [facility], 152.4, cm, 12/28/21 8:38:00 EDT, Height, 45.8, kg, 03/08/21 15:15:00 EDT, Dry Weight Start Date: 01/02/22 Status: Ordered Flonase 50 mcg/inh nasal spray = 50 mcg, Nares, Both, Daily, PRN Congestion, 0 Refills, Maintenance, 03/18/19 14:05:01 EDT Start Date: 03/18/19 Status: Ordered gabapentin 400 mg oral capsule 1,200 mg, 3, capsule, By Mouth, Daily at bedtime, Refills 0, Maintenance, 01/25/22 9:00:00 EDT, Partial fill upon patient request if the prescription is for a schedule II opioid drug. Start Date: 01/25/22 Status: Ordered HYDROmorphone 2 mg oral tablet See Instructions, PRN Pain , Severe, Take 1-2 tablets By Mouth Every 4 hours, # 84 tablet, 0 Refills, Acute 02/01/22 8:59:00 EDT, 01/25/22 8:58:00 EDT, Tablet, [facility], Partial fill upon patient request if the prescription is for a sc... Start Date: 01/25/22 Stop Date: 02/01/22 Status: Ordered Lipitor 10 mg oral tablet 1 tablet = 10 mg, By Mouth, Daily, # 30 tablet, 0 Refills, Maintenance, 03/08/21 15:18:00 EDT, Partial fill upon patient request if the prescription is for a schedule II opioid drug. Start Date: 03/08/21 Status: Ordered MiraLax Powder 1 pack/packet = 17 Gm, By Mouth, Daily, PRN Constipation, 0 Refills, Maintenance, 01/25/22 9:02:00 EDT, Powder, Partial fill upon patient request if the prescription is for a schedule II opioid drug. Start Date: 01/25/22 Status: Ordered mirtazapine 7.5 mg oral tablet [...] lozenge, 0 Refills, Maintenance, 01/04/22 17:02:00 EDT, [facility], Partial fill upon patient request ifthe prescription is for a schedule II opioid drug.,... Start Date: 01/04/22 Status: Ordered nicotine 7 mg/24 hr transdermal film, extended release 1 patch, Topically, Daily, Remove old patch before applying new patch. Rotate sites., # 30 patch, 0Refills, Maintenance, 01/04/22 17:02:00 EDT, Patch, [facility], Partial fill upon patientrequest if the [...] & VOMITING, # 90 tablet, 0 Refills, [facility], 158, cm, 01/04/22 13:20:00 EDT, Height, 45.8, kg, 03/08/21 15:15:00 EDT, Dry Weight Start Date: 01/12/22 Status: Ordered Probiotic Formula By Mouth, Daily, 0 Refills, Maintenance, 09/06/20 13:12:00 EDT, Partial fill upon patient request if the prescription is for a schedule II opioid drug. Start Date: 09/06/20 Status: Ordered senna 187 mg oral tablet 1 tablet = 8.6 mg, By Mouth, Daily at bedtime, PRN as needed for constipation, 0 Refills, Maintenance, 01/25/22 9:02:00 EDT, Tablet, Partial fill upon patient request if the prescription is for a schedule II opioid drug. Start Date: 01/25/22 Status: Ordered traMADol 50 mg oral tablet See Instructions, PRN Pain , Mild, 1-2 tablet By Mouth Every 6 hours not to exceed 400 mg/day, # 56tablet, 0 Refills, Acute 02/01/22 8:57:00 EDT, 01/25/22 8:57:00 EDT, Tablet, [facility], Partial fill upon patient request if the presc... Start Date: 01/25/22 Stop Date: 02/01/22 Status: Ordered Trazodone Tablet 300, mg, By Mouth, Daily at bedtime, 0, 0, 11/22/05 8:51:14, Print CORY Number, [id number], [id number] Start Date: 11/22/05 Stop Date: 12/20/05 Status: Ordered vibegron 75 mg oral tablet 1 tablet = 75 mg, By Mouth, Daily, # 30 tablet, 5 Refills, Maintenance, 11/07/21 12:17:00 EDT, Tablet, [facility], Partial fill upon patient request if the prescription is for a schedule IIopioid drug., 152.4, cm, 10/18/21 8:48:00 EDT, [facility]... Start Date: 11/07/21 Status: Ordered Vitamin D 99559 iu oral capsule 50,000 International_Units, By Mouth, [...] ant EtOH stopped 2011 [address] [facility] [address](Confirmed) 1 Active Cervical disc disorder with radiculopathy(Confirmed) Active Bipolar depression(Confirmed) 2 Active Fibromyalgia(Confirmed) Active Myofascial pain(Confirmed) Active Neutrophilic leukocytosis(Confirmed) Active Osteoarthritis(Confirmed) Active Pancreatic insufficiency(Confirmed) Active Rectal prolapse(Confirmed) Active Underweight(Confirmed) Active 1st 2Dr [facility] Results Radiology Reports * Exam Date Time Procedure Performing Provider Status 01/24/22 10:46 PM Knee 1 or 2 Views Right Tan Whitley; Auth (Verified) Notes: (Knee 1 or 2 Views Right) Reason For Exam: Postop;Postop RESULT: Knee 1 or 2 Views Right Knee 1 or 2 Views Right, 1 views Reason: Postop; Clinical Question(s): Other:; Implant Position; Special Instructions: Do today at 2200, No flexed knee in the lateral position. Keep leg straight; 2 Views COMPARISON: None. FINDINGS: Single frontal view of the right knee following recent total knee arthroplasty. No evidence of hardware complication. Expected small amount subcutaneous emphysema in the surrounding soft tissues. IMPRESSION: Right knee total arthroplasty without evidence of complication. WSN: [id number] Ordering Physician: Kristi Vigil Dictated By: Frederick Ayoub MD Dictated Date/Time: 01/24/22 11:29 p Reviewed By: Frederick Ayoub MD Signed By: Frederick Ayoub MD Signed Date/Time: 01/24/22 11:29 pm Transcribed By: DARRYL Transcribed Date/Time: 01/24/22 11:29 pm Vital Signs Most recent to oldest [Reference Range]: 1 2 3 Height 155 cm (01/25/22 9:10 AM) 155 cm (01/25/22 6:59 AM) 155 cm (01/25/22 4:31 AM) Weight 42.6 kg (01/24/22 6:43 AM) 42.6 kg (01/24/22 5:42 AM) 42.6 kg (01/24/22 5:32 AM) Oxygen Saturation [94-100 %] 96 % (01/25/22 6:59 AM) 95 % (01/25/22 4:31 AM) 95 % (01/25/22 12:37 AM) Pulse Rate [55-90 bpm] 60 bpm (01/25/22 6:59 AM) 70 bpm (01/25/22 4:31 AM) 66 bpm (01/25/22 12:37 AM) Body Mass Index [18.5-24.99] 17.73 *L* (01/24/22 5:42 AM) Blood Pressure [90-138/55-84 mm Hg] 92/41mm Hg (01/25/22 6:59 AM) 104/59mm Hg (01/25/22 4:31 AM) 122/58mm Hg (01/25/22 12:37 AM) Respiratory Rate [16-30 br/min] 18 br/min (01/25/22 10:19 AM) 18 br/min (01/25/22 6:59 AM) 16 br/min (01/25/22 5:39 AM) Temperature [96.8-100.4 DegF] 97.8 DegF (01/25/22 6:59 AM) 97.8 DegF (01/25/22 4:31 AM) 97.1 DegF (01/25/22 12:37 AM) Liters per Minute 2 L/min (01/24/22 10:15 AM) 6 L/min (01/24/22 9:15 AM) Mode of Delivery (Oxygen) Room air (01/25/22 6:59 AM) Room air (01/25/22 4:31 AM) Room air (01/25/22 12:37 AM) Blood pressure sites Arm, right (01/25/22 6:59 AM) Arm, right (01/25/22 4:31 AM) Arm, right (01/25/22 12:37 AM) Temperature Route Oral (01/25/22 6:59 AM) Oral (01/25/22 4:31 AM) Oral (01/25/22 12:37 AM) Dry Weight 42.6 kg (01/24/22 5:42 AM) Social History Social History Type Response Smoking Status 5-9 cigarettes (betw een 1/4 to 1/2 pack)/day in last 30 days;Smoker, current status unknown entered on: 09/16/19 Sex
--- OUTSIDE RECORDS SUMMARY | 2023-12-08 11:25 | XMS_ITS | Continuity of Care Document ---
Author Organization [facility] Address [address] [place] [address], [address] [place] [address]- Care Team Providers Care Implementation Director Name Role Phone Avi Abhishek HERNANDEZ Primary Care Physician Encounter [facility] Date(s): 11/16/22 - 12/16/22 [facility] [address] [facility], [address] [place] [address]- Allergies, Adverse Reactions, Alerts No Known Allergies [...] Gm, 2 Refills, Maintenance, 06/01/22 15:02:00 EST, [facility], 155, cm, 01/27/22 10:19:00 EDT, Height, [...] tablet, 2 Refills, Maintenance, 11/16/22 15:03:00 EDT, [facility], 155, cm, 09/20/22 8:51:00 EDT, Height, [...] & VOMITING, # 90 tablet, 0 Refills, [facility], 158, cm, 01/04/22 13:20:00 EDT, Height, [...] Rectal prolapse Confirmed Active 1st 2Dr [facility] Social History Social History Type Response Smoking Status 5-9 cigarettes (betw een 1/4 to 1/2 pack)/day in last 30 days;Smoker, current status unknown entered on: 09/16/19 Sex Patient Care team information Care Team Personnel Name: Abhishek Cárdenas DO Position: [facility] Outreach Member Role: PCP Address: Address: [address] [place] [id number] Name: Marilin Del Castillo RN Position: S RN Member Role: Primary Care Nurse Name: Olesya Shoemaker RN Position: S RN Member Role: Primary Care Nurse Care Team Related Persons Name: CAILIN MILLAN Address: home [address] [place] [address] Name: BILLY PORTER Address: [place] [address]
--- OUTSIDE RECORDS SUMMARY | 2023-12-08 11:26 | XMS_ITS | Continuity of Care Document ---
Author Organization [facility] Address [address], [address] [place] [address]- Care Team Providers Care Group Home Paraprofessional Name Role Phone Os GOLD PLATER, Analy Pruett Primary Care Physician [facility] Date(s): 09/04/23 - [facility] [address], [address] [place] [address]- Allergies, Adverse Reactions, Alerts No Known Allergies [...] 6 Refills, Maintenance, 09/28/23 14:45:00 EDT, Inhaler, [facility], Partial fill upon patient request if [...] Gm, 3 Refills, Maintenance, 03/02/23 10:03:00 EDT, [facility], 155, cm, 02/22/23 9:42:00 EDT, Height, [...] tablet, 3 Refills, Maintenance, 08/30/23 14:41:00 EDT, [id number], 154, cm, 05/04/23 12:20:00 EST, Height, [...] tablet, 4 Refills, Maintenance, 08/06/23 11:28:00 EST, [facility], 154, cm, 05/04/23 12:20:00 EST, Height, [...] 11 Refills, Maintenance, 09/28/23 14:45:00 EDT, Aerosol, [facility], Partial fill upon patient request if [...] Active Rectal prolapse Confirmed Active 1st 2Dr [facility] Social History Social History Type [...] Physician Member Role: PCP Address: Address: [address] [place] [address]- Care Team Related Persons Name: CAILIN MILLAN Address: home [address] [address] Name: BILLY PORTER Address: [place] [address]
--- OUTSIDE RECORDS SUMMARY | 2023-12-08 11:26 | XMS_ITS | Continuity of Care Document ---
Author Organization [facility] ter Address [address] [place] [address]- Care Team Providers Care Antenna Machine Operator Name Role Phone Abhishek Cárdenas DO Primary Care Physician Encounter [facility] Date(s): 01/26/22 - 01/28/[address] [address] Encounter Diagnosis Polypharmacy(Final) - 01/26/22 Opioid overdose(Final) - 01/26/22 Community acquired pneumonia(Final) - 01/26/22 Atelectasis(Final) - 01/26/22 Syncope(Final) - 01/26/22 Discharge Disposition: A-D/C Home Attending Physician: Carla Forbes MD Admitting Physician: Fidel Greene MD Referring Physician: Not on Staff, Referring [...] EDT, Tablet Start Date: 01/26/22 Status: Ordered Acetaminophen Tablet 325 mg, Tablet, By Mouth, Temperature Greater than 100.5, 01/28/22 6:00:00 EDT Start Date: 01/28/22 Stop Date: 01/28/22 Status: Completed apixaban 2.5 mg oral tablet 1 tablet = 2.5 mg, By Mouth, 2 times a day, # 60 tablet, 0 Refills, Maintenance, 01/25/22 8:56:00 EDT, Tablet, [facility], Partial fill upon patient request if [...] AND SUNDAY, # 42.5 Gm, 0 Refills, [facility], 152.4, cm, 12/28/21 8:38:00 EDT, Height, [...] lozenge, 0 Refills, Maintenance, 01/04/22 17:02:00 EDT, [facility], Partial fill upon patient request ifthe prescription is for a schedule II opioid drug.,... Start Date: 01/04/22 Status: Ordered nicotine 7 mg/24 hr transdermal film, extended release 1 patch, Topically, Daily, Remove old patch before applying new patch. Rotate sites., # 30 patch, 0Refills, Maintenance, 01/04/22 17:02:00 EDT, Patch, [facility], Partial fill upon patientrequest if the [...] & VOMITING, # 90 tablet, 0 Refills, [facility], 158, cm, 01/04/22 13:20:00 EDT, Height, 45.8, kg, 03/08/21 15:15:00 EDT, Dry Weight Start Date: 01/12/22 Status: Ordered oxyCODONE 5 mg oral tablet 2.5 mg, Tablet, By Mouth, Every 6 hours, PRN for Pain , Severe, Routine, 01/26/22 11:26:00 EDT Start Date: 01/26/22 Stop Date: 01/28/22 Status: Discontinued oxyCODONE 5 mg oral tablet 2.5 mg, 0.5, tablet, By Mouth, Every 6 hours, PRN, for 5 days, # 10 tablet, Refills 0, Tot. Refills0, Acute 02/02/22 9:29:00 EDT, Pain , Severe, 01/28/22 9:29:00 EDT, Route to Pharmacy Electronically, [facility], Partial fill upon patie... Start Date: 01/28/22 Stop Date: 02/02/22 Status: Ordered Probiotic Formula 1 capsule, By [...] 5 Refills, Maintenance, 11/07/21 12:17:00 EDT, Tablet, [facility], Partial fill upon patient request if the prescription is for a schedule IIopioid drug., 152.4, cm, 10/18/21 8:48:00 EDT, [facility]... Start Date: 11/07/21 Status: Ordered Vitamin D3 [...] insufficiency(Confirmed) Active Rectal prolapse(Confirmed) Active 1st 2Dr [facility] [place] Results Orders for Microbiology Reports Name Date Blood Culture 01/25/22 Blood Culture #2 01/25/22 Microbiology Reports TEST:Blood Culture STATUS:Unauthenticated BODY SITE: SOURCE:Blood COLLECTED DATE/TIME:01/26/22 12:03 AM Blood Culture SPECIMEN DESCRIPTION : BLOOD LHAND SPECIAL REQUESTS : NONE CULTURE : NO GROWTH AFTER 48 HOURS REPORT STATUS : PRELIMINARY REPORT TEST:Blood Culture, Second Order STATUS:Unauthenticated BODY SITE: SOURCE:Blood COLLECTED DATE/TIME:01/26/22 12:03 AM Blood Culture, Second Order SPECIMEN DESCRIPTION : BLOOD R ARM SPECIAL REQUESTS : NONE CULTURE : NO GROWTH AFTER 48 HOURS REPORT STATUS : PRELIMINARY REPORT Vital Signs Most recent to oldest [Reference Range]: 1 2 3 4 Height 155 cm (01/27/22 10:19 AM) 155 cm (01/26/22 11:05 AM) Weight 49.3 kg (01/26/22 11:05 AM) 49.3 kg (01/26/22 8:18 AM) 42.7 kg (01/26/22 3:28 AM) Oxygen Saturation [94-100 %] 92 % *L* (01/28/22 6:00 AM) 97 % (01/28/22 2:00 AM) 97 % (01/27/22 10:00 PM) Pulse Rate [55-90 bpm] 80 bpm (01/28/22 6:00 AM) 77 bpm (01/28/22 2:00 AM) 86 bpm (01/27/22 10:00 PM) Body Mass Index [18.5-24.99] 20.52 (01/26/22 11:05 AM) Blood Pressure [90-138/55-84 mm Hg] 100/50mm Hg (01/28/22 6:00 AM) 107/50mm Hg (01/28/22 2:00 AM) 106/54mm Hg (01/27/22 10:00 PM) Respiratory Rate [16-30 br/min] 18 br/min (01/28/22 10:22 AM) 14 br/min *L* (01/28/22 6:00 AM) 16 br/min (01/28/22 5:11 AM) 16 br/min (01/28/22 5:11 AM) Temperature [96.8-100.4 DegF] 98.3 DegF (01/28/22 6:00 AM) 97.6 DegF (01/28/22 2:00 AM) 99.0 DegF (01/27/22 10:00 PM) Liters per Minute 2 L/min (01/27/22 10:00 AM) 2 L/min (01/27/22 6:00 AM) 2 L/min (01/27/22 2:00 AM) Mode of Delivery (Oxygen) Room air (01/28/22 6:00 AM) Room air (01/28/22 2:00 AM) Room air (01/27/22 10:00 PM) Blood pressure sites Arm, left (01/28/22 6:00 AM) Arm, right (01/28/22 2:00 AM) Arm, right (01/27/22 10:00 PM) Temperature Route Axillary (01/28/22 6:00 AM) Axillary (01/28/22 2:00 AM) Axillary (01/27/22 10:00 PM) Dry Weight 49.3 kg (01/26/22 11:05 AM) Weight Obtained Via Bed scale (01/26/22 8:18 AM) Patient/family stated (01/25/22 11:53 PM) Social History Social History Type Response Smoking Status 5-9 cigarettes (betw een 1/4 to 1/2 pack)/day in last 30 days;Smoker, current status unknown entered on: 09/16/19 Sex Care Team Personnel Name: Abhishek Cárdenas DO Address: [address] [place] [id number] [place]
--- OUTSIDE RECORDS SUMMARY | 2023-12-08 11:26 | XMS_ITS | Continuity of Care Document ---
Author Organization [facility] Address [address] [facility], [address] [place] [address]- Care Team Providers Care Moveman Name Role Phone Dominga MAHER, [place] Primary Care Physician [place] [facility] [place] 03/06/20 [facility] [address] [facility], [address]th [place] [address] Allergies, Adverse Reactions, Alerts Substance Reaction Severity [...] 02/02/20 8:20:00 EDT, Route to Pharmacy Electronically, [id number], 152.4, cm, 02/02/20 7:15:00 EDT, Height, 46.7, [...] tablet, 5 Refills, Maintenance, 09/19/19 10:56:00 EDT, [facility][id number], 152.4, cm, 07/31/19 12:08:00 EST, Height, 45.7, [...] 0 Refills, Maintenance, 02/02/20 8:19:00 EDT, Capsule, [id number], Partial fill upon patient request, 152.4, cm, [...] Fibromyalgia(Confirmed) Active Rectal prolapse(Confirmed) Active 1st 2Dr [facility] Social History Social History Type Response Smoking Status 5-9 cigarettes (betw een 1/4 to 1/2 pack)/day in last 30 days;Smoker, current status unknown entered on: 09/16/19 Sex
--- OUTSIDE RECORDS SUMMARY | 2023-12-08 11:26 | XMS_ITS | Continuity of Care Document ---
Author Organization [facility] Address [address], [address] [place] [address]- Care Team Providers Care Cnc Machine Programmer Name Role Phone Michael MAHER, Tasha Mendez Primary Care Physician [place] [facility] [place] 12/16/19 - 01/15/20 [facility] [address], [address]th [place] [address]- [facility] Allergies, Adverse Reactions, Alerts Substance Reaction [...] 0, 01/02/07 16:06:03, anxiety, Print CORY Number, [id number] Start Date: 01/02/07 Status: Ordered Creon By [...] tablet, 5 Refills, Maintenance, 09/19/19 10:56:00 EDT, [id number], 152.4, cm, 07/31/19 12:08:00 EST, Height, 45.7, [...] EtOH stopped 2011 going to [facility] [email or web address](Confirmed) 1 Active Bipolar depression(Confirmed) 2 Active Fibromyalgia(Confirmed) Active Rectal prolapse(Confirmed) Active 1st 2Dr [facility] Social History Social History Type Response Smoking Status 5-9 cigarettes (betw een 1/4 to 1/2 pack)/day in last 30 days;Smoker, current status unknown entered on: 09/16/19 Sex
--- OUTSIDE RECORDS SUMMARY | 2023-12-08 11:26 | XMS_ITS | Continuity of Care Document ---
Author [facility] Address [address] [facility], [address] [place] [address]- Care Team Providers Care Chaser Apprentice Name Role Phone Avi Abhishek Leiva Primary Care Physician [place] [facility] [place] [facility] [address] [facility] [facility], [address]th [address] [place], [place] [address] Allergies, Adverse Reactions, Alerts [...] AND SUNDAY, # 42.5 Gm, 2 Refills, [facility], 152.4, cm, 07/19/21 12:34:00 EST, Height, [...] 01/03/22 15:20:00 EDT, 10/05/21 15:20:00 EDT, Tablet, [facility], Partial fill upon patient request if [...] Stop Date: 12/20/05 Status: Ordered Vitamin D 10756 iu oral capsule 50,000 International_Units, By Mouth, [...]
--- OUTSIDE RECORDS SUMMARY | 2023-12-08 11:26 | XMS_ITS | Continuity of Care Document ---
Author Organization [facility] Address [address], [address] [place] [address]- Care Team Providers Care Coroner Transport Technician Name Role Phone Avi HERNANDEZ Abhishek Leiva Primary Care Physician En[facility] Date(s): 09/08/20 - [facility] [address], [address] [place], [place] [address] Allergies, Adverse Reactions, Alerts Substance Reaction [...] 02/02/20 8:20:00 EDT, Route to Pharmacy Electronically, [facility][id number], 152.4, cm, 02/02/20 7:15:00 EDT, Height, 46.7, kg, 02/02/20 7:20:00 E... Start Date: 02/02/20 Status: Ordered mirabegron 25 mg oral tablet, extended release 1 tablet = 25 mg, By Mouth, Daily, do not crush or chew, # 30 tablet, 5 Refills, Maintenance, 03/16/20 12:51:00 EDT, ER Tablet, [facility] #[id number], 152.4, cm, 02/17/20 10:25:00 EDT, Height, 46.9, [...] tablet, 0 Refills, Maintenance, 03/10/20 11:21:00 EDT, [facility][id number], 152.4, cm, 02/17/20 10:25:00 EDT, Height, 46.9, [...] 0 Refills, Maintenance, 02/02/20 8:19:00 EDT, Capsule, [facility][id number], Partial fill upon patient request, 152.4, cm, [...] Stop Date: 12/20/05 Status: Ordered Vitamin D 46401 iu oral capsule 50,000 International_Units, By Mouth, Daily, Refills 0, Maintenance, 09/06/20 13:12:00 EDT, Partialfill upon patient request if the prescription is for a schedule II opioid drug. Start Date: 09/06/20 Status: Ordered Problem List Condition Effective Dates Status Health Status Inform ant EtOH stopped 2011 going to [facility] [employer](Confirmed) 1 Active Bipolar depression(Confirmed) 2 Active Fibromyalgia(Confirmed) Active Rectal prolapse(Confirmed) Active 1st 2[facility] Social History Social History Type Response Smoking Status 5-9 cigarettes (betw een 1/4 to 1/2 pack)/day in last 30 days;Smoker, current status unknown entered on: 09/16/19 Sex
--- OUTSIDE RECORDS SUMMARY | 2023-12-08 11:26 | XMS_ITS | Continuity of Care Document ---
Author Organization [facility] Address [address] [place] [address]- Care Team Providers Care Digital Marketing Intern Name Role Phone Os MACHINE DESIGN CHECKER, Analy Pruett Primary Care Physician [facility]s): 09/[facility]/23 - 10/24/23 [facility] [address] [place] [id number] Allergies, Adverse Reactions, Alerts No Known [...] 6 Refills, Maintenance, 09/28/23 14:45:00 EDT, Inhaler, [facility], Partial fill upon patient request if [...] Gm, 3 Refills, Maintenance, 03/02/23 10:03:00 EDT, [facility], 155, cm, 02/22/23 9:42:00 EDT, Height, [...] Maintenance, 08/30/23 14:41:00 EDT, [id number] 154, cm, 05/04/23 12:20:00 EST, Height, [...] tablet, 4 Refills, Maintenance, 08/06/23 11:28:00 EST, [facility], 154, cm, 05/04/23 12:20:00 EST, Height, [...] 11 Refills, Maintenance, 09/28/23 14:45:00 EDT, Aerosol, [facility], Partial fill upon patient request if [...] Active Rectal prolapse Confirmed Active 1st 2Dr [facility] Social History Social History Type [...] Reference Physician Member Role: PCP Address: Address: [address] [place] [address] Care Team Related Persons Name: CAILIN MILLAN Address: home [address] [address] Name: BILLY PORTER Address: [place] [address]
--- OUTSIDE RECORDS SUMMARY | 2023-12-08 11:26 | XMS_ITS | Continuity of Care Document ---
Author Organization [facility] Address [address] [place] [address]- Care Team Providers Care Checker Bakery Products Name Role Phone Os REPRODUCTION ORDER PROCESSOR, Analy Pruett Primary Care Physician [phone] [facility] Date(s): 01/01/23 - 01/31/23 [facility] [address] [place] [address]- Allergies, Adverse Reactions, Alerts No Known Allergies [...] 42.5 Gm, 2 Refills, Maintenance, 06/01/22 15:02:00 [facility], 155, cm, 01/27/22 10:19:00 EDT, Height, [...] tablet, 2 Refills, Maintenance, 11/16/22 15:03:00 EDT, [facility], 155, cm, 09/20/22 8:51:00 EDT, Height, [...] & VOMITING, # 90 tablet, 0 Refills, [facility], 158, cm, 01/04/22 13:20:00 EDT, Height, [...] Active Rectal prolapse Confirmed Active 1st 2Dr [facility] Social History Social History Type [...] Reference Physician Member Role: PCP Address: Address: [address] [place] [address]- Care Team Related Persons Name: CAILIN MILLAN Address: home [address] [place] [address] Name: BILLY PORTER Address: [place] [address]
--- OUTSIDE RECORDS SUMMARY | 2023-12-08 11:26 | XMS_ITS | Continuity of Care Document ---
[facility] Address [address] [facility], [address] [place] [address]- Care Team Providers Care Video Machines Mechanic Name Role Phone Michael MAHER, Tasha Mendez Primary Care Physician [id number] Date[facility]s): 09/19/19 - 09/29/19 [facility] [address] [facility], [address] [place] [address]- Attending Physician: Justen Canela Admitting Physician: Justen Canela Referring Physician: Justen Canela Allergies, Adverse Reactions, Alerts Substance Reaction Severity [...] 0, 01/02/07 16:06:03, anxiety, Print CORY Number, [id number] Start Date: 01/02/07 Status: Ordered Creon By [...] tablet, 5 Refills, Maintenance, 09/19/19 10:56:00 EDT, [facility][id number], 152.4, cm, 07/31/19 12:08:00 EST, Height, 45.7, [...] Fibromyalgia(Confirmed) Active Rectal prolapse(Confirmed) Active 1st 2Dr [facility] Social History Social History Type Response Smoking Status 5-9 cigarettes (betw een 1/4 to 1/2 pack)/day in last 30 days;Smoker, current status unknown entered on: 09/16/19 Sex
--- OUTSIDE RECORDS SUMMARY | 2023-12-08 11:26 | XMS_ITS | Continuity of Care Document ---
Author Organization [facility] Address [address] [facility], [address] [place] [address]- Care Team Providers Care Applied Psychology Chair Name Role Phone Yoly MAHER, Valerie Primary Care Physician [phone] Encounter [facility] Date(s): 06/22/20 - 07/22/20 [facility] [address] [facility], 4th Floor [place], [place] [address] Allergies, Adverse Reactions, Alerts [...] 02/02/20 8:20:00 EDT, Route to Pharmacy Electronically, [facility][id number], 152.4, cm, 02/02/20 7:15:00 EDT, Height, 46.7, kg, 02/02/20 7:20:00 E... Start Date: 02/02/20 Status: Ordered mirabegron 25 mg oral tablet, extended release 1 tablet = 25 mg, By Mouth, Daily, do not crush or chew, # 30 tablet, 5 Refills, Maintenance, 03/16/20 12:51:00 EDT, ER Tablet, [facility] #[id number], 152.4, cm, 02/17/20 10:25:00 EDT, Height, 46.9, [...] tablet, 0 Refills, Maintenance, 03/10/20 11:21:00 EDT, [facility] #[id number], 152.4, cm, 02/17/20 10:25:00 EDT, Height, 46.9, [...] 0 Refills, Maintenance, 02/02/20 8:19:00 EDT, Capsule, [facility] #[id number], Partial fill upon patient request, 152.4, cm, [...] Fibromyalgia(Confirmed) Active Rectal prolapse(Confirmed) Active 1st 2Dr [facility] Social History Social History Type Response Smoking Status 5-9 cigarettes (betw een 1/4 to 1/2 pack)/day in last 30 days;Smoker, current status unknown entered on: 09/16/19 Sex
--- OUTSIDE RECORDS SUMMARY | 2023-12-08 11:26 | XMS_ITS | Continuity of Care Document ---
Author Organization [facility] Address [address] [facility], 4t [place] [address]- Care Team Providers Care Hand Salter Name Role Phone Avi Abhishek HERNANDEZ Primary Care Physician Encounter [facility] Date(s): 08/08/21 - 09/07/21 [facility] [address], 4th [address] [place], [place] [address] Allergies, Adverse Reactions, Alerts No [...] capsule, 1 Refills, Maintenance, 08/08/21 14:43:00 EST, [facility], Partial fill upon patient request if the prescription is for a schedule II opioid drug., 152.4, cm, 07/19/21 12:34:00 EST... Start Date: 08/08/21 Status: Ordered estradiol 0.1 mg/g vaginal cream See Instructions, APPLY 1 GRAM VAGINALLY EVERY SUNDAY AND SUNDAY, # 42.5 Gm, 2 Refills, [facility], 152.4, cm, 07/19/21 12:34:00 EST, Height, [...] 02/02/20 8:20:00 EDT, Route to Pharmacy Electronically, [facility] #[id number], 152.4, cm, 02/02/20 7:15:00 EDT, Height, 46.7, [...] Refills, Maintenance, 03/16/20 12:51:00 EDT, ER Tablet, [facility] #[id number], 152.4, cm, 02/17/20 10:25:00 EDT, Height, 46.9, [...] tablet, 0 Refills, Maintenance, 03/10/20 11:21:00 EDT, [facility] #[id number], 152.4, cm, 02/17/20 10:25:00 EDT, Height, 46.9, kg, 02/17/20 10:25:00 EDT, Dry Weight Start Date: 03/10/20 Status: Ordered oxyCODONE 5 mg oral capsule 1 capsule = 5 mg, By Mouth, Every 6 hours, PRN as needed for pain, # 7 capsule, 0 Refills, Maintenance, 02/02/20 8:19:00 EDT, Capsule, [facility] #[id number], Partial fill upon patient request, 152.4, cm, [...] Refills, Maintenance, 08/11/21 12:30:00 EST, CR Capsule, [facility], Partial fill upon patient request if the prescription is for aschedule II opioid drug., 152.4, cm, 07/19/21 12:34... Start Date: 08/11/21 Status: Ordered Vitamin D 19815 iu oral capsule 50,000 International_Units, By Mouth, [...] Rectal prolapse(Confirmed) Active 1st 2Dr [facility] Social History Social History Type Response Smoking Status 5-9 cigarettes (betw een 1/4 to 1/2 pack)/day in last 30 days;Smoker, current status unknown entered on: 09/16/19 Sex
--- OUTSIDE RECORDS SUMMARY | 2023-12-08 11:26 | XMS_ITS | Continuity of Care Document ---
[facility] Address [address] [facility], 4t [place] [address]- Care Team Providers Care Break And Load Operator Name Role Phone Os DIRECTOR OF PRIMARY, Analy Pruett Primary Care Physician [facility] Date[facility]s): 08/13/23 - 09/12/23 [facility] [address] [facility], 4[address] [place] [address]- Allergies, Adverse Reactions, Alerts No Known Allergies [...] Gm, 3 Refills, Maintenance, 03/02/23 10:03:00 EDT, [facility], 155, cm, 02/22/23 9:42:00 EDT, Height, [...] tablet, 3 Refills, Maintenance, 08/30/23 14:41:00 EDT, [id number] 154, cm, 05/04/23 [...] tablet, 4 Refills, Maintenance, 08/06/23 11:28:00 EST, [facility], 154, cm, 05/04/23 12:20:00 EST, Height, [...] Physician Member Role: PCP Address: Address: [address] [place] [address]- Care Team Related Persons Name: CAILIN MILLAN Address: home [address] [address] Name: BILLY PORTER Address: [place] [address]
--- OUTSIDE RECORDS SUMMARY | 2023-12-08 11:26 | XMS_ITS | Continuity of Care Document ---
Author Organization [facility] Address [address] [place] [address], [address] [place] [address]- Care Team Providers Care Felt Machine Mechanic Name Role Phone Avi Abhishek HERNANDEZ Primary Care Physician [phone] [facility] Date(s): 10/17/22 - 11/16/22 [facility] [address] [facility], 4th [place] [address]- Attending Physician: Justen Canela Admitting Physician: Justen [...] 0 Refills, Maintenance, 01/25/22 8:56:00 EDT, Tablet, [facility], Partial fill upon patient request if [...] Gm, 2 Refills, Maintenance, 06/01/22 15:02:00 EST, [facility], 155, cm, 01/27/22 10:19:00 EDT, Height, [...] tablet, 2 Refills, Maintenance, 11/16/22 15:03:00 EDT, [facility], 155, cm, 09/20/22 8:51:00 EDT, Height, [...] lozenge, 0 Refills, Maintenance, 01/04/22 17:02:00 EDT, [facility], Partial fill upon patient request ifthe prescription is for a schedule II opioid drug.,... Start Date: 01/04/22 Status: Ordered nicotine 7 mg/24 hr transdermal film, extended release 1 patch, Topically, Daily, Remove old patch before applying new patch. Rotate sites., # 30 patch, 0Refills, Maintenance, 01/04/22 17:02:00 EDT, Patch, [facility], Partial fill upon patientrequest if the [...] & VOMITING, # 90 tablet, 0 Refills, [facility], 158, cm, 01/04/22 13:20:00 EDT, Height, [...] Rectal prolapse Confirmed Active 1st 2Dr [facility] Social History Social History Type Response Smoking Status 5-9 cigarettes (betw een 1/4 to 1/2 pack)/day in last 30 days;Smoker, current status unknown entered on: 09/16/19 Sex Patient Care team information Care Team Personnel Name: Abhishek Cárdenas DO Position: [facility] Outreach Member Role: PCP Address: Address: [address] [place] [id number] Name: Marilin Del Castillo RN Position: S RN Member Role: Primary Care Nurse Name: Olesya Shoemaker RN Position: S RN Member Role: Primary Care Nurse Care Team Related Persons Name: CAILIN MILLAN Address: home [address] [place] [address] Name: BILLY PORTER Address: [place] [address]
--- OUTSIDE RECORDS SUMMARY | 2023-12-08 11:26 | XMS_ITS | Continuity of Care Document ---
Author Organization [facility] ter Address [address] [place] [address]- Care Team Providers Care Certification Technician Name Role Phone Os OBSERVER GRAVITY PROSPECTING, Analy Pruett Primary Care Physician [phone] [facility] Date(s): 09/13/23 - 09/13/[address] [address]- Discharge Disposition: A-D/C Home Attending Physician: Sue Bond MD Admitting Physician: [...] Gm, 3 Refills, Maintenance, 03/02/23 10:03:00 EDT, [facility], 155, cm, 02/22/23 9:42:00 EDT, Height, [...] tablet, 3 Refills, Maintenance, 08/30/23 14:41:00 EDT, [id number] 154, cm, 05/04/23 12:20:00 EST, [...] tablet, 4 Refills, Maintenance, 08/06/23 11:28:00 EST, [facility], 154, cm, 05/04/23 12:20:00 EST, Height, 52.4, kg, 05/04/2312:20:00 EST, Dry Weight Start Date: 08/06/23 Status: Ordered Oxycodone 5mg Oral Tablet (PACU ONLY) 5 mg, Tablet, By Mouth, Once, in PACU ONLY, PRN for Pain , Moderate, Routine, 09/13/23 15:11:00 EDT Start Date: 09/13/23 Stop Date: 09/13/23 Status: Completed Probiotic Formula 1 capsule, By Mouth, 2 [...] Active Rectal prolapse Confirmed Active 1st 2Dr [facility] Vital Signs Most recent to oldest [Reference Range]: 1 2 3 Height 155 cm (09/13/23 1:23 PM) 155 cm (09/10/23 5:20 PM) Weight 55.3 kg (09/13/23 1:23 PM) Oxygen Saturation [94-100 %] 96 % (09/13/23 4:30 PM) 95 % (09/13/23 3:30 PM) 98 % (09/13/23 3:15 PM) Pulse Rate [55-90 bpm] 69 bpm (09/13/23 1:23 PM) Body Mass Index [18.5-24.99 kg/m2] 23.02 kg/m2 (09/13/23 1:23 PM) Blood Pressure [90-138/55-84 mm Hg] 112/65mm Hg (09/13/23 4:30 PM) 105/53mm Hg (09/13/23 3:30 PM) 98/43mm Hg (09/13/23 3:15 PM) Respiratory Rate [16-30 br/min] 15 br/min *L* (09/13/23 4:30 PM) 14 br/min *L* (09/13/23 3:43 PM) 15 br/min *L* (09/13/23 3:30 PM) Temperature [96.8-100.4 DegF] 97.1 DegF (09/13/23 3:00 PM) 97.7 DegF (09/13/23 1:23 PM) Liters per Minute 2 L/min (09/13/23 3:30 PM) 3 L/min (09/13/23 3:00 PM) Mode of Delivery (Oxygen) Room air (09/13/23 4:30 PM) Nasal cannula (09/13/23 3:30 PM) Simple face mask (09/13/23 3:00 PM) Blood pressure sites Arm, left (09/13/23 3:00 PM) Arm, left (09/13/23 1:23 PM) Temperature Route Temporal (09/13/23 3:00 PM) Temporal (09/13/23 1:23 PM) Dry Weight 55.3 kg (09/13/23 1:23 PM) 54.8 kg (09/10/23 5:20 PM) Weight Obtained Via Standing scale (09/13/23 1:23 PM) Dry Weight Obtained Via Standing scale (09/13/23 1:23 PM) Patient/family stated (09/10/23 5:20 PM) Social History Social History Type Response Smoking Status 5-9 cigarettes (betw een 1/4 to 1/2 pack)/day in last 30 days;Smoker, current status unknown entered on: 09/16/19 Sex Note * Elisa Atwood RN: PERFORM Event Display: Discharge/Transfer Note Hospital Authored Date: [id number] Nursing Discharge Note Entered On: 09/13/2023 16:56 EDT Performed On: 09/13/2023 16:56 EDT by Elisa Atwood RN Nursing Discharge Note 2 Discharge Time : 09/13/2023 16:30 EDT Discharge Level of Care at Discharge : Home/Fpc/Foster Care Patient Left Unit Via : Wheelchair Patient Accompanied Off Unit with : Responsible adult DC Instructions Provided & Signed by Pt : Yes Patient Understands D/C Instructions : Yes Patient Instructions Discharge Signed : Yes Did Pt have Specialty Bed or Wound Vac : No Elisa Atwood RN - 09/13/2023 16:56 EDT * Elisa Atwood RN: PERFORM Event Display: Patient Education/Instruction Authored Date: [id number] Surgery Adult Discharge Instructions [place] [id number] Name: YA BRANTLEY : 1955?? Visit: 09/13/2023 12:14?? Current Date: 09/13/2023 15:39 ?? Account: [id number]?? Surgery Discharge Instructions We would like to thank [...] and their families. Surveys are administered by [employer]. ?? If further treatment with your primary care physician or another doctor is recommended, it is important for you to keep the appointment. Call your primary care physician or return to the Emergency Department immediately if your condition worsens, fails to improve, or new symptoms develop. If you need to find a doctor, you can call [facility] [employer] for a referral at [phone] or toll free at [phone] ([phone]) or log in to [email or web address] Caller.. ?? [facility], in keeping with [facility] guidance, no longer requires face masks for [...] a health care gala of your choosing. [employer] is a website that allows you to securely view your medical information including your hospital discharge summary, office visit summaries, medications and follow-up visits. You can also request appointments, renew medications, and request access to your medical information using a health care gala of your choosing, or just ask a question. You are entitled to know the individuals who participated in your treatment. This information is available within your medical record and will be provided upon your request. You can enroll at [email or web address] or register d uring your next office visit. You have been discharged from [facility], Patient Care Unit: [facility]??. If you have any questions regarding these instructions after you leave, please call us and we will be happy to assist you. [facility] Your Care Team Attending Physician Sue Bond MD?? Discharging Providers Ashely MAHER, Anca Reason for Admission URINARY RETENTION CS DS Primary Care Provider Os OBSERVER GRAVITY PROSPECTING, Analy Pruett? Advance Directive Health Care Proxy on File Yes - Health Care Proxy What to do next Instructions From Your Doctor ?? Orders? 09/13/23 14:54:00 EDT?? Prescriptions??, ??09/13/23 14:54:00 EDT?? Instructions from your Care Team Please call Dr. Bond's office with any questions/concerns.?? Scheduled Follow-Up Appointments Sunday 9:00 AM EDT ?? With: Sue Bond MD Where: [facility] [address] [place] [address] [address] [place] [address]- Status: Pending Sunday 8:20 AM EDT ?? With: Thomas Jackson MD, Rodri Trevizo Where: [facility] [address] [place] [address]- Status: Pending You Need to Schedule the Following Appointments Follow Up with??Sue Bond Where: [address] [facility], [address] [facility] [place] [address]- Business (1) Follow Up with??Analy Moscoso When:??In 0 days Where: [address] [place] [address]- Business (1) Discharge Medications YA BRANTLEY :1955 Visit Date:09/13/2023 Medications: Please continue your medications until treatment is completed or stopped by your provider. You may resume your daily prescription medications. Discuss any questions related to medications with your provider. What How Much When Instructions Next Dose Unchanged Albuterol (Albuterol (Eqv- ProAir HFA) 90 mcg/ inh inhalation aerosol) 2 puff(s) Unchanged bifidobacterium-lactobacillus (Probiotic Formula) 1 capsule Oral Twice a day Unchanged Clonazepam 1 Milligram Oral Twice a day as needed for Anxiety Unchanged Duloxetine (Cymbalta 60 mg oral enteric coated capsule) 2 capsule Oral Daily do not crush or chew ?? Unchanged Estradiol Topical (estradiol 0.1 mg/ g vaginal cream) See instructions APPLY 1 GRAM VAGINALLY EVERY SUNDAY AND SUNDAY ?? Unchanged Fexofenadine (fexofenadine 60 mg oral tablet) Twice a day Unchanged Fluticasone Nasal (Flonase 50 mcg/ inh nasal spray) 50 Microgram Nares, Both Daily as needed for Congestion Unchanged Gabapentin (gabapentin 600 mg oral tablet) 2 tab(s) Oral Daily at Bedtime Unchanged Multivitamin Unchanged Omeprazole 40 Milligram Oral Daily Unchanged Oxybutynin (oxybutynin 5 mg oral tablet) See instructions TAKE 1 TABLET BY MOUTH DAILY AT BEDTIME ?? Unchanged Pancrelipase (Zenpep 10,000 units-32,000 units-42,000 units oral delayed release capsule) 2 capsule Oral 3 times a day with each meal and snack ?? Unchanged Trazodone (traZODone 50 mg oral tablet) 4 tab(s) Oral Daily at Bedtime Unchanged Ubiquinone (CoQ10 100 mg oral capsule) 1 capsule Oral Daily Unchanged vibegron (Gemtesa 75 mg oral tablet) See instructions TAKE 1 TABLET BY MOUTH DAILY ?? Tylenol next at 8pm Ibuprofen at 10pm Oxycodone next at 9:45pm Allergies (NKA means No Known Allergies) NKA Education Materials Below is the list of Educational Leaflet Providered with your Discharge Instructions. Valuables and Belongings I fully understand and agree that [facility] accepts no responsibility for all my personal [...] to send valuables and belongings home. ?? Review of Valuable and Belonging List: With patient Date for Pt to Sign Valuables/Belongings: 09/13/23 13:23:00 ?? Valuables & Belongings ?? Clothes Electronic devices Jewelry Monetary Items Personal devices Miscellaneous Medications (Valuables) Valuables at Bedside Jacket, Pants, Shirt, Shoes, Undergarments ? Valuables Sent Home ? Valuables Sent to Security ? Other Discharge Information ? Pulmonary Rehab Status?? Pulmonary Rehab Discharge Status?? Respiratory Rate:??15 br/min??Low ? Common Emergency Awareness Tips IS IT [...] are strongly encouraged to quit. Please call [employer] at [phone] or [phone] ([phone]) or log in to [email or web address] for referrals to smoking cessation programs. ?? The National Suicide Prevention Hotline is available 25/12 if you or someone you know needs to find a reason to keep living. By calling 0-153-603-[employer] (6355) you'll be connected to a skilled, trained counselor at a crisis center in your area. SURGERY DISCHARGE INSTRUCTIONS SIGNATURE PAGE YA BRANTLEY Location:[facility] Registration Date and Time:09/13/2023 12:14 EDT Primary Care Physician: Analy Moscoso NP, Attending Physician: Sue Bond MD, I YA BRANTLEY, have received the above patient education materials/instructions and have verbalized understanding. If ambulance or transport services are being used I further acknowledge being given a choice of service. ?? If you need to contact me, please call me at this number: [facility] . Patient/Underwriter Solicitation Director Name: Ya Brantley Patient/Underwriter Solicitation Director Signature: Relationship to Patient: self Witness Name/Signature: Date: 09/13/23 * Elisa Atwood RN: PERFORM, SIGN, VERIFY Event Display: Patient Education Handout Authored Date: [id number] Patient Care team information Care Team Personnel Name: Marilin Del Castillo RN Position: [facility] RN Member Role: Primary Care Nurse Name: Olesya Shoemaker RN Position: S RN Member Role: Primary Care Nurse Name: Analy Moscoso NP Position: Reference Physician Member Role: PCP Address: Address: [address] [place] [address]- Care Team Related Persons Name: CAILIN MILLAN Address: home [address] [place] [address] Name: BILLY PORTER Address: [place] [address]
--- OUTSIDE RECORDS SUMMARY | 2023-12-08 11:26 | XMS_ITS | Continuity of Care Document ---
Author Organization [facility] Address [address] [place] [id number]- Care Team Providers Care Loom Inspector Name Role Phone SarkisAbhishek mack DO Primary Care Physician [place] [facility] [place]11/20 - 11/10/20 [facility] [address] [place] [id number] Attending Physician: Justen Canela Admitting Physician: Admtr, Justen Referring Physician: Admtr, Ar8 Allergies, Adverse Reactions, Alerts Substance Reaction Severity [...] 02/02/20 8:20:00 EDT, Route to Pharmacy Electronically, [facility] #[id number], 152.4, cm, 02/02/20 7:15:00 EDT, Height, 46.7, kg, 02/02/20 7:20:00 E... Start Date: 02/02/20 Status: Ordered mirabegron 25 mg oral tablet, extended release 1 tablet = 25 mg, By Mouth, Daily, do not crush or chew, # 30 tablet, 5 Refills, Maintenance, 03/16/20 12:51:00 EDT, ER Tablet, [facility] #[id number], 152.4, cm, 02/17/20 10:25:00 EDT, Height, 46.9, [...] tablet, 0 Refills, Maintenance, 03/10/20 11:21:00 EDT, [facility] #[id number], 152.4, cm, 02/17/20 10:25:00 EDT, Height, 46.9, [...] 0 Refills, Maintenance, 02/02/20 8:19:00 EDT, Capsule, [facility] #[id number], Partial fill upon patient request, 152.4, cm, [...] Stop Date: 12/20/05 Status: Ordered Vitamin D 21228 iu oral capsule 50,000 International_Units, By Mouth, Daily, Refills 0, Maintenance, 09/06/20 13:12:00 EDT, Partialfill upon patient request if the prescription is for a schedule II opioid drug. Start Date: 09/06/20 Status: Ordered Problem List Condition Effective Dates Status Health Status Inform ant EtOH stopped 2011 going to [facility] [employer](Confirmed) 1 Active Bipolar depression(Confirmed) 2 Active Fibromyalgia(Confirmed) Active Rectal prolapse(Confirmed) Active 1st 2[facility] [place] Social History Social History Type Response Smoking Status 5-9 cigarettes (betw een 1/4 to 1/2 pack)/day in last 30 days;Smoker, current status unknown entered on: 09/16/19 Sex
--- OUTSIDE RECORDS SUMMARY | 2023-12-08 11:26 | XMS_ITS | Continuity of Care Document ---
Author Organization [facility] ter Address [address] [place] [id number]- Care Team Providers Care Petrographer Name Role Phone Os WILLOW WORKER, Analy Pruett Primary Care Physician Encounter [facility] Date(s): 11/17/23 - 11/17/[address] [address] Discharge Disposition: A-D/C Home Attending Physician: Sue [...] 6 Refills, Maintenance, 09/28/23 14:45:00 EDT, Inhaler, [facility], Partial fill upon patient request if [...] Gm, 3 Refills, Maintenance, 03/02/23 10:03:00 EDT, [facility], 155, cm, 02/22/23 9:42:00 EDT, Height, [...] tablet, 3 Refills, Maintenance, 08/30/23 14:41:00 EDT, [facility]/pharmacy #[id number], 154, cm, 05/04/23 12:20:00 EST, [...] days, # 14 capsule, 0 Refills, Acute 11/24/23 13:13:00 EDT, 11/17/23 13:13:00 EDT, Capsule, [facility]/pharmacy #[id number], Partial fill upon patient request ifthe prescription is for a schedule II opioid drug.,... Start Date: 11/17/23 Stop Date: 11/24/23 Status: Ordered Multivitamin 0 Refills, Maintenance, 09/10/23 [...] tablet, 4 Refills, Maintenance, 08/06/23 11:28:00 EST, [facility], 154, cm, 05/04/23 12:20:00 EST, Height, [...] 11 Refills, Maintenance, 09/28/23 14:45:00 EDT, Aerosol, [facility], Partial fill upon patient request if [...] Active Rectal prolapse Confirmed Active 1st 2Dr [facility] Vital Signs Most recent to oldest [Reference Range]: 1 2 Height 155 cm (11/17/23 3:35 PM) Weight 52.0 kg (11/17/23 3:34 PM) Oxygen Saturation [94-100 %] 93 % *L* (11/17/23 3:34 PM) Pulse Rate [55-90 bpm] 70 bpm (11/17/23 4:26 PM) 79 bpm (11/17/23 3:34 PM) Blood Pressure [90-138/55-84 mm Hg] 115/ 64mm Hg (11/17/23 4:26 PM) 89/44mm Hg *L* (11/17/23 3:34 PM) Respiratory Rate [16-30 br/min] 18 br/mi n (11/17/23 3:34 PM) Temperature [96.8-100.4 DegF] 98.0 DegF (11/17/23 3:34 PM) Mode of Delivery (Oxygen) Room air (11/17/23 3:34 PM) Blood pressure sites Arm, right (11/17/23 4:26 PM) Arm, right 1 (11/17/23 3:34 PM) Temperature Route Oral (11/17/23 3:34 PM) Dry Weight 52.0 kg (11/17/23 3:34 PM) Weight Obtained Via Standing scale (11/17/23 3:34 PM) Dry Weight Obtained Via Standing scale (11/17/23 3:34 PM) 1Result Comment: 27cm Social History Social History Type Response Smoking Status 10 or more cigarette s (1/2 pack or more)/day in last 30 days; Interested in cessation: No; Patient wants NRT during admission No entered on: 10/31/23 Sex Note * Jerardo RN, Montserrat Bess: PERFORM Event Display: Discharge/Transfer Note Hospital Authored Date: [id number] Nursing Discharge Note Entered On: 11/17/2023 18:35 EDT Performed On: 11/17/2023 18:35 EDT by Montserrat Kurtz RN Nursing Discharge Note 2 Discharge Time : 11/17/2023 18:29 EDT Discharge Level of Care at Discharge : Home/Residential/Foster Care Patient Left Unit Via : Ambulatory Patient Accompanied Off Unit with : Significant other DC Instructions Provided & Signed by Pt : Yes Patient Understands D/C Instructions : Yes Verbalized Understanding of D/C Plan By : Patient Patient Instructions Discharge Signed : Yes Did Pt have Specialty Bed or Wound Vac : No Montserrat Kurtz RN - 11/17/2023 18:35 EDT * Montserrat Kurtz RN: PERFORM Event Display: Patient Education/Instruction Authored Date: [id number] Inpatient Adult Discharge Instructions. [address] [address] Name: MARILIA SPANN : 1955?? Visit: 11/17/2023 15:09?? Current Date: 11/17/2023 18:19 ?? Account: [id number]?? Inpatient Adult Discharge Instructions We would like [...] and their families. Surveys are administered by [employer] ?? If further treatment with your primary care physician or another doctor is recommended, it is important for you to keep the appointment. Call your primary care physician or return to the Emergency Department immediately if your condition worsens, fails to improve, or new symptoms develop. If you need to find a doctor, you can call [facility] for a referral at [phone] or toll free at [email or web address] ([phone]) or log in to [email or web address].. ?? [facility], in keeping with [facility] guidance, no longer requires face masks [...] a health care gala of your choosing. [employer] is a website that allows you to securely view your medical information including your hospital discharge summary, office visit summaries, medications and follow-up visits. You can also request appointments, renew medications, and request access to your medical information using a health care gala of your choosing, or just ask a question. You can enroll at [email or web address] or register during your next office visit. You have been discharged from [facility], Patient Care Unit: [id number]??. If you have any questions regarding these instructions, including results of studies pending, afteryou leave, please call us and we will be happy to assist you 25/12. [facility] Your Care Team Attending Physician Sue Bond MD?? Consulting Providers Sue Bond MD?? Tests Performed Below is a partial list of the tests performed during your hospitalization. You may have had other tests and procedures not included in this list. Please discuss all test results with your provider. Complete Urinalysis (Urinalysis Complete)?? Urine Culture?? Primary Care Provider Os WILLOW WORKER, Analy Pruett? Advance Directive Health Care Proxy on File Yes - Health Care Proxy Discharge Vitals Temperature: 98 DegF Height: 155 cm Pulse Rate: 70 bpm Weight: 52 kg Respiratory Rate: 18 br/min ?? Systolic Blood Pressure: 115 mm Hg ?? Diastolic Blood Pressure: 64 mm Hg ?? Oxygen Saturation:??93 %??Low ?? Studies Pending All studies ordered during this hospital stay have been completed unless listed below. Please discuss all pending results with your provider listed above in these instructions. ?? Complete Urinalysis (Urinalysis Complete)?? Urine Culture?? What to do next Instructions From Your Doctor ?? Orders?? Scheduled Follow-Up Appointments 2023 12:30 PM EDT ?? Where: Interventional Radiology Status: Pending You Need to Schedule the Following Appointments Follow Up with??Sue Bond Where: [address] [place] [address], [address] [facility] [place] [address] [facility] (1) Follow Up with??call Dr. Bond on 11/18 for follow up Discharge Medications MARILIA SPANN :1955 Visit Date:11/17/2023 Medications: Please continue your medications until treatment is completed or stopped by your provider. Medications not listed below should be discontinued. Discuss any questions related to medications with your provider. What How Much When Instructions Next Dose Unchanged Acetaminophen Unchanged Albuterol (Albuterol (Eqv-ProAir HFA) 90 mcg/ inh inhalation aerosol) 2 puff(s) Inhalation Every 4 hours j44.9 ?? Unchanged bifidobacterium-lactobacillus (Probiotic Formula) 1 capsule Oral [...] 2 tab(s) Oral Daily at Bedtime Unchanged Lamotrigine (LaMICtal 25 mg oral tablet) 1 tab(s) Oral Twice a day Unchanged Multivitamin Unchanged Nitrofurantoin (Macrobid macrocrystals-monohydrate 100 mg oral capsule) 1 capsule Oral Twice a day Duration: 7 Days Unchanged olodaterol-tiotropium (Stiolto Respimat 60 ACT 2.5 mcg-2.5 mcg/ inh inhalation aerosol) 2 puff(s) Inhalation Every 24 hours j44.9 ?? Unchanged Omeprazole 40 Milligram Oral Daily Unchanged Ondansetron (Zofran ODT 4 mg oral tablet, disintegrating) 4 Milligram Oral 3 times a day Unchanged Oxybutynin (oxybutynin 5 mg oral tablet) [...] TAKE 1 TABLET BY MOUTH DAILY ?? Unchanged vibegron (Gemtesa 75 mg oral tablet) 1 tab(s) Prescription Given During Visit No new medications prescribed at time of discharge.?? Laboratory Results Below is a partial list of the most recent Laboratory test results done prior to this discharge. You may have had other tests and procedures not included in this list. Please discuss all test resultswith your provider. Allergies (NKA means No Known Allergies) NKA Problems Active Problems??(10) Bipolar depression?? Cervical disc disorder with radiculopathy?? Cervical facet syndrome?? EtOH stopped 2012 going to AA meetings?? Fibromyalgia?? Myofascial pain?? Neutrophilic leukocytosis?? Osteoarthritis?? Pancreatic insufficiency?? Rectal prolapse?? Education Materials Below is the list of Educational Leaflet Providered with your Discharge Instructions. [employer] Patient Education - Discharge Instructions: Caring for Your Leg Bag?? [employer] Patient Education - Discharge Instructions: Caring for Your Indwelling Urinary Catheter?? [employer] Patient Education - Rodgers Catheter Care?? Valuables and Belongings I fully understand and agree that [facility] accepts no responsibility for all my personal [...] encouraged to send valuables and belongings home. ? Other Discharge Information ? Pulmonary Rehab [...] are strongly encouraged to quit. Please call [facility] [employer] Link at [phone] or [phone] ([phone]) or log in to [email or web address] for referrals to smoking cessation programs. ?? 251 Suicide & Crisis Lifeline is available 25/12 if you or someone you know needs to find a reason to keep living. By calling 094 you'll be connected to a skilled, trained counselor at a crisis center in your area. INPATIENT DISCHARGE INSTRUCTIONS SIGNATURE PAGE TYLER SPANNLY Location:[facility] Registration Date and Time:11/17/2023 15:09 EDT Primary Care Physician: Analy Moscoso NP, Attending Physician: Sue Bond MD, I MARILIA SPANN, have received the above patient education materials/instructions and have verbalized understanding. If ambulance or transport services are being used I further acknowledge being given a choice of service. ?? If you need to contact me, please call me at this number: . Patient/Machine Boss Name: Patient/Machine Boss Signature: Relationship to Patient: Witness Name/Signature: Date: * Montserrat Kurtz RN: PERFORM, SIGN, VERIFY Event Display: Patient Education Handout Authored Date: [id number] * Montserrat Kurtz RN: PERFORM Event Display: Patient Education Leaflets Authored Date: [id number] Discharge Instructions: Caring for Your Leg Bag ?? [id number] Discharge Instructions: Caring for Your Leg Bag You are going home with a urinary catheter and collection device (drainage bag) in place. One type of collection device is called a leg bag.??This is a smaller drainage bag that you can wear on your leg??to collect urine during the day. The bag can fit under your clothing. You can move around with greater ease when using a leg bag instead of a larger collection bag. You were shown how to care for your catheter in the hospital. This sheet will help you remember those steps when you are at home. Home care ??? Wash your hands thoroughly before and after you care for your catheter or collection device. ??? Gather your supplies: o Alcohol wipes o Soap and water o Towel and washcloth o Leg strapand leg bag ??? Use soap and water to wash the area where your catheter enters your body. Rinse well. ??? Secure the bag riso to your leg: o Put the leg band high on your thigh with the product label pointing away from your leg. o Stretch the leg band in place and fasten. o Place the catheter tubing over the bag and secure it. You may secure it with a Velcro tab or other method, depending on the product you use. Be sure to leave enough loop in the catheter above the leg band so you won't pullon the tube. o Every 4 to 6 hours, reposition the band. This will prevent pressure from the elasticon your leg. You can do this by changing the bag to the other leg or by raising or lowering the legband. o Wash the band as often as needed. You can hand wash and dry the leg band. ??? Place the bagin the bag rios. ??? Clean the urine bag end of the catheter and your catheter port with an alcohol wipe. ??? Place a towel under the bag and port to keep urine from dripping onto your leg. ??? Before connecting the outlet valve at the bottom of the bag??to the catheter, make sure that it is firmly closed. Flip the valve up toward the bag. It needs to snap firmly in place. Don't tug on the tubing. Be gentle. ??? Attach the urine bag to the end of the catheter. Insert the connector snugly intothe catheter port. You can prevent dribbling urine by bending the catheter tubing just below the tip and holding it while you disconnect it from the catheter. Be careful to keep the tip clean while connecting the leg bag tubing to the catheter. This keeps germs from getting into the system. ??? Drain the bag when it's full. To drain the bag, flip the clamp downward. Direct the flexible outlet tube to control the flow of urine. You don???t have to disconnect the leg bag from the catheter to empty it. Raise your leg up to the edge of the toilet to reach the leg bag. Then you can empty the bag directly into the toilet. This way, you won???t need to bend over, which may be uncomfortable. ??? Keep the leg bag clean. Your healthcare provider may advise that you use a certain solution to clean the bag. Solutions that may be advised include: o 2 parts vinegar and 3 parts water o 1 tablespoon ofchlorine bleach mixed with a half cup of water ??? Ask your healthcare provider how often you should clean your bag and what solution you should use ???to reduce odor and keep the bag free of germs. ??? Shake the solution a bit and allow it to remain in the bag for 30 minutes. ??? Drain the solution and rinse the bag with cold tap water. ??? Hang the bag to drain and air dry. ??? Remember to keepthe drainage bag below the level of your bladder for correct drainage. ?? Follow-up Make a follow-up appointment as directed by your healthcare provider. ?? When to call your healthcare provider Call your??healthcare provider??right away if you have any of the following: ??? Redness, swelling,or warmth around the catheter entry site ??? Pus draining from your catheter entry site or into thecatheter tubing and bag ??? Blood, clots, or floating debris in the urine ??? Nausea and vomiting ??? Shaking chills ??? Fever above 100.4??F ( 38??C), or as directed by your healthcare provider ??? P ain that is not eased by medicine? Catheter that falls out or is dislodged ?? Last Reviewed Date: 2021 ?? 1920-5182 [employer]. All rights reserved. This information is not intended as a substitute for professional medical care. Always follow your healthcare professional's instructions. ?? * Jerardo PAREDES, Montserrat Bess: PERFORM Event Display: Patient Education Leaflets Authored Date: [id number] Discharge Instructions: Caring for Your Indwelling Urinary Catheter ?? [id number] Discharge Instructions: Caring for Your Indwelling Urinary Catheter You have been discharged with an indwelling urinary catheter. It's also called a Rodgers catheter. A catheter is a thin, flexible tube. An indwelling urinary catheter has 2 parts. The first part is a tube that drains urine from your bladder. The second part is a bag or other device that collects the urine. The most important thing to remember is that you want to prevent infection. Always wash your hands before handling your catheter bag or tubing. Draining the bedside bag ??? Wash your hands with soap and clean, running water. Or use an alcohol-based hand area development manager thatcontains at least 60% alcohol. ??? Hold the drainage tube over a toilet or measuring container. ???Unclamp the tube and let the bag drain. ??? Don???t touch the tip of the drainage tube or let it touch the toilet or container. ??? You don't need to rinse the bag or drainage tube. ?? Cleaning the drainage tube ??? When the bag is empty, clean the tip of the drainage tube with an alcohol wipe. ??? Clamp the tube. ??? Reinsert the tube into the pocket on the drainage bag. ?? Cleaning your skin and tubing ??? Clean the skin near the catheter with soap and water. ??? Wash your genital area from front to back. ??? Wash the catheter tubing. Always wash the catheter in the direction away from your body. ??? You will be told when and how to change your bag and tubing. ??? Don???t try to remove the catheter by yourself. ??? You may shower with the catheter in place. ?? Emptying a leg bag ??? Wash your hands. ??? Remove the stopper on the bag. ??? Drain the bag into the toilet or a measuring container. Don???t let the tip of the drainage tube touch anything, including your fingers. ??? Clean the tip of the drainage tube with alcohol. ??? Replace the stopper. ?? Follow-up care Make a follow-up appointment, or as directed by your healthcare provider. ?? When to call your healthcare provider Call your healthcare provider right away if you have any of the following: ??? Fever of 100.4??F ( 38??C) or higher, or as directed by your provider ??? Chills ??? Leakage around the catheter insertion site ??? Increased spasms (uncontrollable twitching)??in your??legs, belly (abdomen), or bladder. Occasional mild??spasms are normal. ??? Burning in the urinary tract, penis, or genital area ??? Nausea and vomiting ??? Aching in the lower back ??? Cloudy??or bloody (pink or red) urine, sediment or mucus in the urine, or??bad-smelling urine ?? Last Reviewed Date: 2022 ?? [employer]. All rights reserved. This information is not intended as a substitute for professional medical care. Always follow your healthcare professional's instructions. ?? * Jerardo PAREDES, Montserrat Bess: PERFORM Event Display: Patient Education Leaflets Authored Date: [id number] Rodgers Catheter Care ?? [id number] Rodgers Catheter Care A Rodgers catheter is a rubber tube that is placed through the urethra and into the bladder. The urethra is the opening where urine comes out. The catheter helps drain urine from the bladder. There is a small balloon on the end of the tube that is inflated after the catheter is put in place. This keeps the catheter from sliding out of the bladder. A Rodgers catheter is used when you are unable to pass urine (urinary retention). It's also used whenthere is loss of bladder control (incontinence). It's also used after bladder or prostate surgery. Home care ??? Finish taking any prescribed antibiotic medicine even if you are feeling better before then. ??? It's important to keep bacteria from getting into the collection bag. Don't disconnect the catheter from the collection bag. ??? Use a leg band to secure the drainage tube, so it doesn't pull on the catheter. ??? Don't try to pull or remove your catheter. This will injure your urethra. It must be removed by your healthcare provider or nurse. ??? Drain the collection bag when it becomesfull using the drain spout at the bottom of the bag. ?? Follow-up care Follow up with your healthcare provider, or as advised. This is for repeat urine testing and for catheter removal or replacement. ?? When to seek medical advice Call your healthcare provider right away if any of these occur: ??? Fever of 100.4??F (38??C) or higher, or as directed by your healthcare provider ??? Bladder pain or fullness ??? Abdominal swelling, nausea or vomiting, or back pain ??? Blood or urine leakage around the catheter ??? Bloody urine coming from the catheter (if a new symptom) ??? Catheter falls out ??? Catheter stops draining for 6 hours ??? Weakness, dizziness, or fainting ?? Last Reviewed Date: 2021 ?? [id number] [employer]. All rights reserved. This information is not [...] Reference Physician Member Role: PCP Address: Address: [address] [place] [address]- Care Team Related Persons Name: CAILIN MILLAN Address: home [address] [address] Name: BILLY PORTER Address: [place] [address]
--- OUTSIDE RECORDS SUMMARY | 2023-12-08 11:26 | XMS_ITS | Continuity of Care Document ---
Author Organization [facility] Address [address] [place] [address]- Care Team Providers Care Agriculture Engineer Name Role Phone Os CERNER ANALYST, Analy Pruett Primary Care Physician [phone] Encounter [facility] Date(s): 10/22/23 - 11/21/23 [facility] [address] [place] [address] Referring Physician: Avis Kelly Allergies, Adverse Reactions, [...] 6 Refills, Maintenance, 09/28/23 14:45:00 EDT, Inhaler, [facility], Partial fill upon patient request if [...] Gm, 3 Refills, Maintenance, 03/02/23 10:03:00 EDT, [facility], 155, cm, 02/22/23 9:42:00 EDT, Height, [...] tablet, 3 Refills, Maintenance, 08/30/23 14:41:00 EDT, [id number], 154, cm, 05/04/23 12:20:00 EST, Height, [...] 11/24/23 13:13:00 EDT, 11/17/23 13:13:00 EDT, Capsule, [facility] #[id number], Partial fill upon patient request ifthe [...] tablet, 4 Refills, Maintenance, 08/06/23 11:28:00 EST, [facility], 154, cm, 05/04/23 12:20:00 EST, Height, [...] 11 Refills, Maintenance, 09/28/23 14:45:00 EDT, Aerosol, [facility], Partial fill upon patient request if the [...] Active Rectal prolapse Confirmed Active 1st 2Dr [facility] Social History Social History Type Response Smoking Status 10 or more cigarette s (1/2 pack or more)/day in last 30 days; Interested in cessation: No; Patient wants NRT during admission No entered on: 10/31/23 Sex Patient Care team information Care Team Personnel Name: Marilin Del Castillo RN Position: [facility] RN Member Role: Primary Care Nurse Name: Olesya Shoemaker RN Position: [facility] RN Member Role: Primary Care Nurse Name: Analy Moscoso NP Position: Reference Physician Member Role: PCP Address: Address: [address] [place] [address]- Care Team Related Persons Name: CAILIN MILLAN Address: home [address] [address] Name: BILLY PORTER Address: [place] [address]
--- OUTSIDE RECORDS SUMMARY | 2023-12-08 11:26 | XMS_ITS | Continuity of Care Document ---
Author Organization [facility] Address [address] [place] [address]- Care Team Providers Care Principal Embedded Software Engineer Name Role Phone Os CAMOUFLAGE ASSEMBLER, Analy Pruett Primary Care Physician Encounter [facility] Date(s): 01/03/23 - 02/02/23 [facility] [address] [place] [address]- Allergies, Adverse Reactions, Alerts No Known Allergies [...] 42.5 Gm, 2 Refills, Maintenance, 06/01/22 15:02:00 [facility], 155, cm, 01/27/22 10:19:00 EDT, Height, [...] tablet, 2 Refills, Maintenance, 11/16/22 15:03:00 EDT, [facility], 155, cm, 09/20/22 8:51:00 EDT, Height, [...] & VOMITING, # 90 tablet, 0 Refills, [facility], 158, cm, 01/04/22 13:20:00 EDT, Height, [...] team information Care Team Personnel Name: Marilin De lCastillo RN Position: S RN Member Role: Primary Care Nurse Name: Olesya Shoemaker RN Position: S RN Member Role: Primary Care Nurse Name: Analy Moscoso NP Position: Reference Physician Member Role: PCP Address: Address: [address] [place] [address]- Care Team Related Persons Name: CAILIN MILLAN Address: home [address] [place] [address] Name: BILLY PORTRE Address: [place] [address]
--- OUTSIDE RECORDS SUMMARY | 2023-12-08 11:26 | XMS_ITS | Continuity of Care Document ---
Author Organization [facility] Address [address] [place] [address]- Care Team Providers Care Supervisor Stone Name Role Phone Abhishek Cárdensa DO Primary Care Physician [phone] Encounter [facility] Date(s): 07/24/22 - 08/23/22 [facility] [address] [place] [address]- Attending Physician: Lydia Parker DO Admitting Physician: Lydia Parker DO Allergies, Adverse Reactions, Alerts No Known [...] Gm, 2 Refills, Maintenance, 06/01/22 15:02:00 EST, [facility], 155, cm, 01/27/22 10:19:00 EDT, Height, [...] tablet, 1 Refills, Maintenance, 05/16/22 14:48:00 EST, [facility], 155, cm, 01/27/22 10:19:00 EDT, Height, [...] lozenge, 0 Refills, Maintenance, 01/04/22 17:02:00 EDT, [facility], Partial fill upon patient request ifthe prescription is for a schedule II opioid drug.,... Start Date: 01/04/22 Status: Ordered nicotine 7 mg/24 hr transdermal film, extended release 1 patch, Topically, Daily, Remove old patch before applying new patch. Rotate sites., # 30 patch, 0Refills, Maintenance, 01/04/22 17:02:00 EDT, Patch, [facility], Partial fill upon patientrequest if the [...] & VOMITING, # 90 tablet, 0 Refills, [facility], 158, cm, 01/04/22 13:20:00 EDT, Height, [...] Cervical disc disorder with radiculopathy Confirmed Active Bipolar depression 2 Confirmed Active [...] Team Personnel Name: Abhishek Cárdenas DO Position: [facility] Outreach Member Role: PCP Address: Address: [address] [place] [phone] Name: Marilin Del Castillo RN Position: S RN Member Role: Primary Care Nurse Name: Olesya Shoemaker RN Position: S RN Member Role: Primary Care Nurse Care Team Related Persons Name: CAILIN MILLAN Address: home [address] [place] [address] Name: BILLY PORTER Address: [place] [address]
--- OUTSIDE RECORDS SUMMARY | 2023-12-08 11:26 | XMS_ITS | Continuity of Care Document ---
Author Organization [facility] Address [address] [place] [address], [address] [address]- Care Team Providers Care Dry Chain Worker Name Role Phone Avi HERNANDEZ Abhishek Leiva Primary Care Physician [place] [facility] [place]s): 08/31/22 - 09/30/22 [facility] [employer] [facility] [address] [facility], [address] [place], [place] [address] Allergies, Adverse Reactions, Alerts No [...] 0 Refills, Maintenance, 01/25/22 8:56:00 EDT, Tablet, [facility], Partial fill upon patient [...] Gm, 2 Refills, Maintenance, 06/01/22 15:02:00 EST, [facility], 155, cm, 01/27/22 10:19:00 EDT, Height, [...] tablet, 1 Refills, Maintenance, 05/16/22 14:48:00 EST, [facility], 155, cm, 01/27/22 10:19:00 EDT, Height, [...] lozenge, 0 Refills, Maintenance, 01/04/22 17:02:00 EDT, [facility], Partial fill upon patient request ifthe prescription is for a schedule II opioid drug.,... Start Date: 01/04/22 Status: Ordered nicotine 7 mg/24 hr transdermal film, extended release 1 patch, Topically, Daily, Remove old patch before applying new patch. Rotate sites., # 30 patch, 0Refills, Maintenance, 01/04/22 17:02:00 EDT, Patch, [facility], Partial fill upon patientrequest if the [...] & VOMITING, # 90 tablet, 0 Refills, [facility], 158, cm, 01/04/22 13:20:00 EDT, Height, [...] Active Rectal prolapse Confirmed Active 1st 2Dr [facility] Social History Social History Type Response Smoking Status 5-9 cigarettes (betw een 1/4 to 1/2 pack)/day in last 30 days;Smoker, current status unknown entered on: 09/16/19 Sex Patient Care team information Care Team Personnel Name: Abhishek Cárdenas DO Position: [facility] Outreach Member Role: PCP Address: Address: [address] [place] [phone] Name: Marilin Del Castillo RN Position: [facility] RN Member Role: Primary Care Nurse Name: Olesya Shoemaker RN Position: [facility] RN Member Role: Primary Care Nurse Care Team Related Persons Name: CAILIN MILLAN Address: home [address] [place] [address] Name: BILLY PORTER Address: [place] [address]
--- OUTSIDE RECORDS SUMMARY | 2023-12-08 11:27 | XMS_ITS | Continuity of Care Document ---
Author Organization [facility] Address [address] [facility], 4t [place] [address]- Care Team Providers Care Carton Marker Machine Name Role Phone Avi HERNANDEZ Abhishek Leiva Primary Care Physician [phone] En[place] [facility] Date(s): 06/10/21 - 07/10/21 [employer] [facility] [address] [facility], 4th [place] [address]- Attending Physician: Justen Canela Admitting Physician: Justen [...] on arrival to [facility], # 2 tablet, Refills 0, Tot. Refills 0, Maintenance, 03/15/21 15:20:00 EDT, Instructions Replace Required Details, Route to Pharmacy Electronically, [facility] Start Date: 03/15/21 Status: Ordered Enablex 7.5 mg oral tablet, extended release 1 tablet = 7.5 mg, By Mouth, Daily, # 30 tablet, 4 Refills, Maintenance, 06/29/21 13:49:00 EST, ER Tablet, [facility], Partial fill upon patient request if the prescription is for a schedule II opioid drug., 152.4, cm, 05/20/21 11:24:00 EST,... Start Date: 06/29/21 Status: Ordered Estrace Vaginal Cream 0.1 mg/g = 1 Gm, Vaginally, Every Sunday and Sunday, # 42.5 Gm, 2 Refills, Maintenance, 05/06/21 9:13:00 EST, [id number], Partial fill upon patient request if the [...] 02/02/20 8:20:00 EDT, Route to Pharmacy Electronically, [facility] #[id number], 152.4, cm, 02/02/20 7:15:00 EDT, Height, 46.7, [...] Refills, Maintenance, 03/16/20 12:51:00 EDT, ER Tablet, [facility] #[id number], 152.4, cm, 02/17/20 10:25:00 EDT, Height, 46.9, [...] tablet, 0 Refills, Maintenance, 03/10/20 11:21:00 EDT, [facility] #[id number], 152.4, cm, 02/17/20 10:25:00 EDT, Height, 46.9, kg, 02/17/20 10:25:00 EDT, Dry Weight Start Date: 03/10/20 Status: Ordered oxyCODONE 5 mg oral capsule 1 capsule = 5 mg, By Mouth, Every 6 hours, PRN as needed for pain, # 7 capsule, 0 Refills, Maintenance, 02/02/20 8:19:00 EDT, Capsule, [facility] #[id number], Partial fill upon patient request, 152.4, cm, [...] Stop Date: 12/20/05 Status: Ordered Vitamin D 87642 iu oral capsule 50,000 International_Units, By Mouth, [...] Fibromyalgia(Confirmed) Active Rectal prolapse(Confirmed) Active 1st 2Dr [facility] [place] Social History Social History Type Response Smoking Status 5-9 cigarettes (betw een 1/4 to 1/2 pack)/day in last 30 days;Smoker, current status unknown entered on: 09/16/19 Sex
--- OUTSIDE RECORDS SUMMARY | 2023-12-08 11:27 | XMS_ITS | Continuity of Care Document ---
Author Organization [facility] Address [address] [place] [address] [address] [place] [address]- Care Team Providers Care Ammonia Distiller Name Role Phone Michael MAHER, Tasha Mendez Primary Care Physician En[place] [facility] Date(s): 07/31/19 - 08/07/[address] [place] [address]- [facility] Encounter Diagnosis Levator syndrome(Discharge Diagnosis) - 07/31/19 Attending Physician: Jose JIMENEZ, Korin Vernon Referring Physician: Danis Mobley MD Allergies, Adverse Reactions, Alerts Substance Reaction Severity Status Dilaudid skin rashes/ hives Active OxyContin ITCHY SKIN Persistent Moderate Active Percocet 7.5/325 itchy skin Persistent Moderate Acti ve Medications clonazepam 0.5 mg oral tablet 0.5, mg, 1, tablet, By Mouth, 2 times a day, Scheduled / PRN, 0, 0, 01/02/07 16:06:03, anxiety, Print CORY Number, [id number] Start Date: 01/02/07 Status: Ordered Creon By [...] 09/16/14 14:35:58 Start Date: 09/16/14 Status: Ordered Pt.'s Own Meds Maintenance, 09/16/14 [...] Date: 11/22/05 Stop Date: 12/20/05 Status: Ordered Zantac 0 Refills, Maintenance, 03/18/19 14:05:15 EDT Start Date: 03/18/19 Status: Ordered Problem List Diagnosis Diagnosis Type Effective Dates Health Status Cl inical Service Informant Levator syndrome Discharge Diagnosis 07/31/19 Vital Signs Most recent to oldest [Reference Range]: 1 Height 152.4 cm (07/31/19 12:08 PM) Weight 46.2 kg (07/31/19 12:08 PM) Pulse Rate [55-90 bpm] 81 bpm (07/31/19 12:08 PM) Body Mass Index [18.5-24.99] 19.89 (07/31/19 12:08 PM) Blood Pressure [90-138/55-84 mm Hg] 109/ 68mm Hg (07/31/19 12:08 PM) Temperature [96.8-100.4 DegF] 98.7 DegF (07/31/19 12:08 PM) Blood pressure sites Arm, right (07/31/19 12:08 PM) Temperature Route Temporal (07/31/19 12:08 PM) Weight Obtained Via Standing scale (07/31/19 12:08 PM) Social History Social History Type Response Smoking Status Current every day mandie lee entered on: 09/16/14 Sex
--- OUTSIDE RECORDS SUMMARY | 2023-12-08 11:27 | XMS_ITS | Continuity of Care Document ---
Author Organization [facility] Address [address] [place] [address]- Care Team Providers Care Staffing Branch Manager Name Role Phone Os MOBILE PATROL OFFICER, Analy Pruett Primary Care Physician [facility] Date(s): 11/15/22 - 04/17/23 [facility] [address] [place] [address] Discharge Disposition: A-D/C Home Attending Physician: Emilia De La Rosa MD Admitting Physician: Emilia De La Rosa MD Referring Physician: Os MOBILE PATROL OFFICERAnaly Allergies, Adverse Reactions, Alerts No Known Allergies [...] Gm, 3 Refills, Maintenance, 03/02/23 10:03:00 EDT, [facility], 155, cm, 02/22/23 9:42:00 EDT, Height, [...] tablet, 2 Refills, Maintenance, 11/16/22 15:03:00 EDT, [facility], 155, cm, 09/20/22 8:51:00 EDT, Height, [...] & VOMITING, # 90 tablet, 0 Refills, [facility], 158, cm, 01/04/22 13:20:00 EDT, Height, 45.8, kg, 03/08/21 15:15:00 EDT, Dry Weight Start Date: 01/12/22 Status: Ordered oxybutynin 5 mg oral tablet 1 tablet = 5 mg, By Mouth, Daily at bedtime, # 30 tablet, 5 Refills, Maintenance, 03/02/23 10:12:00EDT, [facility], Partial fill upon patient request if the prescription is for a schedule II opioid drug., 155, cm, 02/22/23 9:42:00 EDT, [facility] Start Date: 03/02/23 Status: Ordered Probiotic Formula [...] Rectal prolapse Confirmed Active 1st 2Dr [facility] Social History Social History Type Response Smoking Status 5-9 cigarettes (betw een 1/4 to 1/2 pack)/day in last 30 days;Smoker, current status unknown entered on: 09/16/19 Sex Patient Care team information Care Team Personnel Name: Marilin Del Castillo RN Position: [facility] RN Member Role: Primary Care Nurse Name: Olesya Shoemaker RN Position: [facility] RN Member Role: Primary Care Nurse Name: Analy Moscoso NP Position: Reference Physician Member Role: PCP Address: Address: [address] [place] [address]- Name: Emilia De La Rosa MD Position: [facility] Physician - Oncology Med Service: Hematology & Oncology Member Role: Admitting Physician Address: Address: [address] [place] [address] [place] [address]- Care Team Related Persons Name: CAILIN MILLAN Address: home [address] [place] [address] Name: BILLY PORTER Address: [place] [address]
--- OUTSIDE RECORDS SUMMARY | 2023-12-08 11:27 | XMS_ITS | Continuity of Care Document ---
Author Organization [facility] Address [address] [place] [address]- Care Team Providers Care Internet Ecommerce Specialist Name Role Phone Abhishek Cárdenas DO Primary Care Physician [facility] [id number] Date(s): 11/22/20 - 01/20/21 [facility] [address] [place] [address]- Attending Physician: Catie Jon MD Admitting Physician: Catie Jon MD Referring Physician: oRsita MAHER, Yonatan Scott Allergies, Adverse Reactions, Alerts Substance Reaction Severity [...] x 1 if needed on arrival to [facility], # 2 tablet, Refills 0, Tot. Refills 0, Maintenance, 01/10/21 8:08:00 EDT, Instructions Replace Required Details, Route to Pharmacy Electronically, [facility]. Start Date: 01/10/21 Status: Ordered Famotidine = [...] 02/02/20 8:20:00 EDT, Route to Pharmacy Electronically, [facility] #[id number], 152.4, cm, 02/02/20 7:15:00 EDT, Height, 46.7, kg, 02/02/20 7:20:00 E... Start Date: 02/02/20 Status: Ordered mirabegron 25 mg oral tablet, extended release 1 tablet = 25 mg, By Mouth, Daily, do not crush or chew, # 30 tablet, 5 Refills, Maintenance, 03/16/20 12:51:00 EDT, ER Tablet, [facility] #[id number], 152.4, cm, 02/17/20 10:25:00 EDT, Height, 46.9, [...] tablet, 0 Refills, Maintenance, 03/10/20 11:21:00 EDT, [facility] #[id number], 152.4, cm, 02/17/20 10:25:00 EDT, Height, 46.9, kg, 02/17/20 10:25:00 EDT, Dry Weight Start Date: 03/10/20 Status: Ordered ondansetron 4 mg oral tablet 1 tablet = 4 mg, By Mouth, Every 8 hours, PRN Nausea & Vomiting, for 30 days, # 90 tablet, 2 Refills, Acute 02/28/21 16:53:00 EDT, 11/30/20 16:53:00 EDT, Tablet, [facility], Partial fill upon patient request if the prescription is for a sche... Start Date: 11/30/20 Stop Date: 02/28/21 Status: Ordered oxyCODONE 5 mg oral capsule 1 capsule = 5 mg, By Mouth, Every 6 hours, PRN as needed for pain, # 7 capsule, 0 Refills, Maintenance, 02/02/20 8:19:00 EDT, Capsule, [facility] #[id number], Partial fill upon patient request, 152.4, cm, [...] Stop Date: 12/20/05 Status: Ordered Vitamin D 86329 iu oral capsule 50,000 International_Units, By Mouth, [...] prolapse(Confirmed) Active 1st 2Dr [facility] Social History Social History Type Response Smoking Status 5-9 cigarettes (betw een 1/4 to 1/2 pack)/day in last 30 days;Smoker, current status unknown entered on: 09/16/19 Sex
--- OUTSIDE RECORDS SUMMARY | 2023-12-08 11:27 | XMS_ITS | Continuity of Care Document ---
Author Organization [facility] Address [address] [place] [address]- Care Team Providers Care Family And Consumer Sciences Professor Name Role Phone Avi HERNANDEZ Abhishek Cali Primary Care Physician [phone] [place] [facility] 02/14/21 - 03/16/21 [facility] [address] [place] [address]- Allergies, Adverse Reactions, Alerts Substance Reaction Severity [...] Electronically, [facility] Start Date: 03/15/21 Status: Ordered Famotidine = 40 mg, By [...] 02/02/20 8:20:00 EDT, Route to Pharmacy Electronically, [facility] #[id number], 152.4, cm, 02/02/20 7:15:00 EDT, Height, 46.7, [...] Refills, Maintenance, 03/16/20 12:51:00 EDT, ER Tablet, [facility] #[id number], 152.4, cm, 02/17/20 10:25:00 EDT, Height, 46.9, [...] tablet, 0 Refills, Maintenance, 03/10/20 11:21:00 EDT, [facility] #[id number], 152.4, cm, 02/17/20 10:25:00 EDT, Height, 46.9, kg, 02/17/20 10:25:00 EDT, Dry Weight Start Date: 03/10/20 Status: Ordered ondansetron 4 mg oral tablet 1 tablet = 4 mg, By Mouth, Every 8 hours, PRN Nausea & Vomiting, for 30 days, # 90 tablet, 2 Refills, Acute 05/22/21 23:02:00 EST, 02/21/21 23:02:00 EDT, Tablet, [facility] #[id number], Partial fill upon patient request if the prescription is for... Start Date: 02/21/21 Stop Date: 05/22/21 Status: Ordered oxyCODONE 5 mg oral capsule 1 capsule = 5 mg, By Mouth, Every 6 hours, PRN as needed for pain, # 7 capsule, 0 Refills, Maintenance, 02/02/20 8:19:00 EDT, Capsule, [facility] #[id number], Partial fill upon patient request, 152.4, cm, [...] Stop Date: 12/20/05 Status: Ordered Vitamin D 14854 iu oral capsule 50,000 International_Units, By Mouth, [...]
--- OUTSIDE RECORDS SUMMARY | 2023-12-08 11:27 | XMS_ITS | Continuity of Care Document ---
Author Organization [facility] Address [address] [place] [address]- Care Team Providers Care Head Knitting Machine Fixer Name Role Phone Angeles Orr MD Primary Care Physician En[facility] [place] Date(s): 02/02/20 - 02/02/[address] [address]- [facility] Discharge Disposition: A-D/C Home Attending Physician: Sue Bond MD Admitting Physician: Sue Bond MD Referring Physician: Sue Bond MD Allergies, Adverse Reactions, Alerts Substance Reaction [...] 02/02/20 8:20:00 EDT, Route to Pharmacy Electronically, [facility] #[id number], 152.4, cm, 02/02/20 7:15:00 EDT, Height, 46.7, [...] tablet, 5 Refills, Maintenance, 09/19/19 10:56:00 EDT, [facility] #[id number], 152.4, cm, 07/31/19 12:08:00 EST, Height, 45.7, [...] 0 Refills, Maintenance, 02/02/20 8:19:00 EDT, Capsule, [facility] #[id number], Partial fill upon patient request, 152.4, cm, [...] prolapse(Confirmed) Active 1st 2Dr [facility] Vital Signs Most recent to oldest [Reference Range]: 1 2 3 Height 152.4 cm (02/02/20 7:15 AM) 152.4 cm (01/29/20 9:51 AM) Weight 44.5 kg (02/02/20 7:15 AM) 44.5 kg (01/29/20 9:51 AM) Oxygen Saturation [94-100 %] 97 % (02/02/20 9:00 AM) 94 % (02/02/20 8:45 AM) 95 % (02/02/20 8:30 AM) Pulse Rate [55-90 bpm] 67 bpm (02/02/20 7:15 AM) Body Mass Index [18.5-24.99] 19.16 (02/02/20 7:15 AM) 19.16 (01/29/20 9:51 AM) Blood Pressure [90-138/55-84 mm Hg] 119/45mm Hg (02/02/20 9:00 AM) 101/85mm Hg (02/02/20 8:45 AM) 126/50mm Hg (02/02/20 8:30 AM) Respiratory Rate [16-30 br/min] 16 br/min (02/02/20 10:51 AM) 13 br/min *L* (02/02/20 9:00 AM) 16 br/min (02/02/20 8:45 AM) Temperature [96.8-100.4 DegF] 97.3 DegF (02/02/20 8:30 AM) 97.9 DegF (02/02/20 7:15 AM) Mode of Delivery (Oxygen) Room air (02/02/20 9:00 AM) Room air (02/02/20 8:45 AM) Room air (02/02/20 8:30 AM) Blood pressure sites Arm, left (02/02/20 8:45 AM) Arm, left (02/02/20 8:30 AM) Arm, left (02/02/20 7:15 AM) Temperature Route Temporal (02/02/20 8:30 AM) Temporal (02/02/20 7:15 AM) Dry Weight 46.7 kg (02/02/20 7:15 AM) 44.5 kg (01/29/20 9:51 AM) Weight Obtained Via Patient/family state d (01/29/20 9:51 AM) Dry Weight Obtained Via Standing scale (02/02/20 7:15 AM) Patient lift hanging scale (01/29/20 9:51 AM) Social History Social History Type Response Smoking Status 5-9 cigarettes (betw een 1/4 to 1/2 pack)/day in last 30 days;Smoker, current status unknown entered on: 09/16/19 Sex
--- OUTSIDE RECORDS SUMMARY | 2023-12-08 11:27 | XMS_ITS | Continuity of Care Document ---
Author Organization [facility] Address [address] [place] [address]- Care Team Providers Care Mechanical Repair Worker Name Role Phone Abhishek Cárdenas DO Primary Care Physician [phone] [place] [facility] [place](s): 09/27/22 - 10/27/22 [facility] [address] [place] [address]- Attending Physician: AdmJusten william Admitting Physician: AdmtrJusten Referring Physician: Admtr, Ar8 [...] 0 Refills, Maintenance, 01/25/22 8:56:00 EDT, Tablet, [facility], Partial fill upon patient [...] Gm, 2 Refills, Maintenance, 06/01/22 15:02:00 EST, [facility], 155, cm, 01/27/22 10:19:00 EDT, Height, [...] tablet, 1 Refills, Maintenance, 10/17/22 12:58:00 EDT, [facility], 155, cm, 09/20/22 8:51:00 EDT, Height, [...] lozenge, 0 Refills, Maintenance, 01/04/22 17:02:00 EDT, [facility], Partial fill upon patient request ifthe prescription is for a schedule II opioid drug.,... Start Date: 01/04/22 Status: Ordered nicotine 7 mg/24 hr transdermal film, extended release 1 patch, Topically, Daily, Remove old patch before applying new patch. Rotate sites., # 30 patch, 0Refills, Maintenance, 01/04/22 17:02:00 EDT, Patch, [facility], Partial fill upon patientrequest if the [...] & VOMITING, # 90 tablet, 0 Refills, [facility], 158, cm, 01/04/22 13:20:00 EDT, Height, [...] Team Personnel Name: Abhishek Cárdenas DO Position: [facility] Outreach Member Role: PCP Address: Address: [address] [place] [phone] Name: Marilin Del Castillo RN Position: S RN Member Role: Primary Care Nurse Name: Olesya Shoemaker RN Position: S RN Member Role: Primary Care Nurse Care Team Related Persons Name: CAILIN MILLAN Address: home [address] [place] [address] Name: BILLY PORTER Address: [place] [address]
--- OUTSIDE RECORDS SUMMARY | 2023-12-08 11:27 | XMS_ITS | Patient Health Record ---
[facility] Address [address] [place] [address] Care Team Providers Care Dry Wall Installer Name Role Phone Danis, Analy Primary Care Provider Dre Nuñez Unavailable [phone] ALLERGIES Allergen (clinical drug ingredient) Drug/Non Drug Allergy documented on EMR Reaction Allergy Type Onset Date Status alendronate Alendronate Sodium Unknown Drug Allergy Active oxycodone OxyContin Unknown Drug Allergy Active acetaminophen / oxycodone Percocet Unknown Drug Allergy Active REASON FOR REFERRAL Diagnosis 1 Pain in left toe(s) (M79.675) Diagnosis 2 Tinea unguium (B35.1 ) Referring Provider First Name Abhishek Referring Provider [facility] Referred Provider Dre Pearson Referred Address [address] [place], [place],[address], Referred Provider Specialty Podiatry Referral Priority Routine MEDICATIONS Medication SIG (Take, Route, Frequency, Duration) Notes Start Date End Date Status Calcium 500 MG 1 tablet with meals Orally Twice a day for 30 day(s) Active Lidocaine 4 % as directed Externally Not-Taking clonazePAM 1 MG 1 tablet Orally Once a day Active Cholecalciferol 50 MCG (1999 UT) 1 capsule Orally Once a day for 30 day(s) Vitamin D3 Active MiraLax 17 GM 1 packet mixed with 8 ounces of fluid Orally Once a day for 30 day(s) Not-Taking Mucinex 600 MG 1 tablet as needed Orally every 12 hrs Not-Taking Pepcid 40 MG 1 tablet at bedtime Orally Once a day for 30 day(s) Active clonazePAM 0.5 MG 1 tablet at bedtime Orally Once a day 08/28/2013 Not-Taking Sucralfate 1 GM 1 tablet on an empty stomach Orally Twice a day for 30 day(s) Active Sudafed 30 MG 2 tablets as needed Orally every 6 hrs PRN Active Systane Complete 0.6 % as directed Ophthalmic Active DULoxetine HCl 60 MG 1 capsule Orally Twice a day Active Peppermint Oil 50 MG as directed Orally Not-Taking Fluticasone Propionate 50 MCG/ACT 1 spray in each nostril Nasally Once a day for 30 day(s) Active ProAir HFA 108 (90 Base) MCG/ACT 1 puff as needed Inhalation every 4 hrs Not-Taking Gabapentin 600 MG as directed Orally 08/28/2013 Active Keppra 1000 MG 1 tablet Orally every 12 hrs 08/28/2013 Not-Taking Multivitamin with iron fum/folic acid, 7.5 mg Active [place] Carbonate 300 MG Orally 08/28/2013 Not-Taking traZODone HCl 100 MG 3 tablet at bedtime Orally Once a day Active Zofran 4 MG 1 tablet Orally Once a day for 30 day(s) PRN Active Urea 40 % 1 application as needed Externally Twice a day for 30 days 06/05/2023 Active Ascorbic Acid 250 MG 1 tablet Orally Once a day for 30 day(s) Not-Taking Atomoxetine HCl 18 MG as directed Orally Not-Takin g Diclofenac Sodium 1 % as directed Externally Not-Taking Atorvastatin Calcium 20 MG 1 tablet Orally Once a day for 30 day(s) + Ubidecarenone 100mg 1 cap Active Florastor 250 MG 1 capsule Orally Twice a day for 30 day(s) Not-Taking Mirtazapine Not-Taki ng ASO Ankle/Foot Stablizing AFO As directed Wear Daily for as needed 02/13/2023 Not-Taking Nabumetone 500 MG 1 tablet Orally Twice a day for 30 day(s) Not-Taking Shingrix 50 MCG/0.5ML as directed Intramuscular Not-Taking IMMUNIZATIONS Vaccine Route Administration Date Status Comme nts COVID-19 Moderna Vaccine Unknown 03/31/2021 Administered 1st dose: 08/06/2020 2nd dose: 09/03/2020 SOCIAL HISTORY Tobacco Use: Social History Observation Description Date Details (start date - stop date) Current Smoker NA - NA Sex Assigned At : Social History Observation Description Sex Assigned At Unknown Tobacco Use/Smoking Question Answer Notes Are you a: current smoker How often do you smoke cigarettes? every day How many cigarettes a day do you smoke? 11-20 How soon after you wake up do you smoke your fir st cigarette? 6-30 minutes Alcohol Screen Question Answer Notes Did you have a drink containing alcohol in the p ast year? No Points 0 Interpretation Negative Tobacco use other than smoking: Question Answer Notes Are you an other tobacco user? 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, with unspecified presence of clinical manifestation (I70.203) Active confirmed Atherosclerosis of chicken [place] arteries of the extremities ([id number]) VITAL SIGNS Blood pressure diastolic 68 mm Hg 02/13/2023 Height 5ft 1in in 09/11/2023 Blood pressure systolic 105 mm Hg 02/13/2023 Weight 118 lbs 09/11/2023 BMI 22.29 kg/m2 09/11/2023 PROCEDURES Procedure Date Ordered Date Performed Result Body Sit e 97311-PCNKKBS NAIL, 6 OR MORE 02/13/2023 N/A 00658-JZUQ SKIN LESIONS, OVER 4 02/13/2023 N/A 22034-UAYBHPM NAIL, 6 OR MORE 06/05/2023 N/A 20475-RCTE SKIN LESIONS, OVER 4 06/05/2023 N/A 72933-UUODDXG NAIL, 6 OR MORE 09/11/2023 N/A 79740-YWAH SKIN LESIONS, OVER 4 09/11/2023 N/A Encounters Encounter Location Date Provider Diagnosis [facility] [place] [address] [place] [address] 12/08/2022 Dre Pearson [facility] [address] [address] 02/13/2023 Dre Pearson Atherosclerosis of chicken ranch artery of both lower extremities, with unspecified presence of clinical manifestation I70.203 ; Onychomycosis B35.1 ; Pain of toe of right foot M79.674 ; Pain of toe of left foot M79.675 ; Acute left ankle pain M25.572 ; Sprain of anterior talofibular ligament of left ankle, initial encounter S93.492A and Sprain of calcaneofibular ligament of left ankle, initial encounter S93.412A [facility] [address] [facility] [address] [place] [address] 05/21/2023 Dre Pearson [facility] [address] 05/22/2023 Dre Michel [address] [address] 06/05/2023 Dre Pearson Atherosclerosis of chicken ranch artery of both lower extremities, with unspecified presence of clinical manifestation I70.203 ; Tinea unguium B35.1 ; Pain in right toe(s) M79.674 ; Pain in left toe(s) M79.675 and Xerosis of skin L85.[address] [address] 09/11/2023 Dre Pearson Atherosclerosis of chicken ranch artery of both lower extremities, with unspecified presence of clinical manifestation I70.203 ; Tinea unguium B35.1 ; Pain in right toe(s) M79.674 ; Pain in left toe(s) M79.675 and Xerosis of skin L85.3 ASSESSMENTS Encounter Date Diagnosis Assessment Notes Treatment Notes Treatment Clinical Notes 02/13/2023 Atherosclerosis of chicken ranch artery of both lower extremities, with unspecified presence of clinical manifestation (ICD-10 - I70.203) 06/05/2023 Tinea unguium (ICD-1 0 - B35.1) 06/05/2023 Atherosclerosis of chicken ranch artery of both lower extremities, with unspecified presence of clinical manifestation (ICD-10 - I70.203) 09/11/2023 Tinea unguium (ICD-1 0 - B35.1) 09/11/2023 Atherosclerosis of chicken ranch artery of both lower extremities, with unspecified presence of clinical manifestation (ICD-10 - I70.203) 02/13/2023 Onychomycosis (ICD-1 0 - B35.1) 09/11/2023 Pain in right toe(s) (ICD-10 - M79.674) 06/05/2023 Pain in right toe(s) (ICD-10 - M79.674) 09/11/2023 Pain in left toe(s) (ICD-10 - M79.675) 06/05/2023 Pain in left toe(s) (ICD-10 - M79.675) 02/13/2023 Pain of toe of right foot (ICD-10 - M79.674) 02/13/2023 Pain of toe of left foot (ICD-10 - M79.675) 06/05/2023 Xerosis of skin (ICD-10 - L85.3) 09/11/2023 Xerosis of skin (ICD-10 - L85.3) 02/13/2023 Acute left ankle nilo n (ICD-10 - M25.572) 02/13/2023 Sprain of anterior talofibular ligament of left ankle, initial encounter (ICD-10 - S93.492A) Dx New problem, Prognosis Uncertain (4) 02/13/2023 Sprain of calcaneofibular ligament of left ankle, initial encounter (ICD-10 - S93.412A) Dx New problem, Prognosis Uncertain (4) PLAN OF TREATMENT Pending Test Test Name Order Date X ray : Ankle, left 3V 02/13/2023 X ray : Foot, right 3V 06/21/2021 90050-SPNAIJF NAIL, 6 OR MORE 06/21/2021 57949-GIRZGBT NAIL, 6 OR MORE 02/13/2023 20989-QHDAQIC NAIL, 6 OR MORE 06/05/2023 33978-VWVBSTW NAIL, 6 OR MORE 09/11/2023 62479-XZFXJII NAIL, 6 OR MORE 09/20/2021 36487-HQUUOQJ NAIL, 6 OR MORE 12/27/2021 99513-XTQQEIO NAIL, 6 OR MORE 04/04/2022 57499-HPZQTQK NAIL, 6 OR MORE 08/29/2022 65604-Kdbxbsyu Plate 08/29/2022 93118-AIXD SKIN LESIONS, OVER 4 02/14/20 23 77425-DXIW SKIN LESIONS, OVER 4 09/11/19 24 67624-EHEZ SKIN LESIONS, OVER 4 06/05/19 24 48978-ISVR SKIN LESIONS, OVER 4 08/30/19 23 21973-CVGF SKIN LESIONS, OVER 4 04/04/20 22 55037-NDVQ SKIN LESIONS, OVER 4 12/28/19 97025-MYNO SKIN LESIONS, OVER 4 09/21/19 59893-LAMD SKIN LESIONS, OVER 4 06/21/19 10764-Nkbivrxdb, Toes 06/21/2021 Next Appt Details Provider Name:Dre Pearson , 12/18/2023 10:30:00 AM, [address] [place] [address], [address], Insurance Providers Payer Name Payer Address Payer Phone Subscriber Number Group Number Insured Name Patient Relationship to Insured Coverage Start Date Coverage End Date [facility] [address] [place] [id number] [id number] Ya Brantley Self - patient is the insured MEDICAL (GENERAL) HISTORY Medical History History ICD Code Anxiety Arthritis Back,Hip,and Knee pain Cholesterol Depression Osteoporosis Psychiatric disorder Measles Mumps Chicken pox Surgical History Surgery Date(Month/Year) partial hysterectomy trigger finger release carpal tunnel surgery bowel surgery 2020 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
--- OUTSIDE RECORDS SUMMARY | 2023-12-08 11:27 | XMS_ITS | Continuity of Care Document ---
Author Organization [facility] Address [address], [address] [place] [address]- Care Team Providers Care Drier And Pulverizer Tender Name Role Phone Avi Abhishek Leiva Primary Care Physician [phone] Encounter [facility] [place] [place] Date(s): 08/11/21 - 09/10/21 [facility] [address] [place], [place] [address] Allergies, Adverse Reactions, Alerts No [...] 1 Refills, Maintenance, 08/08/21 14:43:00 EST, ERTablet, [facility], Partial fill upon patient request if the prescription is for a schedule II opioid drug., 152.4, cm, 07/19/21 12:34:00 EST... Start Date: 08/08/21 Status: Ordered estradiol 0.1 mg/g vaginal cream See Instructions, APPLY 1 GRAM VAGINALLY EVERY SUNDAY AND SUNDAY, # 42.5 Gm, 2 Refills, [facility], 152.4, cm, 07/19/21 12:34:00 EST, Height, [...] 02/02/20 8:20:00 EDT, Route to Pharmacy Electronically, [facility] #[id number], 152.4, cm, 02/02/20 7:15:00 EDT, Height, 46.7, [...] Maintenance, 03/16/20 12:51:00 EDT, ER Tablet, [facility] #[id number], 152.4, cm, 02/17/20 10:25:00 EDT, Height, 46.9, [...] tablet, 0 Refills, Maintenance, 03/10/20 11:21:00 EDT, [facility] #[id number], 152.4, cm, 02/17/20 10:25:00 EDT, Height, 46.9, kg, 02/17/20 10:25:00 EDT, Dry Weight Start Date: 03/10/20 Status: Ordered oxyCODONE 5 mg oral capsule 1 capsule = 5 mg, By Mouth, Every 6 hours, PRN as needed for pain, # 7 capsule, 0 Refills, Maintenance, 02/02/20 8:19:00 EDT, Capsule, [facility] #[id number], Partial fill upon patient request, 152.4, cm, [...] Refills, Maintenance, 08/11/21 12:30:00 EST, CR Capsule, [facility], Partial fill upon patient request if the prescription is for aschedule II opioid drug., 152.4, cm, 07/19/21 12:34... Start Date: 08/11/21 Status: Ordered Vitamin D 49790 iu oral capsule 50,000 International_Units, By Mouth, [...] Fibromyalgia(Confirmed) Active Rectal prolapse(Confirmed) Active [facility] Social History Social History Type Response Smoking Status 5-9 cigarettes (betw een 1/4 to 1/2 pack)/day in last 30 days;Smoker, current status unknown entered on: 09/16/19 Sex
== END 2023-12-08 12:24 | disposition home or self-care (01) ==
PROVIDERS: PCP Nurse Practitioner; Visit Provider Physician Assistant Medical
DX: K13.0 Diseases of lips (principal)
CPT/HCPCS: 99214

== ENCOUNTER 2023-12-08 12:21 | Outpatient (REF) | payer MEDICARE, MEDICAID, SELFPAY | END 2023-12-08 12:22 | disposition home or self-care (01) | LOC: HO.HMGCLDS 12:21 | PROVIDERS: Visit Provider Physician Assistant Medical | DX: Z13.89 Encounter for screening for other disorder (principal) ==